=== PATIENT | male | born 1955 | race Caucasian/White ===

== ENCOUNTER → 2019-01-19 | Outpatient (CLI) | payer BC ==
--- NOTE | 2019-01-20 10:39 | US ---
LOWER EXTREMITY VENOUS INSUFFICIENCY CLINICAL HISTORY: E11.621 TYEP 2 DIABETIC MELLITUS W/FOOT ULCER. Nonhealing wound. Diabetic. SIDE PERFORMED: Bilateral 1) Color flow is present and patency is documented in the following vessels. No DVT or SVT is noted . EIV Common Femoral Vein Deep Femoral Vein Femoral Vein Popliteal Vein Proximal Calf Veins Greater Saph Vein Upper Small Saph Vein 2) There is venous reflux noted at the following venous levels: None IMPRESSION: 1. No deep venous thrombosis or venous reflux to the bilateral lower extremity veins.
--- NOTE | 2019-01-26 09:24 | P.ARTDOP ---
Arterial Doppler LOWER EXTREMITY ARTERIAL DOPPLER: DATE OF SERVICE: 01/19/2019 Reason for study: Diabetic ulcer right foot. Doppler waveforms: Multiphasic bilaterally throughout. Pulse volume recording: Normal configurations, right foot not done. Pressure gradients: None. Ankle-brachial indices: Nonoccluded bilaterally. Toe pressures: [] on the right, 131 on the left Impression: Normal study.
== END | disposition home or self-care (01) ==
LOC: RADUSWWP 12:35
PROVIDERS: ATTEND Thoracic Surgery (Cardiothoracic Vascular Surgery)
DX: E11.621 Type 2 diabetes mellitus with foot ulcer (principal)
CPT/HCPCS: 93923; 93970

== ENCOUNTER → 2019-02-01 | Day surgery (SDC) | payer BC ==
[2019-01-27 16:17] VITALS: BMI 22.2
[~2019-02-01] MED LIST: DEXAMETHASONE SOD PHOSPHATE 10 MG/ML 1 ML VIAL IV ONE; GLYCOPYRROLATE 0.2 MG/ML 2 ML VIAL ONE; HYDROcodone/APAP 5-325MG 1 EACH TAB PO ONE; HYDROmorphone 0.5 MG/0.5 ML SYRINGE IVP PRN; INSULIN ASPART (NovoLOG) 100 UNIT/ML VIAL SQ ONE; LACTATED RINGERS 1,000 ML IV SCH; LIDOCAINE 1% 20 ML VIAL (10MG/ML) FOR IV START INTRADERMA PRN; LIDOCAINE 1% INJ 10MG/ML (20 ML MDV) ONE; MIDAZOLAM 2 MG/2 ML VIAL IV PRN; MIDAZOLAM 2 MG/2 ML VIAL ONE; NEOSTIGMINE 1 MG/ML 10 ML VIAL ONE; ONDANSETRON 4 MG/2 ML VIAL IVP ONE; PHENYLEPHRINE-0.9% NACL SYG 1 MG/10 ML SYRINGE ONE; PROPOFOL 10 MG/ML 20 ML VIAL IV ONE; ROCURONIUM BROMIDE 10 MG/ML 10 ML VIAL IV ONE; SCOPOLAMINE 1.5MG/72HR PATCH TRANSDERM ONE; fentaNYL (PF) 50 MCG/ML 2 ML AMP ONE
[2019-02-01 07:26] LABS: Glucose,Whole Blood 273 mg/dL (75-99)
--- NOTE | 2019-02-01 07:34 | P.GSHP ---
History of Present Illness H&P Date: 02/01/19 Chief Complaint: Ulcer right great toe The patient has been treating an ulcer on the medial right great toe. He has developed involvement into the joint space. There is demonstrable osteomyelitis. - Constitutional Constitutional: Denies chills, Denies fever - EENT Eyes: denies blurred vision, denies pain Ears, nose, mouth and throat: Denies headache, Denies sore throat - Cardiovascular Cardiovascular: Denies chest pain, Denies shortness of breath - Respiratory Respiratory: Denies cough, Denies 7 - Gastrointestinal Gastrointestinal: Denies abdominal pain, Denies diarrhea, Denies nausea, Denies vomiting - Genitourinary (Female) Genitourinary: Denies dysuria, Denies hematuria - Genitourinary (Male) Genitourinary: Denies dysuria, Denies hematuria - Musculoskeletal Musculoskeletal: Denies myalgias - Integumentary Integumentary: Denies pruritus, Denies rash - Neurological Neurological: Denies numbness, Denies weakness - Psychiatric Psychiatric: Denies anxiety, Denies depression - Endocrine Endocrine: Denies fatigue, Denies weight change Past Medical History Past Medical History: CVA/TIA, Diabetes Mellitus, GERD/Reflux Additional Past Medical History / Comment(s): fx toe and wound rt foot, 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 has shobha scanner lt arm History of Any Multi-Drug Resistant Organisms: None Reported Past Surgical History: Orthopedic Surgery Additional Past Surgical History / Comment(s): lt knee arthroscopy, shoulder surgeries, boaz cataracts, penile implant Past Psychological History: No Psychological Hx Reported Smoking Status: Never smoker Past Alcohol Use History: Rare Past Drug Use History: None Reported - Past Family History Sister(s) Family Medical History: Pulmonary Embolus Medications and Allergies Home Medications Medication Instructions Recorded Confirmed Type Aspirin [Adult Low Dose Aspirin EC] 81 mg PO DAILY 01/27/19 01/27/19 History Calcium Carbonate/Vitamin D3 1 each PO DAILY 01/27/19 01/27/19 History [Caltrate 600 Plus D3 Tablet] Cetirizine HCl [Zyrtec] 10 mg PO DAILY 01/27/19 01/27/19 History Ciprofloxacin HCl [Cipro] 500 mg PO BID 01/27/19 01/27/19 History Clopidogrel [Plavix] 75 mg PO DAILY 01/27/19 01/27/19 History Esomeprazole Magnesium [NexIUM] 20 mg PO DAILY 01/27/19 01/27/19 History Insulin Aspart [NovoLOG] 0 units SQ ACHS PRN 01/27/19 01/27/19 History Insulin Glargine,Hum.rec.anlog 25 unit SQ AC-[id number] 01/27/19 01/27/19 History [Basaglar Kwikpen U-100] Vitamin B Complex 1 each PO DAILY 01/27/19 01/27/19 History Allergies Allergy/AdvReac Type Severity Reaction Status Date / Time No Known Allergies Allergy Verified 02/01/19 06:55 Surgical - Exam Osteopathic Statement: *. No significant issues noted on an osteopathic structural exam other than those noted in the History and Physical/Consult. Vital Signs Temp Pulse Resp BP Pulse Ox 98.4 F 92 16 140/87 100 02/01/19 07:06 02/01/19 07:06 02/01/19 07:06 02/01/19 07:06 02/01/19 07:06 - General well developed, well nourished, no distress - Eyes normal ocular movement, no icteric - ENT no hearing loss, no congestion - Neck no masses, trachea midline - Respiratory normal respiratory effort, clear to auscultation - Abdomen Abdomen: soft, non tender, no guarding, no rigid, no rebound - Integumentary no rash, no abnormal pigmentation - Neurologic no disoriented, no combative - Musculoskeletal Open ulcer medial right great toe with bone exposed - Psychiatric oriented to time, oriented to person, oriented to place, speech is normal, memory intact Results - Labs Abnormal Lab Results - Last 24 Hours (Table) 02/01/19 Range/Units 07:08 POC Glucose (mg/dL) 273 H (75-99) mg/dL Assessment and Plan (1) Ulcer of right foot with necrosis of bone Current Visit: Yes Status: Acute Code(s): L97.514 - NON-PRS CHRONIC ULCER OTH PRT RIGHT FOOT W NECROSIS OF BONE SNOMED Code(s): 70616134 Plan: The patient is admitted for debridement with possible formal distal amputation of the right great toe. He verbalizes an understanding of the procedure and its risks and in agreement to proceed.
--- NOTE | 2019-02-01 08:10 | P.OP ---
Date of Procedure: 02/01/19 Preoperative Diagnosis: Osteomyelitis right great toe Postoperative Diagnosis: Same Procedure(s) Performed: Debridement of right great toe including bone with primary closure Anesthesia: KALYAN Surgeon: David Lamb Estimated Blood Loss (ml): 30 Pathology: other (Bone for culture) Condition: stable Disposition: PACU Indications for Procedure: The patient had a pressure ulcer on the medial right great toe with internal fractures and osteomyelitis. Operative Findings: On exploration there were multiple fragments of bone with soft bone suspicious for osteomyelitis. The surrounding tissues had good blood supply. Proximal and distal bone looked healthy. Description of Procedure: With the patient spine position, under benefit of general anesthesia, we prepped and draped in standard fashion. We excised the exterior ulcer. We then using sharp dissection and a bone rongeur removed all the nonviable soft tissue. We then removed all the fragments of the bone leaving proximal and distal phalanx and solid and intact. They were left above the soft tissue line. We removed all nonviable soft tissue. Left with clean healthy tissues circumferentially we irrigated with saline. We closed the wound with nylon. Sterile dressings were applied. The patient tolerated the procedure well and was taken recovery area in stable condition.
[2019-02-01 08:19] VITALS: TEMP 97.4
[2019-02-01 08:29] LABS: Glucose,Whole Blood 247 mg/dL (75-99)
[2019-02-01 08:34] VITALS: RESP 16
[2019-02-01 09:32] VITALS: BP 139/86; PULSE 86
--- NOTE | 2019-02-08 03:07 | CDI ---
. Outpatient Documentation Clarification Form Date: 02/08/2019 CDS/Insulation And Flooring Assembler Name: Phone: If you have question, contact Yenifer Martinez Cold Mill Operator at [phone] M-F 8:30 am to 6pm. Patient Name: Onofre Stokes Admit Date: 02/01/2019 Discharge Date: 02/01/2019 ATTENTION: The Clinical Documentation Specialists (CDI) and [facility] Coding Staff appreciate your assistance in clarifying documentation. Please respond to the clarification below the line at the bottom and electronically sign. The CDI & [facility] Coding staff will review the response and follow-up if needed. Please note: Queries are made part of the Legal Health Record. If you have any questions, please contact the author of this message via ITS or call the Cold [employer] Operator. Dear Adonis Lucero, As per your Operative note documentation Debridement of right great toe including bone with primary closure was performed. Please clarify the surface area of the debridement performed to select the appropriate CPT based on the debrided areas square cm. Thank you for your kind consideration The external dimension was 2 x 2 centimeters. The depth was about 1.7 cm. The debridement included a large portions of the proximal first phalanx. MTDD
== END | disposition home or self-care (01) ==
LOC: OR 06:44
PROVIDERS: ATTEND Thoracic Surgery (Cardiothoracic Vascular Surgery)
DX: E10.69 Type 1 diabetes mellitus with other specified complication (principal); M86.9 Osteomyelitis, unspecified; E10.621 Type 1 diabetes mellitus with foot ulcer; L89.893 Pressure ulcer of other site, stage 3; S92.401D Displaced unspecified fracture of right great toe, subsequent encounter for fracture with routine healing; X58.XXXD Exposure to other specified factors, subsequent encounter; K21.9 Gastro-esophageal reflux disease without esophagitis; I69.354 Hemiplegia and hemiparesis following cerebral infarction affecting left non-dominant side; E10.40 Type 1 diabetes mellitus with diabetic neuropathy, unspecified; Z98.41 Cataract extraction status, right eye; Z98.42 Cataract extraction status, left eye; Z79.02 Long term (current) use of antithrombotics/antiplatelets; Z79.4 Long term (current) use of insulin; Z79.82 Long term (current) use of aspirin; Z79.899 Other long term (current) drug therapy; Z98.890 Other specified postprocedural states; Z82.49 Family history of ischemic heart disease and other diseases of the circulatory system; Z80.9 Family history of malignant neoplasm, unspecified
CPT/HCPCS: 87070; 87205; 87075; 87077; 87186; 11044; J2250; J2710; J0690; J2405; J2001; J3010; J2370; J2704

== ENCOUNTER → 2019-02-23 | Outpatient (CLI) | payer BC ==
[2019-02-23 09:07] VITALS: BMI 22.2
== END | disposition home or self-care (01) ==
LOC: DBWHC3 07:43
PROVIDERS: ATTEND Thoracic Surgery (Cardiothoracic Vascular Surgery)
DX: E10.65 Type 1 diabetes mellitus with hyperglycemia (principal)
CPT/HCPCS: 97802

== ENCOUNTER → 2019-04-08 | Outpatient (CLI) | payer MEDICARE, BC ==
--- NOTE | 2019-04-08 10:41 | MR ---
EXAMINATION TYPE: MR foot RT wo/w con DATE OF EXAM: 04/08/2019 COMPARISON: X-ray 01/12/2019 HISTORY: Osteomylitis rt foot CONTRAST: Standard multiplanar, multisequence MRI departmental protocol utilizing 7.5 mL intravenous Gadavist g adolinium contrast. FINDINGS: The Achilles tendon is intact. There is a healing fracture of the proximal phalanx of the first digit with diffuse abnormal signal n oted involving the distal phalanx and proximal phalanx. Adjacent soft tissue edema. Arthropathy of th e MTP. Abnormal signal involving the head of the second metatarsal also suspicious for osteomyelitis. There also appears to be localized bone marrow edema involving the lateral cuneiform bone. Abnormal m arrow edema also seen within the adjacent metatarsal. No definite fracture line. Plantar aponeurosis has a normal appearance. Subtalar joint normal. Visualized tendinous and ligament ous structures appear intact. There is skin thickening overlying the base of the plantar surface adjacent head of the fifth metatar yusuf. Soft tissue edema noted IMPRESSION: 1. Marrow edema involving the distal phalanx and proximal phalanx first digit with findings suggestiv e of a healing fracture. There is enhancement. Superimposed osteomyelitis in the differential diagnos is. 2. There is diffuse marrow edema involving the lateral most cuneiform bone as well as the adjacent ba se of the metatarsal. This could been the basis of bone marrow edema or contusion. No definite fractu re line. There is enhancement. Differential diagnosis includes osteomyelitis as well as stress fractu re. Correlate clinically. 3. There is thickening and increased soft tissue signal adjacent to the fifth metatarsal with abnorma l signal involving the head of the fifth metatarsal suspicious for osteomyelitis.
== END | disposition home or self-care (01) ==
LOC: RADMRIMAIN 08:08
PROVIDERS: ATTEND Internal Medicine Infectious Disease
DX: M79.89 Other specified soft tissue disorders (principal); M86.8X6 Other osteomyelitis, lower leg
CPT/HCPCS: 73720; A9585

== ENCOUNTER → 2020-01-04 | Outpatient (CLI) | payer MEDICARE, BC ==
[~2020-01-04] MED LIST changes: +DENOSUMAB 60 MG/ML 1 ML SYRINGE SQ NR; -DEXAMETHASONE SOD PHOSPHATE 10 MG/ML 1 ML VIAL IV ONE; -GLYCOPYRROLATE 0.2 MG/ML 2 ML VIAL ONE; -HYDROcodone/APAP 5-325MG 1 EACH TAB PO ONE; -HYDROmorphone 0.5 MG/0.5 ML SYRINGE IVP PRN; -INSULIN ASPART (NovoLOG) 100 UNIT/ML VIAL SQ ONE; -LACTATED RINGERS 1,000 ML IV SCH; -LIDOCAINE 1% 20 ML VIAL (10MG/ML) FOR IV START INTRADERMA PRN; -LIDOCAINE 1% INJ 10MG/ML (20 ML MDV) ONE; -MIDAZOLAM 2 MG/2 ML VIAL IV PRN; -MIDAZOLAM 2 MG/2 ML VIAL ONE; -NEOSTIGMINE 1 MG/ML 10 ML VIAL ONE; -ONDANSETRON 4 MG/2 ML VIAL IVP ONE; -PHENYLEPHRINE-0.9% NACL SYG 1 MG/10 ML SYRINGE ONE; -PROPOFOL 10 MG/ML 20 ML VIAL IV ONE; -ROCURONIUM BROMIDE 10 MG/ML 10 ML VIAL IV ONE; -SCOPOLAMINE 1.5MG/72HR PATCH TRANSDERM ONE; -fentaNYL (PF) 50 MCG/ML 2 ML AMP ONE
[2020-01-04 08:27] VITALS: BP 166/89; PULSE 86; RESP 16; TEMP 98
== END | disposition home or self-care (01) ==
LOC: PROCWHC3 07:47
PROVIDERS: ATTEND Family Medicine
DX: M81.0 Age-related osteoporosis without current pathological fracture (principal)
CPT/HCPCS: 96372; J0897

== ENCOUNTER → 2020-03-21 | Outpatient (CLI) | payer MEDICARE, BC ==
--- NOTE | 2020-04-11 11:44 | MR ---
EXAMINATION TYPE: MR brain/cspine wo/w DATE OF EXAM: 03/21/2020 COMPARISON: Outside CT head and CTA head and neck May 09, 2018. Outside MRI head May 10. HISTORY: Stroke and cervical radiculopathy per order. Numbness and Dizziness, rt hand numbness, histo ry of cervical neck fusion with left-sided weakness and numbness per patient, history of stroke 2018 TECHNIQUE: Multiplanar, multisequence images of the brain and brainstem and cervical spine are all performed wit hout and with IV contrast, utilizing 7 mL intravenous Gadavist . FINDINGS: Brain: Diffusion weighted images demonstrate no evidence of a recent infarct or other diffusion abnormality. There is no worrisome new extra-axial fluid collection. Mild to moderate diffuse ventricular and sul flash prominence redemonstrated. Scattered foci of T2 hyperintensity are seen throughout the superficia l deep and periventricular white matter bilaterally. Pontine involvement redemonstrated. The area OF acute lacunar infarct right johnston radiata exterior right frontal region on prior study shows smaller residual old infarct on current study axial image 21. Midline structures demonstrate normal morphology. The craniocervical junction appears within normal limits. Post contrast images demonstrate no abnormal enhancement. The dural venous sinuses appear pa tent. Distortion of level of globes bilaterally are current study. Visualized sinuses grossly clear. IMPRESSION: [id number] diffuse cerebral atrophy and moderate to advanced chronic small vessel i schemic change redemonstrated. No significant change or interval progression from outside MRI. C-SPINE: FINDINGS: Sagittal images of the cervical spine show the craniocervical junction to remain within nor mal limits. The cervical and upper thoracic spinal cord shows mild AP diameter narrowing at C4-C5 le caleb without abnormal signal. Artifact from anterior fusion plate C5-T1 level is present stable alignm ent with slight grade 1 retrolisthesis C5 on C6, C6 on C7, and C7 on T1. The bone marrow signal inte nsity is within normal limits. No suspicious enhancement. Axial images show C2-C3 and C3-C4 levels to remain within normal limits. Axial images at C4-C5 level broad-based central disc protrusion effacing the anterior thecal sac up t o the ventral surface of spinal cord on axial image 31, patent bilateral neural foramina. Disc hernia tion 12 mm transversely by 4 mm AP diameter. Similar disc herniation seen on prior CTA neck axial leona ge 57. Axial images at C5-C6 show artifact from fusion hardware, left paracentral bony projection effaces an terolateral thecal sac, spondylolisthesis. The bilateral neural foramina. Axial images at C6-C7 level show artifact from fusion hardware. There is marginal bony projection cau sing mild to moderate bilateral neural foraminal narrowing on axial image 16. Axial images at C7-T1 levels artifact from surgical hardware, patent bilateral neural foramina. Spina l canal preserved. IMPRESSION: Multilevel degenerative change C5-T1 level redemonstrated. Stable alignment noted. Stable prominent disc herniation C4-C5 level. No suspicious enhancement.
== END | disposition home or self-care (01) ==
LOC: RADMRIMAIN 09:11
PROVIDERS: ATTEND Psychiatry & Neurology Neurology
DX: I67.82 Cerebral ischemia (principal); G31.9 Degenerative disease of nervous system, unspecified; M50.121 Cervical disc disorder at C4-C5 level with radiculopathy; M47.23 Other spondylosis with radiculopathy, cervicothoracic region; G45.2 Multiple and bilateral precerebral artery syndromes
CPT/HCPCS: 70553; 72156; A9585

== ENCOUNTER 2020-04-11 07:46 | Day surgery (SDC) | payer MEDICARE, BC ==
[2020-04-09 13:05] VITALS: BMI 22.9
[~2020-04-11 07:46] MED LIST changes: -DENOSUMAB 60 MG/ML 1 ML SYRINGE SQ NR; +LACTATED RINGERS 1,000 ML IV SCH
[2020-04-11 08:11] VITALS: TEMP 98.3
[2020-04-11] MEDS ORDERED: LIDOCAINE 1% (10MG/ML) FOR IV START INTRADERMA ONE (08:21)
[2020-04-11 08:23] LABS: Glucose,Whole Blood 239 mg/dL (75-99)
[2020-04-11] MEDS ORDERED: PROPOFOL 10 MG/ML 20 ML VIAL IV ONE (08:40)
[2020-04-11] MEDS ORDERED: IV FLUID CONTINUATION 1,000 ML IV ONE (09:06)
--- NOTE | 2020-04-11 09:21 | P.PCN ---
Date of Procedure: 04/11/20 Procedure(s) Performed: BRIEF HISTORY: Patient is a 65-year-old pleasant male scheduled for an elective colonoscopy as a part of evaluation of positive cologuard. No history of colonoscopy PROCEDURE PERFORMED: Colonoscopy snare polypectomy. PREOPERATIVE DIAGNOSIS: Positive cologuard. IV sedation per Anesthesia. PROCEDURE: After informed consent was obtained, the patient, was brought into the endoscopy unit. IV sedation was administered by Anesthesia under continuous monitoring. Digital rectal examination was normal. Initially the Olympus CF-160 flexible video colonoscope was then inserted in the rectum, gradually advanced into the cecum without any difficulty. Careful examination was performed as the scope was gradually being withdrawn. Ileocecal valve and the appendiceal orifice were visualized and appeared normal. Prep was poo 78 of the colon. In the base of the cecum there was large amount of thick stool that could not be irrigated and cleaned despite multiple attempts . Mucosa of the ascending colon, appeared normal. Hematologic transverse colon there was a 5 mm polyp removed by snare polypectomy. In the descending colon were 2 polyps measuring 1 cm and 2 cm broad-based removed by snare polypectomy. There was a 1 cm pedunculated sigmoid: Polyp removed by snare polypectomy. Rest of the transverse colon, descending colon, sigmoid colon, and rectum appeared normal. Retroflexion was performed in the rectum and no lesions were seen. The patient tolerated the procedure well. IMPRESSION: 1 cm and 2 cm descending colon polyp status post polypectomy 5 mm sessile transverse colon polyp status post polypectomy 1 cm; sigmoid polyp status post polypectomy Poor prep throughout the colon RECOMMENDATIONS: Findings of this examination were discussed with the patient as well as his family. He was advised to follow with the biopsy results. He can have a repeat surveillance colonoscopy in 3 years.
[2020-04-11 09:42] VITALS: BP 164/99; PULSE 86; RESP 16
== END 2020-04-11 10:13 | disposition home or self-care (01) ==
LOC: ORWHC2ENDO 07:46
PROVIDERS: ATTEND Internal Medicine Gastroenterology
DX: D12.4 Benign neoplasm of descending colon (principal); D12.3 Benign neoplasm of transverse colon; K63.5 Polyp of colon; E11.9 Type 2 diabetes mellitus without complications; I10 Essential (primary) hypertension; K21.9 Gastro-esophageal reflux disease without esophagitis; Z86.73 Personal history of transient ischemic attack (TIA), and cerebral infarction without residual deficits; Z79.4 Long term (current) use of insulin; Z98.890 Other specified postprocedural states
CPT/HCPCS: 88305; 45385; J2704

== ENCOUNTER → 2020-07-17 | Outpatient (CLI) | payer MEDICARE, BC ==
[~2020-07-17] MED LIST changes: +DENOSUMAB 60 MG/ML 1 ML SYRINGE SQ NR; -LACTATED RINGERS 1,000 ML IV SCH
[2020-07-17 10:10] VITALS: BP 156/81; PULSE 91; RESP 16; TEMP 98.1
== END | disposition home or self-care (01) ==
LOC: PROCWHC3 09:54
PROVIDERS: ATTEND Family Medicine
DX: M81.0 Age-related osteoporosis without current pathological fracture (principal)
CPT/HCPCS: 96372

== ENCOUNTER → 2020-09-19 | Outpatient (CLI) | payer MEDICARE, BC ==
[2020-09-19 10:57] LABS: Appearance,Urine Clear (Clear); Bilirubin,Urine Negative (Negative); Blood,Urine Negative (Negative); Color,Urine Yellow; Glucose,Urine (UA) 4+ (Negative); Ketones,Urine Negative (Negative); Leukocyte Esterase,Urine Negative (Negative); Nitrite,Urine Negative (Negative); Protein,Urine Negative (Negative); Specific Gravity,Urine 1.011 (1.001-1.035); Urobilinogen,Urine <2.0 mg/dL (<2.0)
[2020-09-19 11:01] LABS: Basophils % (A) 0 %; Eosinophils % (A) 0 %; HCT 42.9 % (39.0-53.0); HGB 14.4 gm/dL (13.0-17.5); Lymphocytes # (A) 0.8 k/uL (1.0-4.8); Lymphocytes % (A) 14 %; MCHC 33.6 g/dL (31.0-37.0); MCV 92.3 fL (80.0-100.0); Mean Platelet Volume 7.1; Monocytes # (A) 0.3 k/uL (0-1.0); Monocytes % (A) 5 %; Neutrophils # (A) 4.5 k/uL (1.3-7.7); Neutrophils % (A) 80 %; Platelet Count 253 k/uL (150-450); RBC 4.65 m/uL (4.30-5.90); RDW 12.9 % (11.5-15.5); WBC 5.6 k/uL (3.8-10.6)
[2020-09-19 11:20] LABS: African American GFR (CKD) >90 (>60 ml/min/1.73 sqM); Anion Gap 7 mmol/L; Blood Urea Nitrogen 24 mg/dL (9-20); Calcium 9.2 mg/dL (8.4-10.2); Carbon Dioxide 28 mmol/L (22-30); Chloride 98 mmol/L (98-107); Glucose 334 mg/dL (74-99); Non-African American GFR(CKD) 90 (>60 ml/min/1.73 sqM); Potassium 4.7 mmol/L (3.5-5.1); Sodium 133 mmol/L (137-145)
== END | disposition home or self-care (01) ==
LOC: LABPAT 10:02
PROVIDERS: ATTEND Urology
DX: Z01.812 Encounter for preprocedural laboratory examination (principal); E11.9 Type 2 diabetes mellitus without complications; N39.0 Urinary tract infection, site not specified; T83.410A Breakdown (mechanical) of implanted penile prosthesis, initial encounter; Y82.8 Other medical devices associated with adverse incidents
CPT/HCPCS: 80048; 81003; 85025; 87086

== ENCOUNTER 2020-09-26 06:16 | Day surgery (SDC) | payer MEDICARE, BC ==
[2020-09-24 09:20] VITALS: BMI 22.9
--- NOTE | 2020-09-25 20:03 | P.GSHP ---
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 He has since moved to [facility]. In the last couple of months the implant has malfunctioned. He comes for replacement of the IPP. the riks have been discussed. - Constitutional Constitutional: Denies chills, Denies fever - EENT Eyes: denies blurred vision, denies pain Ears, nose, mouth and throat: Denies headache, Denies sore throat - Cardiovascular Cardiovascular: Denies chest pain, Denies shortness of breath - Respiratory Respiratory: Denies cough, Denies 7 - Gastrointestinal Gastrointestinal: Denies abdominal pain, Denies diarrhea, Denies nausea, Denies vomiting - Genitourinary (Female) Genitourinary: Denies dysuria, Denies hematuria - Genitourinary (Male) Genitourinary: Denies dysuria, Denies hematuria - Musculoskeletal Musculoskeletal: Denies myalgias - Integumentary Integumentary: Denies pruritus, Denies rash - Neurological Neurological: Denies numbness, Denies weakness - Psychiatric Psychiatric: Denies anxiety, Denies depression - Endocrine Endocrine: Denies fatigue, Denies weight change Past Medical History Past Medical History: CVA/TIA, Diabetes Mellitus, GERD/Reflux Additional Past Medical History / Comment(s): Hx CVA & TIA 2019- left arm weakness., Osteoporosis, penile implant. History of Any Multi-Drug Resistant Organisms: None Reported Past Surgical History: Orthopedic Surgery Additional Past Surgical History / Comment(s): Right foot surgery. Cervical fusion with metal plate (2019). Left knee surgery (2019). Penile Implant ([facility]) Past Anesthesia/Blood Transfusion Reactions: No Reported Reaction Past Psychological History: No Psychological Hx Reported Smoking Status: Never smoker Past Alcohol Use History: Rare Past Drug Use History: None Reported - Past Family History Sister(s) Family Medical History: Pulmonary Embolus Father Family Medical History: Deep Vein Thrombosis (DVT) Medications and Allergies Home Medications Medication Instructions Recorded Confirmed Type Cetirizine HCl [Zyrtec] 10 mg PO DAILY 01/27/19 09/24/20 History Esomeprazole Magnesium [NexIUM] 20 mg PO DAILY 01/27/19 09/24/20 History Insulin Aspart [NovoLOG] 0.7 units SQ DIRECTED PRN 01/27/19 09/24/20 History Multivitamins, Thera [Multivitamin 1 tab PO DAILY 04/09/20 09/24/20 History (formulary)] Ascorbic Acid [Vitamin C] 500 mg PO DAILY 09/24/20 09/24/20 History Folic Acid 1 mg PO DAILY 09/24/20 09/24/20 History Allergies Allergy/AdvReac Type Severity Reaction Status Date / Time No Known Allergies Allergy Verified 09/24/20 08:54 Surgical - Exam - General well developed - Eyes PERRL - ENT no hearing loss - Neck no masses, trachea midline - Respiratory normal expansion, normal respiratory effort - Cardiovascular Rhythm: regular - Abdomen Abdomen: soft, non tender - Genitourinary IPP that wont inflate - Integumentary no rash, no growths - Neurologic normal coordination, normal sensation - Musculoskeletal normal gait, normal posture - Psychiatric oriented to time, oriented to person, oriented to place, speech is normal, memory intact Assessment and Plan Assessment: Impression: Malfunction IPP, DM, CVA HTN Plan: Replacement of an IPP
[~2020-09-26 06:16] MED LIST changes: +AMPICILLIN 1,000 MG in SODIUM CHLORIDE 0.9% 50 ML IVPB PRN; -DENOSUMAB 60 MG/ML 1 ML SYRINGE SQ NR; +GENTAMICIN 120 MG in SODIUM CHLORIDE 0.9% 100 ML IVPB PRN; +LIDOCAINE 1% (10MG/ML) FOR IV START INTRADERMA PRN; +MIDAZOLAM 2 MG/2 ML VIAL IV PRN; +ONDANSETRON 4 MG/2 ML VIAL IVP ONE
[2020-09-26] MEDS: LACTATED RINGERS 1,000 ML IV SCH (07:10)
[2020-09-26] MEDS: DEXAMETHASONE SOD PHOSPHATE 4 MG/ML 1 ML VIAL IV ONE ×2 (07:19→16:22)
[2020-09-26] MEDS ORDERED: LIDOCAINE 1% INJ 10MG/ML (20 ML MDV) ONE (07:20)
[2020-09-26] MEDS ORDERED: PROPOFOL 10 MG/ML 20 ML VIAL IV ONE (07:20)
[2020-09-26] MEDS ORDERED: fentaNYL (PF) 50 MCG/ML 2 ML AMP ONE (07:20)
[2020-09-26] MEDS ORDERED: SUCCINYLCHOLINE CHLORIDE 100 MG/5 ML SYR IV ONE (07:20)
[2020-09-26] MEDS ORDERED: MIDAZOLAM 2 MG/2 ML VIAL ONE (07:20)
[2020-09-26] MEDS ORDERED: HYDROmorphone (PF) 1 MG/ML ONE (07:20)
[2020-09-26] MEDS ORDERED: PHENYLEPHRINE-0.9% NACL SYG 1,000 MCG/10 ML SYRINGE ONE (07:20)
[2020-09-26 07:25] LABS: Glucose,Whole Blood 243 mg/dL (75-99)
[2020-09-26] MEDS ORDERED: GENTAMICIN 80 MG in SODIUM CHLORIDE 0.9% 200 ML IRRIGATION ONE (07:47)
[2020-09-26 09:34] LABS: Glucose,Whole Blood 210 mg/dL (75-99)
--- NOTE | 2020-09-26 09:42 | P.OP ---
Date of Procedure: 09/26/20 Preoperative Diagnosis: Malfunctioning penile implant, impotence secondary to diabetes mellitus Postoperative Diagnosis: Same Procedure(s) Performed: Replacement of penile implant, AMS series CX 700, 15 cm cylinder with 3 cm rear- tip quality assurance practice manager, 65 mL reservoir Anesthesia: KALYAN Surgeon: Bandar Fan Estimated Blood Loss (ml): 50 Pathology: none sent Condition: stable Disposition: PACU Indications for Procedure: The patient is 65. He is impotence secondary to diabetes mellitus. He had implant placed in 2008 in [place]. It is now malfunctioning. He apparently also had an implant 1998. According to his that a significant problem with a secondary implant. He comes for replacement. Description of Procedure: The patient is brought to the operating suite. He is given a general anesthesia. He is prepped and draped sterilely. He had a previous Pfannenstiel incision. I a use the same incision and excised the scar. There is a tremendous amount of scar tissue subcutaneously that I free up. I dissect tediously through dense scar tissue to identify the tubing to both the cylinders the reservoir and the pump blood. I slowly dissect the reservoir out of its compartment. The reservoir is deflated. The reservoir cavity scarred. Or the reservoir compartment is large enough to accept a new 65 mL implant. It takes me 3 tries to feel the reservoir and placed in the cavity without causing bulging in the anterior abdominal wall or compression of the reservoir such that the 65 mL is easily placed up. Multiple the reservoir in the compartment I closed the reservoir compartment with 0 PDS I then dissect down on each cylinder to the corpora. Corporotomies were made and the cylinders are removed. I then removed the pump from the scrotum. I then measured the length of the corpora at 6 cm proximal to 11 cm distal. We'll use a 15 C centimeter implant with a 2 cm rear-tip quality assurance practice manager. Once the cylinders are prepared I then used the Cristofer needle and pass it through the corpora distally bilaterally and passed the implant using the Cristofer needle into each corpora. Both proximal and seat nicely in the proximal corpora. I inflate both and they inflate without buckling. I closed the corporotomies with 3-0 PDS. This is very difficult as the tissues very scarred but I'm able to do so bilaterally. Pump into the scrotum. I connected the reservoir to the pump with straight connects. I then pump the implant and the pumps without difficulty. I then closed the rectus fascia with 0 PDS. I then closed the subcutaneous tissue with 3-0 chromic. The skin is then closed and glued. A catheters passed in the bladder to make sure passes easily and that there is no injury. There is none. The patient is awake and returned recovery room good condition. Blood loss is approximately 50 mL. He tolerated procedure well be discharged home upon recovery and found the office in one week.
[2020-09-26] MEDS: HYDROmorphone 0.5 MG/0.5 ML SYRINGE IVP PRN ×2 (09:54→10:05)
[2020-09-26] MEDS: hydrALAZINE HCL 20 MG/ML 1 ML VIAL IV ONE ×2 (10:42→10:52)
[2020-09-26] MEDS ORDERED: HYDROcodone/APAP 5-325MG 1 EACH TAB PO ONE (11:14)
[2020-09-26] MEDS ORDERED: HYDROcodone/APAP 5-325MG 1 EACH TAB ONE (11:14)
[2020-09-26] MEDS ORDERED: ONDANSETRON 4 MG/2 ML VIAL ONE (12:16)
[2020-09-26] MEDS ORDERED: NON FORMULARY DRUG (Insulin Aspart [Novolog] 100 UNIT/ML Cartridge) SQ PRN (14:27)
[2020-09-26] MEDS ORDERED: INSULIN ASPART (NovoLOG) 100 UNIT/ML VIAL SQ PRN (14:28)
[2020-09-26] MEDS ORDERED: INSULIN PUMP BASAL RATES 1 EACH MISC MISCELLANE PRN (14:28)
[2020-09-26] MEDS ORDERED: INSPUCOR MISCELLANE PRN (14:28)
[2020-09-26] MEDS ORDERED: ONDANSETRON 4 MG/2 ML VIAL IVP PRN (14:35)
[2020-09-26 16:19] LABS: Glucose,Whole Blood 257 mg/dL (75-99)
[2020-09-26] MEDS ORDERED: HYDROcodone/APAP 5-325MG 1 EACH TAB PO PRN (16:32)
[2020-09-26] MEDS: SODIUM CHLORIDE 0.9% 1,000 ML IV SCH (17:35)
[2020-09-26 20:45] LABS: Glucose,Whole Blood 231 mg/dL (75-99)
[2020-09-27 02:53] VITALS: BP 127/76; PULSE 102; RESP 18; TEMP 98.9
[2020-09-27 02:57] LABS: Glucose,Whole Blood 157 mg/dL (75-99)
[2020-09-27] MEDS: SODIUM CHLORIDE 0.9% 1,000 ML IV SCH (06:38)
--- NOTE | 2020-09-27 06:49 | P.DS ---
Providers Attending physician: Bandar Driscoll Primary care physician: [facility] Course: The patient underwent replacement of an inflatable penile prosthesis yesterday. Postoperatively he had problems with nausea and voiding. He was kept in the hospital overnight. He is now voiding. His nausea is gone. He'll be discharged home. Regular diet limited activity. His been given a prescription of Harrison yesterday. I'll give him some Zofran for possible nausea. He'll follow-up in the office in one week his condition is good. Patient Condition at Discharge: Good Plan - Discharge Summary Discharge Rx Participant: Yes New Discharge Prescriptions: New HYDROcodone/APAP 5-325MG [Harrison 5-325] 1 tab PO Q4HR PRN 3 Days #14 tab PRN Reason: Pain No Action Insulin Aspart [NovoLOG] 0.7 units SQ DIRECTED PRN PRN Reason: AC MEALS AND SNACKS Cetirizine HCl [Zyrtec] 10 mg PO DAILY Esomeprazole Magnesium [NexIUM] 20 mg PO DAILY Multivitamins, Thera [Multivitamin (formulary)] 1 tab PO DAILY Folic Acid 1 mg PO DAILY Ascorbic Acid [Vitamin C] 500 mg PO DAILY Discharge Medication List Cetirizine HCl [Zyrtec] 10 mg PO DAILY 01/27/19 [History] Esomeprazole Magnesium [NexIUM] 20 mg PO DAILY 01/27/19 [History] Insulin Aspart [NovoLOG] 0.7 units SQ DIRECTED PRN 01/27/19 [History] Multivitamins, Thera [Multivitamin (formulary)] 1 tab PO DAILY 04/09/20 [History] Ascorbic Acid [Vitamin C] 500 mg PO DAILY 09/24/20 [History] Folic Acid 1 mg PO DAILY 09/24/20 [History] HYDROcodone/APAP 5-325MG [Harrison 5-325] 1 tab PO Q4HR PRN 3 Days #14 tab 09/26/20 [Rx] Follow up Appointment(s)/Referral(s): Bandar Driscoll MD [STAFF PHYSICIAN] - 10/05/20 11:00 am Patient Instructions/Handouts: *Surgery [facility] - (Anesthesia) Discharge Instructions Outpatient Surgery, Penile Prosthesis Implantation (DC) Activity/Diet/Wound Care/Special Instructions: OK TO SHOWER IN 48 HOURS. WEAR SCROTAL SUPPORT FOR THE NEXT 48 HOURS. LEAVE SURGICAL GLUE ALONE, WATCH INCISION FOR ANY SIGNS OF REDNESS, DRAINAGE OR SWELLING. CALL DR DRISCOLL WITH ANY QUESTIONS OR CONCERNS. Discharge Disposition: HOME SELF-CARE
[2020-09-27] MEDS: LACTATED RINGERS 1,000 ML IV SCH (06:58)
[2020-09-27 07:05] LABS: Glucose,Whole Blood 181 mg/dL (75-99)
[2020-09-27] MEDS ORDERED: PANTOPRAZOLE 40 MG TABLET PO SCH (07:30)
[2020-09-27] MEDS ORDERED: FOLIC ACID 1 MG TAB PO SCH (09:00)
[2020-09-27] MEDS ORDERED: LORATADINE 10 MG TAB PO SCH (09:00)
[2020-09-27] MEDS ORDERED: MULTIVITAMINS, THERA 1 EACH TAB PO SCH (09:00)
[2020-09-27] MEDS ORDERED: ASCORBIC ACID 500 MG TAB PO SCH (09:00)
== END 2020-09-27 08:12 | disposition home or self-care (01) ==
LOC: OR 06:16 → 4SSUR 09:34 → OR 09-27 08:12
PROVIDERS: ATTEND Urology
DX: T83.490A Other mechanical complication of implanted penile prosthesis, initial encounter (principal); E11.9 Type 2 diabetes mellitus without complications; K21.9 Gastro-esophageal reflux disease without esophagitis; I69.354 Hemiplegia and hemiparesis following cerebral infarction affecting left non-dominant side; M81.0 Age-related osteoporosis without current pathological fracture; Z98.1 Arthrodesis status; Z98.890 Other specified postprocedural states; Z82.49 Family history of ischemic heart disease and other diseases of the circulatory system; Z79.4 Long term (current) use of insulin; Z79.899 Other long term (current) drug therapy
CPT/HCPCS: 87635; 54410; C1813; J2250; J0360; J1580 ×2; J2405; J2001; J3010; J0290; J1170 ×2; J2370; J0330; J2704

== ENCOUNTER → 2020-12-25 | Outpatient (CLI) | payer MEDICARE, BC ==
--- NOTE | 2020-12-25 13:46 | US ---
EXAMINATION TYPE: US venous doppler duplex LE RT DATE OF EXAM: 12/25/2020 12:50 PM COMPARISON: 01/19/2019 CLINICAL HISTORY: 65-year-old male R22.41 Swelling lower right leg. Redness and swelling to right leg SIDE PERFORMED: Right TECHNIQUE: The lower extremity deep venous system is examined utilizing real time linear array sonog cony with graded compression, doppler sonography and color-flow sonography. FINDINGS: VESSELS IMAGED: Common Femoral Vein Deep Femoral Vein Greater Saphenous Vein * Femoral Vein Popliteal Vein Small Saphenous Vein * Proximal Calf Veins (* superficial vessels) Right Leg: Negative for DVT IMPRESSION: No evidence for DVT within the right lower extremity imaged from the groin to the upper calf.
== END | disposition home or self-care (01) ==
LOC: RADUSWWP 12:24
PROVIDERS: ATTEND Family Medicine
DX: R22.41 Localized swelling, mass and lump, right lower limb (principal)

== ENCOUNTER 2020-12-28 16:02 | Inpatient (IN) | payer MEDICARE, BC ==
--- NOTE | 2020-12-28 16:25 | ED ---
General Adult HPI - General Chief complaint: Skin/Abscess/Foreign Body Stated complaint: foot infection Time Seen by Provider: 12/28/20 16:10 Source: patient, RN notes reviewed Mode of arrival: ambulatory Limitations: no limitations - History of Present Illness Initial comments: Patient is a pleasant [age]-year-old male presenting to the emergency depa rtment with concerns for right foot infection. Onset of symptoms was for 5 days ago. Patient has been on antibiotics, clindamycin and Levaquin. Patient has also had 3 and medic injections in the office to primary care physician. Patient does have history of type 1 diabetes. Patient also has history of previous toe infection following injury around 1 or 2 years ago. Patient does have some discomfort of the right foot. Patient did have ultrasound done just a day or 2 ago negative for DVT. - Related Data Home Medications Medication Instructions Recorded Confirmed Cetirizine HCl [Zyrtec] 10 mg PO DAILY 01/27/19 12/28/20 Folic Acid 1 mg PO DAILY 09/24/20 12/28/20 Esomeprazole Magnesium [NexIUM 20 mg PO DAILY 12/28/20 12/28/20 24Hr] Insulin Aspart (For Pump) [NovoLOG 0.01 unit SQ-PUMP CONTINUOUS 12/28/20 12/28/20 (For Pump)] Ketoconazole 2% Cream [Nizoral 2%] 1 applic TOPICAL BID 12/28/20 12/28/20 Latanoprost [Xalatan 0.005%] 1 drop BOTH EYES HS 12/28/20 12/28/20 Levofloxacin [Levaquin] 750 mg PO DAILY 12/28/20 12/28/20 clindamycin HCL [Cleocin] 300 mg PO TID 12/28/20 12/28/20 Allergies Allergy/AdvReac Type Severity Reaction Status Date / Time No Known Allergies Allergy Verified 12/28/20 17:27 Review of Systems ROS Statement: Those systems with pertinent positive or pertinent negative responses have been documented in the HPI. ROS Other: All systems not noted in ROS Statement are negative. Constitutional: Denies: fever Eyes: Denies: eye pain ENT: Denies: ear pain Respiratory: Denies: cough Cardiovascular: Denies: chest pain Endocrine: Denies: fatigue Gastrointestinal: Denies: abdominal pain Genitourinary: Denies: dysuria Musculoskeletal: Denies: back pain Skin: Reports: as per HPI, rash Neurological: Denies: weakness Past Medical History Past Medical History: CVA/TIA, Diabetes Mellitus Additional Past Medical History / Comment(s): Osteoporosis, penile implant, has 14 day luzmaria sensor for monitoring blood sugars History of Any Multi-Drug Resistant Organisms: None Reported Past Surgical History: Orthopedic Surgery Additional Past Surgical History / Comment(s): Right foot surgery. Cervical fusion. Left knee surgery Past Anesthesia/Blood Transfusion Reactions: No Reported Reaction Past Psychological History: No Psychological Hx Reported Smoking Status: Never smoker Past Alcohol Use History: Rare Past Drug Use History: None Reported General Exam Limitations: no limitations General appearance: alert, in no apparent distress Head exam: Present: normocephalic Eye exam: Present: normal appearance Neck exam: Present: normal inspection Respiratory exam: Present: normal lung sounds bilaterally Cardiovascular Exam: Present: regular rate, normal rhythm Expanded Peripheral pulses: 2+: Dorsalis Pedis (R) GI/Abdominal exam: Present: soft. Absent: tenderness Extremities exam: Present: other (Right foot and ankle with mild edema. Erythema from distal dorsal foot through proximal ankle/lower leg. There is some mild tenderness.) Neurological exam: Present: alert Psychiatric exam: Present: normal affect, normal mood Skin exam: Present: erythema Course Vital Signs 12/28/20 16:04 Temperature 98.2 F Pulse Rate 78 Respiratory 18 Rate Blood Pressure 134/71 O2 Sat by Pulse 98 Oximetry Medical Decision Making - Medical Decision Making Patient reevaluated. Patient denies any recent trauma. Patient and family updated on results and plan. Case was discussed with Dr. le, who will admit covering for Dr. Denton. - Lab Data Result diagrams: 12/28/20 16:39 12/28/20 16:39 Lab Results 12/28/20 12/28/20 12/28/20 Range/Units 16:39 16:39 16:39 WBC 4.8 (3.8-10.6) k/uL RBC 3.75 L (4.30-5.90) m/uL Hgb 11.9 L (13.0-17.5) gm/dL Hct 35.0 L (39.0-53.0) % MCV 93.4 (80.0-100.0) fL MCH 31.8 (25.0-35.0) pg MCHC 34.0 (31.0-37.0) g/dL RDW 14.0 (11.5-15.5) % Plt Count 302 (150-450) k/uL MPV 7.4 Neutrophils % 63 % Lymphocytes % 21 % Monocytes % 9 % Eosinophils % 3 % Basophils % 1 % Neutrophils # 3.0 (1.3-7.7) k/uL Lymphocytes # 1.0 (1.0-4.8) k/uL Monocytes # 0.4 (0-1.0) k/uL Eosinophils # 0.2 (0-0.7) k/uL Basophils # 0.1 (0-0.2) k/uL ESR 68 H (0-15) mm/hr PT 10.8 (9.0-12.0) sec INR 1.0 (<1.2) APTT 29.2 (22.0-30.0) sec Sodium 135 L (137-145) mmol/L Potassium 3.7 (3.5-5.1) mmol/L Chloride 101 (98-107) mmol/L Carbon Dioxide 25 (22-30) mmol/L Anion Gap 9 mmol/L BUN 29 H (9-20) mg/dL Creatinine 1.25 (0.66-1.25) mg/dL Est GFR (CKD-EPI)AfAm 69 (>60 ml/min/1.73 sqM) Est GFR (CKD-EPI)NonAf 60 (>60 ml/min/1.73 sqM) Glucose 236 H (74-99) mg/dL Plasma Lactic Acid Yadiel (0.7-2.0) mmol/L Calcium 8.5 (8.4-10.2) mg/dL Total Bilirubin 2.4 H (0.2-1.3) mg/dL AST 49 (17-59) U/L ALT 36 (4-49) U/L Alkaline Phosphatase 378 H (38-126) U/L C-Reactive Protein 19.3 H (<1.0) mg/dL Total Protein 5.7 L (6.3-8.2) g/dL Albumin 2.8 L (3.5-5.0) g/dL 12/28/20 Range/Units 16:39 WBC (3.8-10.6) k/uL RBC (4.30-5.90) m/uL Hgb (13.0-17.5) gm/dL Hct (39.0-53.0) % MCV (80.0-100.0) fL MCH (25.0-35.0) pg MCHC (31.0-37.0) g/dL RDW (11.5-15.5) % Plt Count (150-450) k/uL MPV Neutrophils % % Lymphocytes % % Monocytes % % Eosinophils % % Basophils % % Neutrophils # (1.3-7.7) k/uL Lymphocytes # (1.0-4.8) k/uL Monocytes # (0-1.0) k/uL Eosinophils # (0-0.7) k/uL Basophils # (0-0.2) k/uL ESR (0-15) mm/hr PT (9.0-12.0) sec INR (<1.2) APTT (22.0-30.0) sec Sodium (137-145) mmol/L Potassium (3.5-5.1) mmol/L Chloride (98-107) mmol/L Carbon Dioxide (22-30) mmol/L Anion Gap mmol/L BUN (9-20) mg/dL Creatinine (0.66-1.25) mg/dL Est GFR (CKD-EPI)AfAm (>60 ml/min/1.73 sqM) Est GFR (CKD-EPI)NonAf (>60 ml/min/1.73 sqM) Glucose (74-99) mg/dL Plasma Lactic Acid Yadiel 0.7 (0.7-2.0) mmol/L Calcium (8.4-10.2) mg/dL Total Bilirubin (0.2-1.3) mg/dL AST (17-59) U/L ALT (4-49) U/L Alkaline Phosphatase (38-126) U/L C-Reactive Protein (<1.0) mg/dL Total Protein (6.3-8.2) g/dL Albumin (3.5-5.0) g/dL - Radiology Data Radiology results: image reviewed (X-ray right foot does show questionable subacute fracture fourth proximal metatarsal. Chronic infection and degenerative changes first toe and distal metatarsal.) Disposition Clinical Impression: Cellulitis of right foot Disposition: ADMITTED IP TO THIS [facility] Condition: Serious Is patient prescribed a controlled substance at d/c from ED?: No Referrals: Ludwin Denton MD [Primary Care Provider] - 1-2 days Decision Time: 18:39
[2020-12-28] MEDS: SODIUM CHLORIDE 0.9% 1,000 ML IV SCH (16:50)
[2020-12-28 17:06] LABS: Partial Thromboplastin Time 29.2 sec (22.0-30.0); Prothrombin Time 10.8 sec (9.0-12.0)
[2020-12-28 17:08] LABS: Albumin 2.8 g/dL (3.5-5.0); Calcium 8.5 mg/dL (8.4-10.2); Potassium 3.7 mmol/L (3.5-5.1); Total Bilirubin 2.4 mg/dL (0.2-1.3); Total Protein 5.7 g/dL (6.3-8.2)
[2020-12-28 17:15] LABS: Basophils # (A) 0.1 k/uL (0-0.2); Basophils % (A) 1 %; Eosinophils # (A) 0.2 k/uL (0-0.7); Eosinophils % (A) 3 %; HGB 11.9 gm/dL (13.0-17.5); Lymphocytes % (A) 21 %; MCH 31.8 pg (25.0-35.0); MCV 93.4 fL (80.0-100.0); Mean Platelet Volume 7.4; Monocytes # (A) 0.4 k/uL (0-1.0); Monocytes % (A) 9 %; Neutrophils % (A) 63 %; Platelet Count 302 k/uL (150-450); RBC 3.75 m/uL (4.30-5.90); WBC 4.8 k/uL (3.8-10.6)
--- NOTE | 2020-12-28 17:19 | XR ---
EXAMINATION TYPE: XR foot complete RT DATE OF EXAM: 12/28/2020 COMPARISON: 01/12/2019 HISTORY: Infection TECHNIQUE: 3 views FINDINGS: There are destructive changes on both sides of the first MP joint. There is destructive mary nge also at the IP joint of the big toe. There is some shortening of the big toe. There is small eros ion on the lateral aspect of the third metatarsal head. There is apparent nondisplaced fracture with erosion at the base of the fourth metatarsal. There is some soft tissue swelling of the forefoot. The hindfoot appears intact. There is some vascular calcification. IMPRESSION: Destructive changes at the big toe consistent with chronic osteomyelitis. Subacute fractu re base of the fourth metatarsal. Abnormalities appear new compared to old exam.
[2020-12-28 17:30] LABS: C Reactive Protein 19.3 mg/dL (<1.0)
[2020-12-28 17:59] LABS: Erythrocyte Sedimentation Rate 68 mm/hr (0-15)
[2020-12-28] MEDS ORDERED: IBUPROFEN 800 MG TAB PO STA (18:30)
[2020-12-28] MEDS ORDERED: ACETAMINOPHEN TAB 325 MG TAB PO PRN (18:40)
[2020-12-28] MEDS ORDERED: NALOXONE 0.4 MG/ML 1 ML VIAL IV PRN (18:40)
[2020-12-28] MEDS ORDERED: VANCOMYCIN IV PER PHARMACY 1 EACH MISC MISCELLANE PRN (18:40)
[2020-12-28] MEDS ORDERED: VANCOMYCIN 1,250 MG in SODIUM CHLORIDE 0.9% 250 ML IVPB ONE (19:30)
--- NOTE | 2020-12-28 20:49 | CT ---
EXAMINATION TYPE: CT foot RT wo con DATE OF EXAM: 12/28/2020 COMPARISON: None HISTORY: Right foot swelling, infection. History of diabetes. CT DLP: 223.5 mGycm Automated exposure control for dose reduction was used. Images obtained from the distal tibia to the bottom of the foot without contrast. There is subcutaneous edema around the lower leg and the foot and ankle. There is deformity at the fi rst MP joint with some destructive changes at the first metatarsal head as well as the proximal phala nx of the big toe. There is some shortening of the big toe. There is some sclerosis in the proximal p halanx. There is transverse fracture across the base of the fourth metatarsal. There is degenerative spurring and erosive changes in the second and third and fourth tarsometatarsal joints. The ankle mor tise is anatomic. The hindfoot is intact. Subtalar joint is intact. The ankle mortise is anatomic. An kle joint space is fairly normal. IMPRESSION: Destructive changes at the first MP joint suggestive of chronic osteomyelitis. Ununited fracture of the base of the fourth metatarsal appears chronic. Erosive changes at the tarsometatarsal joints. Subcutaneous edema around the foot and ankle.
--- NOTE | 2020-12-28 23:18 | P.HPIM ---
History of Present Illness H&P Date: 12/28/20 The patient is a 65 yo male with a PMH of type I DM (on Insulin pump) who presented to the emergency room with complaints of right foot pain and swelling. Patient reports that he initially developed his symptoms 2 weeks ago, and was subsequently seen at his PMDs office 4 days ago. He reported that at that time he had severe pain, redness, and swelling of the right foot extending up to the knee. He was prescribed oral clindamycin and Levaquin, with which he has been compliant. He reports that his pain has improved slightly and he continues to have swelling and redness, for which she contacted his PMD who advised him to go to the emergency room. The patient reports a history of right great toe fracture with subsequent osteomyelitis requiring surgery and partial total resection. He reports the pain as a 5 out of 10 of maximal intensity worsened with movement. Also reported subjective fevers which have subsided since he started the oral antibiotics. Denied chest discomfort, shortness of breath, nausea, vomiting, diaphoresis, abdominal pain, diarrhea. In the emergency room a right foot CT revealed obstructive changes of the first metacarpal phalangeal joint showing chronic osteomyelitis with edema at the foot and the ankle along with erosive changes at the tarsal metatarsal joint. The patient was otherwise afebrile. Laboratory evaluation was remarkable for lactic acid of 0.7, CRP 19.3, alk phos 378, and glucose 236. Patient was started on vancomycin and Zosyn IV with blood cultures sent. Review of systems: Pertinent positives and negatives as discussed in HPI, a complete review of systems was performed and all other systems are negative. Physical examination: General: non toxic, no distress, appears at stated age, normal weight Derm: Right foot and ankle swelling, erythema, redness, and tenderness extending up to the adams, no unusual ecchymoses, warm, dry Head: atraumatic, normocephalic, symmetric Eyes: EOMI, no lid lag, anicteric sclera, pupils equal round reactive to light ENT: Nose and ears atraumatic, no thrush, no pharyngeal erythema Neck: No thyromegaly, no cervical lymphadenopathy, trachea midline, supple Mouth: no lip lesion, mucus membranes moist Cardiovascular: S1S2 reg, no murmur, positive posterior tibial pulse bilateral, no edema, capillary refill less than 2 seconds Lungs: CTA bilateral, no rhonchi, no rales , no accessory muscle use Abdominal: soft, nontender to palpation, no guarding, no appreciable organomegaly, normal bowel sounds Ext: no gross muscle atrophy, muscle strength 5 out of 5 in all 4 extremities grossly, no contractures, Neuro: CN II-XI grossly intact, light touch intact all 4 extremities, finger to nose within normal limits, Psych: Alert, oriented, appropriate affect Assessment/plan Right foot cellulitis and possible underlying osteomyelitis -Continue vancomycin and Zosyn -ID consult -Follow up blood cultures Type I DM -The patient prefers to use self-administered insulin via his pump -Continue to monitor blood glucose DVT prophylaxis -Heparin subq The patient is admitted with an anticipated greater than 2 midnight stay for evaluation of R foot cellulitis CODE STATUS: Full Code Discussed with: Patient Anticipated discharge date: 2-[address]: Home Past Medical History Past Medical History: CVA/TIA, Diabetes Mellitus Additional Past Medical History / Comment(s): Osteoporosis, penile implant, has 14 day luzmaria sensor for monitoring blood sugars History of Any Multi-Drug Resistant Organisms: None Reported Past Surgical History: Orthopedic Surgery Additional Past Surgical History / Comment(s): Right foot surgery. Cervical fusion. Left knee surgery Past Anesthesia/Blood Transfusion Reactions: No Reported Reaction Past Psychological History: No Psychological Hx Reported Smoking Status: Never smoker Past Alcohol Use History: Rare Past Drug Use History: None Reported - Past Family History Mother Family Medical History: Hyperlipidemia Medications and Allergies Home Medications Medication Instructions Recorded Confirmed Type Cetirizine HCl [Zyrtec] 10 mg PO DAILY 01/27/19 12/28/20 History Folic Acid 1 mg PO DAILY 09/24/20 12/28/20 History Esomeprazole Magnesium [NexIUM 20 mg PO DAILY 12/28/20 12/28/20 History 24Hr] Insulin Aspart (For Pump) [NovoLOG 0.01 unit SQ-PUMP CONTINUOUS 12/28/20 12/28/20 History (For Pump)] Ketoconazole 2% Cream [Nizoral 2%] 1 applic TOPICAL BID 12/28/20 12/28/20 History Latanoprost [Xalatan 0.005%] 1 drop BOTH EYES HS 12/28/20 12/28/20 History Levofloxacin [Levaquin] 750 mg PO DAILY 12/28/20 12/28/20 History clindamycin HCL [Cleocin] 300 mg PO TID 12/28/20 12/28/20 History Allergies Allergy/AdvReac Type Severity Reaction Status Date / Time No Known Allergies Allergy Verified 12/28/20 17:27 Physical Exam Vitals: Vital Signs Temp Pulse Pulse Resp BP BP Pulse Ox 12/28/20 21:27 99.0 F 77 16 134/78 12/28/20 19:11 98.2 F 79 18 177/79 98 12/28/20 18:35 79 18 177/79 98 12/28/20 16:04 98.2 F 78 18 134/71 98 Intake and Output 12/28/20 12/28/20 12/28/20 06:59 14:59 22:59 Other: Weight 72.575 kg Results CBC & Chem 7: 12/28/20 16:39 12/28/20 16:39 Labs: Abnormal Lab Results - Last 24 Hours (Table) 12/28/20 12/28/20 Range/Units 16:39 16:39 RBC 3.75 L (4.30-5.90) m/uL Hgb 11.9 L (13.0-17.5) gm/dL Hct 35.0 L (39.0-53.0) % ESR 68 H (0-15) mm/hr Sodium 135 L (137-145) mmol/L BUN 29 H (9-20) mg/dL Glucose 236 H (74-99) mg/dL Total Bilirubin 2.4 H (0.2-1.3) mg/dL Alkaline Phosphatase 378 H (38-126) U/L C-Reactive Protein 19.3 H (<1.0) mg/dL Total Protein 5.7 L (6.3-8.2) g/dL Albumin 2.8 L (3.5-5.0) g/dL Thrombosis Risk Factor Assmnt - Choose All That Apply Any of the Below Risk Factors Present?: No Other Risk Factors: No Each Risk Factor Represents 2 Points: Age 61-74 years Other congenital or acquired thrombophilia - If yes, enter type in comment: No Thrombosis Risk Factor Assessment Total Risk Factor Score: 2 Thrombosis Risk Factor Assessment Level: Very Low Risk
[2020-12-28] MEDS: IBUPROFEN 400 MG TAB PO PRN (23:31)
[2020-12-28] MEDS: PIPERACILLIN-TAZOBACTAM 3.375 GM in SODIUM CHLORIDE 0.9% 100 ML IVPB SCH ×2 (23:31→23:35)
[2020-12-29] MEDS: HEPARIN SODIUM,PORCINE/PF 5,000 UNIT/0.5 ML SYRINGE SQ SCH ×3 (01:04→14:50)
[2020-12-29] MEDS: SODIUM CHLORIDE 0.9% 1,000 ML IV SCH ×3 (01:04→20:13)
[2020-12-29] MEDS: VANCOMYCIN 1,250 MG in SODIUM CHLORIDE 0.9% 250 ML IVPB SCH ×2 (05:57→20:04)
[2020-12-29 07:05] LABS: Glucose,Whole Blood 122 mg/dL (75-99)
[2020-12-29 07:56] LABS: ALT 35 U/L (4-49); AST 45 U/L (17-59); African American GFR (CKD) 72 (>60 ml/min/1.73 sqM); Albumin 2.6 g/dL (3.5-5.0); Albumin/Globulin Ratio 0.9; Alkaline Phosphatase 385 U/L (38-126); Anion Gap 8 mmol/L; Blood Urea Nitrogen 26 mg/dL (9-20); Calcium 8.5 mg/dL (8.4-10.2); Carbon Dioxide 24 mmol/L (22-30); Chloride 104 mmol/L (98-107); Globulin 2.8 g/dL; Glucose 142 mg/dL (74-99); Non-African American GFR(CKD) 62 (>60 ml/min/1.73 sqM); Potassium 3.7 mmol/L (3.5-5.1); Sodium 136 mmol/L (137-145); Total Protein 5.4 g/dL (6.3-8.2)
[2020-12-29] MEDS: PIPERACILLIN-TAZOBACTAM 3.375 GM in SODIUM CHLORIDE 0.9% 100 ML IVPB SCH ×2 (08:09→14:50)
[2020-12-29] MEDS: IBUPROFEN 400 MG TAB PO PRN ×2 (08:15→14:43)
[2020-12-29 11:12] LABS: Glucose,Whole Blood 213 mg/dL (75-99)
--- NOTE | 2020-12-29 13:47 | P.PN ---
Subjective Progress Note Date: 12/29/20 Hospital course: Patient is a 65-year-old male with a past medical history of type 1 diabetes mellitus on insulin pump, diabetic neuropathy and recent surgical repair and partial resecition of right great toe secondary to fracture and osteomyelitis. He presented to emergency department with a chief complaint of increased right foot pain, redness and swelling status post failing outpatient treatment with Levaquin and clindamycin. CT right foot completed which revealed obstructive changes of the first metacarpophalangeal joint showing chronic osteomyelitis w ith edema at the foot and ankle along with erosive changes at the tarsal and metatarsal joint. Blood cultures obtained. Patient started on IV antibiotics vancomycin and Zosyn and admitted under our services with consultation to infectious disease. Physical exam: Patient was seen and fully evaluated at the bedside this morning. Right foot and ankle with mild erythema and edema, patient reports improvement since arrival to our facility. He states mild pain continuous worsens with any touch. He has remained afebrile since admission. He denies having any headache, lightheadedness, dizziness, chills, diaphoresis, chest pain, palpitations, shortness of breath, or experiencing any new or worsens numbness/tingling/weakness 70s. Patient seen and fully evaluated at the bedside this morning. Vital signs reviewed and stable. General: Nontoxic, no distress and appears stated age. Derm: Skin warm and dry, normal coloration for ethnicity. Right foot and ankle with mild erythema and edema. Right great toe deformity. Head: Atraumatic, normocephalic and symmetric. Eyes: EOMs intact, no lid lag, and anicteric sclera Mouth: no lip lesions, mucus membranes moist Cardiovascular: regular rate and rhythm with normal S1S2, no murmur, positive po sterior tibial pulses bilaterally, and cap refill < 2 seconds. Lungs: Respirations even, regular, and unlabored on room air. Lungs CTA bilaterally, no rhonchi, no rales, no wheezing, and no accessory muscle usage. Abdominal: soft, nontender to palpation, no guarding, no appreciable organomegaly Ext: ROM intact. No gross muscle atrophy, no edema, no contractures Neuro: Speech clear, face symmetrical and CN II-XII grossly intact with no noted focal neuro deficits Psych: Alert and oriented to person, place, time, and situation. Appropriate and pleasant affect. Assessment and plan of care: Right foot cellulitis with underlying osteomyelitis failing outpatient treatment -Continue IV antibiotics with vancomycin and Zosyn pending culture results and further recommendations by infectious disease. -Consult to infectious disease. -Blood cultures obtained, awaiting results. -Symptomatic care and pain management. Type I Diabetes Mellitus on insulin pump -The patient prefers to use self-administered insulin via his personal pump -Continue to monitor blood glucose levels closely -Heart healthy carb consistent diet. CODE STATUS: Full Code DVT prophylaxis: Heparin Discussed with: Patient Anticipated discharge date: 2-[address]: Home A total of 45 minutes was spent on the care of this complex patient more than 50% of the time was spent in counseling and care coordination. Objective - Vital Signs Vital signs: Vital Signs Temp 98.2 F 12/29/20 08:55 Pulse 75 12/29/20 08:55 Resp 16 12/29/20 08:55 BP 132/72 12/29/20 08:55 Pulse Ox 92 L 12/29/20 08:55 Intake & Output 12/28/20 12/29/20 12/29/20 18:59 06:59 18:59 Weight 72.575 kg 72.575 kg Other: # Voids 2 - Labs CBC & Chem 7: 12/28/20 16:39 12/29/20 06:42 Labs: Abnormal Lab Results - Last 24 Hours (Table) 12/28/20 12/28/20 12/29/20 Range/Units 16:39 16:39 06:42 RBC 3.75 L (4.30-5.90) m/uL Hgb 11.9 L (13.0-17.5) gm/dL Hct 35.0 L (39.0-53.0) % ESR 68 H (0-15) mm/hr Sodium 135 L 136 L (137-145) mmol/L BUN 29 H 26 H (9-20) mg/dL Glucose 236 H 142 H (74-99) mg/dL POC Glucose (mg/dL) (75-99) mg/dL Total Bilirubin 2.4 H 2.0 H (0.2-1.3) mg/dL Alkaline Phosphatase 378 H 385 H (38-126) U/L C-Reactive Protein 19.3 H (<1.0) mg/dL Total Protein 5.7 L 5.4 L (6.3-8.2) g/dL Albumin 2.8 L 2.6 L (3.5-5.0) g/dL 12/29/20 12/29/20 Range/Units 07:02 11:11 RBC (4.30-5.90) m/uL Hgb (13.0-17.5) gm/dL Hct (39.0-53.0) % ESR (0-15) mm/hr Sodium (137-145) mmol/L BUN (9-20) mg/dL Glucose (74-99) mg/dL POC Glucose (mg/dL) 122 H 213 H (75-99) mg/dL Total Bilirubin (0.2-1.3) mg/dL Alkaline Phosphatase (38-126) U/L C-Reactive Protein (<1.0) mg/dL Total Protein (6.3-8.2) g/dL Albumin (3.5-5.0) g/dL
[2020-12-29 16:49] LABS: Glucose,Whole Blood 228 mg/dL (75-99)
[2020-12-29] MEDS: Insulin Aspart (For Pump) 100 UNIT/ML VIAL SQ-PUMP SCH (20:03)
[2020-12-29] MEDS: Acetaminophen-Codeine 300-30mg TAB PO PRN (20:04)
[2020-12-29 20:42] LABS: Glucose,Whole Blood 203 mg/dL (75-99)
[2020-12-30] MEDS: SODIUM CHLORIDE 0.9% 1,000 ML IV SCH ×4 (00:50→23:35)
[2020-12-30] MEDS: PIPERACILLIN-TAZOBACTAM 3.375 GM in SODIUM CHLORIDE 0.9% 100 ML IVPB SCH (00:50)
[2020-12-30] MEDS: HEPARIN SODIUM,PORCINE/PF 5,000 UNIT/0.5 ML SYRINGE SQ SCH ×3 (00:50→16:00)
--- NOTE | 2020-12-30 00:51 | P.CONS ---
History of Present Illness - Reason for Consult Consult date: 12/29/20 right foot osteomyelitis Requesting physician: Mike Colbert - Chief Complaint right foot infection worsening x few days - History of Present Illness History of present illness : Patient is 65-year male with a past medical history significant for partial amputation of the right big toe phalanx for an infected wound and osteomyelitis patient apparently started having a swelling redness of the dorsal aspect of the right foot and there was a small wound between the first and the second toe that has been treated with the intramuscular injection as well as clindamycin and Levaquin apparently the patient did have a some improvement initially however subsequent noticed to have more swelling and redness to the right foot dorsum for the patient was sent to the ER for further evaluation on presentation to the hospital the patient was afebrile patient did have a normal white count sed rate was 68 creatinine was 1.20, PCR was negative blood cultures obtained which are currently pending previous culture from the right pectoral positive for Pseudomonas E. coli and Klebsiella patient did have x-rays of the foot which shows destructive changes at the greater consistent with chronic osteomyelitis subacute fracture base of the fourth metatarsal abnormalities appear new compared to the old exam patient also have a foot CT with a destructive changes of first metatarsal suggestive of chronic osteomyelitis and fracture of the base of the fourth metatarsal appears chronic subcutaneous edema around the foot and the ankle patient was started on vancomycin and Zosyn has been admitted to hospital infectious disease was consulted for further management of antibiotic therapy, patient currently denies having any fever or any chills, patient did have some discomfort to the right foot more of a dull aching especially when he walks on it intensity 3-4 out of 10 no radiation with associated swelling redness currently do not have any open wound or any drainage Review of system: CONSTITUTIONAL: Positive for weakness denies fever. EYES: No complaint. ENT: No complaint. RESPIRATORY: No complaint. CARDIOVASCULAR: No complaint. GENITOURINARY: No complaint. GASTROINTESTINAL: No complaint. MUSCULOSKELETAL: As per history of present illness. INTEGUMENTARY: As per history of present illness. PSYCHOLOGIC: No complaint. ENDOCRINE: No complaint. NEUROLOGIC: No complaint. Past medical history : Reviewed, documented below Past surgical history : Reviewed, documented below Social history: Reviewed, documented below Medications: Reviewed, as documented below EXAMINATION: Vital sigans= Reviewed and documented below GENERAL DESCRIPTION: Elderly male lying in bed, no distress. No tachypnea or accessory muscle of respiration use. HEENT: Shows Pallor , no scleral icterus. Oral mucous membrane is dry. NECK: Trachea central, no thyromegaly. LUNGS: Unlabored breathing. Clear to auscultation anteriorly. No wheeze or crackle. HEART: S1, S2, regular rate and rhythm. ABDOMEN: Soft, no tenderness , guarding or rigidity EXTREMITIES: Deformity of the right big toe from previous surgery he did have mostly diffuse swelling and cellulitis on the dorsum aspect of the right foot currently with no open wound or any drainage SKIN: No rash, no masses palpable. NEUROLOGICAL: The patient is awake, alert, oriented x3, mood and affect normal. LABS AND RADIOLOGY: Reviewed results see below Assessment : Patient presented to hospital with worsening infection of the right foot in this patient who did have a history of right big toe osteomyelitis status post amputation of the phalanx with some chronic deformity and possible cellulitis of the dorsal aspect of the right foot however he did have both abnormal CT as well as the x-ray questionably result of his previous surgery versus actual infection Plan: 1-CT x-ray will be reviewed with radiologist 2-discontinue vancomycin and Zosyn 3-cefepime 2 g every 8 hour to cover for the likely pathogen on based on previous culture We will follow on clinical condition and cultures to further adjust medication if needed Thank you for this consultation we will follow the patient along with you Past Medical History Past Medical History: CVA/TIA, Diabetes Mellitus Additional Past Medical History / Comment(s): Osteoporosis, penile implant, has 14 day luzmaria sensor for monitoring blood sugars History of Any Multi-Drug Resistant Organisms: None Reported Past Surgical History: Orthopedic Surgery Additional Past Surgical History / Comment(s): Right foot surgery. Cervical fusion. Left knee surgery Past Anesthesia/Blood Transfusion Reactions: No Reported Reaction Past Psychological History: No Psychological Hx Reported Smoking Status: Never smoker Past Alcohol Use History: Rare Past Drug Use History: None Reported - Past Family History Mother Family Medical History: Hyperlipidemia Medications and Allergies Home Medications Medication Instructions Recorded Confirmed Type Cetirizine HCl [Zyrtec] 10 mg PO DAILY 01/27/19 12/28/20 History Folic Acid 1 mg PO DAILY 09/24/20 12/28/20 History Esomeprazole Magnesium [NexIUM 20 mg PO DAILY 12/28/20 12/28/20 History 24Hr] Insulin Aspart (For Pump) [NovoLOG 0.01 unit SQ-PUMP CONTINUOUS 12/28/20 12/28/20 History (For Pump)] Ketoconazole 2% Cream [Nizoral 2%] 1 applic TOPICAL BID 12/28/20 12/28/20 History Latanoprost [Xalatan 0.005%] 1 drop BOTH EYES HS 12/28/20 12/28/20 History Levofloxacin [Levaquin] 750 mg PO DAILY 12/28/20 12/28/20 History clindamycin HCL [Cleocin] 300 mg PO TID 12/28/20 12/28/20 History Allergies Allergy/AdvReac Type Severity Reaction Status Date / Time No Known Allergies Allergy Verified 12/28/20 17:27 Physical Exam Vitals: Vital Signs Temp Pulse Pulse Resp BP Pulse Ox 12/29/20 19:01 97.9 F 80 16 124/65 95 12/29/20 14:00 98.7 F 75 16 151/76 93 L 12/29/20 08:55 98.2 F 75 16 132/72 92 L 12/29/20 07:41 84 17 12/29/20 02:00 97.9 F 84 17 158/81 97 Intake and Output 12/29/20 12/29/20 12/30/20 14:59 22:59 06:59 Intake Total 1080 Balance 1080 Intake: Oral 1080 Other: Voiding Method Toilet # Voids 3 Results CBC & Chem 7: 12/28/20 16:39 12/29/20 06:42 Labs: Abnormal Lab Results - Last 24 Hours (Table) 12/29/20 12/29/20 12/29/20 Range/Units 06:42 06:42 07:02 Sodium 136 L (137-145) mmol/L BUN 26 H (9-20) mg/dL Glucose 142 H (74-99) mg/dL POC Glucose (mg/dL) 122 H (75-99) mg/dL Hemoglobin A1c 7.6 H (4.0-6.0) % Total Bilirubin 2.0 H (0.2-1.3) mg/dL Alkaline Phosphatase 385 H (38-126) U/L Total Protein 5.4 L (6.3-8.2) g/dL Albumin 2.6 L (3.5-5.0) g/dL 12/29/20 12/29/20 12/29/20 Range/Units 11:11 16:48 20:41 Sodium (137-145) mmol/L BUN (9-20) mg/dL Glucose (74-99) mg/dL POC Glucose (mg/dL) 213 H 228 H 203 H (75-99) mg/dL Hemoglobin A1c (4.0-6.0) % Total Bilirubin (0.2-1.3) mg/dL Alkaline Phosphatase (38-126) U/L Total Protein (6.3-8.2) g/dL Albumin (3.5-5.0) g/dL Microbiology - Last 24 Hours (Table) 12/28/20 16:39 Blood Culture - Preliminary Blood No Growth after 24 hours 12/28/20 16:39 Blood Culture - Preliminary Blood No Growth after 24 hours
[2020-12-30] MEDS: CEFEPIME 2 GM in SODIUM CHLORIDE 0.9% 100 ML IVPB SCH ×2 (06:52→15:58)
[2020-12-30 07:12] LABS: Glucose,Whole Blood 120 mg/dL (75-99)
[2020-12-30] MEDS: IBUPROFEN 400 MG TAB PO PRN (11:02)
[2020-12-30 11:26] LABS: Glucose,Whole Blood 123 mg/dL (75-99)
[2020-12-30] MEDS: Acetaminophen-Codeine 300-30mg TAB PO PRN ×2 (13:37→21:51)
--- NOTE | 2020-12-30 13:52 | P.PN ---
Subjective Progress Note Date: 12/30/20 Hospital course: Patient is a 65-year-old male with a past medical history of type 1 diabetes mellitus on insulin pump, diabetic neuropathy and recent surgical repair and partial resecition of right great toe secondary to fracture and osteomyelitis. He presented to emergency department with a chief complaint of increased right foot pain, redness and swelling status post failing outpatient treatment with Levaquin and clindamycin. CT right foot completed which revealed obstructive changes of the first metacarpophalangeal joint showing chronic osteomyelitis w ith edema at the foot and ankle along with erosive changes at the tarsal and metatarsal joint. Blood cultures obtained. Patient started on IV antibiotics vancomycin and Zosyn and admitted under our services with consultation to infectious disease. Physical exam: Infectious disease seen and evaluated patient, they're recommending discontinuation of vancomycin and Zosyn and started patient on cefepime 2 g every 8 hours to cover Pseudomonas E. coli and Klebsiella found on previous outpatient cultures while we are awaiting repeat cultures to be completed. Currently blood cultures revealing no growth after 24 hours. Patient remains afebrile since admission. Blood cultures showing no growth after 24 hours. Right foot and ankle erythema significantly improved continues to have mild edema. Patient reports continued discomfort in the right foot, but states it is controlled with pain medication administered. He denies having any headache, lightheadedness, dizziness, chills, diaphoresis, chest pain, palpitations, shortness of breath, or experiencing any new or worsens numbness/tingling/weakness. Patient seen and fully evaluated at the bedside this morning. Vital signs reviewed and stable. General: Nontoxic, no distress and appears stated age. Derm: Skin warm and dry, normal coloration for ethnicity. Right foot and ankle with mild erythema and edema. Right great toe deformity. Head: Atraumatic, normocephalic and symmetric. Eyes: EOMs intact, no lid lag, and anicteric sclera Mouth: no lip lesions, mucus membranes moist Cardiovascular: regular rate and rhythm with normal S1S2, no murmur, positive posterior tibial pulses bilaterally, and cap refill < 2 seconds. Lungs: Respirations even, regular, and unlabored on room air. Lungs CTA bilaterally, no rhonchi, no rales, no wheezing, and no accessory muscle usage. Abdominal: soft, nontender to palpation, no guarding, no appreciable organomegaly Ext: ROM intact. No gross muscle atrophy, no edema, no contractures Neuro: Speech clear, face symmetrical and CN II-XII grossly intact with no noted focal neuro deficits Psych: Alert and oriented to person, place, time, and situation. Appropriate and pleasant affect. Assessment and plan of care: Right foot cellulitis with underlying osteomyelitis failing outpatient treatment -Continue IV antibiotics with cefepime pending culture results and further recommendations by infectious disease. -Infectious disease following -Blood cultures obtained, showing no growth after 24 hours -Symptomatic care and pain management. Type I Diabetes Mellitus on insulin pump -The patient prefers to use self-administered insulin via his personal pump -Continue to monitor blood glucose levels closely -Heart healthy carb consistent diet. CODE STATUS: Full Code DVT prophylaxis: Heparin Discussed with: Patient Anticipated discharge date: 2-[address]: Home A total of 45 minutes was spent on the care of this complex patient more than 50% of the time was spent in counseling and care coordination. Objective - Vital Signs Vital signs: Vital Signs Temp 98.9 F 12/30/20 06:49 Pulse 82 12/30/20 06:49 Resp 16 12/30/20 07:45 BP 175/61 12/30/20 06:49 Pulse Ox 97 12/30/20 06:49 Intake & Output 12/29/20 12/30/20 12/30/20 18:59 06:59 18:59 Intake Total 1080 118 Balance 1080 118 Intake: Oral 1080 118 Other: Voiding Method Toilet Toilet # Voids 3 3 - Labs CBC & Chem 7: 12/28/20 16:39 12/29/20 06:42 Labs: Abnormal Lab Results - Last 24 Hours (Table) 12/29/20 12/29/20 12/29/20 Range/Units 06:42 11:11 16:48 POC Glucose (mg/dL) 213 H 228 H (75-99) mg/dL Hemoglobin A1c 7.6 H (4.0-6.0) % 12/29/20 12/30/20 Range/Units 20:41 07:10 POC Glucose (mg/dL) 203 H 120 H (75-99) mg/dL Hemoglobin A1c (4.0-6.0) % Microbiology - Last 24 Hours (Table) 12/28/20 16:39 Blood Culture - Preliminary Blood No Growth after 24 hours 12/28/20 16:39 Blood Culture - Preliminary Blood No Growth after 24 hours
[2020-12-30] MEDS: Insulin Aspart (For Pump) 100 UNIT/ML VIAL SQ-PUMP SCH (16:00)
[2020-12-30 17:03] LABS: Glucose,Whole Blood 183 mg/dL (75-99)
--- NOTE | 2020-12-30 19:10 | PN ---
PROGRESS NOTE DATE OF SERVICE: 12/30/2020 REASON FOR FOLLOWUP: Right foot cellulitis and concern for possible osteomyelitis. INTERVAL HISTORY: Patient is afebrile. Patient is breathing comfortably. No chest pain, shortness of breath or cough. No abdominal pain. Pain to the right foot is currently controlled. Still have some swelling, minimal redness. No drainage. PHYSICAL EXAMINATION: Blood pressure 151/79, pulse of 83, temperature 98.2. He is 93% on room air. General description is an elderly male lying in bed in no distress. Respiratory system: Unlabored breathing, clear to auscultation anteriorly. Heart S1, S2. Regular rate and rhythm. Abdomen soft, no tenderness. Right foot with minimal swelling and redness. No open wound or any drainage. DIAGNOSTIC IMPRESSION AND PLAN: Patient admitted to the hospital with right foot cellulitis with abnormal CT and x-ray concerning for possible osteo . with the radiologist. Continue with cefepime. Repeat inflammatory markers and monitor clinical course closely. Continue supportive care. MMODL / IJN: [id number] /
[2020-12-30 21:16] LABS: Glucose,Whole Blood 198 mg/dL (75-99)
[2020-12-31] MEDS: CEFEPIME 2 GM in SODIUM CHLORIDE 0.9% 100 ML IVPB SCH ×2 (00:47→09:08)
[2020-12-31] MEDS: HEPARIN SODIUM,PORCINE/PF 5,000 UNIT/0.5 ML SYRINGE SQ SCH ×2 (00:47→09:08)
[2020-12-31 07:02] LABS: Glucose,Whole Blood 107 mg/dL (75-99)
[2020-12-31 07:46] VITALS: BP 152/87; PULSE 74; RESP 18; TEMP 97.3
[2020-12-31] MEDS: SODIUM CHLORIDE 0.9% 1,000 ML IV SCH (09:09)
[2020-12-31] MEDS: IBUPROFEN 400 MG TAB PO PRN (10:36)
[2020-12-31 11:05] LABS: HCT 32.9 % (39.6-50.0); HGB 10.5 g/dL (13.0-17.0); MCHC 31.9 g/dL (32.0-37.0); Mean Platelet Volume 10.1 fL (9.5-12.2); Platelet Count 358 X 10*3/uL (140-440); RDW 14.8 % (11.5-14.5); WBC 4.92 X 10*3/uL (4.50-10.00)
[2020-12-31 11:19] LABS: African American GFR (CKD) 117.1 (60.0-200.0); Anion Gap 9.2 mmol/L (4.00-12.00); BUN/Creat Ratio 23.76 Ratio (12.00-20.00); Blood Urea Nitrogen 15.3 mg/dL (9.0-27.0); Calcium 8.2 mg/dL (8.7-10.3); Carbon Dioxide 24.9 mmol/L (21.6-31.8); Magnesium 1.8 mg/dL (1.5-2.4); Non-African American GFR(CKD) 101.1 (60.0-200.0); Potassium 3.9 mmol/L (3.5-5.5)
[2020-12-31 11:59] LABS: Glucose,Whole Blood 127 mg/dL (75-99)
--- NOTE | 2020-12-31 13:17 | P.DS ---
<Angel Danielson - Last Filed: 12/31/20 13:17> Providers Expected date of discharge: 12/31/20 Hospital Course: Discharge Diagnosis: Right foot cellulitis with underlying osteomyelitis failing outpatient treatment Type I Diabetes Mellitus on insulin pump Hospital Course: Patient is a 65-year-old male with a past medical history of type 1 diabetes mellitus on insulin pump, diabetic neuropathy and recent surgical repair and partial resecition of right great toe secondary to fracture and osteomyelitis. He presented to emergency department with a chief complaint of increased right foot pain, redness and swelling status post failing outpatient treatment with Levaquin and clindamycin. CT right foot completed which revealed obstructive changes of the first metacarpophalangeal joint showing chronic osteomyelitis with edema at the foot and ankle along with erosive changes at the tarsal and metatarsal joint. Blood cultures obtained. Patient started on IV antibiotics vancomycin and Zosyn and admitted under our services with consultation to infectious disease. Infectious disease seen and evaluated patient, they recommended discontinuation of vancomycin and Zosyn and started patient on cefepime 2 g every 8 hours to cover Pseudomonas E. coli and Klebsiella found on previous outpatient cultures while we are awaiting repeat cultures to be completed. Right foot erythema resolved, swelling remains. Blood cultures showing no growth after 48 hours. Patient cleared by infectious disease for discharge home on oral antibiotics. Patient medically stable for discharge at this time. Patient being placed on Keflex 500 mg every 6 hours 10 days. Patient to follow-up with director video tomorrow as scheduled, PCP in 1-2 days, and infectious disease in 1 week. Patient stable for discharge home at this time. Physical exam: Patient seen and fully evaluated at the bedside this morning. Vital signs reviewed and stable. General: Nontoxic, no distress and appears stated age. Derm: Skin warm and dry, normal coloration for ethnicity. Right foot and ankle with mild erythema and edema. Right great toe deformity. Head: Atraumatic, normocephalic and symmetric. Eyes: EOMs intact, no lid lag, and anicteric sclera Mouth: no lip lesions, mucus membranes moist Cardiovascular: regular rate and rhythm with normal S1S2, no murmur, positive posterior tibial pulses bilaterally, and cap refill < 2 seconds. Lungs: Respirations even, regular, and unlabored on room air. Lungs CTA bilaterally, no rhonchi, no rales, no wheezing, and no accessory muscle usage. Abdominal: soft, nontender to palpation, no guarding, no appreciable organomegaly Ext: ROM intact. No gross muscle atrophy, no edema, no contractures Neuro: Speech clear, face symmetrical and CN II-XII grossly intact with no noted focal neuro deficits Psych: Alert and oriented to person, place, time, and situation. Appropriate and pleasant affect. A total of 45 minutes of time were spent preparing this complex discharge summary. Assessment: I reviewed the documentation as provided by the SHERI above, who is the original author of this note. I agree with the documented assessment and plan, with the following changes: None Patient Condition at Discharge: Stable Plan - Discharge Summary Discharge Rx Participant: Yes New Discharge Prescriptions: New Ibuprofen [Motrin] 400 mg PO Q6HR PRN tab PRN Reason: Mild Pain Or Fever > 100.5 Acetaminophen Tab [Tylenol] 650 mg PO Q6HR PRN tab PRN Reason: Mild Pain Or Fever > 100.5 Cephalexin [Keflex] 500 mg PO Q6HR 10 Days #40 cap HYDROcodone/APAP 7.5-325MG [[place] 7.5-325] 1 tab PO Q4H PRN 3 Days #18 tab PRN Reason: Pain Continue Cetirizine HCl [Zyrtec] 10 mg PO DAILY Folic Acid 1 mg PO DAILY Esomeprazole Magnesium [NexIUM 24Hr] 20 mg PO DAILY Latanoprost [Xalatan 0.005%] 1 drop BOTH EYES HS Insulin Aspart (For Pump) [NovoLOG (For Pump)] 0.01 unit SQ-PUMP CONTINUOUS Ketoconazole 2% Cream [Nizoral 2%] 1 applic TOPICAL BID Discontinued clindamycin HCL [Cleocin] 300 mg PO TID Levofloxacin [Levaquin] 750 mg PO DAILY Discharge Medication List Cetirizine HCl [Zyrtec] 10 mg PO DAILY 01/27/19 [History] Folic Acid 1 mg PO DAILY 09/24/20 [History] Esomeprazole Magnesium [NexIUM 24Hr] 20 mg PO DAILY 12/28/20 [History] Insulin Aspart (For Pump) [NovoLOG (For Pump)] 0.01 unit SQ-PUMP CONTINUOUS 12/28/20 [History] Ketoconazole 2% Cream [Nizoral 2%] 1 applic TOPICAL BID 12/28/20 [History] Latanoprost [Xalatan 0.005%] 1 drop BOTH EYES HS 12/28/20 [History] Acetaminophen Tab [Tylenol] 650 mg PO Q6HR PRN tab 12/31/20 [Rx] Cephalexin [Keflex] 500 mg PO Q6HR 10 Days #40 cap 12/31/20 [Rx] HYDROcodone/APAP 7.5-325MG [[place] 7.5-325] 1 tab PO Q4H PRN 3 Days #18 tab 12/31/20 [Rx] Ibuprofen [Motrin] 400 mg PO Q6HR PRN tab 12/31/20 [Rx] Follow up Appointment(s)/Referral(s): Ludwin Denton MD [Primary Care Provider] - 1-2 days (patient to call and make appt after discharge ) Noemi Silva MD [STAFF PHYSICIAN] - 01/07/21 3:30 pm Patient Instructions/Handouts: Cellulitis (DC) Activity/Diet/Wound Care/Special Instructions: Thank you for allowing us to participate in your care, it was truly a pleasure having you for our patient. You're being discharged home on a 10 day course of Keflex. This is an ant ibiotic that he will need to take every 6 hours for the next 10 days. It is very important to take this medication as prescribed without missing any doses. Please be sure to complete entire course of antibiotics as directed to prevent recurrence of infection. Please be sure to keep all follow-up appointments. Discharge Disposition: HOME SELF-CARE <Adilia Puente - Last Filed: 12/31/20 18:31> Providers Date of admission: 12/28/20 18:41 Attending physician: Luis F Coughlin MD Consults: 12/28/20 23:19 Consult Physician Urgent Consulting Provider: Noemi Silva Consult Reason/Comments: R foot cellulitis Do you want consulting provider notified?: Yes Primary care physician: Ludwin Denton
== END 2020-12-31 13:42 | disposition home or self-care (01) | DRG 638 ==
LOC: EC 16:02 → 4SSUR 18:41
PROVIDERS: ADMIT Internal Medicine; ATTEND Internal Medicine
DX: E10.69 Type 1 diabetes mellitus with other specified complication (principal); M86.671 Other chronic osteomyelitis, right ankle and foot; L03.115 Cellulitis of right lower limb; E10.40 Type 1 diabetes mellitus with diabetic neuropathy, unspecified; Z96.41 Presence of insulin pump (external) (internal); Z79.4 Long term (current) use of insulin; Z86.73 Personal history of transient ischemic attack (TIA), and cerebral infarction without residual deficits; Z20.822 Contact with and (suspected) exposure to COVID-19
CPT/HCPCS: 36415; 80048; 80053; 83036; 83605; 83735; 85025; 85027; 85610; 85652; 85730; 86140; 87040; 87635; 99284

== ENCOUNTER 2021-04-06 08:55 | Emergency (ER) | payer MEDICARE, BC ==
[2021-04-06 09:01] VITALS: RESP 18; TEMP 97.7
[2021-04-06] MEDS ORDERED: SODIUM CHLORIDE 0.9% 500 ML 500 ML IV STA (09:07)
--- NOTE | 2021-04-06 09:11 | ED ---
General Adult HPI - General Chief complaint: Fall Stated complaint: syncope Time Seen by Provider: 04/06/21 08:55 Source: patient, EMS, RN notes reviewed, old records reviewed Mode of arrival: ambulatory Limitations: no limitations - History of Present Illness Initial comments: This is a 66-year-old male with a past medical history significant for diabetes and a recent tooth extraction. Patient is on antibiotics for a possible infection at the site of the extraction. Patient states he normally gets up in the mornings a little bit dizzy so he often has to sit back down until he feels better. Patient states this morning he got up a little late and got up a little quicker than normal he became dizzy and the next thing he knew he was on the ground. Patient complains of a little right sided neck pain he doesn't believe he hit his head but he is not sure it was unwitnessed. Patient denies any chest pain difficulty breathing shortness of breath or palpitations at any time. Patient denies feeling syncopal or near syncopal currently. Patient denies any abdominal pain patient's nausea vomiting diarrhea. - Related Data Home Medications Medication Instructions Recorded Confirmed Folic Acid 1 mg PO DAILY 09/24/20 04/06/21 Insulin Aspart (For Pump) [NovoLOG 0.01 unit SQ-PUMP CONTINUOUS 12/28/20 2 (For Pump)] Latanoprost [Xalatan 0.005%] 1 drop BOTH EYES HS 12/28/20 04/06/21 Clindamycin HCl 300 mg PO TID 04/06/21 04/06/21 HYDROcodone/APAP 5-325MG [[place] 1 - 2 tab PO Q6H PRN 04/06/21 04/06/21 5-325] Ibuprofen [Motrin] 800 mg PO Q6H PRN 04/06/21 04/06/21 Allergies Allergy/AdvReac Type Severity Reaction Status Date / Time No Known Allergies Allergy Verified 04/06/21 10:15 Review of Systems ROS Statement: Those systems with pertinent positive or pertinent negative responses have been documented in the HPI. ROS Other: All systems not noted in ROS Statement are negative. Past Medical History Past Medical History: CVA/TIA, Diabetes Mellitus Additional Past Medical History / Comment(s): Osteoporosis, penile implant, has 14 day luzmaria sensor for monitoring blood sugars, dental abcess. History of Any Multi-Drug Resistant Organisms: None Reported Past Surgical History: Orthopedic Surgery Additional Past Surgical History / Comment(s): Right foot surgery. Cervical fusion. Left knee surgery Past Anesthesia/Blood Transfusion Reactions: No Reported Reaction Past Psychological History: No Psychological Hx Reported Smoking Status: Never smoker Past Alcohol Use History: Rare Past Drug Use History: None Reported - Past Family History Mother Family Medical History: Hyperlipidemia General Exam - General Exam Comments Initial Comments: GENERAL: Patient is well-developed and well-nourished. Patient is nontoxic and well- hydrated and is in mild distress. ENT: Neck is soft and supple. No significant lymphadenopathy is noted. Oropharynx is clear. Moist mucous membranes. Neck has full range of motion without eliciting any pain. EYES: The sclera were anicteric and conjunctiva were pink and moist. Extraocular movements were intact and pupils were equal round and reactive to light. Eyelids were unremarkable. PULMONARY: Unlabored respirations. Good breath sounds bilaterally. No audible rales rhonchi or wheezing was noted. CARDIOVASCULAR: There is a regular rate and rhythm without any murmurs gallops or rubs. ABDOMEN: Soft and nontender with normal bowel sounds. SKIN: Skin is clear with no lesions or rashes and otherwise unremarkable. NEUROLOGIC: Patient is alert and oriented x3. Cranial nerves II through XII are grossly intact. Motor and sensory are also intact. Normal speech, volume and content. Symmetrical smile. MUSCULOSKELETAL: Normal extremities with adequate strength and full range of motion. LYMPHATICS: No significant lymphadenopathy is noted PSYCHIATRIC: Normal psychiatric evaluation. Limitations: no limitations Course Vital Signs 04/06/21 04/06/21 08:56 11:04 Temperature 97.7 F Pulse Rate 86 Pulse Rate [ 86 Sitting] Pulse Rate [ 89 Standing] Pulse Rate [ 85 Supine Party Planner] Respiratory 18 Rate Blood Pressure 161/97 Blood Pressure 137/90 [Right Arm Sitting] Blood Pressure 127/63 [Right Arm Standing] Blood Pressure 150/85 [Right Arm Supine] O2 Sat by Pulse 98 Oximetry Medical Decision Making - Medical Decision Making EKG shows sinus rhythm with occasional PAC at a rate of [address] interval is on a 46 QRS is 98 QT interval 382 QTC is 462. Patient's EKG shows no ST segment elevation or depression CT of the brain and C-spine showed no acute abnormality. Chest x-ray showed no acute abnormality. I went back in to the room and reevaluated the patient he stated he had no symptoms and that passing out was unusable being dizzy and feel like he was given a passout is almost a daily occurrence. was in agreement with this. I offered admission to the patient but he refused and stated he would be fine going home and was comfortable taking him. - Lab Data Result diagrams: 04/06/21 09:23 04/06/21 09:23 Lab Results 04/06/21 04/06/21 04/06/21 Range/Units 09:23 09:23 09:23 WBC 5.8 (3.8-10.6) k/uL RBC 4.17 L (4.30-5.90) m/uL Hgb 12.5 L (13.0-17.5) gm/dL Hct 38.0 L (39.0-53.0) % MCV 91.1 (80.0-100.0) fL MCH 29.9 (25.0-35.0) pg MCHC 32.9 (31.0-37.0) g/dL RDW 13.8 (11.5-15.5) % Plt Count 381 (150-450) k/uL MPV 6.9 Neutrophils % 71 % Lymphocytes % 17 % Monocytes % 6 % Eosinophils % 3 % Basophils % 1 % Neutrophils # 4.1 (1.3-7.7) k/uL Lymphocytes # 1.0 (1.0-4.8) k/uL Monocytes # 0.4 (0-1.0) k/uL Eosinophils # 0.2 (0-0.7) k/uL Basophils # 0.1 (0-0.2) k/uL PT 10.5 (9.0-12.0) sec INR 1.0 (<1.2) APTT 26.1 (22.0-30.0) sec Sodium 137 (137-145) mmol/L Potassium 4.2 (3.5-5.1) mmol/L Chloride 103 (98-107) mmol/L Carbon Dioxide 29 (22-30) mmol/L Anion Gap 5 mmol/L BUN 18 (9-20) mg/dL Creatinine 0.78 (0.66-1.25) mg/dL Est GFR (CKD-EPI)AfAm >90 (>60 ml/min/1.73 sqM) Est GFR (CKD-EPI)NonAf >90 (>60 ml/min/1.73 sqM) Glucose 127 H (74-99) mg/dL Calcium 8.9 (8.4-10.2) mg/dL Magnesium 1.9 (1.6-2.3) mg/dL Total Bilirubin 0.7 (0.2-1.3) mg/dL AST 35 (17-59) U/L ALT 27 (4-49) U/L Alkaline Phosphatase 179 H (38-126) U/L Troponin I (0.000-0.034) ng/mL Total Protein 7.2 (6.3-8.2) g/dL Albumin 3.6 (3.5-5.0) g/dL 04/06/21 Range/Units 09:23 WBC (3.8-10.6) k/uL RBC (4.30-5.90) m/uL Hgb (13.0-17.5) gm/dL Hct (39.0-53.0) % MCV (80.0-100.0) fL MCH (25.0-35.0) pg MCHC (31.0-37.0) g/dL RDW (11.5-15.5) % Plt Count (150-450) k/uL MPV Neutrophils % % Lymphocytes % % Monocytes % % Eosinophils % % Basophils % % Neutrophils # (1.3-7.7) k/uL Lymphocytes # (1.0-4.8) k/uL Monocytes # (0-1.0) k/uL Eosinophils # (0-0.7) k/uL Basophils # (0-0.2) k/uL PT (9.0-12.0) sec INR (<1.2) APTT (22.0-30.0) sec Sodium (137-145) mmol/L Potassium (3.5-5.1) mmol/L Chloride (98-107) mmol/L Carbon Dioxide (22-30) mmol/L Anion Gap mmol/L BUN (9-20) mg/dL Creatinine (0.66-1.25) mg/dL Est GFR (CKD-EPI)AfAm (>60 ml/min/1.73 sqM) Est GFR (CKD-EPI)NonAf (>60 ml/min/1.73 sqM) Glucose (74-99) mg/dL Calcium (8.4-10.2) mg/dL Magnesium (1.6-2.3) mg/dL Total Bilirubin (0.2-1.3) mg/dL AST (17-59) U/L ALT (4-49) U/L Alkaline Phosphatase (38-126) U/L Troponin I <0.012 (0.000-0.034) ng/mL Total Protein (6.3-8.2) g/dL Albumin (3.5-5.0) g/dL Disposition Clinical Impression: Syncope Disposition: HOME SELF-CARE Instructions (If sedation given, give patient instructions): Syncope (ED), Hypotension (ED) Is patient prescribed a controlled substance at d/c from ED?: No Referrals: Ludwin Denton MD [Primary Care Provider] - 1-2 days Time of Disposition: 11:26
[2021-04-06 09:33] LABS: Basophils # (A) 0.1 k/uL (0-0.2); Basophils % (A) 1 %; Eosinophils # (A) 0.2 k/uL (0-0.7); Eosinophils % (A) 3 %; HGB 12.5 gm/dL (13.0-17.5); Lymphocytes % (A) 17 %; MCH 29.9 pg (25.0-35.0); MCHC 32.9 g/dL (31.0-37.0); MCV 91.1 fL (80.0-100.0); Mean Platelet Volume 6.9; Monocytes # (A) 0.4 k/uL (0-1.0); Monocytes % (A) 6 %; Neutrophils # (A) 4.1 k/uL (1.3-7.7); Neutrophils % (A) 71 %; Platelet Count 381 k/uL (150-450); RBC 4.17 m/uL (4.30-5.90); RDW 13.8 % (11.5-15.5); WBC 5.8 k/uL (3.8-10.6)
[2021-04-06 09:42] LABS: ALT 27 U/L (4-49); AST 35 U/L (17-59); African American GFR (CKD) >90 (>60 ml/min/1.73 sqM); Albumin 3.6 g/dL (3.5-5.0); Alkaline Phosphatase 179 U/L (38-126); Anion Gap 5 mmol/L; Blood Urea Nitrogen 18 mg/dL (9-20); Calcium 8.9 mg/dL (8.4-10.2); Carbon Dioxide 29 mmol/L (22-30); Chloride 103 mmol/L (98-107); Glucose 127 mg/dL (74-99); Magnesium 1.9 mg/dL (1.6-2.3); Non-African American GFR(CKD) >90 (>60 ml/min/1.73 sqM); Potassium 4.2 mmol/L (3.5-5.1); Sodium 137 mmol/L (137-145); Total Bilirubin 0.7 mg/dL (0.2-1.3); Total Protein 7.2 g/dL (6.3-8.2)
--- NOTE | 2021-04-06 09:46 | CT ---
EXAMINATION TYPE: CT brain cspine wo con DATE OF EXAM: 04/06/2021 COMPARISON: MRI brain and cervical spine March 21, 2020 HISTORY: Syncopal episode. Unsure of head injury. Cervical pain in region of fusion. CT DLP: 1383.1 mGycm. Automated Exposure Control for Dose Reduction was Utilized. TECHNIQUE: CT scan of the head and cervical spine are performed without contrast. FINDINGS: There is no acute intracranial hemorrhage or midline shift identified. Mild to moderate v entricular and sulcal prominence redemonstrated. Fairly moderate low attenuation in the deep and per iventricular white matter again seen. The calvarium is intact The globes are intact bilaterally. No a ir-fluid level in the right maxillary sinus. Cervical spine is visualized in its entirety from C1 through upper thoracic levels and demonstrates s table alignment without evidence of acute fracture or dislocation. Prevertebral soft tissue appears within normal limits. The C1-C2 articulation is within normal limits on the coronal images. Anterio r fusion plate and artificial disc material C5-T1 levels redemonstrated. Posterior disc herniation C4 -C5 level effaces the anterior thecal sac along with posterior ossific projection at inferior C5 leve l. Review of axial images shows moderate right and mild left-sided carotid follow-up calcified plaque . Thyroid gland is within normal limits. Lung apices show no pneumothorax. IMPRESSION: 1. There is no acute fracture or dislocation evident in the cervical spine. 2. No acute intracranial hemorrhage or midline shift is seen. Dhma-uw-qixasbxi diffuse cerebral atrop hy and moderate chronic small vessel ischemic change redemonstrated. New acute right maxillary sinus disease incidentally noted. Correlate clinically.
[2021-04-06 10:00] LABS: Partial Thromboplastin Time 26.1 sec (22.0-30.0); Prothrombin Time 10.5 sec (9.0-12.0)
--- NOTE | 2021-04-06 10:28 | XR ---
EXAMINATION TYPE: XR chest 2V DATE OF EXAM: 04/06/2021 COMPARISON: NONE HISTORY: Chest pain and syncope. TECHNIQUE: Frontal and lateral views of the chest are obtained. FINDINGS: There is no focal air space opacity, pleural effusion, or pneumothorax seen. The cardiac silhouette size is within normal limits. The osseous structures are demineralized. Surgical change cervicothoracic junction is present. Overlying EKG leads noted. IMPRESSION: No acute process.
[2021-04-06 11:05] VITALS: BP 150/85; PULSE 85
== END 2021-04-06 11:49 | disposition home or self-care (01) ==
LOC: EC 08:55
DX: R55 Syncope and collapse (principal); E11.9 Type 2 diabetes mellitus without complications; Z79.4 Long term (current) use of insulin; Z86.73 Personal history of transient ischemic attack (TIA), and cerebral infarction without residual deficits
CPT/HCPCS: 36415; 70450; 71046; 72125; 80053; 83735; 84484; 85025; 85610; 85730; 93005; 99285

== ENCOUNTER → 2021-07-17 | Outpatient (CLI) | payer MEDICARE, BC ==
--- NOTE | 2021-07-17 08:14 | US ---
EXAMINATION TYPE: US abdomen complete DATE OF EXAM: 07/17/2021 COMPARISON: NONE CLINICAL HISTORY: R74.8 ABNORMAL LEVELS OF OTHER SERUM ENZYMES. Alkaline phosphatase raised. EXAM MEASUREMENTS: Liver Length: 12.5 cm Gallbladder Wall: 0.23 cm Spleen: 9.3 cm Right Kidney: 13.2 x 5.6 x 5.0 cm Left Kidney: 9.6 x 5.6 x 5.6 cm Exam is very limited due to large amount of overlying gas. Pancreas: Obscured by gas. Liver: Appears wnl Gallbladder: Multiple hyperechoic areas seen that appear to be attached to the gallbladder wall. Larg est measures: 0.3 x 0.3 x 0.2 cm. Evidence for sonographic Lanza's sign: No CBD: Obscured by gas. Spleen: Appears wnl Right Kidney: Appears enlarged. Anechoic appearance medially, appearance of hydronephrosis. Hyperecho ic focus seen superior pole: 0.4 x 0.7 x 0.4 cm. Left Kidney: Limited No hydronephrosis or masses seen. *Images taken prone. Upper IVC: Appears wnl Abd Aorta: Limited visibility of prox-mid portion. Iliacs are obscured by gas. IMPRESSION: 1. Gallbladder polyps versus adherent gallstones. 2. Right-sided nephrolithiasis.
== END | disposition home or self-care (01) ==
LOC: RADUSWWP 06:59
PROVIDERS: ATTEND Family Medicine
DX: N20.0 Calculus of kidney (principal)
CPT/HCPCS: 76700

== ENCOUNTER → 2021-09-11 | Outpatient (CLI) | payer MEDICARE, BC ==
--- NOTE | 2021-09-11 08:38 | CT ---
EXAMINATION TYPE: CT sinus wo con DATE OF EXAM: 09/11/2021 COMPARISON: CT dated 04/06/2021 HISTORY: Sinusitis post right sided tooth extraction x2 months ago. CT DLP: 674 mGycm. Automated Exposure Control for Dose Reduction was Utilized. TECHNIQUE: CT scan of the sinuses is performed without contrast, axial images are obtained, coronal r eformatted images are also reviewed. FINDINGS: Minimal deviation of the bony nasal septum convex to the right side. Grossly unremarkable middle and inferior turbinates. No significant mucosal thickening of the nasal fossa bilaterally. Patent infundi bulum bilaterally. Clear ostiomeatal complex bilaterally. Mucosal thickening of the alveolar recesses of the maxillary sinuses. Intact bony boundaries of maxil maxine sinuses. Mild mucosal thickening of the right posterior ethmoid air cells. Unremarkable remainde r of the ethmoid air cells, frontal sinus and sphenoid sinus. Patent sphenoethmoidal recesses. Clear mastoid air cells. Symmetrical unremarkable TMJs. Volume loss changes of the visualized portion of the brain. Unremarkable orbits. Arterial atherosclerotic calcifi cations. IMPRESSION: Mucosal thickening of the maxillary sinuses and to a lesser extent the right posterior ethmoid air ce lls as described above. Unremarkable remainder of the paranasal sinuses. Other findings as described above.
== END | disposition home or self-care (01) ==
LOC: RADCTMAIN 07:54
PROVIDERS: ATTEND Otolaryngology
DX: J32.9 Chronic sinusitis, unspecified (principal); J34.89 Other specified disorders of nose and nasal sinuses
CPT/HCPCS: 70486

== ENCOUNTER → 2022-03-25 | Outpatient (CLI) | payer MEDICARE, BC ==
--- NOTE | 2022-03-25 15:21 | CT ---
EXAMINATION TYPE: CT brain wo con CT DLP: 1080.9 mGycm, Automated exposure control for dose reduction was used. DATE OF EXAM: 03/25/2022 3:10 PM COMPARISON: Prior CT Brain from 04/06/2021 . CLINICAL INDICATION:Male, 67 years old with history of R55 syncope, M14.671 CHARCOT'S JOINT, RIGHT AN KLE, Syncope. Dizziness. TECHNIQUE: Brain: Multiple axial CT images of the brain were obtained without IV contrast. Coronal and sagittal reformats reviewed. FINDINGS: Brain: Extra-axial spaces: No abnormal extra-axial fluid collections. Ventricular system: Within normal limits Cerebral parenchyma: Cerebral atrophy. No acute intraparenchymal hemorrhage or mass effect. The day -white junction is well differentiated. Scattered hypoattenuating areas are seen within the white mat ter. Cerebellum: Unremarkable. Mass effect: No evidence of midline shift. Intracranial vasculature: Atherosclerotic calcifications of the intracranial vessels. Soft tissues: Normal. Calvarium/osseous structures: No depressed skull fracture. Paranasal sinuses and mastoid air cells: Mild mucosal thickening of the right sphenoid, maxillary, an d ethmoid sinuses. The mastoid air cells are clear. Visualized orbits: The lenses are surgically removed from the globes. IMPRESSION: 1. No acute intracranial process or significant change from prior. 2. Nonspecific white matter changes, likely secondary to chronic small vessel ischemic disease. 3. Paranasal sinus disease.
--- NOTE | 2022-04-01 10:30 | US ---
EXAMINATION TYPE: US arterial LE multi level DATE OF EXAM: 03/25/2022 2:32 PM CLINICAL HISTORY: M14.671 CHARCOT'S JOINT, RIGHT ANKLE AND FOOT. Swelling to right foot, pt states di abetic neuropathy History of: Smoker: no Hypertension: no Diabetic: yes Hyperlipidemia: no TIA/CVA: yes Previous Vascular Surgery: no [place]: no Vascular Ulcers: no Claudication: no Gangrene: no Doppler Waveforms: Right: Monophasic Left: Biphasic Right Brachial Pressure: 173 Left Brachial Pressure: 167 Ankle-Brachial Indices: Right: 0.92 Left: CNO Toe Brachial Indices: Right: Right great toe shortened, unable to wrap cuff around toe Left: 0.54 IMPRESSION: Normal right-sided TOYA value. Loss of phasicity is nonspecific. Diminished left TBI valu e consistent with at least mild peripheral arterial disease in the left foot.
== END | disposition home or self-care (01) ==
LOC: RADUSWWP 13:52
PROVIDERS: ATTEND Family Medicine
DX: R90.82 White matter disease, unspecified (principal); J32.8 Other chronic sinusitis; R55 Syncope and collapse; E11.40 Type 2 diabetes mellitus with diabetic neuropathy, unspecified; M14.671 Charcot's joint, right ankle and foot; Z86.73 Personal history of transient ischemic attack (TIA), and cerebral infarction without residual deficits
CPT/HCPCS: 70450; 93923

== ENCOUNTER → 2022-04-01 | Outpatient (CLI) | payer MEDICARE, BC ==
--- NOTE | 2022-04-01 19:27 | EEG ---
ELECTROENCEPHALOGRAM REPORT CLINICAL HISTORY: This is a 67-year-old gentleman with reported syncope. The video EEG is obtained to evaluate for seizure epileptiform activity. RELEVANT MEDICATIONS: The patient is not on any antiepileptic drug per medical record. EEG TYPE: A routine 21-channel EEG is performed with video using the 10/20 electrode placement system. DESCRIPTION: Wakefulness is only obtained. During awake state, the posterior-dominant rhythm consists of low voltage of 8.5 to 9.5 hertz activity that is well modulated, well sustained. There is no physiological sleep architecture seen. There is no focal slowing. Interictal and ictal is none. ACTIVATION PROCEDURE: Photic stimulation did not evoke a posterior driving response. There is no abnormality during the photic stimulation. Hyperventilation is not performed. CLINICAL INTERPRETATION: This is a normal routine EEG during awake state. There is no focal slowing, epileptiform discharges, or seizure on the EEG. A normal routine EEG does not rule out underlying epilepsy. Clinical correlation is recommended. JANET / GRETTA: [id number] /
== END ==
LOC: NEUROMAIN 08:05
PROVIDERS: ATTEND Family Medicine
DX: R55 Syncope and collapse (principal)
CPT/HCPCS: 95816

== ENCOUNTER → 2022-04-03 | Outpatient (CLI) | payer MEDICARE, BC ==
--- NOTE | 2022-04-09 11:07 | HM ---
HOLTER MONITOR REPORT 72-hour Holter report. The patient in his diary had only 1 entry that he felt tired and exercised. Predominant rhythm is sinus with a heart rate ranging from 65 to 101 beats per minute with average heart rate of 78 beats per minute. There were rare isolated PACs and PVCs. One run of SVT of about less than 10 beats at 150 beats per minute. No symptoms were reported. There were 2 ventricular couplets. No symptoms. PVCs were less than 1% and PACs were less than 1%. There was no evidence of any bradyarrhythmia. IMPRESSION: 1. Predominant rhythm is sinus with average heart rate of 78 beats per minute. 2. One short run of paroxysmal atrial tachycardia noted. No symptoms. 3. Isolated PACs and PVCs with 1 ventricular couplet. No pauses. MMODL / IJN: [id number] /
== END | disposition home or self-care (01) ==
LOC: RADECHMAIN 11:39
PROVIDERS: ATTEND Family Medicine
DX: I47.1 Supraventricular tachycardia (principal); I49.3 Ventricular premature depolarization; I49.1 Atrial premature depolarization; R55 Syncope and collapse
CPT/HCPCS: 93225; 93226

== ENCOUNTER → 2022-04-18 | Outpatient (CLI) | payer MEDICARE, BC ==
--- NOTE | 2022-04-18 09:46 | US ---
EXAMINATION TYPE: US abdomen limited DATE OF EXAM: 04/18/2022 COMPARISON: Abdominal ultrasound 07/17/2021 CLINICAL HISTORY: R74.8 abn serum enzyme levels. elevated labs, no symptoms, h/o stroke with limited mobility TECHNIQUE: Multiple sonographic images of the right upper quadrant are obtained. FINDINGS: EXAM MEASUREMENTS: Liver Length: 15.8 cm Gallbladder Wall: 0.2 cm CBD: 0.5 cm Right Kidney: 14.2 x 5.3 x 6.2 cm BARGE MASTER NOTES:limited due to bowel gas Pancreas: not seen due to gas Liver: wnl Gallbladder: multiple echogenic foci's with may represent non-shadowing stones versus polyps Evidence for sonographic Lanza's sign: no CBD: wnl Right Kidney: 0.5 x 0.6 x 0.4cm inferior pole stone Pancreas is not seen due to overlying bowel gas. The liver is within normal limits without focal lesi on. Multiple echogenic foci within the gallbladder again demonstrated which may represent adherent ga llstones versus polyps. No pericholecystic fluid or wall thickening. Common bile duct within normal l imits. No hydronephrosis or contour deforming solid mass involving the right kidney. Inferior right r enal pole 0.6 cm shadowing calculus identified. IMPRESSION: 1. No acute process. 2. Redemonstration of small gallbladder polyps versus adherent gallstones. 3. Nonobstructive right renal calculus.
== END | disposition home or self-care (01) ==
LOC: RADUSWWP 06:45
PROVIDERS: ATTEND Family Medicine
DX: N20.0 Calculus of kidney (principal); R74.8 Abnormal levels of other serum enzymes
CPT/HCPCS: 76705

== ENCOUNTER → 2022-04-25 | Outpatient (CLI) | payer MEDICARE, BC ==
--- NOTE | 2022-04-25 11:18 | US ---
EXAMINATION TYPE: US venous doppler duplex LE DATE OF EXAM: 04/25/2022 11:07 AM COMPARISON: Prior bilateral ultrasound 2018 CLINICAL HISTORY: M79.604 PAIN RT LEG, M79.605PAIN LT LEG, R22.43SWE. Swelling bilateral legs SIDE PERFORMED: Bilateral TECHNIQUE: The lower extremity deep venous system is examined utilizing real time linear array sonog cony with graded compression, doppler sonography and color-flow sonography. VESSELS IMAGED: Common Femoral Vein Deep Femoral Vein Greater Saphenous Vein * Femoral Vein Popliteal Vein Small Saphenous Vein * Proximal Calf Veins (* superficial vessels) Right Leg: Negative for DVT, Enlarged lymph nodes right groin and right pop fossa Left Leg: Negative for DVT Results called to Demetria at 's office at time of exam Grayscale, color doppler, spectral doppler imaging performed of the deep veins of the bilateral lower extremities. There is normal flow, compressibility, vascular waveforms. IMPRESSION: No ultrasound evidence for acute DVT in either lower extremity. Enlarged lymph node righ t groin and enlarged mass possible lymph node right popliteal region noted. Follow-up advised.
== END | disposition home or self-care (01) ==
LOC: RADUSWWP 10:34
PROVIDERS: ATTEND Internal Medicine Hematology & Oncology
DX: R59.0 Localized enlarged lymph nodes (principal); M79.604 Pain in right leg; M79.605 Pain in left leg
CPT/HCPCS: 93970

== ENCOUNTER → 2022-07-22 | Outpatient (CLI) | payer MEDICARE, BC | LOC: CPPFTMAIN 09:16 | PROVIDERS: ATTEND Family Medicine | DX: R05.3 Chronic cough (principal) | CPT/HCPCS: 94060; 94726; 94729 ==

== ENCOUNTER 2022-08-20 07:37 | Day surgery (SDC) | payer MEDICARE, BC ==
[~2022-08-20 07:37] MED LIST changes: -AMPICILLIN 1,000 MG in SODIUM CHLORIDE 0.9% 50 ML IVPB PRN; -GENTAMICIN 120 MG in SODIUM CHLORIDE 0.9% 100 ML IVPB PRN; +LACTATED RINGERS 1,000 ML IV SCH; -LIDOCAINE 1% (10MG/ML) FOR IV START INTRADERMA PRN; -MIDAZOLAM 2 MG/2 ML VIAL IV PRN; -ONDANSETRON 4 MG/2 ML VIAL IVP ONE
[2022-08-20 08:16] LABS: Glucose,Whole Blood 192 mg/dL (70-110)
[2022-08-20 08:17] VITALS: TEMP 97.8
[2022-08-20] MEDS ORDERED: PROPOFOL 10 MG/ML 20 ML VIAL IV ONE (08:48)
[2022-08-20] MEDS ORDERED: LIDOCAINE 2% INJ 20 MG/ML (2 ML VIAL) ONE (08:48)
--- NOTE | 2022-08-20 08:54 | P.PCN ---
Date of Procedure: 08/20/22 Procedure(s) Performed: BRIEF HISTORY: Patient is a 67-year-old, pleasant, white male scheduled for an upper endoscopy as a part of evaluation of long-standing history of GERD of several years duration. He takes ayag-[id number] Nexium 20 mg daily with good control of symptoms. Recently had lost 10 pounds and has been having a decrease appetite. CT of abdomen showed fluid-filled esophagus and he is hence scheduled for an upper endoscopy to evaluate further. PROCEDURE PERFORMED: Esophagogastroduodenoscopy with biopsy With biopsy PREOPERATIVE DIAGNOSIS: Long-standing history of GERD and abnormal CAT scan. IV sedation per anesthesia. PROCEDURE: After informed consent was obtained, the patient was brought into the endoscopy unit. IV sedation was administered by Anesthesia under continuous monitoring. Initially the Olympus GIF-140 video endoscope was inserted into the mouth. Esophagus intubated without any difficulty. It was gradually advanced into the stomach and duodenum and carefully examined. The bulb and the second part of the duodenum appeared normal. Biopsies were done from the duodenum to rule out celiac disease. The scope at this time was withdrawn to the stomach, adequately insufflated with air, and upon careful examination, mucosa of the antrum, had mild gastritis and biopsies were done from this area. Mucosa of the body, cardia and the fundus appeared normal. The scope was then withdrawn into the esophagus. The GE junction was located at 39 cm from the incisors. The esophagus appeared normal. There were no erosions or ulcerations seen and the patient tolerated the procedure well. IMPRESSION: 1. Minimal antral gastritis. 2. No evidence of esophagitis or esophageal stricture. RECOMMENDATIONS: The findings of this examination were discussed with the patient as well as his family. He was advised to follow with the biopsy results. She'll continue with Nexium 20 mg daily and follow antireflux measures.
[2022-08-20 09:05] LABS: Glucose,Whole Blood 182 mg/dL (70-110)
[2022-08-20 09:29] VITALS: BP 154/79; PULSE 75; RESP 15
== END 2022-08-20 09:43 | disposition home or self-care (01) ==
LOC: ORWHC2ENDO 07:37
PROVIDERS: ATTEND Internal Medicine Gastroenterology
DX: K29.50 Unspecified chronic gastritis without bleeding (principal); K21.9 Gastro-esophageal reflux disease without esophagitis; E78.5 Hyperlipidemia, unspecified; I48.91 Unspecified atrial fibrillation; M19.90 Unspecified osteoarthritis, unspecified site; Z79.82 Long term (current) use of aspirin; Z79.4 Long term (current) use of insulin; Z86.73 Personal history of transient ischemic attack (TIA), and cerebral infarction without residual deficits; Z79.01 Long term (current) use of anticoagulants
CPT/HCPCS: 88305; 43239; J2704; J2001

== ENCOUNTER 2022-10-17 08:48 | Day surgery (SDC) | payer MEDICARE, BC ==
[2022-10-15 12:24] VITALS: BMI 23.3
[~2022-10-17 08:48] MED LIST changes: +ALPRAZolam 0.25 MG TAB PO PRN; +ALPRAZolam 0.5 MG TAB PO PRN; +ASPIRIN 325 MG TAB PO ONE; +ATORVASTATIN 80 MG TAB PO ONE; +HEPARIN SODIUM,PORCINE 10,000 UNIT in SODIUM CHLORIDE 0.9% 1,000 ML IRRIGATION PRN; +HEPARIN SODIUM,PORCINE 2,500 UNIT in SODIUM CHLORIDE 0.9% 250 ML IRRIGATION PRN; -LACTATED RINGERS 1,000 ML IV SCH; +NITROGLYCERIN SL TABS 0.4 MG TAB SUBLINGUAL PRN; +SODIUM CHLORIDE 0.9% 1,000 ML in EMPTY BAG 1 BAG IV SCH
[2022-10-17] MEDS ORDERED: SODIUM CHLORIDE 0.9% 1,000 ML IV ONE (09:06)
[2022-10-17 09:17] LABS: Glucose,Whole Blood 241 mg/dL (70-110)
[2022-10-17 09:26] VITALS: RESP 16; TEMP 98.3
[2022-10-17] MEDS ORDERED: HEPARIN SODIUM 1,000 UN/ML (10ML VL) ONE (10:22)
[2022-10-17] MEDS ORDERED: VERAPAMIL 2.5 MG/ML 2 ML AMP ONE (10:22)
[2022-10-17] MEDS ORDERED: MIDAZOLAM 2 MG/2 ML VIAL IVP ONE (10:54)
[2022-10-17] MEDS ORDERED: LIDOCAINE 1% INJ 10MG/ML (5 ML VIAL-PF) SQ ONE (10:55)
[2022-10-17] MEDS ORDERED: VERAPAMIL SYRINGE (5 MG/10 ML) INTRAARTER ONE (11:00)
[2022-10-17] MEDS ORDERED: HEPARIN SODIUM 1,000 UN/ML (10ML VL) IVP ONE (11:03)
[2022-10-17] MEDS ORDERED: FUROSEMIDE 10 MG/ML 4 ML VIAL ONE (11:11)
[2022-10-17] MEDS ORDERED: FUROSEMIDE 10 MG/ML 4 ML VIAL IVP ONE (11:13)
[2022-10-17] MEDS ORDERED: IOPAMIDOL-300 100ML BTL INJ ONE (11:13)
[2022-10-17] MEDS ORDERED: RX INFO: IV CONTRAST WAS GIVEN 1 EACH MISC MISCELLANE PRN (11:24)
[2022-10-17] MEDS ORDERED: SODIUM CHLORIDE 0.9% 1,000 ML IV SCH (11:30)
[2022-10-17 11:33] LABS: Glucose,Whole Blood 280 mg/dL (70-110)
--- NOTE | 2022-10-17 11:33 | P.PCN ---
Date of Procedure: 10/17/22 Operative Findings: CARDIAC CATHETERIZATION PERFORMING PHYSICIAN: Young Lazcano MD, RPVI PROCEDURE PERFORMED: 1. Selective right and left coronary angiogram 2. Left heart catheterization Ultrasound-guided access of the right radial artery INDICATION: This is a 67-year-old gentleman with diabetes and hypertension and dyslipidemia history of stroke was seen in the office for further cardiac evaluation. He was experiencing symptoms of shortness of breath with exertion. He underwent myocardial perfusion imaging stress test and that showed fixed defect with no reversibility seen. In the light of that heart catheterization was advised. COMPLICATION: None APPROACH: Right radial artery LEVEL OF SEDATION: Moderate with a sedation length of 15 minutes PROCEDURE DESCRIPTION: After obtaining an informed consent, the patient was brought to cardiac cath lab tech. Local anesthesia was performed using lidocaine subcutaneously. The right radial artery was cannulated using Seldinger technique, the guidewire passed easily, following that we advanced a 5-Cuban sheath dilator assembly, the wire and dilator were removed and sheath was flushed. Following that, 2 mg of verapamil along with 5000 unit heparin were given. Selective right and left coronary angiogram using a 6-Cuban JR4 and JL 3.5 catheters. Following that we did left heart catheterization using 6-Cuban pigtail catheter. The procedure was completed there was no complication. SELECTIVE CORONARY ANGIOGRAM: The right coronary artery: Extremely calcified. It is a large caliber vessel and a dominant vessel. The RCA in the proximal portion has critical lesion appeared to be in the range of 80-90%. The mid RCA has intermediate lesion appeared to be in the range of 50%. The RCA distally has mild disease only and bifurcates into PDA and PLV branches. The PDA branch has mild disease only and the PLV branch appears to have also critical lesion appeared to be in the range of 80-90%. Left main: His calcified with mild to moderate diffuse disease. It bifurcates into an ulcer X and LAD The left circumflex: Large caliber vessel and nondominant vessel. The left circumflex proximally has a critical lesion. After that gives rises into an OM which has also critical lesion appeared to be in the range of 80-90%. The left anterior descending artery: The LAD is diffusely diseased. Proximally has a tubular lesion appears to be in the range of 80-90%. The mid LAD has another lesion appears to be in the range of 90% to 95%. This is by the bifurcation of a medium size diagonal branch. HEMODYNAMICS: The LVEDP was 13 mmHg was no significant gradient across aortic valve. CONCLUSION: 1. Extremely calcified right and left coronary system. 2. Severe triple-vessel coronary artery disease 3. Elevated left-sided filling pressure POSTPROCEDURE MANAGEMENT: Giving the above anatomy I advised the patient to be seen by a cardiothoracic surgeon for the evaluation off CABG.
--- NOTE | 2022-10-17 13:10 | P.GSCN ---
History of Present Illness Consult date: 10/17/22 Reason for Consult: Multivessel coronary artery disease with left main disease Requesting physician: Young Lazcano History of present illness: This is a 67-year-old gentleman who follows on an outpatient basis with Dr Ludwin Denton for his primary care and with Dr. Young Lazcano for his cardiology care. He has a past medical history significant for diabetes mellitus with a Charcot arthropathy, neuropathy, prior ulcers to his right foot, cerebrovascular accident in 2019 with recurrent left-sided hemiplegia on Xarelto as an outpatient, lifetime nonsmoker with COPD, MTHFR deficiency, mild to moderate dilatation of the aortic root measuring 4.2 cm, evidence of previous silent myocardial infarction with coronary calcification on CT scan of the chest, erectile dysfunction status post penile implant, anemia on iron supplement, family history of coronary artery disease with his dad having undergone coronary artery bypass grafting surgery in his mid 60s, and a history of depression. The patient reports last week he developed a virus with symptoms of shortness of breath and a nonproductive cough. He denies any chest pain/pressure, nausea, vomiting, headache, hemoptysis, hematemesis, palpitations, constipation, diar shania, presyncope or syncope. Due to the patient's symptoms he underwent myocardial perfusion imaging stress test which was normal showing only fixed defect with no reversibility. The patient reports he is also been experiencing some lower extremity edema worse on his right leg then left. Subsequently, due to the patient's symptoms he was recommended to undergo a cardiac catheterization which was completed today. The cardiac catheterization demonstrated mild to moderate diffuse disease to his left main coronary artery, the left circumflex proximally showed a critical lesion with an 80-90% stenosis to his obtuse marginal coronary artery, and 80-90% stenosis to his proximal left anterior descending coronary artery, a 90-95% stenosis to his left anterior descending coronary artery, and a 90% stenosis to his right coronary artery. Due to the findings on the cardiac catheterization a consult was placed to Dr. Vania Calvo from cardiothoracic surgery for further evaluation and treatment recommendations including myocardial revascularization surgery. Past Medical History Past Medical History: Atrial Fibrillation, COPD, CVA/TIA, Diabetes Mellitus, Eye Disorder, GERD/Reflux, Hyperlipidemia, Musculoskeletal Disorder, Osteoarthritis (OA) Additional Past Medical History / Comment(s): CVA X2, last in 2019, with left arm weakness. 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 Osteoporosis. History of Any Multi-Drug Resistant Organisms: None Reported Past Surgical History: Orthopedic Surgery Additional Past Surgical History / Comment(s): Right foot surgery, bilateral laser eye surgery for detached retina, bilateral catarcat surgery with lens implants, cervical fusion, left knee surgery, bilateral shoulder surgery, penile implant. Past Anesthesia/Blood Transfusion Reactions: Postoperative Nausea & Vomiting (PONV) Additional Past Anesthesia/Blood Transfusion Reaction / Comm: PONV with one surgery. Past Psychological History: Depression Smoking Status: Never smoker Past Alcohol Use History: Rare Past Drug Use History: None Reported - Past Family History Sister(s) Family Medical History: Pulmonary Embolus Father Family Medical History: Coronary Artery Disease (CAD), Deep Vein Thrombosis (DVT) Mother Family Medical History: Cancer, Hyperlipidemia Brother(s) Family Medical History: Cancer Medications and Allergies Home Medications Medication Instructions Recorded Confirmed Type Insulin Aspart (For Pump) [NovoLOG 0.01 unit SQ-PUMP CONTINUOUS 12/28/20 10/17/22 History (For Pump)] Latanoprost [Xalatan 0.005%] 1 drop BOTH EYES HS 12/28/20 10/15/22 History Aspirin [Adult Low Dose Aspirin EC] 81 mg PO DAILY 08/18/22 10/17/22 History Esomeprazole Magnesium [NexIUM] 20 mg PO QAM 08/18/22 10/15/22 History Ferrous Sulfate [Iron] 325 mg PO TUSA 08/18/22 10/17/22 History Loratadine [Claritin] 10 mg PO DAILY 08/18/22 10/15/22 History Rivaroxaban [Xarelto] 2.5 mg PO DAILY 08/18/22 10/17/22 History Rosuvastatin [Crestor] 10 mg PO QAM 08/18/22 10/15/22 History Escitalopram Oxalate [Lexapro] 10 mg PO DAILY 10/15/22 10/15/22 History Allergies Allergy/AdvReac Type Severity Reaction Status Date / Time No Known Allergies Allergy Verified 10/17/22 09:12 Surgical - Exam Vital Signs Temp Pulse Resp BP Pulse Ox 98.3 F 85 16 125/69 93 L 10/17/22 09:23 10/17/22 09:23 10/17/22 09:23 10/17/22 09:23 10/17/22 09:23 - General well developed, well nourished, no distress, no pain - Eyes PERRL, normal ocular movement, no pale, no icteric - ENT normal pinna, normal nares, normal mucosa, no hearing loss, no congestion, poor jail - Neck Neck is supple, no lymphadenopathy. no masses, no bruits, trachea midline, no venous distension - Respiratory Lung sounds essentially clear throughout. Respirations are symmetrical and nonlabored. - Cardiovascular Regular rhythm and rate. S1 and S2 present, negative for S3, gallop or murmur. +1 edema to his bilateral lower extremities, right greater than left. - Abdomen Abdomen is soft, nontender and nondistended. Active bowel sounds present all 4 abdominal quadrants. No guarding or rigidity. No organomegaly appreciated. - Genitourinary Deferred - Rectum Deferred - Integumentary Skin is warm and dry. No clubbing or cyanosis is present. no rash, no growths, no abnormal pigmentation - Neurologic Left-sided hemiplegia and walks with a cane - Musculoskeletal Left-sided hemiplegia, Charcot's right foot - Psychiatric oriented to time, oriented to person, oriented to place, speech is normal, memory intact Results - Labs Abnormal Lab Results - Last 24 Hours (Table) 10/17/22 10/17/22 Range/Units 09:13 11:31 POC Glucose (mg/dL) 241 H 280 H (70-110) mg/dL - Imaging Additional studies: Cardiac catheterization films reviewed by Dr. Vania Calvo. Assessment and Plan Assessment: Triple-vessel coronary artery disease Dyspnea on exertion, this likely secondary to above History of diabetes mellitus which Charcot arthropathy Hyperlipidemia Cerebrovascular accident in 2019 with recurrent left-sided hemiplegia on Xarelto as an outpatient History COPD, is a lifetime nonsmoker MTHFR deficiency Mild to moderate dilatation of the aortic root measuring 4.2 cm Evidence of previous silent myocardial infarction with coronary calcification on computed tomography scan of the chest Erectile dysfunction, status post penile implant Anemia, on iron supplement as an outpatient Family history of coronary artery disease with his dad having undergone coronary artery bypass grafting surgery in his mid 60s History of depression Plan: The patient was seen and examined at his bedside in the extended stay unit. His chart diagnostics reviewed. His case was discussed in detail with Dr. Vania Calvo from cardiothoracic surgery. Preoperative testing and preoperative teaching has been initiated. Once the patient is able to ambulate we will obtain a 5 m walk test. Once the preoperative testing has been obtained we will calculate an STS risk score which will be discussed with the patient on an outpatient basis. A 2-D transthoracic echocardiogram has been ordered to evaluate his valves and LV function. The patient will be scheduled for a follow-up in the office with Dr. Vania Calvo on an outpatient basis. Continue to maximize medical management. Medical management other comorbidities per primary care and cardiology service. Thank you Dr. Lazcano for this consult and we will look forward to working with you in the care of this patient. I have personally seen and examined the patient, performed the documentation and the assessment and plan as written. 30 minutes spent on the visit . Gabe LUKE
--- NOTE | 2022-10-17 13:21 | XR ---
EXAMINATION TYPE: XR chest 2V DATE OF EXAM: 10/17/2022 COMPARISON: 04/06/2021 HISTORY: Shortness of breath TECHNIQUE: Frontal and lateral views of the chest are obtained. FINDINGS: Scattered senescent parenchymal changes noted. Hyperinflation compatible with COPD. Small bilateral pleural effusions left slightly greater than right. Suspected left basilar atelectasi s. Heart size is stable. Mediastinal structures are stable and grossly unremarkable. No evidence for hilar prominence. Degenerative changes dorsal spine. IMPRESSION: 1. Small bilateral pleural effusions left slightly greater than right. Suspected left basilar atelect asis.
--- NOTE | 2022-10-17 14:39 | US ---
EXAMINATION TYPE: US carotid duplex BILAT DATE OF EXAM: 10/17/2022 COMPARISON: US 2021 CLINICAL INDICATION: Male, 67 years old with history of Pre-Op Cardiac Surgery; Pre op cardiac surger y TECHNIQUE: Carotid duplex ultrasound examination. Indirect Doppler criteria was utilized. FINDINGS: EXAM MEASUREMENTS: RIGHT: Peak Systolic Velocity (PSV) cm/sec ----- Right CCA: 57.4 ----- Right ICA: 87.8 ----- Right ECA: 75.7 ICA/CCA ratio: 1.5 RIGHT: End Diastole cm/sec ----- Right CCA: 7.5 ----- Right ICA: 17.1 ----- Right ECA: 0.0 LEFT: Peak Systolic Velocity (PSV) cm/sec ----- Left CCA: 71.0 ----- Left ICA: 71.0 ----- Left ECA: 61.9 ICA/CCA ratio: 1.0 LEFT: End Diastole cm/sec ----- Left CCA: 8.4 ----- Left ICA: 23.7 ----- Left ECA: 0.0 VERTEBRALS (direction of flow): Right Vertebral: Antegrade Left Vertebral: Antegrade Rhythm: Normal INVESTIGATOR VICE NOTES: Plaque seen within bilateral bulbs. IMPRESSION: No evidence for hemodynamically significant stenosis. Criteria for Assigning % of Stenosis / Diameter reduction (Estimation based on the indirect measurements of the internal carotid artery velocities (ICA PSV). 1. Normal (no stenosis)=ICA PSV < 125 cm/s: ratio < 2.0: ICA EDV<40 cm/s. 2. Less than 50% stenosis=ICA PSV < 125 cm/s: ratio < 2.0: ICA EDV<40 cm/s. 3. 50 to 69% stenosis=ICA PSV of 125 to 230 cm/s: ration 2.0 ? 4.0: ICA EDV 40-100 cm/s. 4. Greater than 70% stenosis to near occlusion= ICA PSV > 230 cm/s: ratio > 4.0: ICA EDV > 100 cm/s. 5. Near occlusion= ICA PSV velocities may be low or undetectable: variable ratio and ICA EDV. 6. Total occlusion=unable to detect flow.
--- NOTE | 2022-10-17 14:43 | US ---
EXAMINATION TYPE: US vein mapping BILAT DATE OF EXAM: 10/17/2022 2:00 PM COMPARISON: NONE CLINICAL INDICATION: Male, 67 years old with history of PreOp Cardiac Surgery; Pre op cardiac surgery . SIDE PERFORMED: Bilateral TECHNIQUE: Lower extremity saphenous vein is examined and measured utilizing real time linear array sonography. Patient History: Smoker: No Heart Disease: No Previous DVT: No Vascular Surgery: No Discoloration: Yes Hypertension: No Diabetes: Yes Paralysis: No Varicosities: No Edema: No DUPLEX FINDINGS: Greater Saphenous: Color flow seen Measurements in mm: Right Greater Saphenous: Groin: 5.1 x 6.5 mm High Thigh: 5.1 x 7.4 mm Mid Thigh: 4.2 x 5.1 mm Above Knee: 3.7 x 6.1 mm Knee: 3.4 x 5.1 mm Below Knee: 3.2 x 4.4 mm Mid Calf: 2.7 x 3.7 mm At Ankle: 2.8 x 2.6 mm Left Greater Saphenous: Groin: 6.7 x 8.5 mm High Thigh: 3.8 x 4.4 mm Mid Thigh: 3.1 x 3.5 mm Above Knee: 2.1 x 4.2 mm Knee: 2.7 x 3.4 mm Below Knee: 2.6 x 2.8 mm Mid Calf: 1.8 x 2.9 mm At Ankle: 2.0 x 2.9 mm Prominent lymph node seen within right groin: 3.8 x 4.5 x 1.3 cm. IMPRESSION: As above
--- NOTE | 2022-10-17 14:53 | US ---
EXAMINATION TYPE: Pre-Operative Non-Invasive Evaluation of the hand for Potential Radial Artery Pau springer, Measurements only DATE OF EXAM: 10/17/2022 2:00 PM CLINICAL INDICATION: Male, 67 years old with history of Pre-Op Cardiac Surgery; Pre op cardiac surger y. SIDE PERFORMED: Left TECHNIQUE: Radial artery is measured utilizing real time linear array sonography. Dominant hand: Right Duplex Findings: Radial Artery: Color flow seen Measurements in mm, transverse view: Left Radial: Proximal: 2.7 x 3.1 mm Mid: 1.9 x 2.2 mm Distal: 1.6 x 2.6 mm IMPRESSION: See measurements above.
--- NOTE | 2022-10-17 16:28 | US ---
EXAMINATION TYPE: US arterial LE single level DATE OF EXAM: 10/17/2022 3:12 PM CLINICAL INDICATION: Male, 67 years old with history of Ankle Brachial Index (TOYA) ; Pre op cardiac s urgery History of: Smoker: no Hypertension: no Diabetic: yes Hyperlipidemia: yes TIA/CVA: yes Previous Vascular Surgery: no FL: yes Vascular Ulcers: no Claudication: no Gangrene: no Doppler Waveforms: Right: Monophasic Left: Biphasic Right Brachial Pressure: deferred due to right radial approach heart cath Left Brachial Pressure: 160 Ankle-Brachial Indices: Right: PT - 0.89, DP - can not occlude Left: PT - 0.41, DP - can not occlude Toe Brachial Indices: Right: cuff would not fit around toe Left: 0.51 IMPRESSION: Mild peripheral arterial disease involving the right lower extremity with mild to modera te peripheral arterial disease involving the left lower extremity.
[2022-10-17 16:57] LABS: Appearance,Urine Clear (Clear); Bilirubin,Urine Negative (Negative); Blood,Urine Small (Negative); Color,Urine Light Yellow; Glucose,Urine (UA) 1+ (Negative); Ketones,Urine Negative (Negative); Leukocyte Esterase,Urine Negative (Negative); Mucus,Urine Rare /hpf; Nitrite,Urine Negative (Negative); Protein,Urine Negative (Negative); RBC,Urine 3 /hpf (0-5); Specific Gravity,Urine 1.011 (1.001-1.035); Urobilinogen,Urine <2.0 mg/dL (<2.0)
[2022-10-17 17:23] VITALS: BP 134/61; PULSE 75
--- NOTE | 2022-10-17 20:00 | CA ---
Transthoracic Echo Report Name: Onofre Stokes Age: 67 Gender: M : 1955 Exam Date: 10/17/2022 15:38 Exam Location: [facility] Ht (in): 70 Wt (lb): 156 Ordering Physician: Jerson Whatley Attending/Referring Phys: Chacorta HERNANDEZ Customer Acquisition Manager Doris Stanton RDCS Procedure CPT: Indications: Evaluate valves and LV function Cardiac Hx: Technical Quality: Good Contrast 1: Total Dose (mL): Contrast 2: Total Dose (mL): MEASUREMENTS (Male / Female) Normal Values 2D ECHO LV Diastolic Diameter PLAX 5.3 cm 4.2 - 5.9 / 3.9 - 5.3 cm LV Systolic Diameter PLAX 3.8 cm IVS Diastolic Thickness 1.0 cm 0.6 - 1.0 / 0.6 - 0.9 cm LVPW Diastolic Thickness 1.0 cm 0.6 - 1.0 / 0.6 - 0.9 cm LV Relative Wall Thickness 0.4 RV Internal Dim ED PLAX 3.4 cm LA Systolic Diameter LX 3.8 cm 3.0 - 4.0 / 2.7 - 3.8 cm LV Diastolic Volume MOD 4C 106.3 cm??? LV Systolic Volume MOD 4C 66.6 cm??? LV Ejection Fraction MOD 4C 37.3 % LV Cardiac Index MOD 4C 1614.0 cm???/min???m??? LV Diastolic Length 4C 8.0 cm LV Systolic Length 4C 7.5 cm LV Diastolic Volume MOD 2C 111.5 cm??? LV Systolic Volume MOD 2C 72.6 cm??? LV Ejection Fraction MOD 2C 34.8 % LV Cardiac Index MOD 2C 1577.8 cm???/min???m??? LV Diastolic Length 2C 9.3 cm LV Systolic Length 2C 8.7 cm LA Volume 72.9 cm??? 18 - 58 / 22 - 52 cm??? M-MODE Aortic Root Diameter MM 4.1 cm MV E Point Septal Separation 1.2 cm AV Cusp Separation MM 2.5 cm DOPPLER AV Peak Velocity 104.8 cm/s AV Peak Gradient 4.4 mmHg AI Peak Velocity 315.3 cm/s AI Peak Gradient 39.8 mmHg AI Pressure Half Time 1004.7 ms LVOT Peak Velocity 67.0 cm/s LVOT Peak Gradient 1.8 mmHg MV Area PHT 5.6 cm??? Mitral E Point Velocity 87.4 cm/s Mitral A Point Velocity 71.3 cm/s Mitral E to A Ratio 1.2 MV Deceleration Time 134.8 ms MV E' Velocity 5.3 cm/s Mitral E to MV E' Ratio 16.6 TR Peak Velocity 311.4 cm/s TR Peak Gradient 38.8 mmHg Right Ventricular Systolic Press 42.6 mmHg FINDINGS Left Ventricle Left ventricular ejection fraction is estimated at 30-35 %. Left ventricular cavity size normal. Left ventricular wall thickness normal. Apical septu,m inferior, anterior and lateral gifford hypokinesis. Moderately reduced global left ventricular systolic function. Right Ventricle Mild right ventricular dilatation. Mild pulmonary hypertension. Right Atrium Normal right atrial size. Left Atrium Mild increased left atrial volume. Mitral Valve Structurally normal mitral valve. Mild mitral regurgitation. Aortic Valve Trileaflet aortic valve. Mild calcific sclerosis of aortic valve. Mild aortic regurgitation. Tricuspid Valve Structurally normal tricuspid valve. Mild tricuspid regurgitation. Pulmonic Valve Structurally normal pulmonic valve. No pulmonic regurgitation. Pericardium Normal pericardium. No pericardial effusion. Aorta Aortic root is at upper limit of normal. 2D measurement 3.5 cm, M mode measurement 4.1 cm. I feel 2 D measurement is more accurate. Indexed Aortic root measurement 1.8 cm/m2 CONCLUSIONS Normal LV cavity size and wall thickness. Severly reduced global LV systolic function, with estimtaed LVEF 30-35% Mid to distal anterolateral wall, mid to distal inferolateral wall, apical and periapical hypokinesis Structurally normal mitral valve with Mild mitral regurgitation. Mild aortic regurgitation Aortic root is at upper limit of normal. No prior echo in [facility] database to compare Previewed by: Dr Reza Zambrano (Electronically Signed) Final Date: 17 October 2022 19:59
== END 2022-10-17 17:11 | disposition home or self-care (01) ==
LOC: CATHCVL 08:48
PROVIDERS: ATTEND Internal Medicine Interventional Cardiology
DX: I25.10 Atherosclerotic heart disease of native coronary artery without angina pectoris (principal); I08.0 Rheumatic disorders of both mitral and aortic valves; I10 Essential (primary) hypertension; E11.9 Type 2 diabetes mellitus without complications; E78.5 Hyperlipidemia, unspecified; Z78.9 Other specified health status; Z86.73 Personal history of transient ischemic attack (TIA), and cerebral infarction without residual deficits; Z95.1 Presence of aortocoronary bypass graft; Z79.899 Other long term (current) drug therapy
CPT/HCPCS: 93453; 94150; 93306; 93005; 93458; 76937; 81001; 87070; 71046; 93931; 93970; 93922; 93880; C1769; C1894; J2250; J1940; J2001; J1644; Q9967

== ENCOUNTER 2022-11-19 07:13 | Day surgery (SDC) | payer MEDICARE, BC ==
[~2022-11-19 07:13] MED LIST changes: -ASPIRIN 325 MG TAB PO ONE; +ASPIRIN 325 MG TAB PO STA; -ATORVASTATIN 80 MG TAB PO ONE; +ATORVASTATIN 80 MG TAB PO STA; +HEPARIN SODIUM,PORCINE (1 ML) 2,500 UNIT in SODIUM CHLORIDE 0.9% 250 ML IRRIGATION PRN; -HEPARIN SODIUM,PORCINE 2,500 UNIT in SODIUM CHLORIDE 0.9% 250 ML IRRIGATION PRN; -SODIUM CHLORIDE 0.9% 1,000 ML in EMPTY BAG 1 BAG IV SCH
[2022-11-19] MEDS ORDERED: SODIUM CHLORIDE 0.9% 1,000 ML IV ONE (07:25)
[2022-11-19 07:51] LABS: Glucose,Whole Blood 370 mg/dL (70-110)
[2022-11-19 08:27] LABS: Basophils % (A) 1 %; Eosinophils # (A) 0.2 k/uL (0-0.7); Eosinophils % (A) 4 %; HCT 37.3 % (39.0-53.0); Lymphocytes % (A) 24 %; MCH 27.5 pg (25.0-35.0); MCHC 32.2 g/dL (31.0-37.0); MCV 85.4 fL (80.0-100.0); Mean Platelet Volume 7.4; Monocytes # (A) 0.2 k/uL (0-1.0); Monocytes % (A) 5 %; Neutrophils # (A) 2.8 k/uL (1.3-7.7); Neutrophils % (A) 64 %; Platelet Count 323 k/uL (150-450); RBC 4.37 m/uL (4.30-5.90); RDW 15.2 % (11.5-15.5); WBC 4.3 k/uL (3.8-10.6)
[2022-11-19 08:42] LABS: African American GFR (CKD) 42 (>60 ml/min/1.73 sqM); Anion Gap 9 mmol/L; Blood Urea Nitrogen 23 mg/dL (9-20); Carbon Dioxide 31 mmol/L (22-30); Chloride 92 mmol/L (98-107); Glucose 372 mg/dL (74-99); Non-African American GFR(CKD) 37 (>60 ml/min/1.73 sqM); Potassium 4.2 mmol/L (3.5-5.1); Sodium 132 mmol/L (137-145)
[2022-11-19] MEDS ORDERED: VERAPAMIL 2.5 MG/ML 2 ML AMP ONE ×2 (08:46→09:21)
[2022-11-19] MEDS ORDERED: LIDOCAINE 1% INJ 10MG/ML (20 ML MDV) ONE (08:46)
[2022-11-19] MEDS ORDERED: HEPARIN SODIUM 1,000 UN/ML (10ML VL) ONE (09:00)
[2022-11-19] MEDS ORDERED: MIDAZOLAM 2 MG/2 ML VIAL IVP ONE (09:13)
[2022-11-19] MEDS ORDERED: LIDOCAINE 1% INJ 10MG/ML (5 ML VIAL-PF) SQ ONE (09:14)
[2022-11-19] MEDS ORDERED: VERAPAMIL SYRINGE (5 MG/10 ML) INTRAARTER ONE (09:16)
[2022-11-19] MEDS: HEPARIN SODIUM 1,000 UN/ML (10ML VL) IV ONE ×2 (09:18→10:05)
[2022-11-19] MEDS ORDERED: CLOPIDOGREL 75 MG TAB ONE (09:42)
[2022-11-19] MEDS ORDERED: CLOPIDOGREL 75 MG TAB PO ONE (09:44)
[2022-11-19] MEDS ORDERED: IOPAMIDOL-370 100ML BTL INJ ONE (10:05)
[2022-11-19] MEDS ORDERED: ZOLPIDEM 5 MG TAB PO PRN (10:13)
[2022-11-19] MEDS ORDERED: NITROGLYCERIN SL TABS 0.4 MG TAB SUBLINGUAL PRN (10:13)
[2022-11-19] MEDS ORDERED: RX INFO: IV CONTRAST WAS GIVEN 1 EACH MISC MISCELLANE PRN (10:13)
[2022-11-19] MEDS ORDERED: ATROPINE SULFATE 0.1 MG/ML 10ML SYRINGE IV PRN (10:13)
[2022-11-19] MEDS ORDERED: MAG HYDROX/AL HYDROX/SIMETH 30 ML CUP PO PRN (10:13)
[2022-11-19] MEDS ORDERED: SODIUM CHLORIDE 0.9% 1,000 ML in EMPTY BAG 1 BAG IV SCH (10:15)
[2022-11-19] MEDS ORDERED: Insulin Aspart (For Pump) 100 UNIT/ML VIAL SQ-PUMP SCH (10:15)
--- NOTE | 2022-11-19 10:20 | P.PCN ---
Date of Procedure: 11/19/22 Operative Findings: PERCUTANEOUS CORONARY INTERVENTION Performing physician Young Lazcano M.D. Procedure Performed: 1. Successful stenting of the proximal and mid right coronary artery using 3.5 x 33 mm Xience drug-eluting stent with an excellent angiographic results. 2. Adjunctive use of intravascular ultrasound and lithotripsy balloon 3. Selective right coronary artery angiogram 4. Ultrasound-guided access of the right radial artery Indication: This is a 67-year-old gentleman who was diagnosed recently with severe triple- vessel coronary artery disease and he was deemed to be at high-risk for coronary artery bypass grafting after he was seen by a cardiothoracic surgeon. He was brought today to undergo a PCI of the right coronary artery. At this point forward consider medical treatment for the LAD and left circumflex giving the nature of the disease which is extremely diffused. Approach: Right radial artery Complications: None Level of Sedation: Moderate with a sedation length of 47 minutes Procedure Discussion: After obtaining an informed consent the patient was brought to the cardiac cathodic protection technician. The right radial artery was cannulated using micropuncture technique under ultrasound guidance the micropuncture wire passed easily then I placed a 6- [place] sheath in the right radial artery and then I gave the patient 2 mg of verapamil intra-arterial and 5000 units of heparin intravenous with continuous ACT monitoring. Using JR4 guiding catheter the right coronary artery was engaged. It was wired using a run-through wire. Because the RCA was extremely calcified and the lesion in the very proximal portion was critical and calcified as well I decided to predilate using 2 mm noncompliant balloon. 2 mm x 15 mm noncompliant balloon was advanced and inflated multiple times in the proximal and mid right coronary artery. Definitely the balloon was not fully opened at the very proximal right coronary artery and for that reason I did intravascular ultrasound and that showed extremely calcified RCA with a diameter at 3.5 mm. Using shockwave balloon at 3.5 x 12 mm I did balloon angioplasty of the proximal and mid right coronary artery. The balloon was not advanced easily and I had to use guide liner. After that I did advanced a 3.5 x 33 mm stent where the stent was positioned under fluoroscopy guidance and deployed under fluoroscopy guidance. Postdilatation of the stent was performed using 3.75 mm balloon. Final angiogram and intravascular ultrasound showed that the stent was well opposed. Before the final balloon using 3.75 mm noncompliant balloon the distal end of the stent was slightly concerned but the angiogram after that showed better results and the procedure was completed was no complication Postprocedure Management: 1. Dual antiplatelet therapy for at least 6 months 2. Aggressive cholesterol control 3. Risk factors modification
[2022-11-19 12:36] LABS: Glucose,Whole Blood 270 mg/dL (70-110)
[2022-11-19 16:26] LABS: Glucose,Whole Blood 200 mg/dL (70-110)
[2022-11-19] MEDS: SODIUM CHLORIDE 0.9% 1,000 ML in EMPTY BAG 1 BAG IV SCH ×2 (18:06→19:45)
[2022-11-19 19:53] LABS: Glucose,Whole Blood 190 mg/dL (70-110)
[2022-11-19] MEDS ORDERED: LATANOPROST 0.005% OPHTH DROPS 2.5 ML BTL BOTH EYES SCH (21:00)
[2022-11-20 05:42] VITALS: RESP 16
[2022-11-20 06:02] LABS: Glucose,Whole Blood 251 mg/dL (70-110)
[2022-11-20] MEDS ORDERED: PANTOPRAZOLE 40 MG TABLET PO SCH (07:30)
[2022-11-20 07:34] LABS: African American GFR (CKD) 61 (>60 ml/min/1.73 sqM); Non-African American GFR(CKD) 52 (>60 ml/min/1.73 sqM)
--- NOTE | 2022-11-20 08:14 | P.DS ---
Providers Attending physician: Young Lazcano Consults: 11/19/22 10:13 Consult Physician Routine Consulting Provider: [facility] Consult Reason/Comments: Post Interventional Patient Do you want consulting provider notified?: Already Contacted Primary care physician: Ludwin Denton [facility] Course: The patient is a 67-year-old gentleman who underwent yesterday successful stenting of the right coronary artery He was seen and evaluated this morning. He is asymptomatic and he with an empty stable. The patient is going to be discharged home on dual antiplatelet therapy and I will follow-up with the patient next week in the office Plan - Discharge Summary Discharge Rx Participant: No New Discharge Prescriptions: New Clopidogrel [Plavix] 75 mg PO DAILY #90 tab Atorvastatin [Lipitor] 80 mg PO QAM #90 tab Continue Rivaroxaban [Xarelto] 2.5 mg PO DAILY Aspirin [Adult Low Dose Aspirin EC] 81 mg PO DAILY Escitalopram Oxalate [Lexapro] 10 mg PO DAILY Furosemide [Lasix] 20 mg PO DAILY Latanoprost [Xalatan 0.005%] 1 drop BOTH EYES HS Insulin Aspart (For Pump) [NovoLOG (For Pump)] 0.01 unit SQ-PUMP CONTINUOUS Esomeprazole Magnesium [NexIUM] 20 mg PO QAM Loratadine [Claritin] 10 mg PO DAILY Ferrous Sulfate [Iron] 325 mg PO TU Unk Vitamin D3 1 tab PO DAILY Discontinued Rosuvastatin [Crestor] 10 mg PO QAM Discharge Medication List Insulin Aspart (For Pump) [NovoLOG (For Pump)] 0.01 unit SQ-PUMP CONTINUOUS 12/28/20 [History] Latanoprost [Xalatan 0.005%] 1 drop BOTH EYES HS 12/28/20 [History] Aspirin [Adult Low Dose Aspirin EC] 81 mg PO DAILY 08/18/22 [History] Esomeprazole Magnesium [NexIUM] 20 mg PO QAM 08/18/22 [History] Ferrous Sulfate [Iron] 325 mg PO TUSA 08/18/22 [History] Loratadine [Claritin] 10 mg PO DAILY 08/18/22 [History] Rivaroxaban [Xarelto] 2.5 mg PO DAILY 08/18/22 [History] Escitalopram Oxalate [Lexapro] 10 mg PO DAILY 10/15/22 [History] Furosemide [Lasix] 20 mg PO DAILY 11/14/22 [History] Unk Vitamin D3 1 tab PO DAILY 11/14/22 [History] Atorvastatin [Lipitor] 80 mg PO QAM #90 tab 11/20/22 [Rx] Clopidogrel [Plavix] 75 mg PO DAILY #90 tab 11/20/22 [Rx] Follow up Appointment(s)/Referral(s): Young Lazcano MD [STAFF PHYSICIAN] - 1 Week (APPOINTMENT MADE ON October @ 4:00PM ) Patient Instructions/Handouts: Moderate Sedation (DC), Cardiac Rehabilitation (ED), Coronary Intravascular Stent Placement (DC), After Radial Heart Catheterization (GEN) Activity/Diet/Wound Care/Special Instructions: *NO LIFTING, PUSHING, OR PULLING ANYTHING OVER 5 POUNDS FOR 5 DAYS *NO DRIVING FOR 3 DAYS *YOU CAN REMOVE YOUR DRESSING TOMORROW BUT DO NOT SUBMERSE YOUR PUNCTURE SITE IN WATER FOR A FEW DAYS TO PREVENT INFECTION - SO NO TUB BATHS, POOL, HOT TUBS, DISHES...ETC *ANY SIGNS OF BLEEDING (HARDNESS, SWELLING, OR EXCESSIVE BRUISING) HOLD DIRECT PRESSURE ON YOUR PUNCTURE SITE AND COME TO THE NEAREST EMERGENCY ROOM TO GET YOUR PUNCTURE SITE LOOKED AT - DO NOT DRIVE YOURSELF! EITHER CALL EMS OR HAVE SOMEONE DRIVE YOU!
[2022-11-20] MEDS ORDERED: CLOPIDOGREL 75 MG TAB PO SCH (09:00)
[2022-11-20] MEDS ORDERED: FUROSEMIDE 20 MG TAB PO SCH (09:00)
[2022-11-20] MEDS ORDERED: ESCITALOPRAM 10 MG TAB PO SCH (09:00)
[2022-11-20] MEDS ORDERED: LORATADINE 10 MG TAB PO SCH (09:00)
[2022-11-20] MEDS ORDERED: ATORVASTATIN 10 MG TAB PO SCH (09:00)
[2022-11-20] MEDS ORDERED: ASPIRIN 81 MG PO SCH (09:00)
[2022-11-20] MEDS ORDERED: CHOLECALCIFEROL 25 MCG (1000 IU) TABLET PO SCH (09:00)
[2022-11-20 09:11] VITALS: BP 147/67; PULSE 76; TEMP 98.4
[2022-11-22] MEDS ORDERED: FERROUS SULFATE 325 MG TAB PO SCH (09:00)
== END 2022-11-20 11:30 | disposition home or self-care (01) ==
LOC: CATHCVL 07:13 → 3SCARD 10:00 → CATHCVL 11-20 11:30
PROVIDERS: ATTEND Internal Medicine Interventional Cardiology
DX: I25.10 Atherosclerotic heart disease of native coronary artery without angina pectoris (principal); Z79.02 Long term (current) use of antithrombotics/antiplatelets; Z79.899 Other long term (current) drug therapy; Z79.82 Long term (current) use of aspirin; Z79.01 Long term (current) use of anticoagulants
CPT/HCPCS: 94760; 92978; 0715T; 80048; 82565; 85025; C9600; C1887 ×2; C1769 ×2; C1894; C1725 ×2; C1753; C1874; C1761; J2250; J2001; J1644; Q9967

== ENCOUNTER 2023-01-01 10:29 | Inpatient (IN) | payer MEDICARE, BC ==
--- NOTE | 2023-01-01 12:06 | ED ---
Dizziness HPI - General Chief Complaint: Syncope Stated Complaint: Syncope Time Seen by Provider: 01/01/23 11:10 Source: patient, EMS Mode of arrival: EMS Limitations: no limitations - History of Present Illness Initial Comments: 67-year-old male with past history of coronary artery disease, A. fib, CVA, orthostatic hypotension presents to the emergency department via EMS. provides history. States that the patient was recently hospitalized. He was diagnosed with orthostatic hypotension and went home on Midrin. He has been taking his medications however is also on lisinopril. gave him the lisinopril 2 nights ago and patient reportedly had low blood pressures all day yesterday. He did have syncope with vomiting yesterday. She held his dose of lisinopril last night. This morning the patient had another episode of syncope while she was attempting to get him on the toilet. He did not sustain any injuries. There was no seizure-like activity. She did give him his Midrin today. States that she feels as if he is on too many medications and was like them reevaluated. Also states that it is extremely hard for her to care for the patient at this time. He has a poor appetite. He has been unable to void. Patient denies any chest pain or shortness of breath. No headaches or visual changes. No other alleviating, precipitating or modifying factors - Related Data Home Medications Medication Instructions Recorded Confirmed Insulin Aspart (For Pump) [NovoLOG 0.01 unit SQ-PUMP CONTINUOUS 12/28/20 01/01/23 (For Pump)] Latanoprost [Xalatan 0.005%] 1 drop BOTH EYES HS 12/28/20 01/01/23 Aspirin [Adult Low Dose Aspirin EC] 81 mg PO DAILY 08/18/22 01/01/23 Rivaroxaban [Xarelto] 2.5 mg PO DAILY 08/18/22 01/01/23 Atorvastatin [Lipitor] 80 mg PO DAILY 12/27/22 01/01/23 Escitalopram [Lexapro] 5 mg PO DAILY 12/27/22 01/01/23 Fluticasone Nasal [place] [Flonase 1 spr EA NOSTRIL DAILY 12/27/22 01/01/23 Nasal [place]] Omeprazole 40 mg PO DAILY 12/27/22 01/01/23 Vitamin D3/Vitamin K2 (Mk4) 1 tab PO DAILY 12/27/22 01/01/23 [Vitamin K2 Plus D3 Tablet] HYDROcodone/APAP 5-325MG [[place] 1 tab PO Q4H PRN 01/01/23 01/01/23 5-325] Previous Rx's Medication Instructions Recorded Clopidogrel [Plavix] 75 mg PO DAILY #90 tab 11/20/22 Midodrine HCl [ProAmatine] 10 mg PO AC-TID #90 tablet 12/28/22 lisinopriL [Zestril] 10 mg PO BID #60 tab 12/30/22 Allergies Allergy/AdvReac Type Severity Reaction Status Date / Time No Known Allergies Allergy Verified 01/01/23 13:27 Review of Systems ROS Statement: Those systems with pertinent positive or pertinent negative responses have been documented in the HPI. ROS Other: All systems not noted in ROS Statement are negative. Past Medical History Past Medical History: Atrial Fibrillation, COPD, CVA/TIA, Diabetes Mellitus, Eye Disorder, GERD/Reflux, Hyperlipidemia, Musculoskeletal Disorder, Osteoarthritis (OA) Additional Past Medical History / Comment(s): CVA X2, last in 2019, with left arm weakness. 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 Osteoporosis. History of Any Multi-Drug Resistant Organisms: None Reported Past Surgical History: Orthopedic Surgery Additional Past Surgical History / Comment(s): Right foot surgery, bilateral laser eye surgery for detached retina, bilateral catarcat surgery with lens implants, cervical fusion, left knee surgery, bilateral shoulder surgery, penile implant. Past Anesthesia/Blood Transfusion Reactions: Postoperative Nausea & Vomiting (PONV) Additional Past Anesthesia/Blood Transfusion Reaction / Comment(s): PONV with one surgery. Past Psychological History: Depression Smoking Status: Never smoker Past Alcohol Use History: Rare Past Drug Use History: None Reported - Past Family History Sister(s) Family Medical History: Pulmonary Embolus Father Family Medical History: Coronary Artery Disease (CAD), Deep Vein Thrombosis (DVT) Mother Family Medical History: Cancer, Hyperlipidemia Brother(s) Family Medical History: Cancer General Exam Limitations: no limitations General appearance: alert Head exam: Present: other (Old, healing bruising to the right face) Eye exam: Present: normal appearance, PERRL, EOMI. Absent: scleral icterus, conjunctival injection, periorbital swelling ENT exam: Present: mucous membranes dry Respiratory exam: Present: normal lung sounds bilaterally. Absent: respiratory distress, wheezes, rales, rhonchi, stridor Cardiovascular Exam: Present: regular rate, normal rhythm, normal heart sounds. Absent: systolic murmur, diastolic murmur, rubs, gallop, clicks GI/Abdominal exam: Present: distended, tenderness (Patient has some tenderness to the suprapubic region) Neurological exam: Present: alert Psychiatric exam: Present: flat affect Course Vital Signs 01/01/23 01/01/23 01/01/23 10:37 14:49 16:30 Temperature 97.8 F Pulse Rate 79 Pulse Rate [ 84 Sitting] Pulse Rate [ 90 Standing] Pulse Rate [ 80 Supine] Respiratory 18 Rate Blood Pressure 151/77 104/52 Blood Pressure 90/60 [Sitting] Blood Pressure 87/57 [Standing] Blood Pressure 138/74 [Supine] O2 Sat by Pulse 99 Oximetry 01/01/23 01/01/23 01/01/23 16:40 16:50 16:55 Temperature 98.4 F Pulse Rate 82 Pulse Rate [ Sitting] Pulse Rate [ Standing] Pulse Rate [ Supine] Respiratory 18 Rate Blood Pressure 90/55 121/62 119/64 Blood Pressure [Sitting] Blood Pressure [Standing] Blood Pressure [Supine] O2 Sat by Pulse 98 Oximetry Medical Decision Making - Medical Decision Making Was pt. sent in by a medical professional or institution (ADELFO Lucero, CLINICAL RESEARCH NURSE COORDINATOR, urgent care, hospital, or longterm...) When possible be specific @ -No Did you speak to anyone other than the patient for history (EMS, parent, family, police, friend...)? What history was obtained from this source @ -I spoke with the and EMS Did you review nursing and triage notes (agree or disagree)? Why? @ -I reviewed and agree with nursing and triage notes Were old charts reviewed (outside hosp., previous admission, EMS record, old EKG, old radiological studies, urgent care reports/EKG's, longterm records)? Report findings @ -I reviewed patient's discharge summary from his fall Differential Diagnosis (chest pain, altered mental status, abdominal pain women, abdominal pain men, vaginal bleeding, weakness, fever, dyspnea, syncope, headache, dizziness, GI bleed, back pain, seizure, CVA, palpatations, mental health, musculoskeletal)? @ -Differential Weakness: Hypoglycemia, shock, sepsis, hyponatremia, anemia, infection, SC, ETOH, adverse medicine reaction, overdose, stroke, this is not meant to be an all-inclusive list. Differential Syncope: Valvular disease, hypertrophic cardiomyopathy, pulmonary embolism, tamponade, tachycardia, bradycardia, SC, hypovolemia, hemorrhage, dissection, anemia, intra cranial hemorrhage, seizure, hypoglycemia, carbon monoxide poisoning, this is not meant to be an all-inclusive list. EKG interpreted by me (3pts min.). @ -Yes and demonstrates sinus rhythm with rate of 80. CT interval 156. QRS 90. QTC of 420. ST depression 2, 3, aVF as well as V3 through V6 X-rays interpreted by me (1pt min.). @ -Yes and demonstrates mild constipation CT interpreted by me (1pt min.). @ -None done U/S interpreted by me (1pt. min.). @ -None done What testing was considered but not performed or refused? (CT, X-rays, U/S, labs)? Why? @ -None What meds were considered but not given or refused? Why? @ -None Did you discuss the management of the patient with other professionals (professionals i.e. , PA, CLINICAL RESEARCH NURSE COORDINATOR, lab, RT, psych nurse, psychiatric social worker, manager supply chain, teacher, chief diversity officer, watch case polisher)? Give summary @ -Spoke with Dr. Puente will admit the patient Was smoking cessation discussed for >3mins.? @ -No Was critical care preformed (if so, how long)? @ -No Were there social determinants of health that impacted care today? How? (Homelessness, low income, unemployed, alcoholism, drug addiction, transportation, low edu. Level, literacy, decrease access to med. care, half-way, rehab)? @ -No Was there de-escalation of care discussed even if they declined (Discuss DNR or withdrawal of care, Hospice)? DNR status @ -No What co-morbidities impacted this encounter? (DM, HTN, Smoking, COPD, CAD, Cancer, CVA, ARF, Chemo, Hep., AIDS, mental health diagnosis, sleep apnea, morbid obesity)? @ -CVA, orthostatic hypotension, A. fib, coronary artery disease Was patient admitted / discharged? Hospital course, mention meds given and route, prescriptions, significant lab abnormalities, going to OR and other pe rtinent info. @ -Upon arrival patient was placed into room 26. Thorough history and physical exam was performed. IV access established laboratory studies are conducted. Patient complains of urinary retention. Angela catheter was placed and does return 1200 mL of urine. Laboratory studies are reviewed. Patient was given his Midrin. He remains profoundly orthostatic and therefore I did recommend admission. Spoke with Dr. Puente who agreed to admit the patient Undiagnosed new problem with uncertain prognosis? @ -No Drug Therapy requiring intensive monitoring for toxicity (Heparin, Nitro, Insulin, Cardizem)? @ -No Were any procedures done? @ -No Diagnosis/symptom? @ -Acute syncope, orthostatic hypotension, acute vomiting, acute urinary retention Acute, or Chronic, or Acute on Chronic? @ -Acute Uncomplicated (without systemic symptoms) or Complicated (systemic symptoms)? @ -Complicated Side effects of treatment? @ -No Exacerbation, Progression, or Severe Exacerbation? @ -No Poses a threat to life or bodily function? How? (Chest pain, USA, SC, pneumonia, PE, COPD, DKA, ARF, appy, cholecystitis, CVA, Diverticulitis, Homicidal, Suicidal, threat to staff... and all critical care pts) @ -No - Lab Data Result diagrams: 01/02/23 06:39 01/02/23 06:39 Lab Results 01/01/23 01/01/23 01/01/23 Range/Units 11:53 11:53 11:53 WBC 4.5 (3.8-10.6) k/uL RBC 3.87 L (4.30-5.90) m/uL Hgb 11.4 L (13.0-17.5) gm/dL Hct 33.3 L (39.0-53.0) % MCV 86.1 (80.0-100.0) fL MCH 29.4 (25.0-35.0) pg MCHC 34.1 (31.0-37.0) g/dL RDW 16.6 H (11.5-15.5) % Plt Count 318 (150-450) k/uL MPV 7.2 Neutrophils % 67 % Lymphocytes % 21 % Monocytes % 6 % Eosinophils % 3 % Basophils % 1 % Neutrophils # 3.0 (1.3-7.7) k/uL Lymphocytes # 0.9 L (1.0-4.8) k/uL Monocytes # 0.3 (0-1.0) k/uL Eosinophils # 0.1 (0-0.7) k/uL Basophils # 0.1 (0-0.2) k/uL Anisocytosis Slight PT 11.1 (9.0-12.0) sec INR 1.1 (<1.2) APTT 27.6 (22.0-30.0) sec Sodium 137 (137-145) mmol/L Potassium 4.5 (3.5-5.1) mmol/L Chloride 100 (98-107) mmol/L Carbon Dioxide 28 (22-30) mmol/L Anion Gap 9 mmol/L BUN 27 H (9-20) mg/dL Creatinine 1.23 (0.66-1.25) mg/dL Est GFR (CKD-EPI)AfAm 69 (>60 ml/min/1.73 sqM) Est GFR (CKD-EPI)NonAf 60 (>60 ml/min/1.73 sqM) Glucose 171 H (74-99) mg/dL Calcium 8.9 (8.4-10.2) mg/dL Total Bilirubin 0.7 (0.2-1.3) mg/dL AST 37 (17-59) U/L ALT 29 (4-49) U/L Alkaline Phosphatase 163 H (38-126) U/L Troponin I (0.000-0.034) ng/mL Total Protein 7.2 (6.3-8.2) g/dL Albumin 3.4 L (3.5-5.0) g/dL 01/01/23 Range/Units 11:53 WBC (3.8-10.6) k/uL RBC (4.30-5.90) m/uL Hgb (13.0-17.5) gm/dL Hct (39.0-53.0) % MCV (80.0-100.0) fL MCH (25.0-35.0) pg MCHC (31.0-37.0) g/dL RDW (11.5-15.5) % Plt Count (150-450) k/uL MPV Neutrophils % % Lymphocytes % % Monocytes % % Eosinophils % % Basophils % % Neutrophils # (1.3-7.7) k/uL Lymphocytes # (1.0-4.8) k/uL Monocytes # (0-1.0) k/uL Eosinophils # (0-0.7) k/uL Basophils # (0-0.2) k/uL Anisocytosis PT (9.0-12.0) sec INR (<1.2) APTT (22.0-30.0) sec Sodium (137-145) mmol/L Potassium (3.5-5.1) mmol/L Chloride (98-107) mmol/L Carbon Dioxide (22-30) mmol/L Anion Gap mmol/L BUN (9-20) mg/dL Creatinine (0.66-1.25) mg/dL Est GFR (CKD-EPI)AfAm (>60 ml/min/1.73 sqM) Est GFR (CKD-EPI)NonAf (>60 ml/min/1.73 sqM) Glucose (74-99) mg/dL Calcium (8.4-10.2) mg/dL Total Bilirubin (0.2-1.3) mg/dL AST (17-59) U/L ALT (4-49) U/L Alkaline Phosphatase (38-126) U/L Troponin I 0.056 H* (0.000-0.034) ng/mL Total Protein (6.3-8.2) g/dL Albumin (3.5-5.0) g/dL Disposition Clinical Impression: Orthostatic hypotension, Syncope, Vomiting, Urinary retention Disposition: ADMITTED IP TO THIS [facility] Condition: Stable Is patient prescribed a controlled substance at d/c from ED?: No Time of Disposition: 13:31 Decision to Admit Reason: Admit from EC Decision Date: 01/01/23 Decision Time: 13:31
[2023-01-01 12:07] LABS: Anisocytosis Slight; Basophils # (A) 0.1 k/uL (0-0.2); Basophils % (A) 1 %; Eosinophils # (A) 0.1 k/uL (0-0.7); Eosinophils % (A) 3 %; HCT 33.3 % (39.0-53.0); HGB 11.4 gm/dL (13.0-17.5); Lymphocytes # (A) 0.9 k/uL (1.0-4.8); Lymphocytes % (A) 21 %; MCH 29.4 pg (25.0-35.0); MCHC 34.1 g/dL (31.0-37.0); MCV 86.1 fL (80.0-100.0); Mean Platelet Volume 7.2; Monocytes # (A) 0.3 k/uL (0-1.0); Monocytes % (A) 6 %; Neutrophils % (A) 67 %; Platelet Count 318 k/uL (150-450); RBC 3.87 m/uL (4.30-5.90); RDW 16.6 % (11.5-15.5); WBC 4.5 k/uL (3.8-10.6)
[2023-01-01 12:17] LABS: ALT 29 U/L (4-49); AST 37 U/L (17-59); African American GFR (CKD) 69 (>60 ml/min/1.73 sqM); Albumin 3.4 g/dL (3.5-5.0); Alkaline Phosphatase 163 U/L (38-126); Anion Gap 9 mmol/L; Blood Urea Nitrogen 27 mg/dL (9-20); Calcium 8.9 mg/dL (8.4-10.2); Carbon Dioxide 28 mmol/L (22-30); Chloride 100 mmol/L (98-107); Glucose 171 mg/dL (74-99); Non-African American GFR(CKD) 60 (>60 ml/min/1.73 sqM); Potassium 4.5 mmol/L (3.5-5.1); Sodium 137 mmol/L (137-145); Total Bilirubin 0.7 mg/dL (0.2-1.3); Total Protein 7.2 g/dL (6.3-8.2)
--- NOTE | 2023-01-01 12:22 | XR ---
EXAMINATION TYPE: XR chest 2V DATE OF EXAM: 01/01/2023 COMPARISON: 12/27/2022 HISTORY: 67-year-old male with syncope TECHNIQUE: AP and lateral views FINDINGS: ACDF hardware. The cardiomediastinal silhouette, aorta, and pulmonary vasculature are within normal l imits. Coronary stent noted. Lungs and pleural spaces are clear. IMPRESSION: No acute cardiopulmonary process.
--- NOTE | 2023-01-01 12:24 | XR ---
EXAMINATION TYPE: XR KUB DATE OF EXAM: 01/01/2023 Comparison: None Clinical History: 67-year-old male constipation Findings: No evidence for free intraperitoneal air. No dilated small bowel or air-fluid levels. Mild to moderate stool burden. Vascular calcifications in the pelvis. Suspect vas deferens calcifications as well. There appears be a penile implant. Mild degenerative change of both hips. Impression: No evidence for free air or bowel obstruction. Mild to moderate stool burden.
[2023-01-01 12:41] LABS: INR 1.1 (<1.2); Partial Thromboplastin Time 27.6 sec (22.0-30.0); Prothrombin Time 11.1 sec (9.0-12.0)
[2023-01-01] MEDS ORDERED: NALOXONE 0.4 MG/ML 1 ML VIAL IV PRN (13:31)
[2023-01-01] MEDS ORDERED: Insulin Aspart (For Pump) 100 UNIT/ML VIAL SQ-PUMP SCH (17:00)
--- NOTE | 2023-01-01 17:15 | P.HPIM ---
History of Present Illness H&P Date: 01/01/23 Patient is a 67-year-old male with history of CAD status post stent 1 month ago, systolic heart failure with EF 35%, type 2 diabetes on insulin pump, atrial fibrillation, dyslipidemia, severe orthostatic hypotension on midodrine, recent multiple falls leading to the zygomatic arch fracture as well as distal sacral fracture presenting with persistent syncopal episodes. He claims that ever since he went home he has been mostly bedbound and using his wheelchair occasionally. Whenever he does set up, he feels extremely lightheaded, and has had 3 episodes of passing out. Denies any episodes of falls. He might have injured himself. Over the last couple of days he has also been noticing reduced urine output, and has been constipated for the last 5 days. He denies any fevers, chills, abdominal pain. He did have some nausea and vomiting with some of the episodes of passing out. His symptoms are exacerbated by taking lisinopril. In the ED, temperature was 97.8, pulse 79, respiratory rate 18, blood pressure 151/77, saturating at 99% on room air. Profoundly orthostatic positive in the ER. Laboratory analysis showed hemoglobin of 11.4, creatinine 1.23, troponin 0.056. Chest x-ray independently interpreted did not show any acute process. EKG independently interpreted, shows nonspecific ST-T wave changes through the lateral and inferior leads. KUB showed mild to moderate stool burden. Patient admitted for persistent orthostatic hypotension. Pertinent positives and negatives as discussed in HPI, a complete review of systems was performed and all other systems are negative. Patient seen and examined at bedside. Vital signs reviewed General: nontoxic, no distress, appears at stated age Derm: warm, dry Head: Right-sided ecchymosis around the lateral consistent with prior injury, no new injury noted. Normocephalic, symmetric Eyes: EOMI, no lid lag, anicteric sclera, pupils equal round reactive to light ENT: Nose and ears atraumatic Neck: No thyromegaly, supple Mouth: no lip lesion, mucus membranes moist Cardiovascular: S1S2 reg, no murmur, no edema Lungs: clear to auscultation bilateral, no rhonchi, no rales, no wheeze, no accessory muscle use Abdominal: soft, nontender to palpation, no guarding, no appreciable organomegaly Ext: no gross muscle atrophy, muscle strength muscle strength 5 out of 5 in all 4 extremities, no contractures Neuro: CN II-XII grossly intact Psych: Alert, oriented, appropriate affect Assessment/Plan: Active: Severe symptomatic orthostatic hypotension Syncope -Orthostatic hypotension possibly in the setting of dysautonomia given long- standing diabetes -Patient does have Charcot arthropathy and peripheral neuropathy -Continue midodrine 10, 3 times a day -Lisinopril 10 twice a day changed to 2.5 daily only -Cardiology has been consulted -Ruled out adrenal insufficiency during last admission Recent fall resulting in mildly displaced distal sacral fracture and facial fracture -Continue pain control with [place] Urinary retention Constipation -Status post Angela catheter placement -Possibly urinary retention in the setting of constipation -Started on senna twice a day, MiraLAX daily Insulin-dependent diabetes, on insulin pump Diabetic peripheral neuropathy Charcot arthropathy Chronic: Paroxysmal atrial fibrillation CAD status post stent 1 month ago Systolic CHF, not in exacerbation Dyslipidemia Depression The patient is admitted with an anticipated greater than 2 midnight stay as inpatient status for evaluation of orthostatic hypotension . Surrogate decision-maker: CODE STATUS: Full code DVT prophylaxis: xarelto Anticipated discharge date: Pending clinical course Anticipated discharge place: Pending clinical course A total of 65 minutes was spent on the care of this complex patient more than 50% of the time was spent in counseling and care coordination. Past Medical History Past Medical History: Atrial Fibrillation, COPD, CVA/TIA, Diabetes Mellitus, Eye Disorder, GERD/Reflux, Hyperlipidemia, Musculoskeletal Disorder, Osteoarthritis (OA) Additional Past Medical History / Comment(s): CVA X2, last in 2019, with left arm weakness. 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 Osteoporosis. History of Any Multi-Drug Resistant Organisms: None Reported Past Surgical History: Orthopedic Surgery Additional Past Surgical History / Comment(s): Right foot surgery, bilateral laser eye surgery for detached retina, bilateral catarcat surgery with lens implants, cervical fusion, left knee surgery, bilateral shoulder surgery, penile implant. Past Anesthesia/Blood Transfusion Reactions: Postoperative Nausea & Vomiting (PONV) Additional Past Anesthesia/Blood Transfusion Reaction / Comment(s): PONV with one surgery. Past Psychological History: Depression Smoking Status: Never smoker Past Alcohol Use History: Rare Past Drug Use History: None Reported - Past Family History Sister(s) Family Medical History: Pulmonary Embolus Father Family Medical History: Coronary Artery Disease (CAD), Deep Vein Thrombosis (DVT) Mother Family Medical History: Cancer, Hyperlipidemia Brother(s) Family Medical History: Cancer Medications and Allergies Home Medications Medication Instructions Recorded Confirmed Type Insulin Aspart (For Pump) [NovoLOG 0.01 unit SQ-PUMP CONTINUOUS 12/28/20 01/01/23 History (For Pump)] Latanoprost [Xalatan 0.005%] 1 drop BOTH EYES HS 12/28/20 01/01/23 History Aspirin [Adult Low Dose Aspirin EC] 81 mg PO DAILY 08/18/22 01/01/23 History Rivaroxaban [Xarelto] 2.5 mg PO DAILY 08/18/22 01/01/23 History Clopidogrel [Plavix] 75 mg PO DAILY #90 tab 11/20/22 01/01/23 Rx Atorvastatin [Lipitor] 80 mg PO DAILY 12/27/22 01/01/23 History Escitalopram [Lexapro] 5 mg PO DAILY 12/27/22 01/01/23 History Fluticasone Nasal [place] [Flonase 1 spr EA NOSTRIL DAILY 12/27/22 01/01/23 History Nasal [place]] Omeprazole 40 mg PO DAILY 12/27/22 01/01/23 History Vitamin D3/Vitamin K2 (Mk4) 1 tab PO DAILY 12/27/22 01/01/23 History [Vitamin K2 Plus D3 Tablet] Midodrine HCl [ProAmatine] 10 mg PO AC-TID #90 tablet 12/28/22 01/01/23 Rx lisinopriL [Zestril] 10 mg PO BID #60 tab 12/30/22 01/01/23 Rx HYDROcodone/APAP 5-325MG [[place] 1 tab PO Q4H PRN 01/01/23 01/01/23 History 5-325] Allergies Allergy/AdvReac Type Severity Reaction Status Date / Time No Known Allergies Allergy Verified 01/01/23 13:27 Physical Exam Vitals: Vital Signs Temp Pulse Pulse Pulse Pulse Resp BP 01/01/23 16:55 98.4 F 82 18 119/64 01/01/23 16:50 121/62 01/01/23 16:40 90/55 01/01/23 16:30 104/52 01/01/23 14:49 84 90 80 01/01/23 10:37 97.8 F 79 18 151/77 BP BP BP Pulse Ox 01/01/23 16:55 98 01/01/23 16:50 01/01/23 16:40 01/01/23 16:30 01/01/23 14:49 90/60 87/57 138/74 01/01/23 10:37 99 Intake and Output 01/01/23 01/01/23 01/01/23 06:59 14:59 22:59 Other: Weight 75.75 kg Results CBC & Chem 7: 01/01/23 11:53 01/01/23 11:53 Labs: Abnormal Lab Results - Last 24 Hours (Table) 01/01/23 01/01/23 01/01/23 Range/Units 11:53 11:53 11:53 RBC 3.87 L (4.30-5.90) m/uL Hgb 11.4 L (13.0-17.5) gm/dL Hct 33.3 L (39.0-53.0) % RDW 16.6 H (11.5-15.5) % Lymphocytes # 0.9 L (1.0-4.8) k/uL BUN 27 H (9-20) mg/dL Glucose 171 H (74-99) mg/dL Alkaline Phosphatase 163 H (38-126) U/L Troponin I 0.056 H* (0.000-0.034) ng/mL Albumin 3.4 L (3.5-5.0) g/dL
[2023-01-01] MEDS: ONDANSETRON 4 MG/2 ML VIAL IVP PRN (17:31)
[2023-01-01] MEDS: MIDODRINE 5 MG TAB PO SCH (17:31)
[2023-01-01] MEDS: HYDROcodone/APAP 5-325MG 1 EACH TAB PO PRN (17:31)
[2023-01-01] MEDS: polyethylene glycoL 3350 17 GM POWD.PACK PO SCH (19:21)
[2023-01-01 19:54] LABS: Glucose,Whole Blood 204 mg/dL (70-110)
[2023-01-01] MEDS: SENNOSIDES 8.6 MG TAB PO SCH (20:05)
[2023-01-01 20:26] LABS: Glucose,Whole Blood 201 mg/dL (70-110)
[2023-01-01] MEDS: LATANOPROST 0.005% OPHTH DROPS 2.5 ML BTL BOTH EYES SCH (20:41)
[2023-01-01] MEDS ORDERED: INSPUCOR MISCELLANE PRN (22:42)
[2023-01-01] MEDS ORDERED: INSULIN ASPART (NovoLOG) 100 UNIT/ML VIAL SQ PRN (22:42)
[2023-01-01] MEDS ORDERED: INSULIN PUMP BASAL RATES 1 EACH MISC MISCELLANE PRN (22:42)
[2023-01-02] MEDS: HYDROcodone/APAP 5-325MG 1 EACH TAB PO PRN ×2 (00:11→11:56)
[2023-01-02 02:11] LABS: Glucose,Whole Blood 109 mg/dL (70-110)
[2023-01-02 06:02] LABS: Glucose,Whole Blood 106 mg/dL (70-110)
[2023-01-02] MEDS: PANTOPRAZOLE 40 MG TABLET PO SCH (06:09)
[2023-01-02] MEDS: INSULIN PUMP MEAL BOLUS 1 UNIT MISC MISCELLANE SCH ×4 (06:15→22:06)
[2023-01-02] MEDS: Insulin Aspart (For Pump) 100 UNIT/ML VIAL SQ-PUMP SCH ×5 (06:15→22:06)
[2023-01-02] MEDS: MIDODRINE 5 MG TAB PO SCH ×3 (06:15→17:15)
[2023-01-02 08:22] LABS: African American GFR (CKD) >90 (>60 ml/min/1.73 sqM); Anion Gap 9 mmol/L; Blood Urea Nitrogen 20 mg/dL (9-20); Calcium 8.9 mg/dL (8.4-10.2); Carbon Dioxide 30 mmol/L (22-30); Chloride 97 mmol/L (98-107); Glucose 130 mg/dL (74-99); Non-African American GFR(CKD) 80 (>60 ml/min/1.73 sqM); Potassium 3.8 mmol/L (3.5-5.1); Sodium 136 mmol/L (137-145)
[2023-01-02 08:31] LABS: Anisocytosis Slight; Basophils % (A) 1 %; Eosinophils # (A) 0.3 k/uL (0-0.7); Eosinophils % (A) 5 %; HCT 33.5 % (39.0-53.0); HGB 10.8 gm/dL (13.0-17.5); Lymphocytes # (A) 1.7 k/uL (1.0-4.8); Lymphocytes % (A) 35 %; MCH 28.4 pg (25.0-35.0); MCHC 32.3 g/dL (31.0-37.0); Monocytes # (A) 0.3 k/uL (0-1.0); Monocytes % (A) 7 %; Neutrophils # (A) 2.5 k/uL (1.3-7.7); Neutrophils % (A) 51 %; Platelet Count 289 k/uL (150-450); RDW 16.7 % (11.5-15.5)
[2023-01-02] MEDS ORDERED: ESCITALOPRAM 5 MG TAB PO SCH (09:00)
[2023-01-02] MEDS ORDERED: MIDODRINE 5 MG TAB PO ONE (09:22)
[2023-01-02] MEDS: RIVAROXABAN 2.5 MG TABLET PO SCH (09:23)
[2023-01-02] MEDS: SENNOSIDES 8.6 MG TAB PO SCH ×2 (09:23→20:57)
[2023-01-02] MEDS: ATORVASTATIN 80 MG TAB PO SCH (09:23)
[2023-01-02] MEDS: ASPIRIN 81 MG PO SCH (09:23)
[2023-01-02] MEDS: FLUTICASONE 50MCG/SPRAY NASAL 16GM EA NOSTRIL SCH ×2 (09:23→09:31)
[2023-01-02] MEDS: CLOPIDOGREL 75 MG TAB PO SCH (09:27)
[2023-01-02] MEDS: polyethylene glycoL 3350 17 GM POWD.PACK PO SCH (09:30)
--- NOTE | 2023-01-02 10:58 | P.CRDCN ---
History of Present Illness History of present illness: HISTORY OF PRESENT ILLNESS: This is a 67-year-old male with a past medical history significant for coronary artery disease with recent PCI of the RCA and diffuse disease of the LAD and circumflex, ischemic myopathy, hypertension, hyperlipidemia, valvular heart disease, and CVA. Patient follows in the office with Dr. Lazcano. We have been asked to see the patient in consultation for orthostatic hypotension. Patient examined at the bedside. Patient states yesterday he was sitting up in his wheelchair when he passed out. He states at that time he was not trying to stand up or change positions. He just reports feeling weak at the time. He does report having 3 or 4 episodes of syncope recently. Patient was found to have significantly positive orthostatic blood pressures upon arrival to the hospital. Patient's lisinopril was decreased from 10 mg twice a day to 2.5 mg daily. Orthostatic blood pressures this morning remain positive. He is currently receiving Midodrine 10mg TID. He currently denies any chest pain or pressure. He denies any shortness of breath. He currently denies dizziness or lightheadedness. * EKG reveals sinus mechanism with T-wave versions laterally and mild ST depression in inferior leads * Chest xray negative for acute process * Laboratory data: W BC 5.0. Hemoglobin 10.8. Platelet count 289. Sodium 136. Potassium 3.8. BUN 20. Creatinine 0.97. Troponin 0.0563 0.051. * Current home cardiac medications include aspirin 81 mg daily, Lipitor 80 mg daily, Plavix 75 mg daily, Xarelto 2.5 mg daily, lisinopril 10 mg twice a day * Most recent echocardiogram obtained in November 2022 revealed ejection fraction 45-50%, hypokinetic lateral and apical lateral wall * Cardiac catheterization history: October 2022 with stenting of the proximal and mid RCA. Patient also noted to have diffuse disease of LAD and circumflex. REVIEW OF SYSTEMS: At the time of my exam: CONSTITUTIONAL: Denies fever or chills. HEENT: Denies blurred vision, vision changes, or eye pain. Denies hemoptysis CARDIOVASCULAR: Denies chest pain. Denies orthopnea. Denies PND. Denies palpitations RESPIRATORY: Denies shortness of breath. GASTROINTESTINAL: Denies abdominal pain. Denies nausea or vomiting. HEMATOLOGIC: Denies bleeding disorders. GENITOURINARY: Denies any blood in urine. SKIN: Denies pruitis. Denies rash. PHYSICAL EXAM: VITAL SIGNS: Reviewed. GENERAL: Well-developed in no acute distress. HEENT: Head is normocephalic. Pupils are equal, round. Sclerae anicteric. Mucous membranes of the mouth are moist. Neck supple. No JVD or thyromegaly LUNGS: Respirations even and unlabored. Lungs essentially clear to auscultation bilaterally. HEART: Regular rate and rhythm. S1 and S2 heard. ABDOMEN: Soft. Nondistended. Nontender. EXTREMITIES: Normal range of motion. No clubbing or cyanosis. Peripheral pulses intact. No lower extremity edema NEUROLOGIC: Awake and alert. Oriented x 3. ASSESSMENT: Recurrent syncope, may be secondary to hypotension, cannot rule out underlying ventricular arrhythmia secondary to history of CAD and cardiomyopathy Orthostatic hypotension Coronary artery disease with recent PCI of the RCA Diffuse disease of the LAD and circumflex History of ischemic cardiomyopathy History of hypertension History of hyperlipidemia Valvular heart disease History of CVA PLAN: No need to repeat echo at this time Continue current cardiac medications Decrease dose of lisinopril Continue Midodrine 10mg TID Continue to monitor orthostatic blood pressures Continue telemetry monitoring Further recommendations pending patient course Nurse practitioner note has been reviewed by physician. Signing provider agrees with the documented findings, assessment, and plan of care. Past Medical History Past Medical History: Atrial Fibrillation, COPD, CVA/TIA, Diabetes Mellitus, Eye Disorder, GERD/Reflux, Hyperlipidemia, Musculoskeletal Disorder, Osteoarthritis (OA) Additional Past Medical History / Comment(s): CVA X2, last in 2019, with left arm weakness. 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 Osteoporosis. History of Any Multi-Drug Resistant Organisms: None Reported Past Surgical History: Orthopedic Surgery Additional Past Surgical History / Comment(s): Right foot surgery, bilateral laser eye surgery for detached retina, bilateral catarcat surgery with lens implants, cervical fusion, left knee surgery, bilateral shoulder surgery, penile implant. Past Anesthesia/Blood Transfusion Reactions: Postoperative Nausea & Vomiting (PONV) Additional Past Anesthesia/Blood Transfusion Reaction / Comment(s): PONV with one surgery. Past Psychological History: Depression Smoking Status: Never smoker Past Alcohol Use History: Rare Past Drug Use History: None Reported - Past Family History Sister(s) Family Medical History: Pulmonary Embolus Father Family Medical History: Coronary Artery Disease (CAD), Deep Vein Thrombosis (DVT) Mother Family Medical History: Cancer, Hyperlipidemia Brother(s) Family Medical History: Cancer Medications and Allergies Home Medications Medication Instructions Recorded Confirmed Type Insulin Aspart (For Pump) [NovoLOG 0.01 unit SQ-PUMP CONTINUOUS 12/28/20 01/01/23 History (For Pump)] Latanoprost [Xalatan 0.005%] 1 drop BOTH EYES HS 12/28/20 01/01/23 History Aspirin [Adult Low Dose Aspirin EC] 81 mg PO DAILY 08/18/22 01/01/23 History Rivaroxaban [Xarelto] 2.5 mg PO DAILY 08/18/22 01/01/23 History Clopidogrel [Plavix] 75 mg PO DAILY #90 tab 11/20/22 01/01/23 Rx Atorvastatin [Lipitor] 80 mg PO DAILY 12/27/22 01/01/23 History Escitalopram [Lexapro] 5 mg PO DAILY 12/27/22 01/01/23 History Fluticasone Nasal [place] [Flonase 1 spr EA NOSTRIL DAILY 12/27/22 01/01/23 History Nasal [place]] Omeprazole 40 mg PO DAILY 12/27/22 01/01/23 History Vitamin D3/Vitamin K2 (Mk4) 1 tab PO DAILY 12/27/22 01/01/23 History [Vitamin K2 Plus D3 Tablet] Midodrine HCl [ProAmatine] 10 mg PO AC-TID #90 tablet 12/28/22 01/01/23 Rx lisinopriL [Zestril] 10 mg PO BID #60 tab 12/30/22 01/01/23 Rx HYDROcodone/APAP 5-325MG [[place] 1 tab PO Q4H PRN 01/01/23 01/01/23 History 5-325] Allergies Allergy/AdvReac Type Severity Reaction Status Date / Time No Known Allergies Allergy Verified 01/01/23 13:27 Physical Exam Vitals: Vital Signs Temp Pulse Pulse Pulse Pulse Resp BP 01/02/23 06:15 01/02/23 03:32 97.4 F L 74 16 01/01/23 23:40 98.0 F 74 16 01/01/23 20:00 98.2 F 80 18 01/01/23 17:19 98.6 F 82 18 01/01/23 16:55 98.4 F 82 18 119/64 01/01/23 16:50 121/62 01/01/23 16:40 90/55 01/01/23 16:30 104/52 01/01/23 14:49 84 90 80 01/01/23 10:37 97.8 F 79 18 151/77 BP BP BP Pulse Ox 01/02/23 06:15 128/74 01/02/23 03:32 127/67 96 01/01/23 23:40 154/70 97 01/01/23 20:00 132/70 98 01/01/23 17:19 139/66 98 01/01/23 16:55 98 01/01/23 16:50 01/01/23 16:40 01/01/23 16:30 01/01/23 14:49 90/60 87/57 138/74 01/01/23 10:37 99 Intake and Output 01/01/23 01/02/23 01/02/23 22:59 06:59 14:59 Intake Total 268 Balance 268 Intake: Oral 268 Other: Voiding Method Indwelling Catheter Indwelling Catheter Results 01/02/23 06:39 01/02/23 06:39 Cardiac Enzymes 01/01/23 01/01/23 01/01/23 Range/Units 11:53 11:53 23:58 AST 37 (17-59) U/L Troponin I 0.056 H* 0.051 H* (0.000-0.034) ng/mL Coagulation 01/01/23 Range/Units 11:53 PT 11.1 (9.0-12.0) sec APTT 27.6 (22.0-30.0) sec CBC 01/01/23 Range/Units 11:53 WBC 4.5 (3.8-10.6) k/uL RBC 3.87 L (4.30-5.90) m/uL Hgb 11.4 L (13.0-17.5) gm/dL Hct 33.3 L (39.0-53.0) % Plt Count 318 (150-450) k/uL Comprehensive Metabolic Panel 01/01/23 Range/Units 11:53 Sodium 137 (137-145) mmol/L Potassium 4.5 (3.5-5.1) mmol/L Chloride 100 (98-107) mmol/L Carbon Dioxide 28 (22-30) mmol/L BUN 27 H (9-20) mg/dL Creatinine 1.23 (0.66-1.25) mg/dL Glucose 171 H (74-99) mg/dL Calcium 8.9 (8.4-10.2) mg/dL AST 37 (17-59) U/L ALT 29 (4-49) U/L Alkaline Phosphatase 163 H (38-126) U/L Total Protein 7.2 (6.3-8.2) g/dL Albumin 3.4 L (3.5-5.0) g/dL Current Medications Generic Name Dose Route Start Last Admin Trade Name Freq PRN Reason Stop Dose Admin Hydrocodone Bitart/Acetaminophen 1 each 01/01/23 17:00 01/02/23 00:11 Hydrocodone/Apap 5-325mg 1 Each Tab PO 1 each Q6HR PRN Administration Pain Aspirin 81 mg 01/02/23 09:00 Aspirin 81 Mg PO DAILY [facility] Atorvastatin Calcium 80 mg 01/02/23 09:00 Atorvastatin 80 Mg Tab PO DAILY [facility] Clopidogrel Bisulfate 75 mg 01/02/23 09:00 Clopidogrel 75 Mg Tab PO DAILY [facility] Escitalopram Oxalate 5 mg 01/02/23 09:00 Escitalopram 5 Mg Tab PO DAILY [facility] Fluticasone Propionate 1 spray 01/02/23 09:00 Fluticasone 50mcg/[place] Nasal 16gm EA NOSTRIL DAILY [facility] Insulin Aspart 0.01 unit 01/02/23 07:30 01/02/23 06:15 Insulin Aspart (For Pump) 100 Unit/Ml Vial SQ-PUMP Not Given ACHS [facility] Insulin Aspart 0 unit 01/01/23 22:42 Insulin Aspart (Novolog) 100 Unit/Ml Vial SQ DAILY PRN Insulin Pump Replacement Latanoprost 1 drops 01/01/23 21:00 01/01/23 20:41 Latanoprost 0.005% Ophth Drops 2.5 Ml Btl BOTH EYES 1 drops HS ARIADNE Administration Lisinopril 2.5 mg 01/02/23 09:00 Lisinopril 2.5 Mg Tab PO DAILY [facility] Midodrine 10 mg 01/01/23 17:30 01/02/23 06:15 Midodrine 5 Mg Tab PO Not Given AC-TID [facility] Miscellaneous Information 1 each 01/01/23 22:42 Insulin Pump Basal Rates 1 Each Misc MISCELLANE Q6HR PRN Blood Sugar - High Protocol Miscellaneous Information 0 unit 01/02/23 07:30 01/02/23 06:15 Insulin Pump Meal Bolus 1 Unit Misc MISCELLANE Not Given ACHS ARIADNE Protocol Miscellaneous Information 0 unit 01/01/23 22:42 Insulin Pump Correction Bolus 1 Unit Misc MISCELLANE ACHS PRN Blood Sugar - High Protocol Naloxone HCl 0.2 mg 01/01/23 13:31 Naloxone 0.4 Mg/Ml 1 Ml Vial IV Q2M PRN Opioid Reversal Ondansetron HCl 4 mg 01/01/23 13:31 01/01/23 17:31 Ondansetron 4 Mg/2 Ml Vial IVP 4 mg Q8HR PRN Administration Nausea And Vomiting Pantoprazole Sodium 40 mg 01/02/23 07:30 01/02/23 06:09 Pantoprazole 40 Mg Tablet PO 40 mg AC-BRKFST ARIADNE Administration Polyethylene Glycol 17 gm 01/01/23 17:15 01/01/23 19:21 Polyethylene Glycol 3350 17 Gm Powd.Pack PO 17 gm DAILY ARIADNE Administration Rivaroxaban 2.5 mg 01/02/23 09:00 Rivaroxaban 2.5 Mg Tablet PO DAILY [facility] Protocol Senna 8.6 mg 01/01/23 21:00 01/01/23 20:05 Sennosides 8.6 Mg Tab PO 8.6 mg BID ARIADNE Administration Intake and Output 01/01/23 01/02/23 01/02/23 22:59 06:59 14:59 Intake Total 268 Balance 268 Intake: Oral 268 Other: Voiding Method Indwelling Catheter Indwelling Catheter 01/01/23 11:53 01/01/23 11:53
[2023-01-02 11:49] VITALS: BMI 23.9
[2023-01-02 11:50] LABS: Glucose,Whole Blood 99 mg/dL (70-110)
[2023-01-02] MEDS: ONDANSETRON 4 MG/2 ML VIAL IVP PRN (11:57)
--- NOTE | 2023-01-02 12:19 | CDI ---
Documentation Clarification Form Date: 01/02/2023 11:54:12 AM From: Sandi Carlton RN CCDS Phone: [phone] Admit Date: 01/01/2023 01:31:00 PM Patient Name: Onofre Stokes Visit Number: [id number] Discharge Date: ATTENTION: The Clinical Documentation Specialists (CDI) and [facility] Coding Staff appreciate your assistance in clarifying documentation. Please respond to the clarification below the line at the bottom and electronically sign. The CDI & [facility] Coding staff will review the response and follow-up if needed. Please note: Queries are made part of the Legal Health Record. If you have any questions, please contact the author of this message via ITS. Dr. Ricky Brunson Orthostatic Hypotension is documented in the01/01, H&P. Additional clarification regarding this diagnosis is requested. History/Risk Factors: 67-year-old male presents to the ED for noticing reduced urine output and constipation the last five days with some nausea, vomiting and episodes of passing out. His symptoms are exacerbated by taking Lisinopril. Patient admitted for persistent orthostatic hypotension. Medical History: Afib; DM and HTN. 01/01, H&P. Clinical Indicators: 01/01, H&P: Severe symptomatic orthostatic hypotension. Syncope. Orthostatic hypotension possibly in the setting of dysautonomia given long-standing diabetes. 01/01: Sitting B/P 90/60 01/01: Standing B/P 87/57 01/01: Supine B/P 138/74 Treatment: 01/01 Midodrine 10mg PO AC TID; 01/02 Florinef 0.1mg PO Daily Can the hypotension be further specified? [ x ] Orthostatic Hypotension related to Diabetic Dysautonomia [ ] Orthostatic Hypotension related to: (please specify) [ ] Other Condition, please specify [ ] Unable to determine (Template Last Revised: May 2020) MTDD
[2023-01-02] MEDS: FLUDROCORTISONE 0.1 MG TAB PO SCH (13:45)
--- NOTE | 2023-01-02 15:33 | P.PN ---
Subjective Progress Note Date: 01/02/23 Patient is a 67-year-old male with history of CAD status post stent 1 month ago, systolic heart failure with EF 35%, type 2 diabetes on insulin pump, atrial fibrillation, dyslipidemia, severe orthostatic hypotension on midodrine, recent multiple falls leading to the zygomatic arch fracture as well as distal sacral fracture presenting with persistent syncopal episodes. In the ED, temperature was 97.8, pulse 79, respiratory rate 18, blood pressure 151/77, saturating at 99% on room air. Profoundly orthostatic positive in the ER. Laboratory analysis showed hemoglobin of 11.4, creatinine 1.23, troponin 0.056. Chest x- ray independently interpreted did not show any acute process. EKG independently interpreted, shows nonspecific ST-T wave changes through the lateral and inferior leads. KUB showed mild to moderate stool burden. Patient admitted for persistent orthostatic hypotension. started on fludrocortisone. Cardiology also consulted. Pertinent positives and negatives as discussed in HPI, a complete review of systems was performed and all other systems are negative. Patient seen and examined at bedside. [] Vital signs reviewed General: nontoxic, no distress, appears at stated age Derm: warm, dry Head: Right-sided ecchymosis around the lateral consistent with prior injury, no new injury noted. Normocephalic, symmetric Eyes: EOMI, no lid lag, anicteric sclera, pupils equal round reactive to light ENT: Nose and ears atraumatic Neck: No thyromegaly, supple Mouth: no lip lesion, mucus membranes moist Cardiovascular: S1S2 reg, no murmur, no edema Lungs: clear to auscultation bilateral, no rhonchi, no rales, no wheeze, no accessory muscle use Abdominal: soft, nontender to palpation, no guarding, no appreciable organomegaly Ext: no gross muscle atrophy, muscle strength muscle strength 5 out of 5 in all 4 extremities, no contractures Neuro: CN II-XII grossly intact Psych: Alert, oriented, appropriate affect Assessment/Plan: Active: Severe symptomatic orthostatic hypotension Syncope Elevated troponin -Orthostatic hypotension possibly in the setting of dysautonomia given long- standing diabetes -Patient does have Charcot arthropathy and peripheral neuropathy -Continue midodrine 10, 3 times a day -Lisinopril 10 twice a day changed to 2.5 daily only -Cardiology note reviewed -Ruled out adrenal insufficiency during last admission -Started on fludrocortisone -on triple therapy at the moment Recent fall resulting in mildly displaced distal sacral fracture and facial fracture -Continue pain control with [place] Urinary retention Constipation -Status post Angela catheter placement -Possibly urinary retention in the setting of constipation -on senna twice a day, MiraLAX daily Insulin-dependent diabetes, on insulin pump Diabetic peripheral neuropathy Charcot arthropathy Chronic: Paroxysmal atrial fibrillation? CAD status post stent 1 month ago Systolic CHF, not in exacerbation Dyslipidemia Depression code status: full code DVT ppx: xarelto Discharge place: home vs [facility] Discharge time: pending clinical course Objective - Vital Signs Vital signs: Vital Signs Temp 98.4 F 01/02/23 12:10 Pulse 80 01/02/23 13:26 Resp 16 01/02/23 13:26 BP 138/66 01/02/23 12:10 Pulse Ox 99 01/02/23 12:10 FiO2 Intake & Output 01/01/23 01/02/23 01/02/23 18:59 06:59 18:59 Intake Total 268 0 Balance 268 0 Weight 75.75 kg 75.75 kg Intake: Oral 268 0 Other: Voiding Method Indwelling Catheter Indwelling Catheter - Labs CBC & Chem 7: 01/02/23 06:39 01/02/23 06:39 Labs: Abnormal Lab Results - Last 24 Hours (Table) 01/01/23 01/01/23 01/01/23 Range/Units 19:53 20:19 23:58 RBC (4.30-5.90) m/uL Hgb (13.0-17.5) gm/dL Hct (39.0-53.0) % RDW (11.5-15.5) % Sodium (137-145) mmol/L Chloride (98-107) mmol/L Glucose (74-99) mg/dL POC Glucose (mg/dL) 204 H 201 H (70-110) mg/dL Troponin I 0.051 H* (0.000-0.034) ng/mL 01/02/23 01/02/23 Range/Units 06:39 06:39 RBC 3.80 L (4.30-5.90) m/uL Hgb 10.8 L (13.0-17.5) gm/dL Hct 33.5 L (39.0-53.0) % RDW 16.7 H (11.5-15.5) % Sodium 136 L (137-145) mmol/L Chloride 97 L (98-107) mmol/L Glucose 130 H (74-99) mg/dL POC Glucose (mg/dL) (70-110) mg/dL Troponin I (0.000-0.034) ng/mL
[2023-01-02 16:56] LABS: Glucose,Whole Blood 170 mg/dL (70-110)
[2023-01-02 20:11] LABS: Glucose,Whole Blood 147 mg/dL (70-110)
[2023-01-02] MEDS: LATANOPROST 0.005% OPHTH DROPS 2.5 ML BTL BOTH EYES SCH (20:57)
[2023-01-03 02:07] LABS: Glucose,Whole Blood 135 mg/dL (70-110)
[2023-01-03 06:09] LABS: Glucose,Whole Blood 126 mg/dL (70-110)
[2023-01-03] MEDS: PANTOPRAZOLE 40 MG TABLET PO SCH (06:20)
[2023-01-03] MEDS: HYDROcodone/APAP 5-325MG 1 EACH TAB PO PRN (06:20)
[2023-01-03] MEDS: MIDODRINE 5 MG TAB PO SCH ×3 (06:28→16:36)
[2023-01-03] MEDS: INSULIN PUMP MEAL BOLUS 1 UNIT MISC MISCELLANE SCH ×4 (06:30→20:04)
[2023-01-03] MEDS: Insulin Aspart (For Pump) 100 UNIT/ML VIAL SQ-PUMP SCH ×4 (06:30→20:04)
[2023-01-03] MEDS: CLOPIDOGREL 75 MG TAB PO SCH (08:12)
[2023-01-03] MEDS: ESCITALOPRAM 5 MG TAB PO SCH (08:12)
[2023-01-03] MEDS: ATORVASTATIN 80 MG TAB PO SCH (08:12)
[2023-01-03] MEDS: FLUDROCORTISONE 0.1 MG TAB PO SCH (08:12)
[2023-01-03] MEDS: ASPIRIN 81 MG PO SCH (08:12)
[2023-01-03] MEDS: SENNOSIDES 8.6 MG TAB PO SCH ×2 (08:12→20:02)
[2023-01-03] MEDS: RIVAROXABAN 2.5 MG TABLET PO SCH ×2 (08:12→20:01)
[2023-01-03] MEDS: polyethylene glycoL 3350 17 GM POWD.PACK PO SCH (08:12)
[2023-01-03] MEDS: FLUTICASONE 50MCG/SPRAY NASAL 16GM EA NOSTRIL SCH (08:12)
--- NOTE | 2023-01-03 10:11 | P.PN ---
Subjective HISTORY OF PRESENT ILLNESS: This is a 67-year-old male with a past medical history significant for coronary artery disease with recent PCI of the RCA and diffuse disease of the LAD and circumflex, ischemic myopathy, hypertension, hyperlipidemia, valvular heart disease, and CVA. Patient follows in the office with Dr. Lazcano. We have been asked to see the patient in consultation for orthostatic hypotension. Patient examined at the bedside. Patient states yesterday he was sitting up in his wheelchair when he passed out. He states at that time he was not trying to stand up or change positions. He just reports feeling weak at the time. He does report having 3 or 4 episodes of syncope recently. Patient was found to velasco ve significantly positive orthostatic blood pressures upon arrival to the hospital. Patient's lisinopril was decreased from 10 mg twice a day to 2.5 mg daily. Orthostatic blood pressures this morning remain positive. He is currently receiving Midodrine 10mg TID. He currently denies any chest pain or pressure. He denies any shortness of breath. He currently denies dizziness or lightheadedness. * EKG reveals sinus mechanism with T-wave versions laterally and mild ST depression in inferior leads * Chest xray negative for acute process * Laboratory data: W BC 5.0. Hemoglobin 10.8. Platelet count 289. Sodium 136. Potassium 3.8. BUN 20. Creatinine 0.97. Troponin 0.0563 0.051. * Current home cardiac medications include aspirin 81 mg daily, Lipitor 80 mg daily, Plavix 75 mg daily, Xarelto 2.5 mg daily, lisinopril 10 mg twice a day * Most recent echocardiogram obtained in November 2022 revealed ejection fraction 45-50%, hypokinetic lateral and apical lateral wall * Cardiac catheterization history: October 2022 with stenting of the proximal and mid RCA. Patient also noted to have diffuse disease of LAD and circumflex. 01/03/2023 Patient examined this morning at the bedside. Patient denies chest pain or pressure. He denies shortness of breath. Telemetry reveals sinus mechanism. Orthostatic blood pressures obtained this morning reveal 184/81 supine. 146/72 sitting. 98/60 standing. Patient denies any chest pain or pressure. PHYSICAL EXAM: VITAL SIGNS: Reviewed. GENERAL: Well-developed in no acute distress. HEENT: Head is normocephalic. Pupils are equal, round. Sclerae anicteric. Mucous membranes of the mouth are moist. Neck supple. No JVD or thyromegaly LUNGS: Respirations even and unlabored. Lungs essentially clear to auscultation bilaterally. HEART: Regular rate and rhythm. S1 and S2 heard. ABDOMEN: Soft. Nondistended. Nontender. EXTREMITIES: Normal range of motion. No clubbing or cyanosis. Peripheral pulses intact. No lower extremity edema NEUROLOGIC: Awake and alert. Oriented x 3. ASSESSMENT: Recurrent syncope, may be secondary to hypotension, cannot rule out underlying ventricular arrhythmia secondary to history of CAD and cardiomyopathy Orthostatic hypotension Coronary artery disease with recent PCI of the RCA Diffuse disease of the LAD and circumflex History of ischemic cardiomyopathy History of hypertension History of hyperlipidemia Valvular heart disease History of CVA PLAN: No need to repeat echo at this time Continue current cardiac medications Continue decreased dose of lisinopril Continue Midodrine 10mg TID Continue to monitor orthostatic blood pressures Continue telemetry monitoring Continue aspirin and Plavix, and low dose Xarelto for CAD. Xarelto dosing changed to 2.5mg BID. Further recommendations pending patient course Nurse practitioner note has been reviewed by physician. Signing provider agrees with the documented findings, assessment, and plan of care. Objective - Vital Signs Vital signs: Vital Signs Temp 97.6 F 01/03/23 08:05 Pulse 80 01/03/23 08:05 Resp 16 01/03/23 08:05 BP 184/81 01/03/23 08:05 Pulse Ox 99 01/03/23 08:05 FiO2 Intake & Output 01/02/23 01/03/23 01/03/23 18:59 06:59 18:59 Intake Total 120 120 Output Total 2400 2150 Balance -2280 -2150 120 Weight 75.75 kg Intake: Oral 120 120 Output: Urine 2400 2150 Other: Voiding Method Indwelling Catheter Indwelling Catheter Indwelling Catheter - Labs CBC & Chem 7: 01/02/23 06:39 01/02/23 06:39 Labs: Abnormal Lab Results - Last 24 Hours (Table) 01/02/23 01/02/23 01/03/23 Range/Units 16:53 20:10 02:05 POC Glucose (mg/dL) 170 H 147 H 135 H (70-110) mg/dL 01/03/23 Range/Units 06:07 POC Glucose (mg/dL) 126 H (70-110) mg/dL
[2023-01-03] MEDS: ROSUVASTATIN 40 MG PO SCH (10:14)
[2023-01-03] MEDS ORDERED: polyethylene glycoL 3350 17 GM POWD.PACK PO STA (11:39)
[2023-01-03 11:44] LABS: Glucose,Whole Blood 164 mg/dL (70-110)
--- NOTE | 2023-01-03 13:54 | P.PN ---
Subjective Progress Note Date: 01/03/23 Patient is a 67-year-old male with history of CAD status post stent 1 month ago, systolic heart failure with EF 35%, type 2 diabetes on insulin pump, atrial fibrillation, dyslipidemia, severe orthostatic hypotension on midodrine, recent multiple falls leading to the zygomatic arch fracture as well as distal sacral fracture presenting with persistent syncopal episodes. In the ED, temperature was 97.8, pulse 79, respiratory rate 18, blood pressure 151/77, saturating at 99% on room air. Profoundly orthostatic positive in the ER. Laboratory analysis showed hemoglobin of 11.4, creatinine 1.23, troponin 0.056. Chest x- ray independently interpreted did not show any acute process. EKG independently interpreted, shows nonspecific ST-T wave changes through the lateral and inferior leads. KUB showed mild to moderate stool burden. Patient admitted for persistent orthostatic hypotension. started on fludrocortisone. Cardiology also consulted. remains orthostatic. Pertinent positives and negatives as discussed in HPI, a complete review of systems was performed and all other systems are negative. Patient seen and examined at bedside. No acute events overnight. Vital signs reviewed General: nontoxic, no distress, appears at stated age Derm: warm, dry Head: Right-sided ecchymosis around the lateral consistent with prior injury, no new injury noted. Normocephalic, symmetric Eyes: EOMI, no lid lag, anicteric sclera, pupils equal round reactive to light ENT: Nose and ears atraumatic Neck: No thyromegaly, supple Mouth: no lip lesion, mucus membranes moist Cardiovascular: S1S2 reg, no murmur, no edema Lungs: clear to auscultation bilateral, no rhonchi, no rales, no wheeze, no accessory muscle use Abdominal: soft, nontender to palpation, no guarding, no appreciable organomegaly Ext: no gross muscle atrophy, muscle strength muscle strength 5 out of 5 in all 4 extremities, no contractures Neuro: CN II-XII grossly intact Psych: Alert, oriented, appropriate affect Assessment/Plan: Active: Severe symptomatic orthostatic hypotension Syncope Elevated troponin -Orthostatic hypotension possibly in the setting of dysautonomia given long- standing diabetes -Patient does have Charcot arthropathy and peripheral neuropathy -Continue midodrine 10, 3 times a day -Lisinopril 10 twice a day changed to 2.5 daily only -Cardiology note reviewed, increased xarelto to 2.5 BID -Ruled out adrenal insufficiency during last admission -Started on fludrocortisone regardless for refractory orthostasis -also compression stockings ordered Recent fall resulting in mildly displaced distal sacral fracture and facial fracture -Continue pain control with [place] Urinary retention Constipation -Status post Angela catheter placement -Possibly urinary retention in the setting of constipation -on senna twice a day, MiraLAX daily Insulin-dependent diabetes, on insulin pump Diabetic peripheral neuropathy Charcot arthropathy Chronic: Paroxysmal atrial fibrillation? CAD status post stent 2 month ago Systolic CHF, not in exacerbation Dyslipidemia Depression code status: full code DVT ppx: xarelto Discharge place: home vs [facility] [place] Discharge time: pending clinical course Objective - Vital Signs Vital signs: Vital Signs Temp 97.6 F 01/03/23 08:05 Pulse 79 01/03/23 11:05 Resp 16 01/03/23 11:05 BP 136/65 01/03/23 12:39 Pulse Ox 98 01/03/23 11:05 FiO2 Intake & Output 01/02/23 01/03/23 01/03/23 18:59 06:59 18:59 Intake Total 120 240 Output Total 2400 2150 200 Balance -2280 -2150 40 Weight 75.75 kg Intake: Oral 120 240 Output: Urine 2400 2150 200 Other: Voiding Method Indwelling Catheter Indwelling Catheter Indwelling Catheter - Labs CBC & Chem 7: 01/02/23 06:39 01/02/23 06:39 Labs: Abnormal Lab Results - Last 24 Hours (Table) 01/02/23 01/02/23 01/03/23 Range/Units 16:53 20:10 02:05 POC Glucose (mg/dL) 170 H 147 H 135 H (70-110) mg/dL 01/03/23 01/03/23 Range/Units 06:07 11:42 POC Glucose (mg/dL) 126 H 164 H (70-110) mg/dL
[2023-01-03 16:43] LABS: Glucose,Whole Blood 176 mg/dL (70-110)
[2023-01-03 20:02] LABS: Glucose,Whole Blood 181 mg/dL (70-110)
[2023-01-03] MEDS: LATANOPROST 0.005% OPHTH DROPS 2.5 ML BTL BOTH EYES SCH (20:02)
[2023-01-04] MEDS: HYDROcodone/APAP 5-325MG 1 EACH TAB PO PRN ×2 (00:17→19:32)
[2023-01-04 02:13] LABS: Glucose,Whole Blood 146 mg/dL (70-110)
[2023-01-04 06:00] LABS: Glucose,Whole Blood 145 mg/dL (70-110)
[2023-01-04] MEDS: Insulin Aspart (For Pump) 100 UNIT/ML VIAL SQ-PUMP SCH ×3 (06:03→20:52)
[2023-01-04] MEDS: INSULIN PUMP MEAL BOLUS 1 UNIT MISC MISCELLANE SCH ×4 (06:03→20:52)
[2023-01-04] MEDS: PANTOPRAZOLE 40 MG TABLET PO SCH (06:22)
[2023-01-04] MEDS: MIDODRINE 5 MG TAB PO SCH ×3 (06:22→16:58)
[2023-01-04] MEDS: polyethylene glycoL 3350 17 GM POWD.PACK PO SCH (08:12)
[2023-01-04] MEDS: FLUDROCORTISONE 0.1 MG TAB PO SCH (08:12)
[2023-01-04] MEDS: RIVAROXABAN 2.5 MG TABLET PO SCH ×2 (08:12→20:11)
[2023-01-04] MEDS: ASPIRIN 81 MG PO SCH (08:12)
[2023-01-04] MEDS: CLOPIDOGREL 75 MG TAB PO SCH (08:12)
[2023-01-04] MEDS: SENNOSIDES 8.6 MG TAB PO SCH ×2 (08:12→20:11)
[2023-01-04] MEDS: ESCITALOPRAM 5 MG TAB PO SCH (08:12)
[2023-01-04] MEDS: ROSUVASTATIN 40 MG PO SCH (08:13)
[2023-01-04] MEDS: FLUTICASONE 50MCG/SPRAY NASAL 16GM EA NOSTRIL SCH (08:13)
[2023-01-04 11:26] LABS: Glucose,Whole Blood 193 mg/dL (70-110)
--- NOTE | 2023-01-04 11:46 | P.PN ---
Subjective HISTORY OF PRESENT ILLNESS: This is a 67-year-old male with a past medical history significant for coronary artery disease with recent PCI of the RCA and diffuse disease of the LAD and circumflex, ischemic myopathy, hypertension, hyperlipidemia, valvular heart disease, and CVA. Patient follows in the office with Dr. Lazcano. We have been asked to see the patient in consultation for orthostatic hypotension. Patient examined at the bedside. Patient states yesterday he was sitting up in his wheelchair when he passed out. He states at that time he was not trying to stand up or change positions. He just reports feeling weak at the time. He does report having 3 or 4 episodes of syncope recently. Patient was found to [place] ve significantly positive orthostatic blood pressures upon arrival to the hospital. Patient's lisinopril was decreased from 10 mg twice a day to 2.5 mg daily. Orthostatic blood pressures this morning remain positive. He is currently receiving Midodrine 10mg TID. He currently denies any chest pain or pressure. He denies any shortness of breath. He currently denies dizziness or lightheadedness. * EKG reveals sinus mechanism with T-wave versions laterally and mild ST depression in inferior leads * Chest xray negative for acute process * Laboratory data: W BC 5.0. Hemoglobin 10.8. Platelet count 289. Sodium 136. Potassium 3.8. BUN 20. Creatinine 0.97. Troponin 0.0563 0.051. * Current home cardiac medications include aspirin 81 mg daily, Lipitor 80 mg daily, Plavix 75 mg daily, Xarelto 2.5 mg daily, lisinopril 10 mg twice a day * Most recent echocardiogram obtained in November 2022 revealed ejection fraction 45-50%, hypokinetic lateral and apical lateral wall * Cardiac catheterization history: October 2022 with stenting of the proximal and mid RCA. Patient also noted to have diffuse disease of LAD and circumflex. 01/03/2023 Patient examined this morning at the bedside. Patient denies chest pain or pressure. He denies shortness of breath. Telemetry reveals sinus mechanism. Orthostatic blood pressures obtained this morning reveal 184/81 supine. 146/72 sitting. 98/60 standing. Patient denies any chest pain or pressure. 01/04/2023 Patient examined this morning at the bedside. Patient denies chest pain or pressure. He denies shortness of breath. Telemetry reveals sinus mechanism. Orthostatic blood pressures obtained this morning reveal blood pressure supine 192/67. Blood pressure sitting 117/63. Blood pressure standing 9458. The patient does report having mild dizziness this morning. However he was up sitting in the chair for long period of time and was feeling fairly well. Yesterday, patient's told Dr. Dinero she thought his symptoms were related to his Plavix and she did not want him to continue taking this. Dr. Dinero dis cussed with the the importance of taking Plavix and she is agreeable. PHYSICAL EXAM: VITAL SIGNS: Reviewed. GENERAL: Well-developed in no acute distress. HEENT: Head is normocephalic. Pupils are equal, round. Sclerae anicteric. Mucous membranes of the mouth are moist. Neck supple. No JVD or thyromegaly LUNGS: Respirations even and unlabored. Lungs essentially clear to auscultation bilaterally. HEART: Regular rate and rhythm. S1 and S2 heard. ABDOMEN: Soft. Nondistended. Nontender. EXTREMITIES: Normal range of motion. No clubbing or cyanosis. Peripheral pulses intact. No lower extremity edema NEUROLOGIC: Awake and alert. Oriented x 3. ASSESSMENT: Recurrent syncope, may be secondary to hypotension, cannot rule out underlying ventricular arrhythmia secondary to history of CAD and cardiomyopathy Orthostatic hypotension Coronary artery disease with recent PCI of the RCA Diffuse disease of the LAD and circumflex History of ischemic cardiomyopathy History of hypertension History of hyperlipidemia Valvular heart disease History of CVA PLAN: No need to repeat echo at this time Continue current cardiac medications Continue decreased dose of lisinopril Continue Midodrine 10mg TID Continue to monitor orthostatic blood pressures Continue telemetry monitoring Continue aspirin and Plavix, and low dose Xarelto for CAD Recommend knee-high MAU hose Patient instructed to change positions slowly Further recommendations pending patient course Nurse practitioner note has been reviewed by physician. Signing provider agrees with the documented findings, assessment, and plan of care. Objective - Vital Signs Vital signs: Vital Signs Temp 98.0 F 01/04/23 07:54 Pulse 73 01/04/23 11:16 Resp 20 01/04/23 11:16 BP 120/69 01/04/23 11:16 Pulse Ox 96 01/04/23 11:16 FiO2 Intake & Output 01/03/23 01/04/23 01/04/23 18:59 06:59 18:59 Intake Total 360 110 Output Total 300 650 325 Balance 60 -650 -215 Intake: Oral 360 110 Output: Urine 300 650 325 Other: Voiding Method Indwelling Catheter Indwelling Catheter Indwelling Catheter - Labs CBC & Chem 7: 01/02/23 06:39 01/02/23 06:39 Labs: Abnormal Lab Results - Last 24 Hours (Table) 01/03/23 01/03/23 01/03/23 Range/Units 11:42 16:41 19:59 POC Glucose (mg/dL) 164 H 176 H 181 H (70-110) mg/dL 01/04/23 01/04/23 01/04/23 Range/Units 02:09 05:58 11:22 POC Glucose (mg/dL) 146 H 145 H 193 H (70-110) mg/dL
--- NOTE | 2023-01-04 12:05 | P.PN ---
Subjective Progress Note Date: 01/04/23 Patient is a 67-year-old male with history of CAD status post stent 1 month ago, systolic heart failure with EF 35%, type 2 diabetes on insulin pump, atrial fibrillation, dyslipidemia, severe orthostatic hypotension on midodrine, recent multiple falls leading to the zygomatic arch fracture as well as distal sacral fracture presenting with persistent syncopal episodes. In the ED, temperature wa s 97.8, pulse 79, respiratory rate 18, blood pressure 151/77, saturating at 99% on room air. Profoundly orthostatic positive in the ER. Laboratory analysis showed hemoglobin of 11.4, creatinine 1.23, troponin 0.056. Chest x-ray independently interpreted did not show any acute process. EKG independently interpreted, shows nonspecific ST-T wave changes through the lateral and inferior leads. KUB showed mild to moderate stool burden. Patient admitted for persistent orthostatic hypotension. started on fludrocortisone. Cardiology also consulted. remains orthostatic. May need subacute rehab versus home care with 24 7 supervision Pertinent positives and negatives as discussed in HPI, a complete review of systems was performed and all other systems are negative. Patient seen and examined at bedside. No acute events overnight. Vital signs reviewed General: nontoxic, no distress, appears at stated age Derm: warm, dry Head: Right-sided ecchymosis around the lateral consistent with prior injury, no new injury noted. Normocephalic, symmetric Eyes: EOMI, no lid lag, anicteric sclera, pupils equal round reactive to light ENT: Nose and ears atraumatic Neck: No thyromegaly, supple Mouth: no lip lesion, mucus membranes moist Cardiovascular: S1S2 reg, no murmur, no edema Lungs: clear to auscultation bilateral, no rhonchi, no rales, no wheeze, no accessory muscle use Abdominal: soft, nontender to palpation, no guarding, no appreciable organomegaly Ext: no gross muscle atrophy, muscle strength muscle strength 5 out of 5 in all 4 extremities, no contractures Neuro: CN II-XII grossly intact Psych: Alert, oriented, appropriate affect Blood sugars range between 145-193 Assessment/Plan: Active: Severe symptomatic orthostatic hypotension Syncope Elevated troponin -Orthostatic hypotension possibly in the setting of dysautonomia given long- standing diabetes -Patient does have Charcot arthropathy and peripheral neuropathy -Continue midodrine 10, 3 times a day -Lisinopril 10 twice a day changed to 2.5 daily only -Cardiology note reviewed, increased xarelto to 2.5 BID -Ruled out adrenal insufficiency during last admission -Started on fludrocortisone regardless for refractory orthostasis -also compression stockings ordered Recent fall resulting in mildly displaced distal sacral fracture and facial fracture -Continue pain control with [place] Urinary retention Constipation -Status post Angela catheter placement -Possibly urinary retention in the setting of constipation -on senna twice a day, MiraLAX daily Insulin-dependent diabetes, on insulin pump Diabetic peripheral neuropathy Charcot arthropathy Chronic: Paroxysmal atrial fibrillation? CAD status post stent 2 month ago Systolic CHF, not in exacerbation Dyslipidemia Depression code status: full code DVT ppx: xarelto Discharge place: home vs [facility] Discharge time: pending clinical course Objective - Vital Signs Vital signs: Vital Signs Temp 98.0 F 01/04/23 07:54 Pulse 73 01/04/23 11:16 Resp 20 01/04/23 11:16 BP 120/69 01/04/23 11:16 Pulse Ox 96 01/04/23 11:16 FiO2 Intake & Output 01/03/23 01/04/23 01/04/23 18:59 06:59 18:59 Intake Total 360 110 Output Total 300 650 325 Balance 60 -650 -215 Intake: Oral 360 110 Output: Urine 300 650 325 Other: Voiding Method Indwelling Catheter Indwelling Catheter Indwelling Catheter - Labs CBC & Chem 7: 01/02/23 06:39 01/02/23 06:39 Labs: Abnormal Lab Results - Last 24 Hours (Table) 01/03/23 01/03/23 01/04/23 Range/Units 16:41 19:59 02:09 POC Glucose (mg/dL) 176 H 181 H 146 H (70-110) mg/dL 01/04/23 01/04/23 Range/Units 05:58 11:22 POC Glucose (mg/dL) 145 H 193 H (70-110) mg/dL
[2023-01-04 16:40] LABS: Glucose,Whole Blood 182 mg/dL (70-110)
[2023-01-04] MEDS ORDERED: bisacodyL 10 MG SUPP RECTAL STA (18:00)
[2023-01-04 20:33] LABS: Glucose,Whole Blood 217 mg/dL (70-110)
[2023-01-04] MEDS: LATANOPROST 0.005% OPHTH DROPS 2.5 ML BTL BOTH EYES SCH (21:28)
[2023-01-04 22:15] LABS: Glucose,Whole Blood 119 mg/dL (70-110)
[2023-01-05 02:20] LABS: Glucose,Whole Blood 126 mg/dL (70-110)
[2023-01-05 03:54] VITALS: RESP 16
[2023-01-05] MEDS ORDERED: MAG HYDROX/AL HYDROX/SIMETH 30 ML CUP PO PRN (03:54)
[2023-01-05] MEDS: INSULIN PUMP MEAL BOLUS 1 UNIT MISC MISCELLANE SCH ×3 (06:26→16:50)
[2023-01-05] MEDS: Insulin Aspart (For Pump) 100 UNIT/ML VIAL SQ-PUMP SCH ×3 (06:26→17:53)
[2023-01-05] MEDS: MIDODRINE 5 MG TAB PO SCH ×3 (06:28→16:56)
[2023-01-05] MEDS: PANTOPRAZOLE 40 MG TABLET PO SCH (06:28)
[2023-01-05 06:36] LABS: Glucose,Whole Blood 194 mg/dL (70-110)
[2023-01-05 08:53] LABS: Anisocytosis Slight; Basophils % (A) 1 %; Eosinophils # (A) 0.2 k/uL (0-0.7); Eosinophils % (A) 4 %; HGB 10.7 gm/dL (13.0-17.5); Lymphocytes # (A) 1.3 k/uL (1.0-4.8); Lymphocytes % (A) 24 %; MCH 28.4 pg (25.0-35.0); MCHC 32.5 g/dL (31.0-37.0); MCV 87.4 fL (80.0-100.0); Mean Platelet Volume 7.3; Monocytes # (A) 0.3 k/uL (0-1.0); Monocytes % (A) 5 %; Neutrophils # (A) 3.5 k/uL (1.3-7.7); Neutrophils % (A) 65 %; Platelet Count 307 k/uL (150-450); RBC 3.77 m/uL (4.30-5.90); RDW 16.6 % (11.5-15.5); WBC 5.4 k/uL (3.8-10.6)
[2023-01-05] MEDS: FLUDROCORTISONE 0.1 MG TAB PO SCH (09:09)
[2023-01-05] MEDS: ESCITALOPRAM 5 MG TAB PO SCH (09:09)
[2023-01-05] MEDS: RIVAROXABAN 2.5 MG TABLET PO SCH (09:09)
[2023-01-05] MEDS: CLOPIDOGREL 75 MG TAB PO SCH (09:10)
[2023-01-05] MEDS: ASPIRIN 81 MG PO SCH (09:10)
[2023-01-05] MEDS: SENNOSIDES 8.6 MG TAB PO SCH (09:11)
[2023-01-05] MEDS: ROSUVASTATIN 40 MG PO SCH (09:11)
[2023-01-05] MEDS: polyethylene glycoL 3350 17 GM POWD.PACK PO SCH (09:11)
[2023-01-05 09:14] LABS: African American GFR (CKD) >90 (>60 ml/min/1.73 sqM); Anion Gap 6 mmol/L; Blood Urea Nitrogen 18 mg/dL (9-20); Calcium 8.9 mg/dL (8.4-10.2); Carbon Dioxide 30 mmol/L (22-30); Chloride 97 mmol/L (98-107); Glucose 224 mg/dL (74-99); Non-African American GFR(CKD) >90 (>60 ml/min/1.73 sqM); Potassium 4.3 mmol/L (3.5-5.1); Sodium 133 mmol/L (137-145)
[2023-01-05] MEDS: FLUTICASONE 50MCG/SPRAY NASAL 16GM EA NOSTRIL SCH (09:15)
[2023-01-05 11:49] LABS: Glucose,Whole Blood 204 mg/dL (70-110)
--- NOTE | 2023-01-05 14:50 | P.PN ---
Subjective Progress Note Date: 01/05/23 HISTORY OF PRESENT ILLNESS: This is a 67-year-old male with a past medical history significant for coronary artery disease with recent PCI of the RCA and diffuse disease of the LAD and circumflex, ischemic myopathy, hypertension, hyperlipidemia, valvular heart disease, and CVA. Patient follows in the office with Dr. Lazcano. We have been asked to see the patient in consultation for orthostatic hypotension. Patient examined at the bedside. Patient states yesterday he was sitting up in his wheelchair when he passed out. He states at that time he was not trying to stand up or change positions. He just reports feeling weak at the time. He does report having 3 or 4 episodes of syncope recently. Patient was found to have significantly positive orthostatic blood pressures upon arrival to the hospital. Patient's lisinopril was decreased from 10 mg twice a day to 2.5 mg daily. Orthostatic blood pressures this morning remain positive. He is currently receiving Midodrine 10mg TID. He currently denies any chest pain or pressure. He denies any shortness of breath. He currently denies dizziness or lightheadedness. * EKG reveals sinus mechanism with T-wave versions laterally and mild ST depr ession in inferior leads * Chest xray negative for acute process * Laboratory data: W BC 5.0. Hemoglobin 10.8. Platelet count 289. Sodium 136. Potassium 3.8. BUN 20. Creatinine 0.97. Troponin 0.0563 0.051. * Current home cardiac medications include aspirin 81 mg daily, Lipitor 80 mg daily, Plavix 75 mg daily, Xarelto 2.5 mg daily, lisinopril 10 mg twice a day * Most recent echocardiogram obtained in November 2022 revealed ejection fraction 45-50%, hypokinetic lateral and apical lateral wall * Cardiac catheterization history: October 2022 with stenting of the proximal and mid RCA. Patient also noted to have diffuse disease of LAD and circumflex. 01/03/2023 Patient examined this morning at the bedside. Patient denies chest pain or pressure. He denies shortness of breath. Telemetry reveals sinus mechanism. Orthostatic blood pressures obtained this morning reveal 184/81 supine. 146/72 sitting. 98/60 standing. Patient denies any chest pain or pressure. 01/04/2023 Patient examined this morning at the bedside. Patient denies chest pain or pressure. He denies shortness of breath. Telemetry reveals sinus mechanism. Orthostatic blood pressures obtained this morning reveal blood pressure supine 192/67. Blood pressure sitting 117/63. Blood pressure standing 9458. The patient does report having mild dizziness this morning. However he was up sitting in the chair for long period of time and was feeling fairly well. Yesterday, patient's told Dr. Dinero she thought his symptoms were related to his Plavix and she did not want him to continue taking this. Dr. Dinero dis cussed with the the importance of taking Plavix and she is agreeable. 01/05 Patient denies having any chest pain no chest pressure. He states he had some heartburn last evening. His Angela catheter was removed this morning he has not voided yet. He states he is drinking and eating okay. He has no weight loss. No dizziness lately. Patient does check his blood pressure at home which he was encouraged to continue. Repeat orthostatics are positive. Hemoglobin 10.7, BUN 18 creatinine 0.79. Potassium 4.3 and sodium 133. PHYSICAL EXAM: VITAL SIGNS: Reviewed. GENERAL: Well-developed in no acute distress. HEENT: Head is normocephalic. Pupils are equal, round. Sclerae anicteric. Mucous membranes of the mouth are moist. Neck supple. No JVD or thyromegaly LUNGS: Respirations even and unlabored. Lungs essentially clear to auscultation bilaterally. HEART: Regular rate and rhythm. S1 and S2 heard. ABDOMEN: Soft. Nondistended. Nontender. EXTREMITIES: Normal range of motion. No clubbing or cyanosis. Peripheral pulses intact. No lower extremity edema NEUROLOGIC: Awake and alert. Oriented x 3. ASSESSMENT: Recurrent syncope, may be secondary to hypotension, cannot rule out underlying ventricular arrhythmia secondary to history of CAD and cardiomyopathy Orthostatic hypotension Coronary artery disease with recent PCI of the RCA Diffuse disease of the LAD and circumflex History of ischemic cardiomyopathy History of hypertension History of hyperlipidemia Valvular heart disease History of CVA PLAN: No need to repeat echo at this time Continue current cardiac medications Continue Midodrine 10mg TID Continue aspirin and Plavix, and low dose Xarelto for CAD Recommend knee-high MAU hose Patient instructed to change positions slowly A [place] is cleared from cardiology for discharge home and to continue on current medications. Patient to monitor blood pressure at home as well. Nurse practitioner note has been reviewed by physician. Signing provider agrees with the documented findings, assessment, and plan of care. Objective - Vital Signs Vital signs: Vital Signs Temp 98.6 F 01/05/23 08:00 Pulse 79 01/05/23 08:00 Resp 16 01/05/23 08:00 BP 192/72 01/05/23 08:00 Pulse Ox 98 01/05/23 08:00 FiO2 Intake & Output 01/04/23 01/05/23 01/05/23 18:59 06:59 18:59 Intake Total 330 240 Output Total 325 1000 Balance 5 -760 Intake: Oral 330 240 Output: Urine 325 1000 Uretheral (Angela) 1000 Other: Voiding Method Indwelling Catheter Indwelling Catheter Indwelling Catheter - Labs CBC & Chem 7: 01/05/23 08:22 01/05/23 08:22 Labs: Abnormal Lab Results - Last 24 Hours (Table) 01/04/23 01/04/23 01/04/23 Range/Units 11:22 16:39 20:31 RBC (4.30-5.90) m/uL Hgb (13.0-17.5) gm/dL Hct (39.0-53.0) % RDW (11.5-15.5) % Sodium (137-145) mmol/L Chloride (98-107) mmol/L Glucose (74-99) mg/dL POC Glucose (mg/dL) 193 H 182 H 217 H (70-110) mg/dL 01/04/23 01/05/23 01/05/23 Range/Units 22:11 02:18 06:26 RBC (4.30-5.90) m/uL Hgb (13.0-17.5) gm/dL Hct (39.0-53.0) % RDW (11.5-15.5) % Sodium (137-145) mmol/L Chloride (98-107) mmol/L Glucose (74-99) mg/dL POC Glucose (mg/dL) 119 H 126 H 194 H (70-110) mg/dL 01/05/23 01/05/23 Range/Units 08:22 08:22 RBC 3.77 L (4.30-5.90) m/uL Hgb 10.7 L (13.0-17.5) gm/dL Hct 33.0 L (39.0-53.0) % RDW 16.6 H (11.5-15.5) % Sodium 133 L (137-145) mmol/L Chloride 97 L (98-107) mmol/L Glucose 224 H (74-99) mg/dL POC Glucose (mg/dL) (70-110) mg/dL
--- NOTE | 2023-01-05 14:50 | P.DS ---
Providers Date of admission: 01/01/23 13:31 Expected date of discharge: 01/05/23 Attending physician: Adilia Puente MD Consults: 01/01/23 13:31 Consult Physician Urgent Consulting Provider: [facility] Consult Reason/Comments: orthostatic hypotension Do you want consulting provider notified?: Yes Primary care physician: Ludwin Denton Hospital Course: Discharge Diagnosis: Severe symptomatic orthostatic hypotension Syncope Type 2 NSTEMI Recent fall resulting in mildly displaced distal sacral fracture and facial fracture Urinary retention Constipation Insulin-dependent diabetes, on insulin pump Diabetic peripheral neuropathy Charcot arthropathy Hospital Course: Patient is a 67-year-old male with history of CAD status post stent 1 month ago, systolic heart failure with EF 35%, type 2 diabetes on insulin pump, atrial fibrillation, dyslipidemia, severe orthostatic hypotension on midodrine, recent multiple falls leading to the zygomatic arch fracture as well as distal sacral fracture presenting with persistent syncopal episodes. In the ED, temperature was 97.8, pulse 79, respiratory rate 18, blood pressure 151/77, saturating at 99% on room air. Profoundly orthostatic positive. Laboratory analysis showed hemoglobin of 11.4, creatinine 1.23, troponin 0.056. Chest x-ray independently interpreted did not show any acute process. EKG independently interpreted, shows nonspecific ST-T wave changes through the lateral and inferior leads. KUB showed mild to moderate stool burden. Patient admitted for persistent orthostatic hypotension. started on fludrocortisone. Cardiology also consulted. remains orthostatic. Likely in the setting of autonomic dysfunction from long- standing type 2 diabetes likely exacerbated by recent deconditioning. Voiding trial was done at the time of discharge, patient doesn't have significant urinary retention. Being discharged without Angela catheter. Patient seen and examined at bedside. Vital signs reviewed and stable. General: nontoxic, no distress, appears at stated age Derm: warm, dry Head: Right-sided ecchymosis around the lateral consistent with prior injury, no new injury noted. Normocephalic, symmetric Eyes: EOMI, no lid lag, anicteric sclera, pupils equal round reactive to light ENT: Nose and ears atraumatic Neck: No thyromegaly, supple Mouth: no lip lesion, mucus membranes moist Cardiovascular: S1S2 reg, no murmur, no edema Lungs: clear to auscultation bilateral, no rhonchi, no rales, no wheeze, no accessory muscle use Abdominal: soft, nontender to palpation, no guarding, no appreciable organomegaly Ext: no gross muscle atrophy, muscle strength muscle strength 5 out of 5 in all 4 extremities, no contractures Neuro: CN II-XII grossly intact Psych: Alert, oriented, appropriate affect A total of 36 minutes of time were spent preparing this complex discharge summary. Patient was discharged on 01/15/23 at 10:30. Patient Condition at Discharge: Stable Plan - Discharge Summary New Discharge Prescriptions: New Fludrocortisone [Florinef] 0.1 mg PO DAILY #30 tab Simvastatin [Zocor] 40 mg PO HS #30 tab polyethylene glycoL 3350 [Miralax] 17 gm PO DAILY #60 packet Sennosides [Senokot] 8.6 mg PO BID #60 tab lisinopriL [Zestril] 2.5 mg PO DAILY #60 tab Rivaroxaban [Xarelto] 2.5 mg PO BID tab Continue Aspirin [Adult Low Dose Aspirin EC] 81 mg PO DAILY Clopidogrel [Plavix] 75 mg PO DAILY #90 tab Fluticasone Nasal [place] [Flonase Nasal [place]] 1 spr EA NOSTRIL DAILY Vitamin D3/Vitamin K2 (Mk4) [Vitamin K2 Plus D3 Tablet] 1 tab PO DAILY Midodrine HCl [ProAmatine] 10 mg PO AC-TID #90 tablet HYDROcodone/APAP 5-325MG [[place] 5-325] 1 tab PO Q4H PRN PRN Reason: Pain Latanoprost [Xalatan 0.005%] 1 drop BOTH EYES HS Insulin Aspart (For Pump) [NovoLOG (For Pump)] 0.01 unit SQ-PUMP CONTINUOUS Escitalopram [Lexapro] 5 mg PO DAILY Omeprazole 40 mg PO DAILY Discontinued Rivaroxaban [Xarelto] 2.5 mg PO DAILY Atorvastatin [Lipitor] 80 mg PO DAILY lisinopriL [Zestril] 10 mg PO BID #60 tab Discharge Medication List Insulin Aspart (For Pump) [NovoLOG (For Pump)] 0.01 unit SQ-PUMP CONTINUOUS 12/28/20 [History] Latanoprost [Xalatan 0.005%] 1 drop BOTH EYES HS 12/28/20 [History] Aspirin [Adult Low Dose Aspirin EC] 81 mg PO DAILY 08/18/22 [History] Clopidogrel [Plavix] 75 mg PO DAILY #90 tab 11/20/22 [Rx] Escitalopram [Lexapro] 5 mg PO DAILY 12/27/22 [History] Fluticasone Nasal [place] [Flonase Nasal [place]] 1 spr EA NOSTRIL DAILY 12/27/22 [History] Omeprazole 40 mg PO DAILY 12/27/22 [History] Vitamin D3/Vitamin K2 (Mk4) [Vitamin K2 Plus D3 Tablet] 1 tab PO DAILY 12/27/22 [History] Midodrine HCl [ProAmatine] 10 mg PO AC-TID #90 tablet 12/28/22 [Rx] HYDROcodone/APAP 5-325MG [[place] 5-325] 1 tab PO Q4H PRN 01/01/23 [History] Fludrocortisone [Florinef] 0.1 mg PO DAILY #30 tab 01/05/23 [Rx] Rivaroxaban [Xarelto] 2.5 mg PO BID tab 01/05/23 [Rx] Sennosides [Senokot] 8.6 mg PO BID #60 tab 01/05/23 [Rx] Simvastatin [Zocor] 40 mg PO HS #30 tab 01/05/23 [Rx] lisinopriL [Zestril] 2.5 mg PO DAILY #60 tab 01/05/23 [Rx] polyethylene glycoL 3350 [Miralax] 17 gm PO DAILY #60 packet 01/05/23 [Rx] Follow up Appointment(s)/Referral(s): Young Lazcano MD [STAFF PHYSICIAN] - 1 Week (January 06 9:30) Ludwin Denton MD [Primary Care Provider] - 1-2 days (January 08 10:30) Patient Instructions/Handouts: Syncope (DC) Activity/Diet/Wound Care/Special Instructions: Please see your PCP and Cardiology. Discharge Disposition: HOME WITH HOME HEALTH SERVICES
[2023-01-05 15:50] VITALS: BP 188/71; PULSE 77; TEMP 98.5
[2023-01-05 16:59] LABS: Glucose,Whole Blood 251 mg/dL (70-110)
== END 2023-01-05 18:02 | disposition home health service (06) | DRG 73 ==
LOC: EC 10:29 → 3SCARD 13:31
PROVIDERS: ADMIT Internal Medicine; ATTEND Internal Medicine
DX: E11.43 Type 2 diabetes mellitus with diabetic autonomic (poly)neuropathy (principal); I21.A1 Myocardial infarction type 2; I50.22 Chronic systolic (congestive) heart failure; I95.1 Orthostatic hypotension; M81.0 Age-related osteoporosis without current pathological fracture; K59.00 Constipation, unspecified; J44.9 Chronic obstructive pulmonary disease, unspecified; I25.10 Atherosclerotic heart disease of native coronary artery without angina pectoris; I48.0 Paroxysmal atrial fibrillation; I25.5 Ischemic cardiomyopathy; I11.0 Hypertensive heart disease with heart failure; F32.A Depression, unspecified; E78.5 Hyperlipidemia, unspecified; E11.610 Type 2 diabetes mellitus with diabetic neuropathic arthropathy; R33.9 Retention of urine, unspecified; K21.9 Gastro-esophageal reflux disease without esophagitis; M19.90 Unspecified osteoarthritis, unspecified site; W19.XXXD Unspecified fall, subsequent encounter; G90.1 Familial dysautonomia [Riley-Day]; Z96.41 Presence of insulin pump (external) (internal); S32.10XD Unspecified fracture of sacrum, subsequent encounter for fracture with routine healing; S02.402D Zygomatic fracture, unspecified side, subsequent encounter for fracture with routine healing; Z95.5 Presence of coronary angioplasty implant and graft; Z86.73 Personal history of transient ischemic attack (TIA), and cerebral infarction without residual deficits; Z79.899 Other long term (current) drug therapy; Z79.82 Long term (current) use of aspirin; Z79.4 Long term (current) use of insulin; Z79.02 Long term (current) use of antithrombotics/antiplatelets; Z79.01 Long term (current) use of anticoagulants; Z74.01 Bed confinement status
CPT/HCPCS: 36415; 51702; 51798; 71046; 74018; 80048; 80053; 84484; 85025; 85610; 85730; 93005; 99285

== ENCOUNTER 2023-01-18 10:46 | Inpatient (IN) | payer MEDICARE, BC ==
[2023-01-18] MEDS ORDERED: SODIUM CHLORIDE 0.9% 1,000 ML IV ONE (11:03)
[2023-01-18] MEDS ORDERED: DILTIAZEM 125 MG in SODIUM CHLORIDE 0.9% 100 ML IV SCH (11:30)
[2023-01-18 11:31] LABS: Anisocytosis Slight; Basophils % (A) 0 %; Eosinophils # (A) 0.2 k/uL (0-0.7); Eosinophils % (A) 2 %; HCT 24.8 % (39.0-53.0); HGB 8.2 gm/dL (13.0-17.5); Lymphocytes # (A) 1.4 k/uL (1.0-4.8); Lymphocytes % (A) 19 %; MCH 28.6 pg (25.0-35.0); MCHC 32.8 g/dL (31.0-37.0); Mean Platelet Volume 7.2; Monocytes # (A) 0.3 k/uL (0-1.0); Monocytes % (A) 5 %; Neutrophils # (A) 5.3 k/uL (1.3-7.7); Neutrophils % (A) 73 %; Platelet Count 305 k/uL (150-450); RBC 2.86 m/uL (4.30-5.90); RDW 17.5 % (11.5-15.5); WBC 7.2 k/uL (3.8-10.6)
[2023-01-18 11:36] LABS: INR 1.2 (<1.2); Partial Thromboplastin Time 26.8 sec (22.0-30.0); Prothrombin Time 13.2 sec (10.0-12.5)
[2023-01-18 11:55] LABS: Glucose,Whole Blood 90 mg/dL (70-110)
[2023-01-18 12:30] LABS: ALT 45 U/L (4-49); AST 87 U/L (17-59); African American GFR (CKD) 86 (>60 ml/min/1.73 sqM); Albumin 3.2 g/dL (3.5-5.0); Alkaline Phosphatase 204 U/L (38-126); Anion Gap 9 mmol/L; Blood Urea Nitrogen 22 mg/dL (9-20); Calcium 8.4 mg/dL (8.4-10.2); Carbon Dioxide 24 mmol/L (22-30); Chloride 105 mmol/L (98-107); Glucose 111 mg/dL (74-99); Non-African American GFR(CKD) 74 (>60 ml/min/1.73 sqM); Potassium 3.5 mmol/L (3.5-5.1); Sodium 138 mmol/L (137-145); Total Bilirubin 0.9 mg/dL (0.2-1.3); Total Protein 6.9 g/dL (6.3-8.2)
[2023-01-18 12:38] LABS: NT-Pro-B-Type Natriuretic Pept 19800 pg/mL
--- NOTE | 2023-01-18 12:43 | XR ---
EXAMINATION TYPE: XR chest 2V DATE OF EXAM: 01/18/2023 12:36 PM CLINICAL INDICATION:Male, 67 years old with history of Chest Pain; COMPARISON: Chest radiographs from 01/01/2023 TECHNIQUE: XR chest 2V Frontal and lateral views of the chest. FINDINGS: Lungs/Pleura: Blunting of the posterior costophrenic angle on the left. There is no evidence of pleur al effusion, focal consolidation, or pneumothorax. Pulmonary vascularity: Unremarkable. Heart/mediastinum: Cardiomediastinal silhouette is unremarkable. Musculoskeletal: No acute osseous pathology. There is fixation hardware in the lower cervical spine. IMPRESSION: Posterior inferior pleural effusion on the left with Subtle scattered opacities which may represent a n atypical pneumonia. Correlate for covid 19.
--- NOTE | 2023-01-18 12:50 | ED ---
General Adult HPI - General Chief complaint: Syncope Stated complaint: A FIB Time Seen by Provider: 01/18/23 10:50 Source: patient, RN notes reviewed, old records reviewed Mode of arrival: ambulatory Limitations: no limitations - History of Present Illness Initial comments: This is a 67-year-old male who presents emergency Department with a near syncopa l so. Patient has a history of atrial fibrillation. Patient states he had a near syncopal episodes morning when he stood up. Patient states currently lying down he feels much better. Patient states he has no chest pain no palpitations . Patient states when he stood up and got lightheaded he was mildly short of breath but lying in bed he has no shortness of breath. Patient denies any recent fever chills or cough. Patient states he's been told in the past she does have A. fib. Patient is on a blood thinner. Patient also has a history of low blood pressure. - Related Data Home Medications Medication Instructions Recorded Confirmed Insulin Aspart (For Pump) [NovoLOG 0.01 unit SQ-PUMP CONTINUOUS 12/28/20 01/01/23 (For Pump)] Latanoprost [Xalatan 0.005%] 1 drop BOTH EYES HS 12/28/20 01/01/23 Aspirin [Adult Low Dose Aspirin EC] 81 mg PO DAILY 08/18/22 01/01/23 Escitalopram [Lexapro] 5 mg PO DAILY 12/27/22 01/01/23 Fluticasone Nasal [place] [Flonase 1 spr EA NOSTRIL DAILY 12/27/22 01/01/23 Nasal [place]] Omeprazole 40 mg PO DAILY 12/27/22 01/01/23 Vitamin D3/Vitamin K2 (Mk4) 1 tab PO DAILY 12/27/22 01/01/23 [Vitamin K2 Plus D3 Tablet] HYDROcodone/APAP 5-325MG [[place] 1 tab PO Q4H PRN 01/01/23 01/01/23 5-325] Previous Rx's Medication Instructions Recorded Clopidogrel [Plavix] 75 mg PO DAILY #90 tab 11/20/22 Midodrine HCl [ProAmatine] 10 mg PO AC-TID #90 tablet 12/28/22 Fludrocortisone [Florinef] 0.1 mg PO DAILY #30 tab 01/05/23 Rivaroxaban [Xarelto] 2.5 mg PO BID tab 01/05/23 Sennosides [Senokot] 8.6 mg PO BID #60 tab 01/05/23 Simvastatin [Zocor] 40 mg PO HS #30 tab 01/05/23 lisinopriL [Zestril] 2.5 mg PO DAILY #60 tab 01/05/23 polyethylene glycoL 3350 [Miralax] 17 gm PO DAILY #60 packet 01/05/23 Allergies Allergy/AdvReac Type Severity Reaction Status Date / Time No Known Allergies Allergy Verified 01/18/23 10:57 Review of Systems ROS Statement: Those systems with pertinent positive or pertinent negative responses have been documented in the HPI. ROS Other: All systems not noted in ROS Statement are negative. Past Medical History Past Medical History: Atrial Fibrillation, COPD, CVA/TIA, Diabetes Mellitus, Eye Disorder, GERD/Reflux, Hyperlipidemia, Musculoskeletal Disorder, Osteoarthritis (OA) Additional Past Medical History / Comment(s): CVA X2, last in 2019, with left arm weakness. 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 Osteoporosis. History of Any Multi-Drug Resistant Organisms: None Reported Past Surgical History: Orthopedic Surgery Additional Past Surgical History / Comment(s): Right foot surgery, bilateral laser eye surgery for detached retina, bilateral catarcat surgery with lens implants, cervical fusion, left knee surgery, bilateral shoulder surgery, penile implant. Past Anesthesia/Blood Transfusion Reactions: Postoperative Nausea & Vomiting (PONV) Additional Past Anesthesia/Blood Transfusion Reaction / Comment(s): PONV with one surgery. Past Psychological History: Depression Smoking Status: Never smoker Past Alcohol Use History: Rare Past Drug Use History: None Reported - Past Family History Sister(s) Family Medical History: Pulmonary Embolus Father Family Medical History: Coronary Artery Disease (CAD), Deep Vein Thrombosis (DVT) Mother Family Medical History: Cancer, Hyperlipidemia Brother(s) Family Medical History: Cancer General Exam - General Exam Comments Initial Comments: GENERAL: Patient is well-developed and well-nourished. Patient is nontoxic and well- hydrated and is in no acute distress. ENT: Neck is soft and supple. No significant lymphadenopathy is noted. Oropharynx is clear. Moist mucous membranes. Neck has full range of motion without eliciting any pain. EYES: The sclera were anicteric and conjunctiva were pink and moist. Extraocular movements were intact and pupils were equal round and reactive to light. Eyelids were unremarkable. PULMONARY: Unlabored respirations. Good breath sounds bilaterally. No audible rales rhonchi or wheezing was noted. CARDIOVASCULAR: Patient is tachycardic with an irregular rate of 150 beats a minute ABDOMEN: Soft and nontender with normal bowel sounds. SKIN: Skin is clear with no lesions or rashes and otherwise unremarkable. NEUROLOGIC: Patient is alert and oriented x3. Cranial nerves II through XII are grossly intact. Motor and sensory are also intact. Normal speech, volume and content. Symmetrical smile. MUSCULOSKELETAL: Normal extremities with adequate strength and full range of motion. No lower extremity swelling or edema. No calf tenderness. LYMPHATICS: No significant lymphadenopathy is noted PSYCHIATRIC: Normal psychiatric evaluation. Limitations: no limitations Course Vital Signs 01/18/23 01/18/23 01/18/23 10:48 11:29 11:42 Temperature 97.8 F Pulse Rate 156 H 141 H 135 H Respiratory 20 18 18 Rate Blood Pressure 98/68 94/77 91/59 O2 Sat by Pulse 99 100 Oximetry 01/18/23 01/18/23 01/18/23 11:59 12:08 12:17 Temperature Pulse Rate 139 H 137 H 126 H Respiratory 18 18 18 Rate Blood Pressure 82/57 73/55 96/77 O2 Sat by Pulse 96 100 Oximetry 01/18/23 01/18/23 01/18/23 12:20 12:38 13:20 Temperature Pulse Rate 133 H 149 H 151 H Respiratory 18 18 18 Rate Blood Pressure 96/64 109/61 104/77 O2 Sat by Pulse 99 94 L Oximetry 01/18/23 01/18/23 01/18/23 13:28 13:48 14:11 Temperature Pulse Rate 105 H 86 Respiratory 14 12 Rate Blood Pressure 62/49 125/89 82/62 O2 Sat by Pulse 100 93 L Oximetry 01/18/23 01/18/23 14:18 14:45 Temperature Pulse Rate 87 95 Respiratory 20 18 Rate Blood Pressure 90/64 104/68 O2 Sat by Pulse 95 95 Oximetry Medical Decision Making - Medical Decision Making EKG is interpreted by myself. EKG shows atrial fibrillation with a rapid ventricular response at 150 bpm QRS is 90 QT interval is 263 QTC is 348. Patient's EKG shows ST segment depression in leads 23 aVF in all precordial leads. This is compared to an old EKG and laboratory some depression old EKGs. Repeat EKG was done and was interpreted by myself. EKG shows atrial for ablation with rapid ventricular response at 147 bpm QRS is 87 QT interval 304 QT interval is 388. Patient's EKG shows ST segment depression in inferior leads as well as V5 and V6. This is much improved compared the old EKG Patient had an episode of nausea and vomiting after that his pressure dropped and became unresponsive patient was moved to the trauma module at which point in time he is given 1 dose of push dose epi his pressure came back his pulses were strong and he woke up shortly thereafter. Patient was put on nonrebreather. EKG was done EKG was interpreted by myself shows sinus tachycardia at 100 bpm OH interval 248 QRSs 86 QT interval 343 QTC is 400. Patient's EKG continues to show slight ST segment depression V4 V5 and Q waves in V1 and V2. I spoke with Dr. Bauer came down to see the patient and wanted Levophed started and he will do an echo at the bedside. Was pt. sent in by a medical professional or institution (, PA, PILOT PLANT SUPERVISOR, urgent care, hospital, or detention...) When possible be specific @ -No Did you speak to anyone other than the patient for history (EMS, parent, family, police, friend...)? What history was obtained from this source @ -I spoke with family for additional history Did you review nursing and triage notes (agree or disagree)? Why? @ -I agree with the nursing in triage notes Were old charts reviewed (outside hosp., previous admission, EMS record, old EKG, old radiological studies, urgent care reports/EKG's, detention records)? Report findings @ -I reviewed prior charts prior laboratory prior radiological studies in this patient Differential Diagnosis (chest pain, altered mental status, abdominal pain women, abdominal pain men, vaginal bleeding, weakness, fever, dyspnea, syncope, headache, dizziness, GI bleed, back pain, seizure, CVA, palpatations, mental health, musculoskeletal)? @ -Differential Palpitations Ventricular arrhythmias, atrial arrhythmias, myocardial infarction, anemia, thyrotoxicosis, electrolyte imbalance, hypokalemia, pulmonary embolism, pulmonary disease, drugs, alcohol, anxiety, stress.... This is not meant to be an all-inclusive list. EKG interpreted by me (3pts min.). @ -As above X-rays interpreted by me (1pt min.). @ -Chest x-ray shows mild pulmonary edema CT interpreted by me (1pt min.). @ -None done U/S interpreted by me (1pt. min.). @ -None done What testing was considered but not performed or refused? (CT, X-rays, U/S, labs)? Why? @ -None What meds were considered but not given or refused? Why? @ -None Did you discuss the management of the patient with other professionals (professionals i.e. DrDaily, PA, PILOT PLANT SUPERVISOR, lab, RT, psych nurse, social worker delinquency prevention, still pump operator, teacher, security police officer, machine adjuster leader case trim)? Give summary @ -Spoke with the property technician Dr. Montgomery in a spoke with Dr. Mclaughlin of the supervisor paper testing and I spoke with some physicians to admit the patient. Was smoking cessation discussed for >3mins.? @ -No Was critical care preformed (if so, how long)? @ -55 minutes Were there social determinants of health that impacted care today? How? (Homelessness, low income, unemployed, alcoholism, drug addiction, luther sportation, low edu. Level, literacy, decrease access to med. care, group home, rehab)? @ -No Was there de-escalation of care discussed even if they declined (Discuss DNR or withdrawal of care, Hospice)? DNR status @ -No What co-morbidities impacted this encounter? (DM, HTN, Smoking, COPD, CAD, Cancer, CVA, ARF, Chemo, Hep., AIDS, mental health diagnosis, sleep apnea, morbid obesity)? @ -None Was patient admitted / discharged? Hospital course, mention meds given and route, prescriptions, significant lab abnormalities, going to OR and other pertinent info. @ -Patient came into the emergency department in atrial fibrillation with rapid ventricular response. Patient started on Cardizem and given a liter of fluid however patient's blood pressure was tentative so Cardizem was stopped and amiodarone was started. Once patient was on amiodarone his blood pressure dr opped further he got nauseous vomited and vasovagal and he remained unresponsive for approximately 2 minutes his pulse was very thready we did give him 1 dose of push dose epi and bagged him through he woke up pressure started to come back and I spoke with Dr. Montgomery he came down and saw the patient wanted the patient started on amiodarone left and patient was started on those. Patient's blood pressure had a maps of a twin 70 and 80 and heart rate was consistently under 90 and patient was oxygenating 94% on 3 L and feeling considerably better. Because the patient did vomit and was somewhat unresponsive episode for likely gave him antibiotics for possible aspiration pneumonia. Patient will be admitted to the ICU Undiagnosed new problem with uncertain prognosis? @ -No Drug Therapy requiring intensive monitoring for toxicity (Heparin, Nitro, Insulin, Cardizem)? @ -No Were any procedures done? @ -No Diagnosis/symptom? @ -Atrial fibrillation with rapid ventricular response Acute, or Chronic, or Acute on Chronic? @ -Acute Uncomplicated (without systemic symptoms) or Complicated (systemic symptoms)? @ -Complicated Side effects of treatment? @ -No Exacerbation, Progression, or Severe Exacerbation? @ -No Poses a threat to life or bodily function? How? (Chest pain, [place], SC, pneumonia, PE, COPD, DKA, ARF, appy, cholecystitis, CVA, Diverticulitis, Homicidal, Suicidal, threat to staff... and all critical care pts) @ -Yes this could lead to poor cardiac output pulmonary edema and eventually end organ dysfunction Diagnosis/symptom? @ -Non-STEMI Acute, or Chronic, or Acute on Chronic? @ -Acute Uncomplicated (without systemic symptoms) or Complicated (systemic symptoms)? @ -Complicated Side effects of treatment? @ -none Exacerbation, Progression, or Severe Exacerbation] @ -no Poses a threat to life or bodily function? @ -Yes could lead to poor cardiac output and end organ dysfunction Diagnosis/symptom? @ -Anemia Acute, or Chronic, or Acute on Chronic? @ -Acute Uncomplicated (without systemic symptoms) or Complicated (systemic symptoms)? @ -Complicated Side effects of treatment? @ -none Exacerbation, Progression, or Severe Exacerbation] @ -no Poses a threat to life or bodily function? @ -no - Lab Data Result diagrams: 01/18/23 14:00 01/18/23 14:00 Lab Results 01/18/23 01/18/23 01/18/23 Range/Units 11:13 11:13 11:13 WBC 7.2 (3.8-10.6) k/uL RBC 2.86 L (4.30-5.90) m/uL Hgb 8.2 L D (13.0-17.5) gm/dL Hct 24.8 L (39.0-53.0) % MCV 87.0 (80.0-100.0) fL MCH 28.6 (25.0-35.0) pg MCHC 32.8 (31.0-37.0) g/dL RDW 17.5 H (11.5-15.5) % Plt Count 305 (150-450) k/uL MPV 7.2 Neutrophils % 73 % Lymphocytes % 19 % Monocytes % 5 % Eosinophils % 2 % Basophils % 0 % Neutrophils # 5.3 (1.3-7.7) k/uL Lymphocytes # 1.4 (1.0-4.8) k/uL Monocytes # 0.3 (0-1.0) k/uL Eosinophils # 0.2 (0-0.7) k/uL Basophils # 0.0 (0-0.2) k/uL Anisocytosis Slight PT 13.2 H (10.0-12.5) sec INR 1.2 H (<1.2) APTT 26.8 (22.0-30.0) sec Sodium 138 (137-145) mmol/L Potassium 3.5 (3.5-5.1) mmol/L Chloride 105 (98-107) mmol/L Carbon Dioxide 24 (22-30) mmol/L Anion Gap 9 mmol/L BUN 22 H (9-20) mg/dL Creatinine 1.03 (0.66-1.25) mg/dL Est GFR (CKD-EPI)AfAm 86 (>60 ml/min/1.73 sqM) Est GFR (CKD-EPI)NonAf 74 (>60 ml/min/1.73 sqM) Glucose 111 H (74-99) mg/dL POC Glucose (mg/dL) (70-110) mg/dL POC Glu Ebd Special Education Teacher ID Calcium 8.4 (8.4-10.2) mg/dL Magnesium 2.0 (1.6-2.3) mg/dL Total Bilirubin 0.9 (0.2-1.3) mg/dL AST 87 H (17-59) U/L ALT 45 (4-49) U/L Alkaline Phosphatase 204 H (38-126) U/L Troponin I (0.000-0.034) ng/mL NT-Pro-B Natriuret Pep 77387 pg/mL Total Protein 6.9 (6.3-8.2) g/dL Albumin 3.2 L (3.5-5.0) g/dL Blood Type Recheck Bld Type Recheck Status 01/18/23 01/18/23 01/18/23 Range/Units 11:13 11:53 13:11 WBC (3.8-10.6) k/uL RBC (4.30-5.90) m/uL Hgb (13.0-17.5) gm/dL Hct (39.0-53.0) % MCV (80.0-100.0) fL MCH (25.0-35.0) pg MCHC (31.0-37.0) g/dL RDW (11.5-15.5) % Plt Count (150-450) k/uL MPV Neutrophils % % Lymphocytes % % Monocytes % % Eosinophils % % Basophils % % Neutrophils # (1.3-7.7) k/uL Lymphocytes # (1.0-4.8) k/uL Monocytes # (0-1.0) k/uL Eosinophils # (0-0.7) k/uL Basophils # (0-0.2) k/uL Anisocytosis PT (10.0-12.5) sec INR (<1.2) APTT (22.0-30.0) sec Sodium (137-145) mmol/L Potassium (3.5-5.1) mmol/L Chloride (98-107) mmol/L Carbon Dioxide (22-30) mmol/L Anion Gap mmol/L BUN (9-20) mg/dL Creatinine (0.66-1.25) mg/dL Est GFR (CKD-EPI)AfAm (>60 ml/min/1.73 sqM) Est GFR (CKD-EPI)NonAf (>60 ml/min/1.73 sqM) Glucose (74-99) mg/dL POC Glucose (mg/dL) 90 66 L (70-110) mg/dL POC Glu Ebd Special Education Teacher ID Will, Blanca Will, Blanca Calcium (8.4-10.2) mg/dL Magnesium (1.6-2.3) mg/dL Total Bilirubin (0.2-1.3) mg/dL AST (17-59) U/L ALT (4-49) U/L Alkaline Phosphatase (38-126) U/L Troponin I 3.280 H* (0.000-0.034) ng/mL NT-Pro-B Natriuret Pep pg/mL Total Protein (6.3-8.2) g/dL Albumin (3.5-5.0) g/dL Blood Type Recheck Bld Type Recheck Status 01/18/23 01/18/23 01/18/23 Range/Units 13:46 14:00 14:00 WBC 6.5 (3.8-10.6) k/uL RBC 3.50 L (4.30-5.90) m/uL Hgb 9.9 L D (13.0-17.5) gm/dL Hct 31.2 L (39.0-53.0) % MCV 89.1 (80.0-100.0) fL MCH 28.3 (25.0-35.0) pg MCHC 31.8 (31.0-37.0) g/dL RDW 17.5 H (11.5-15.5) % Plt Count 276 (150-450) k/uL MPV 7.6 Neutrophils % 65 % Lymphocytes % 28 % Monocytes % 4 % Eosinophils % 2 % Basophils % 1 % Neutrophils # 4.3 (1.3-7.7) k/uL Lymphocytes # 1.8 (1.0-4.8) k/uL Monocytes # 0.2 (0-1.0) k/uL Eosinophils # 0.1 (0-0.7) k/uL Basophils # 0.0 (0-0.2) k/uL Anisocytosis Slight PT (10.0-12.5) sec INR (<1.2) APTT (22.0-30.0) sec Sodium (137-145) mmol/L Potassium (3.5-5.1) mmol/L Chloride (98-107) mmol/L Carbon Dioxide (22-30) mmol/L Anion Gap mmol/L BUN (9-20) mg/dL Creatinine (0.66-1.25) mg/dL Est GFR (CKD-EPI)AfAm (>60 ml/min/1.73 sqM) Est GFR (CKD-EPI)NonAf (>60 ml/min/1.73 sqM) Glucose (74-99) mg/dL POC Glucose (mg/dL) 183 H (70-110) mg/dL POC Glu Ebd Special Education Teacher ID Blanca Solis Calcium (8.4-10.2) mg/dL Magnesium (1.6-2.3) mg/dL Total Bilirubin (0.2-1.3) mg/dL AST (17-59) U/L ALT (4-49) U/L Alkaline Phosphatase (38-126) U/L Troponin I (0.000-0.034) ng/mL NT-Pro-B Natriuret Pep pg/mL Total Protein (6.3-8.2) g/dL Albumin (3.5-5.0) g/dL Blood Type Recheck No Previous Record Bld Type Recheck Status CABO Indicated 01/18/23 Range/Units 14:00 WBC (3.8-10.6) k/uL RBC (4.30-5.90) m/uL Hgb (13.0-17.5) gm/dL Hct (39.0-53.0) % MCV (80.0-100.0) fL MCH (25.0-35.0) pg MCHC (31.0-37.0) g/dL RDW (11.5-15.5) % Plt Count (150-450) k/uL MPV Neutrophils % % Lymphocytes % % Monocytes % % Eosinophils % % Basophils % % Neutrophils # (1.3-7.7) k/uL Lymphocytes # (1.0-4.8) k/uL Monocytes # (0-1.0) k/uL Eosinophils # (0-0.7) k/uL Basophils # (0-0.2) k/uL Anisocytosis PT (10.0-12.5) sec INR (<1.2) APTT (22.0-30.0) sec Sodium 138 (137-145) mmol/L Potassium 3.1 L (3.5-5.1) mmol/L Chloride 105 (98-107) mmol/L Carbon Dioxide 23 (22-30) mmol/L Anion Gap 10 mmol/L BUN 22 H (9-20) mg/dL Creatinine 1.16 (0.66-1.25) mg/dL Est GFR (CKD-EPI)AfAm 74 (>60 ml/min/1.73 sqM) Est GFR (CKD-EPI)NonAf 64 (>60 ml/min/1.73 sqM) Glucose 205 H (74-99) mg/dL POC Glucose (mg/dL) (70-110) mg/dL POC Glu Ebd Special Education Teacher ID Calcium 8.0 L (8.4-10.2) mg/dL Magnesium (1.6-2.3) mg/dL Total Bilirubin 1.1 (0.2-1.3) mg/dL AST 114 H (17-59) U/L ALT 57 H (4-49) U/L Alkaline Phosphatase 233 H (38-126) U/L Troponin I (0.000-0.034) ng/mL NT-Pro-B Natriuret Pep pg/mL Total Protein 6.7 (6.3-8.2) g/dL Albumin 3.1 L (3.5-5.0) g/dL Blood Type Recheck Bld Type Recheck Status Critical Care Time Critical Care Time: Yes Total Critical Care Time: 55 Disposition Clinical Impression: Atrial fibrillation with rapid ventricular response, Hypotension, Aspiration pneumonia, Anemia, Non-STEMI (non-ST elevated myocardial infarction) Disposition: ADMITTED IP TO THIS HOSP Referrals: Ludwin Denton MD [Primary Care Provider] - 1-2 days Time of Disposition: 15:03
[2023-01-18] MEDS ORDERED: DEXTROSE 5% IN WATER 100 ML with AMIODARONE 150 MG IV ONE (13:00)
[2023-01-18 13:13] LABS: Glucose,Whole Blood 66 mg/dL (70-110)
[2023-01-18] MEDS ORDERED: DEXTROSE 50% SYRINGE 50 ML IVP STA (13:26)
[2023-01-18] MEDS ORDERED: ONDANSETRON 4 MG/2 ML VIAL IVP STA ×2 (13:27→15:53)
[2023-01-18] MEDS: AMIODARONE 360 MG in DEXTROSE 5% IN WATER 200 ML IV ONE ×4 (13:53→14:45)
[2023-01-18] MEDS ORDERED: METOCLOPRAMIDE 5 MG/ML 2 ML VIAL IVP STA (13:54)
[2023-01-18 13:58] LABS: Glucose,Whole Blood 183 mg/dL (70-110)
--- NOTE | 2023-01-18 14:08 | XR ---
EXAMINATION TYPE: XR chest 1V DATE OF EXAM: 01/18/2023 COMPARISON: 12/27/2022 HISTORY: Chest pain shortness of breath TECHNIQUE: Single frontal view of the chest is obtained. FINDINGS: There is been interval development of pulmonary vascular congestion and interstitial edema. Heart siz e is mildly prominent. There is no pneumothorax. The osseous structures are intact. IMPRESSION: Findings consistent with moderate to marked CHF.
[2023-01-18] MEDS: NOREPINEPHRINE 4 MG in SODIUM CHLORIDE 0.9% 250 ML IV SCH (14:15)
[2023-01-18 14:26] LABS: Anisocytosis Slight; Basophils % (A) 1 %; Eosinophils # (A) 0.1 k/uL (0-0.7); Eosinophils % (A) 2 %; HCT 31.2 % (39.0-53.0); Lymphocytes # (A) 1.8 k/uL (1.0-4.8); Lymphocytes % (A) 28 %; MCH 28.3 pg (25.0-35.0); MCHC 31.8 g/dL (31.0-37.0); MCV 89.1 fL (80.0-100.0); Mean Platelet Volume 7.6; Monocytes # (A) 0.2 k/uL (0-1.0); Monocytes % (A) 4 %; Neutrophils # (A) 4.3 k/uL (1.3-7.7); Neutrophils % (A) 65 %; Platelet Count 276 k/uL (150-450); RDW 17.5 % (11.5-15.5); WBC 6.5 k/uL (3.8-10.6)
[2023-01-18 14:35] LABS: ALT 57 U/L (4-49); AST 114 U/L (17-59); African American GFR (CKD) 74 (>60 ml/min/1.73 sqM); Albumin 3.1 g/dL (3.5-5.0); Alkaline Phosphatase 233 U/L (38-126); Anion Gap 10 mmol/L; Blood Urea Nitrogen 22 mg/dL (9-20); Carbon Dioxide 23 mmol/L (22-30); Chloride 105 mmol/L (98-107); Glucose 205 mg/dL (74-99); Non-African American GFR(CKD) 64 (>60 ml/min/1.73 sqM); Potassium 3.1 mmol/L (3.5-5.1); Sodium 138 mmol/L (137-145); Total Bilirubin 1.1 mg/dL (0.2-1.3); Total Protein 6.7 g/dL (6.3-8.2)
[2023-01-18 14:44] LABS: HGB 9.9 gm/dL (13.0-17.5)
[2023-01-18] MEDS ORDERED: PIPERACILLIN-TAZOBACTAM 3.375 GM in SODIUM CHLORIDE 0.9% 100 ML IVPB STA (14:50)
[2023-01-18] MEDS ORDERED: AZITHROMYCIN 500 MG in SODIUM CHLORIDE 0.9% 250 ML IVPB STA (14:51)
[2023-01-18] MEDS ORDERED: NALOXONE 0.4 MG/ML 1 ML VIAL IV PRN (15:05)
[2023-01-18] MEDS ORDERED: POTASSIUM CHLORIDE 20 MEQ in WATER FOR INJECTION 1 100ML.BAG IVPB STA (15:08)
[2023-01-18] MEDS ORDERED: HEPARIN SODIUM 1,000 UN/ML (10ML VL) IV ONE (15:11)
[2023-01-18] MEDS ORDERED: HEPARIN SODIUM 1,000 UN/ML (10ML VL) IV PRN (15:11)
--- NOTE | 2023-01-18 15:11 | P.CRDCN ---
History of Present Illness Consult date: 01/18/23 History of present illness: HISTORY OF PRESENTING ILLNESS 67-year-old male who is known to Dr. Lazcano. Patient had a recent PCI to RCA October 2022 with diffuse disease to LAD and LCx with ischemic cardiomyopathy. His EF was around 40-45% with lateral wall hypokinesia. He also has history of hypertension, dyslipidemia, mitral regurgitation and prior CVA. Patient has been dealing with orthostatic hypotension lately and was in the hospital last time because of this. On last admission his beta willa and lisinopril was reduced and he was started on midodrine 10 mg 3 times a day This time patient doesn't the hospital because of concerns of low blood pressure, palpitations, feeling weak at home. Patient's reported that he's been coughing more than usual for last 2 days. She checked his blood pressure and requiring low and his heart rate was very high. There is no prior documentation if patient has atrial fibrillation. Patient has been on Xarelto for prior history of CVA. This time on admission to the ER he was noticed to be in atrial fibrillation with rapid ventricular response. There was also diffuse ST depressions. Lab shows hemoglobin 8.2 today. Last hemoglobin was 10. Creatinine 1.0 to admission, sodium 138, potassium 3.5, initial troponin was 3.2, BNP 02198 Bedside echocardiogram performed showed EF in range of 25-30%. Anterolateral hypokinesia, moderate MR, mild AI. No concerns of pericardial effusion or LVOT obstruction. When compared to prior echo from November his EF appeared to be have dropped. In ER because of low blood pressure and high heart rate he got amiodarone bolus 150mg. during that IV bolus patient became hypotensive and vomited and transiently lost his pulse. He gave him 1 dose of epi 0.1 mg, and he had a return of spontaneous circulation with a downtime of less than 2 seconds. He was in sinus rhythm thereafter REVIEW OF SYSTEMS 14 point review of system is negative except what is mentioned above in HPI. PHYSICAL EXAMINATION Vital signs reviewed. Head: Normocephalic. Eyes: Sclerae nonicteric. Neck: Brisk carotid upstroke, no jugular venous distention. Lungs: Clear to auscultation. Heart: Regular rate and rhythm, S1-S2, no S3, no murmur or rub. Abdomen: Soft nontender, positive bowel sounds no organomegaly. Extremities: No edema, intact distal pulses. Neuro: Alert, oritented, no focal deficits ASSESSMENT Shock, multifactorial cardiaogenic, likely from atrial fibrillation RVR in sett ing of cardiomyopathy with reduced ejection fraction A. fib RVR, currently is NSR NSTEMI type II, demand supply mismatch from A. fib RVR and hypotension Acute systolic congestive heart failure Ischemic cardiac myopathy with EF 25-30% CAD status post recent PCI to RCA 11/19 Residual diffuse disease in LAD and LCx Recently dealing with not tolerating cardiac medications CVA, no prior documented A. fib, on Xarelto Bedside echo showed an EF of 25-30% anterolateral hypokinesia, moderate MR. Last echo from November 2022 showed EF 40% PLAN Acute worsening in EF and elevation of troponin most likely due to A. fib RVR. Tachycardia-induced cardiomyopathy on previously existing ischemic cardiac myopathy. Transfer patient to ICU Continue IV norepinephrine Continue IV amiodarone drip 1mg/hr for 6 hr then 0.5mg. continue amiodarone to maintain patient in sinus rhythm as patient did not tolerate A. fib RVR very well and became hypotensive Patient will 2 L fluid. IVC is dilated, chest x-ray showed pulmonary condition. Given dose of IV Bumex 1mg once now after BP becomes stable Continue Plavix. Monitor hemoglobin levels, repeat hemoglobin 9.9. Start IV heparin drip Obtain echo Case discussed with ER doctor Dr Lim Past Medical History Past Medical History: Atrial Fibrillation, COPD, CVA/TIA, Diabetes Mellitus, Eye Disorder, GERD/Reflux, Hyperlipidemia, Musculoskeletal Disorder, Osteoarthritis (OA) Additional Past Medical History / Comment(s): CVA X2, last in 2018, with left arm weakness. 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 Osteoporosis. History of Any Multi-Drug Resistant Organisms: None Reported Past Surgical History: Orthopedic Surgery Additional Past Surgical History / Comment(s): Right foot surgery, bilateral laser eye surgery for detached retina, bilateral catarcat surgery with lens implants, cervical fusion, left knee surgery, bilateral shoulder surgery, penile implant. Past Anesthesia/Blood Transfusion Reactions: Postoperative Nausea & Vomiting (PONV) Additional Past Anesthesia/Blood Transfusion Reaction / Comment(s): PONV with one surgery. Past Psychological History: Depression Smoking Status: Never smoker Past Alcohol Use History: Rare Past Drug Use History: None Reported - Past Family History Sister(s) Family Medical History: Pulmonary Embolus Father Family Medical History: Coronary Artery Disease (CAD), Deep Vein Thrombosis (DVT) Mother Family Medical History: Cancer, Hyperlipidemia Brother(s) Family Medical History: Cancer Medications and Allergies Home Medications Medication Instructions Recorded Confirmed Type Insulin Aspart (For Pump) [NovoLOG 0.01 unit SQ-PUMP CONTINUOUS 12/28/20 01/01/23 History (For Pump)] Latanoprost [Xalatan 0.005%] 1 drop BOTH EYES HS 12/28/20 01/01/23 History Aspirin [Adult Low Dose Aspirin EC] 81 mg PO DAILY 08/18/22 01/01/23 History Clopidogrel [Plavix] 75 mg PO DAILY #90 tab 11/20/22 01/01/23 Rx Escitalopram [Lexapro] 5 mg PO DAILY 12/27/22 01/01/23 History Fluticasone Nasal [place] [Flonase 1 spr EA NOSTRIL DAILY 12/27/22 01/01/23 History Nasal [place]] Omeprazole 40 mg PO DAILY 12/27/22 01/01/23 History Vitamin D3/Vitamin K2 (Mk4) 1 tab PO DAILY 12/27/22 01/01/23 History [Vitamin K2 Plus D3 Tablet] Midodrine HCl [ProAmatine] 10 mg PO AC-TID #90 tablet 12/28/22 01/01/23 Rx HYDROcodone/APAP 5-325MG [[place] 1 tab PO Q4H PRN 01/01/23 01/01/23 History 5-325] Fludrocortisone [Florinef] 0.1 mg PO DAILY #30 tab 01/05/23 Rx Rivaroxaban [Xarelto] 2.5 mg PO BID tab 01/05/23 Rx Sennosides [Senokot] 8.6 mg PO BID #60 tab 01/05/23 Rx Simvastatin [Zocor] 40 mg PO HS #30 tab 01/05/23 Rx lisinopriL [Zestril] 2.5 mg PO DAILY #60 tab 01/05/23 Rx polyethylene glycoL 3350 [Miralax] 17 gm PO DAILY #60 packet 01/05/23 Rx Allergies Allergy/AdvReac Type Severity Reaction Status Date / Time No Known Allergies Allergy Verified 01/18/23 10:57 Physical Exam Vitals: Vital Signs Temp Pulse Resp BP Pulse Ox 01/18/23 14:45 95 18 104/68 95 01/18/23 14:18 87 20 90/64 95 01/18/23 14:11 86 12 82/62 93 L 01/18/23 13:48 105 H 14 125/89 100 01/18/23 13:28 62/49 01/18/23 13:20 151 H 18 104/77 94 L 01/18/23 12:38 149 H 18 109/61 99 01/18/23 12:20 133 H 18 96/64 01/18/23 12:17 126 H 18 96/77 100 01/18/23 12:08 137 H 18 73/55 01/18/23 11:59 139 H 18 82/57 96 01/18/23 11:42 135 H 18 91/59 01/18/23 11:29 141 H 18 94/77 100 01/18/23 10:48 97.8 F 156 H 20 98/68 99 Intake and Output 01/18/23 01/18/23 01/18/23 06:59 14:59 22:59 Other: Weight 70.76 kg Results 01/18/23 14:00 01/18/23 14:00 Cardiac Enzymes 01/18/23 01/18/23 01/18/23 Range/Units 11:13 11:13 14:00 AST 87 H 114 H (17-59) U/L Troponin I 3.280 H* (0.000-0.034) ng/mL Coagulation 01/18/23 Range/Units 11:13 PT 13.2 H (10.0-12.5) sec APTT 26.8 (22.0-30.0) sec CBC 01/18/23 01/18/23 Range/Units 11:13 14:00 WBC 7.2 6.5 (3.8-10.6) k/uL RBC 2.86 L 3.50 L (4.30-5.90) m/uL Hgb 8.2 L D 9.9 L D (13.0-17.5) gm/dL Hct 24.8 L 31.2 L (39.0-53.0) % Plt Count 305 276 (150-450) k/uL Comprehensive Metabolic Panel 10/22/23 10/22/23 Range/Units 11:13 14:00 Sodium 138 138 (137-145) mmol/L Potassium 3.5 3.1 L (3.5-5.1) mmol/L Chloride 105 105 (98-107) mmol/L Carbon Dioxide 24 23 (22-30) mmol/L BUN 22 H 22 H (9-20) mg/dL Creatinine 1.03 1.16 (0.66-1.25) mg/dL Glucose 111 H 205 H (74-99) mg/dL Calcium 8.4 8.0 L (8.4-10.2) mg/dL AST 87 H 114 H (17-59) U/L ALT 45 57 H (4-49) U/L Alkaline Phosphatase 204 H 233 H (38-126) U/L Total Protein 6.9 6.7 (6.3-8.2) g/dL Albumin 3.2 L 3.1 L (3.5-5.0) g/dL Current Medications Generic Name Dose Route Start Last Admin Trade Name Freq PRN Reason Stop Dose Admin Diltiazem HCl 125 mg/ Sodium 125 mls @ 5 mls/hr 01/18/23 11:30 01/18/23 11:48 Chloride IV 5 mg/hr .Q24H ARIADNE 5 mls/hr Administration 5 MG/HR Amiodarone HCl 360 mg/ 200 mls @ 33.333 mls/hr 01/18/23 13:15 01/18/23 14:45 Dextrose/Water IV 01/18/23 19:14 1 mg/min .Q6H ONE 33.333 mls/hr Administration Protocol 1 MG/MIN Amiodarone HCl 450 mg/ 250 mls @ 16.667 mls/hr 01/18/23 19:30 Dextrose/Water IV 01/19/23 13:29 .Q15H ARIADNE Protocol 0.5 MG/MIN Norepinephrine Bitartrate 4 mg 254 mls @ 8.088 mls/hr 01/18/23 14:15 01/18/23 14:15 / Sodium Chloride IV 0.03 mcg/kg/min .Q24H ARIADNE 8.088 mls/hr Administration Protocol 0.03 MCG/KG/MIN Piperacillin Sod/Tazobactam 100 mls @ 200 mls/hr 01/18/23 14:50 Sod 3.375 gm/ Sodium Chloride IVPB 10/22/23 15:19 ONCE STA Protocol Piperacillin Sod/Tazobactam 100 mls @ 25 mls/hr 01/18/23 22:00 Sod 3.375 gm/ Sodium Chloride IVPB Q8H ARIADNE Protocol Azithromycin 500 mg/ Sodium 250 mls @ 250 mls/hr 01/18/23 14:51 Chloride IVPB 01/18/23 15:50 ONCE STA Protocol Azithromycin 500 mg/ Sodium 250 mls @ 250 mls/hr 01/19/23 09:00 Chloride IVPB 01/21/23 09:59 DAILY ARIADNE Protocol Potassium Chloride 20 meq/ IV 100 mls @ 50 mls/hr 01/18/23 15:08 Solution IVPB 01/18/23 17:07 ONCE STA Naloxone HCl 0.2 mg 01/18/23 15:05 Naloxone 0.4 Mg/Ml 1 Ml Vial IV Q2M PRN Opioid Reversal Intake and Output 01/18/23 01/18/23 01/18/23 06:59 14:59 22:59 Other: Weight 70.76 kg Patient Weight 01/19/23 06:59 Weight 70.76 kg 01/18/23 14:00 01/18/23 14:00
[2023-01-18] MEDS ORDERED: CLOPIDOGREL 75 MG TAB PO STA (15:12)
[2023-01-18] MEDS ORDERED: BUMETANIDE 0.25 MG/ML 4 ML VIAL IVP STA (15:12)
[2023-01-18] MEDS ORDERED: DEXTROSE 50% SYRINGE 50 ML IVP PRN ×3 (15:22→16:35)
--- NOTE | 2023-01-18 15:26 | P.HPIM ---
History of Present Illness H&P Date: 01/18/23 Patient is a 67-year-old male with a history of CAD status post recent RCA stent, diffuse LAD and circumflex disease, systolic heart failure with EF 35%, type 2 diabetes on insulin pump, atrial fibrillation, dyslipidemia, severe orthostatic hypotension, recent multiple falls presenting with another syncopal episode. Per , patient gained 3 lbs over the last day or so. Blood pressure had been okay. Patient was also beginning to get more tachycardic. This morning, he had a syncopal episode while lying in bed. He was briefly unresponsive, tachycardic to 150s. EMS was called. There has been multiple medication changes recently mostly his lisinopril was taken off. He is not currently on any diuretics. In the ED, initial temperature was 97.8, pulse 156, respiratory rate 20, blood pressure 98/68, saturating at 99% on room air. Hemoglobin at 8.2, was previously at 10.7, INR 1.2, creatinine 1.03, glucose 111, troponin 3.28, proBNP 19,000. Initial EKG independently interpreted shows atrial fibrillation with RVR and diffuse ST depressions. Chest x-ray independently interpreted shows interstitial opacities. Patient was started on Cardizem, which dropped his blood pressure. He was then started on amiodarone which further dropped his pressures, he received 1 dose of epinephrine, did have an episode of emesis, and is now on amiodarone drip as well as levofloxacin.. Cardiology was at bedside. Bedside echo did show reduced EF. Pending transfer to medical ICU. He also had urinary retention, Miller catheter placed. Pertinent positives and negatives as discussed in HPI, a complete review of systems was performed and all other systems are negative. Patient seen and examined at bedside. Vital signs reviewed General: nontoxic, no distress, appears at stated age Derm: warm, dry Head: atraumatic, normocephalic, symmetric Eyes: EOMI, no lid lag, anicteric sclera, pupils equal round reactive to light ENT: Nose and ears atraumatic Neck: No thyromegaly, supple Mouth: no lip lesion, mucus membranes moist Cardiovascular: S1S2 reg, tachycardic, no murmur, no edema Lungs: Bilateral rales, no wheeze, no accessory muscle use, supplemental oxygen Abdominal: soft, nontender to palpation, no guarding, no appreciable organomegaly Ext: no gross muscle atrophy, muscle strength muscle strength 5 out of 5 in all 4 extremities, no contractures Neuro: CN II-XII grossly intact Psych: Alert, oriented, appropriate affect Assessment/Plan: Active: Paroxysmal Atrial fibrillation with RVR Cardiogenic shock NSTEMI CAD status post recent stent, with residual left coronary disease Acute on chronic normocytic anemia Acute pulmonary edema Acute hypoxic respiratory failure Acute on chronic systolic CHF exacerbation Suspected aspiration pneumonitis History of severe orthostatic hypotension Recurrent Syncope Acute urinary retention -Patient being admitted to medical ICU -ICU consulted -Cardiology following -Repeat troponin -Continue amiodarone IV, and norepinephrine, wean pressors -Started on heparin drip -Monitor CBCs, no active bleeding -Patient was given 1 mg of IV Bumex -Also started on IV Zosyn and azithromycin, consider de-escalating to ceftriaxone and azithromycin -Continue Plavix and statin -Echocardiogram pending -has a mliler in place Type 2 diabetes on insulin pump -hold insulin pump for now -started on insulin gtt for better titration -once stable, can then restart insulin pump Dyslipidemia -continue statin reconcile home medications The patient is admitted with an anticipated greater than 2 midnight stay as inpatient status for evaluation of atrial fibrillation with RVR. Surrogate decision-maker: CODE STATUS:Full code DVT prophylaxis: heparin gtt Anticipated discharge date: Pending clinical course Anticipated discharge place: Pending clinical course A total of 65 minutes was spent on the care of this complex patient more than 50% of the time was spent in counseling and care coordination. Past Medical History Past Medical History: Atrial Fibrillation, COPD, CVA/TIA, Diabetes Mellitus, Eye Disorder, GERD/Reflux, Hyperlipidemia, Musculoskeletal Disorder, Osteoarthritis (OA) Additional Past Medical History / Comment(s): CVA X2, last in 2019, with left arm weakness. 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 Osteoporosis. History of Any Multi-Drug Resistant Organisms: None Reported Past Surgical History: Orthopedic Surgery Additional Past Surgical History / Comment(s): Right foot surgery, bilateral laser eye surgery for detached retina, bilateral catarcat surgery with lens implants, cervical fusion, left knee surgery, bilateral shoulder surgery, penile implant. Past Anesthesia/Blood Transfusion Reactions: Postoperative Nausea & Vomiting (PONV) Additional Past Anesthesia/Blood Transfusion Reaction / Comment(s): PONV with one surgery. Past Psychological History: Depression Smoking Status: Never smoker Past Alcohol Use History: Rare Past Drug Use History: None Reported - Past Family History Sister(s) Family Medical History: Pulmonary Embolus Father Family Medical History: Coronary Artery Disease (CAD), Deep Vein Thrombosis (DVT) Mother Family Medical History: Cancer, Hyperlipidemia Brother(s) Family Medical History: Cancer Medications and Allergies Home Medications Medication Instructions Recorded Confirmed Type Insulin Aspart (For Pump) [NovoLOG 0.01 unit SQ-PUMP CONTINUOUS 12/28/20 01/01/23 History (For Pump)] Latanoprost [Xalatan 0.005%] 1 drop BOTH EYES HS 12/28/20 01/01/23 History Aspirin [Adult Low Dose Aspirin EC] 81 mg PO DAILY 08/18/22 01/01/23 History Clopidogrel [Plavix] 75 mg PO DAILY #90 tab 11/20/22 01/01/23 Rx Escitalopram [Lexapro] 5 mg PO DAILY 12/27/22 01/01/23 History Fluticasone Nasal [place] [Flonase 1 spr EA NOSTRIL DAILY 12/27/22 01/01/23 History Nasal [place]] Omeprazole 40 mg PO DAILY 12/27/22 01/01/23 History Vitamin D3/Vitamin K2 (Mk4) 1 tab PO DAILY 12/27/22 01/01/23 History [Vitamin K2 Plus D3 Tablet] Midodrine HCl [ProAmatine] 10 mg PO AC-TID #90 tablet 12/28/22 01/01/23 Rx HYDROcodone/APAP 5-325MG [[place] 1 tab PO Q4H PRN 01/01/23 01/01/23 History 5-325] Fludrocortisone [Florinef] 0.1 mg PO DAILY #30 tab 01/05/23 Rx Rivaroxaban [Xarelto] 2.5 mg PO BID tab 01/05/23 Rx Sennosides [Senokot] 8.6 mg PO BID #60 tab 01/05/23 Rx Simvastatin [Zocor] 40 mg PO HS #30 tab 01/05/23 Rx lisinopriL [Zestril] 2.5 mg PO DAILY #60 tab 01/05/23 Rx polyethylene glycoL 3350 [Miralax] 17 gm PO DAILY #60 packet 01/05/23 Rx Allergies Allergy/AdvReac Type Severity Reaction Status Date / Time No Known Allergies Allergy Verified 01/18/23 10:57 Physical Exam Vitals: Vital Signs Temp Pulse Resp BP Pulse Ox 01/18/23 15:00 92 20 93/62 96 01/18/23 14:45 95 18 104/68 95 01/18/23 14:18 87 20 90/64 95 01/18/23 14:11 86 12 82/62 93 L 01/18/23 13:48 105 H 14 125/89 100 01/18/23 13:28 62/49 01/18/23 13:20 151 H 18 104/77 94 L 01/18/23 12:38 149 H 18 109/61 99 01/18/23 12:20 133 H 18 96/64 01/18/23 12:17 126 H 18 96/77 100 01/18/23 12:08 137 H 18 73/55 01/18/23 11:59 139 H 18 82/57 96 01/18/23 11:42 135 H 18 91/59 01/18/23 11:29 141 H 18 94/77 100 01/18/23 10:48 97.8 F 156 H 20 98/68 99 Intake and Output 01/18/23 01/18/23 01/18/23 06:59 14:59 22:59 Other: Weight 70.76 kg Results CBC & Chem 7: 01/18/23 14:00 01/18/23 14:00 Labs: Abnormal Lab Results - Last 24 Hours (Table) 01/18/23 01/18/23 01/18/23 Range/Units 11:13 11:13 11:13 RBC 2.86 L (4.30-5.90) m/uL Hgb 8.2 L D (13.0-17.5) gm/dL Hct 24.8 L (39.0-53.0) % RDW 17.5 H (11.5-15.5) % PT 13.2 H (10.0-12.5) sec INR 1.2 H (<1.2) Potassium (3.5-5.1) mmol/L BUN 22 H (9-20) mg/dL Glucose 111 H (74-99) mg/dL POC Glucose (mg/dL) (70-110) mg/dL Calcium (8.4-10.2) mg/dL AST 87 H (17-59) U/L ALT (4-49) U/L Alkaline Phosphatase 204 H (38-126) U/L Troponin I (0.000-0.034) ng/mL Albumin 3.2 L (3.5-5.0) g/dL 01/18/23 01/18/23 01/18/23 Range/Units 11:13 13:11 13:46 RBC (4.30-5.90) m/uL Hgb (13.0-17.5) gm/dL Hct (39.0-53.0) % RDW (11.5-15.5) % PT (10.0-12.5) sec INR (<1.2) Potassium (3.5-5.1) mmol/L BUN (9-20) mg/dL Glucose (74-99) mg/dL POC Glucose (mg/dL) 66 L 183 H (70-110) mg/dL Calcium (8.4-10.2) mg/dL AST (17-59) U/L ALT (4-49) U/L Alkaline Phosphatase (38-126) U/L Troponin I 3.280 H* (0.000-0.034) ng/mL Albumin (3.5-5.0) g/dL 01/18/23 01/18/23 Range/Units 14:00 14:00 RBC 3.50 L (4.30-5.90) m/uL Hgb 9.9 L D (13.0-17.5) gm/dL Hct 31.2 L (39.0-53.0) % RDW 17.5 H (11.5-15.5) % PT (10.0-12.5) sec INR (<1.2) Potassium 3.1 L (3.5-5.1) mmol/L BUN 22 H (9-20) mg/dL Glucose 205 H (74-99) mg/dL POC Glucose (mg/dL) (70-110) mg/dL Calcium 8.0 L (8.4-10.2) mg/dL AST 114 H (17-59) U/L ALT 57 H (4-49) U/L Alkaline Phosphatase 233 H (38-126) U/L Troponin I (0.000-0.034) ng/mL Albumin 3.1 L (3.5-5.0) g/dL
[2023-01-18] MEDS: HEPARIN SOD,PORK IN 0.45% NACL 25,000 UNIT in 0.45% NACL 1 250ML.BAG IV SCH (15:29)
[2023-01-18] MEDS ORDERED: INSULIN REGULAR 100 UNIT in SODIUM CHLORIDE 0.9% 100 ML IV SCH (15:30)
[2023-01-18] MEDS ORDERED: Potassium Replacement Protocol 1 EACH MISC MISCELLANE PRN (16:11)
[2023-01-18] MEDS ORDERED: Magnesium Replacement Protocol 1 EACH MISC MISCELLANE PRN (16:11)
[2023-01-18 16:23] LABS: Glucose,Whole Blood 156 mg/dL (70-110)
[2023-01-18] MEDS ORDERED: POTASSIUM CHLORIDE ER 20 MEQ TAB.ER PO SCH (17:00)
[2023-01-18] MEDS: POTASSIUM CHLORIDE 10 MEQ in WATER FOR INJECTION 1 100ML.BAG IVPB SCH ×4 (18:02→21:31)
[2023-01-18] MEDS: INSULIN ASPART (NovoLOG) 100 UNIT/ML VIAL SQ SCH ×2 (18:08→22:13)
[2023-01-18] MEDS ORDERED: ONDANSETRON 4 MG/2 ML VIAL IVP PRN (18:33)
[2023-01-18] MEDS ORDERED: SODIUM BICARB 8.4% 50 ML SYR (1 MEQ/ML) ONE (18:39)
[2023-01-18] MEDS ORDERED: CALCIUM CHLORIDE 100 MG/ML 10 ML SYRINGE ONE (18:39)
[2023-01-18] MEDS ORDERED: EPINEPHrine 10 ML SYRINGE (0.1 MG/ML) ONE (18:39)
[2023-01-18] MEDS ORDERED: propofoL 100 ML IV ONE (18:42)
[2023-01-18 18:43] LABS: Glucose,Whole Blood 151 mg/dL (70-110)
[2023-01-18] MEDS ORDERED: SUCCINYLCHOLINE CHLORIDE 200 MG/10 ML VIAL IV ONE (18:47)
--- NOTE | 2023-01-18 19:25 | P.EN ---
Code called overhead at 1839. Initial rhythm was PEA. 1 round of compressions and 1x epi. Had ROSC at 1841. Was intubated for hypoxic respiratory failure and unable to protect airways at 185. PEA again at 185, 1x epi. 1x bicarb, 1gm Ca. ROSC at 185. Family updated. Both Roads Superintendent and Cardiolgy aware. Patient had PEA after bout of emesis. Likely from increased vagal tone. Pending CT abd pel. Currently on levo, prop, and amio.
--- NOTE | 2023-01-18 19:46 | XR ---
EXAMINATION TYPE: XR chest 1V portable DATE OF EXAM: 01/18/2023 7:24 PM CLINICAL INDICATION:Male, 67 years old with history of Tube placement; COMPARISON: Same day TECHNIQUE: XR chest 1V portable Frontal view of the chest. FINDINGS: Lungs/Pleura: Perihilar airspace opacities are again seen bilaterally. There is no evidence of pleura l effusion, focal consolidation, or pneumothorax. Pulmonary vascularity: Unremarkable. Heart/mediastinum: Cardiomediastinal silhouette is enlarged and stable. Musculoskeletal: No acute osseous pathology. Other findings: None Lines/Tubes: Endotracheal tube with distal tip 6.0 cm above the sasha. Nasogastric tube with its distal tip and side-port projecting under the diaphragm. IMPRESSION: 1. Endotracheal tube 6.0 cm above the sasha consider advancement of 3 cm for optimal placement. 2. Bilateral perihilar airspace opacities correlate for pulmonary vascular congestion versus airspac e disease. Findings new from 01/01/2023. Significantly changed from immediate prior given phase of ins piration.
[2023-01-18] MEDS: fentaNYL (PF). 1,000 MCG in SODIUM CHLORIDE 0.9% 80 ML IV SCH (19:54)
[2023-01-18] MEDS ORDERED: CISATRACURIUM 2 MG/ML 5 ML VIAL IV ONE (19:56)
--- NOTE | 2023-01-18 20:37 | XR ---
EXAMINATION TYPE: XR chest 1V portable DATE OF EXAM: 01/18/2023 8:28 PM CLINICAL INDICATION:Male, 67 years old with history of Central line placement; [facility] COMPARISON: Same day TECHNIQUE: XR chest 1V portable Frontal view of the chest. FINDINGS: Lungs/Pleura: Similar perihilar airspace opacities. There is no evidence of pleural effusion, focal c onsolidation, or pneumothorax. Pulmonary vascularity: Unremarkable. Heart/mediastinum: Cardiomediastinal silhouette is prominent in size. Musculoskeletal: No acute osseous pathology. Other findings: None Lines/Tubes: Endotracheal tube with distal tip 5.6 cm above the sasha. Nasogastric tube with its distal tip and side-port projecting under the diaphragm. Left internal jugular central venous catheter with distal tip extending out of the [id number] towa rds the head. IMPRESSION: 1. Left central venous catheter with tip extending towards the head. Removal and reinsertion recomme nded. 2. Endotracheal tube 5.6 cm above the sasha consider advancement of 2 submitted triple placement.
[2023-01-18] MEDS: AMIODARONE 450 MG in DEXTROSE 5% IN WATER 250 ML IV SCH ×2 (20:48)
[2023-01-18 20:52] LABS: ABG Base Excess -7.9 mmol/L; ABG HCO3 20 mmol/L (21-25); ABG Oxygen Saturation 98.5 % (94-97); ABG PCO2 49 mmHg (35-45); ABG PH 7.22 (7.35-7.45); ABG PO2 176 mmHg (83-108); ABG TCO2 21 mmol/L (19-24)
[2023-01-18 22:10] LABS: Glucose,Whole Blood 138 mg/dL (70-110)
[2023-01-18] MEDS: PIPERACILLIN-TAZOBACTAM 3.375 GM in SODIUM CHLORIDE 0.9% 100 ML IVPB SCH (22:36)
[2023-01-18] MEDS: CHLORHEXIDINE GLUCONATE 15 ML CUP MUCOUS MEM SCH (23:12)
[2023-01-18] MEDS ORDERED: FUROSEMIDE 10 MG/ML 4 ML VIAL IV SCH (23:45)
[2023-01-19] MEDS: VASOPRESSIN 60 UNIT in SODIUM CHLORIDE 0.9% 150 ML IV SCH ×2 (00:59→19:43)
--- NOTE | 2023-01-19 01:05 | PCN ---
PROCEDURE NOTE PROCEDURE: Left subclavian triple-lumen catheter. PREOPERATIVE DIAGNOSES: 1. Administration of fluids and pressors. 2. Hypotension. POSTOPERATIVE DIAGNOSES: 1. Administration of fluids and pressors. 2. Hypotension. There were informed consent and universal timeout. SWATCH CHECKER: Dr. Parag Vargas. The patient's procedure took place in room 261. TRIPLE LUMEN CATHETER PLACEMENT: Indication: Hemodynamic monitoring/Intravenous access. A time-out was completed verifying correct patient, procedure, site, positioning, and implant(s) or special equipment if applicable. The patient was placed in a dependent position appropriate for triple lumen catheter placement based on the vein to be cannulated. The patient's left shoulder or left neck left groin was prepped and draped in sterile fashion. 1% Lidocaine was used to anesthetize the surrounding skin area. A triple lumen 9F [place] catheter was introduced into the left subclavian or internal jugular or common femoral vein using Seldinger technique. The catheter was threaded smoothly over the guide wire and appropriate blood return was obtained. Each lumen of the catheter was evacuated of air and flushed with sterile saline. The catheter was then sutured in place to the skin and a sterile dressing applied. Perfusion to the extremity distal to the point of catheter insertion was checked and found to be adequate. There was no immediate complication. There was good blood return from all 3 ports. The catheter was sutured in place. A sterile dressing was applied by the nurse. There was no immediate complication. The tip of the catheter was seen at the junction of the right atrium and superior vena cava. MMODL / IJN: [id number] /
[2023-01-19] MEDS: NOREPINEPHRINE 4 MG in SODIUM CHLORIDE 0.9% 250 ML IV SCH (01:15)
--- NOTE | 2023-01-19 01:28 | OP ---
OPERATIVE REPORT DATE OF SERVICE : PROCEDURE: Right femoral vein triple-lumen catheter. PREOPERATIVE DIAGNOSIS: Administration of fluids, pressors, hypotension, sepsis. POSTOPERATIVE DIAGNOSIS: Administration of fluids, pressors, hypotension, sepsis. TRIPLE LUMEN CATHETER PLACEMENT: Indication: Hemodynamic monitoring/Intravenous access. A time-out was completed verifying correct patient, procedure, site, positioning, and implant(s) or special equipment if applicable. The patient was placed in a dependent position appropriate for triple lumen catheter placement based on the vein to be cannulated. The patient's right shoulder or right neck or right groin was prepped and draped in sterile fashion. 1% Lidocaine was used to anesthetize the surrounding skin area. A triple lumen 9F Cordis catheter was introduced into the right subclavian or internal jugular or common femoral vein using Seldinger technique. The catheter was threaded smoothly over the guide wire and appropriate blood return was obtained. Each lumen of the catheter was evacuated of air and flushed with sterile saline. The catheter was then sutured in place to the skin and a sterile dressing applied. Perfusion to the extremity distal to the point of catheter insertion was checked and found to be adequate. We used right femoral vein. There was good blood return from all 3 ports. The patient tolerated the procedure well. The catheter was sutured in place. Sterile dressing was applied by the nurse. No x-ray was necessary. The previous subclavian triple-lumen catheter was then malpositioned and it was removed. A dressing was applied. There was no immediate complication. MMODL / IJN: [id number] /
[2023-01-19 02:40] LABS: ABG Base Excess -8.3 mmol/L; ABG HCO3 18 mmol/L (21-25); ABG Oxygen Saturation 99.1 % (94-97); ABG PCO2 39 mmHg (35-45); ABG PH 7.29 (7.35-7.45); ABG PO2 166 mmHg (83-108); ABG TCO2 20 mmol/L (19-24)
--- NOTE | 2023-01-19 03:01 | P.CNPUL ---
History of Present Illness Consult date: 01/19/23 Requesting physician: Faraz Lim Reason for consult: other (ICU management) Chief complaint: Cardiac arrest History of present illness: I am seeing this patient in consultation today 01/19/2023 in the intensive care unit after he had a cardiac arrest in the emergency room. Patient is a 67 -year-old white male with past medical history significant for coronary artery disease, ischemic cardiomyopathy, atrial fibrillation, CVA/TIA, hyperlipidemia, diabetes mellitus, COPD. Patient is currently intubated on the mechanical ventilator, and unable to provide information for HPI. Most of this information is taken from chart review. Patient presented to the emergency room yesterday morning after having a near syncopal event. While in the emergency room, the patient was found to be in atrial fibrillation with rapid ventricular rate. Patient was trialed on a Cardizem infusion, but became hypotensive. Amiodarone infusion was started instead. Apparently, the patient had an episode of nausea and vomiting and became unresponsive while in the emergency room. One round of CPR was performed, and the patient received 1 amp of epinephrine. The patient was admitted to the intensive care unit. While in the intensive care unit, the patient had a subsequent PEA cardiac arrest with a limited downtime approximately 2 minutes. The patient was then intubated for airway protection. Currently, the patient is intubated on mechanical ventilator with settings of assist control, respiratory rate 20, tidal volume 400, FiO2 70%, PEEP of 8. ABGs done on these settings with an FiO2 of 100% show a pO2 of 176, pCO2 49, pH of 7.22. He is sedated on propofol which is currently infusing at 40 mcg/kg/m and fentanyl which is infusing at 1 mcg/kg per hour. He is synchronous with mechanical ventilator. Peak pressures are 20. Postintubation chest x-ray shows endotracheal tube approximately 5 cm from the sasha. This could be advanced 1- 2 cm. There is central venous congestion and evidence of heart failure. There was a left subclavian catheter traversing superiorly, this has since been r emoved. The patient has a right femoral triple-lumen central line catheter. Patient also has a right wrist radial arterial line. Blood pressure is profoundly hypotensive. Currently requiring vasopressors in the form of norepinephrine at 0.4 mcg/kg/m, vasopressin at 0.03 units per minutes. Also, on amiodarone infusion currently at 0.5 mg/m and IV heparin per protocol. Current rhythm is normal sinus around 84 bpm. CBC from yesterday afternoon shows a WBC count of 6.5, hemoglobin 9.9, hematocrit 31.2, platelets 276. Most recent APTT is supratherapeutic at 70. BMP from yesterday afternoon shows a sodium 138, potassium 5, chloride 105, serum bicarb 23, BUN 22, creatinine 1.16, glucose 2 05. Lactic acid level was 2.5. Magnesium 2. LFTs are mildly elevated. Most recent EKG shows normal sinus rhythm with ST abnormalities/depressions in leads 1, aVL, V5, and V6. Troponins are trending up and currently at 13.4. NT proBNP elevated at 19,800. Patient was empirically placed on Zosyn for suspicion of aspiration. Currently afebrile. Patient's condition is critical, prognosis guarded. He is being monitored in the intensive care unit. Review of Systems ROS unobtainable: due to endotracheal tube Past Medical History Past Medical History: Atrial Fibrillation, COPD, CVA/TIA, Diabetes Mellitus, Eye Disorder, GERD/Reflux, Hyperlipidemia, Musculoskeletal Disorder, Osteoarthritis (OA) Additional Past Medical History / Comment(s): CVA X2, last in 2019, with left arm weakness. 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 Osteoporosis. History of Any Multi-Drug Resistant Organisms: None Reported Past Surgical History: Orthopedic Surgery Additional Past Surgical History / Comment(s): Right foot surgery, bilateral laser eye surgery for detached retina, bilateral catarcat surgery with lens implants, cervical fusion, left knee surgery, bilateral shoulder surgery, penile implant. Past Anesthesia/Blood Transfusion Reactions: Postoperative Nausea & Vomiting (PONV) Additional Past Anesthesia/Blood Transfusion Reaction / Comment(s): PONV with one surgery. Past Psychological History: Depression Smoking Status: Never smoker Past Alcohol Use History: Rare Past Drug Use History: None Reported - Past Family History Sister(s) Family Medical History: Pulmonary Embolus Father Family Medical History: Coronary Artery Disease (CAD), Deep Vein Thrombosis (DVT) Mother Family Medical History: Cancer, Hyperlipidemia Brother(s) Family Medical History: Cancer Medications and Allergies Home Medications Medication Instructions Recorded Confirmed Type Insulin Aspart (For Pump) [NovoLOG 0.01 unit SQ-PUMP CONTINUOUS 12/28/20 01/18/23 History (For Pump)] Latanoprost [Xalatan 0.005%] 1 drop BOTH EYES HS 12/28/20 01/18/23 History Aspirin [Adult Low Dose Aspirin EC] 81 mg PO DAILY 08/18/22 01/18/23 History Clopidogrel [Plavix] 75 mg PO DAILY #90 tab 11/20/22 01/18/23 Rx Omeprazole 40 mg PO DAILY 12/27/22 01/18/23 History Vitamin D3/Vitamin K2 (Mk4) 1 tab PO DAILY 12/27/22 01/18/23 History [Vitamin K2 Plus D3 Tablet] Fludrocortisone [Florinef] 0.1 mg PO DAILY #30 tab 01/05/23 01/18/23 Rx Rivaroxaban [Xarelto] 2.5 mg PO BID tab 01/05/23 01/18/23 Rx Cephalexin [Keflex] 500 mg PO Q12H 01/18/23 01/18/23 History Midodrine HCl [ProAmatine] 10 mg PO AC-TID PRN 01/18/23 01/18/23 History Rosuvastatin [Crestor] 20 mg PO HS 01/18/23 01/18/23 History Allergies Allergy/AdvReac Type Severity Reaction Status Date / Time No Known Allergies Allergy Verified 01/18/23 15:39 Physical Exam Vitals: Vital Signs Temp Pulse Resp BP Pulse Ox FiO2 01/19/23 01:00 85 20 134/43 100 01/19/23 00:11 70 01/19/23 00:00 98.8 F 85 11 L 138/42 100 60 01/18/23 23:07 84 0 L 128/46 100 01/18/23 23:00 83 0 L 129/44 100 01/18/23 22:00 89 0 L 136/47 99 01/18/23 21:45 70 01/18/23 21:00 98 17 142/59 100 01/18/23 20:00 98.5 F 104 H 18 122/61 97 100 01/18/23 19:01 100 01/18/23 19:00 131 H 12 150/73 77 L 01/18/23 18:54 100 01/18/23 18:00 93 9 L 90/45 88 L 01/18/23 17:00 97.8 F 93 12 88/54 92 L 01/18/23 16:00 16 01/18/23 15:41 96 16 90/60 96 01/18/23 15:33 96 20 109/61 96 01/18/23 15:00 92 20 93/62 96 01/18/23 14:45 95 18 104/68 95 01/18/23 14:18 87 20 90/64 95 01/18/23 14:11 86 12 82/62 93 L 01/18/23 13:48 105 H 14 125/89 100 01/18/23 13:28 62/49 01/18/23 13:20 151 H 18 104/77 94 L 01/18/23 12:38 149 H 18 109/61 99 01/18/23 12:20 133 H 18 96/64 01/18/23 12:17 126 H 18 96/77 100 01/18/23 12:08 137 H 18 73/55 01/18/23 11:59 139 H 18 82/57 96 01/18/23 11:42 135 H 18 91/59 01/18/23 11:29 141 H 18 94/77 100 01/18/23 10:48 97.8 F 156 H 20 98/68 99 Intake and Output 01/18/23 01/18/23 01/19/23 14:59 22:59 06:59 Intake Total 1409.678 102.328 Output Total 30 15 Balance 1379.678 87.328 Intake: IV 523 69 .9 KVO 20 60 Piperacillin-Tazobactam 3 100 .375 gm In Sodium Chloride 0.9% 100 ml @ 25 mls/hr IVPB Q8H [facility] Rx#: [id number] Potassium Chloride 10 meq 400 In Water For Injection 1 100ml.bag @ 100 mls/hr IVPB Q1H [facility] Rx#: [id number] a line 3 9 Intake, IV Titration 886.678 33.328 Amount Azithromycin 500 mg In 250 Sodium Chloride 0.9% 250 ml @ 250 mls/hr IVPB ONCE [facility] Rx#:[id number] Diltiazem 125 mg In 31.083 Sodium Chloride 0.9% 100 ml @ 5 MG/HR 5 mls/hr IV .Q24H [facility] Rx#:[id number] Norepinephrine 4 mg In 254.000 Sodium Chloride 0.9% 250 ml @ 0.03 MCG/KG/MIN 8. 088 mls/hr IV .Q24H [facility] Rx#:[id number] Piperacillin-Tazobactam 3 100 .375 gm In Sodium Chloride 0.9% 100 ml @ 200 mls/hr IVPB ONCE STA Rx#:[id number] Potassium Chloride 10 meq 200 In Water For Injection 1 100ml.bag @ 100 mls/hr IVPB Q1H [facility] Rx#: [id number] fentaNYL (PF). 1,000 mcg 6.486 In Sodium Chloride 0.9% 80 ml @ 0.5 MCG/KG/HR 3. 538 mls/hr IV .Q24H [facility] Rx#:[id number] propofoL 1,000 mg In 45.109 33.328 Empty Bag 1 bag @ 15 MCG/ KG/MIN 6.368 mls/hr IV . [id number] [facility] Rx#:[id number] Output: Urine 30 15 Other: Voiding Method Indwelling Catheter Weight 70.76 kg 70.76 kg ABP, PAP, CO, CI - Last 8 Hours Arterial Blood Pressure 129/48 Arterial Blood Pressure 127/53 Arterial Blood Pressure 115/51 Arterial Blood Pressure 116/51 Arterial Blood Pressure 135/53 Arterial Blood Pressure 145/54 Arterial Blood Pressure 127/46 GENERAL EXAM: Sedated and synchronous with the mechanical ventilator, in no apparent distress. HEAD: Normocephalic and atraumatic EYES: Normal reaction of pupils, equal size. NOSE: Clear with pink turbinates. THROAT: No erythema or exudates. NECK: No masses, no JVD. CHEST: No chest wall deformity. LUNGS: Equal air entry with no crackles, wheeze, rhonchi or dullness. Intubated to the mechanical ventilator. CVS: S1 and S2 normal with no audible murmur, regular rhythm. No extra heart sounds ABDOMEN: No hepatosplenomegaly, active bowel sounds, no guarding or rigidity. SPINE: No scoliosis or deformity SKIN: No rashes CENTRAL NERVOUS SYSTEM: No focal deficits, tone is normal in all 4 extremities. EXTREMITIES: There is no peripheral edema, clubbing, or cyanosis. Peripheral pulses are intact. There is a right femoral triple-lumen central line and right wrist radial arterial line Results - Laboratory Findings CBC and BMP: 01/19/23 04:55 01/19/23 04:55 ABG ABG pH 7.22 (7.35-7.45) L 01/18/23 20:45 ABG pCO2 49 mmHg (35-45) H 01/18/23 20:45 ABG pO2 176 mmHg (83-108) H 01/18/23 20:45 ABG O2 Saturation 98.5 % (94-97) H 01/18/23 20:45 PT/INR, D-dimer PT 13.2 sec (10.0-12.5) H 01/18/23 11:13 INR 1.2 (<1.2) H 01/18/23 11:13 Abnormal lab findings: Abnormal Labs 01/18/23 01/18/23 01/18/23 11:13 11:13 11:13 RBC 2.86 L Hgb 8.2 L D Hct 24.8 L RDW 17.5 H PT 13.2 H INR 1.2 H APTT ABG pH ABG pCO2 ABG pO2 ABG HCO3 ABG O2 Saturation Potassium BUN 22 H Glucose 111 H POC Glucose (mg/dL) Plasma Lactic Acid Yadiel Calcium AST 87 H ALT Alkaline Phosphatase 204 H Troponin I Albumin 3.2 L 01/18/23 01/18/23 01/18/23 11:13 13:11 13:46 RBC Hgb Hct RDW PT INR APTT ABG pH ABG pCO2 ABG pO2 ABG HCO3 ABG O2 Saturation Potassium BUN Glucose POC Glucose (mg/dL) 66 L 183 H Plasma Lactic Acid Yadiel Calcium AST ALT Alkaline Phosphatase Troponin I 3.280 H* Albumin 01/18/23 01/18/23 01/18/23 14:00 14:00 14:00 RBC 3.50 L Hgb 9.9 L D Hct 31.2 L RDW 17.5 H PT INR APTT ABG pH ABG pCO2 ABG pO2 ABG HCO3 ABG O2 Saturation Potassium 3.1 L BUN 22 H Glucose 205 H POC Glucose (mg/dL) Plasma Lactic Acid Yadiel Calcium 8.0 L AST 114 H ALT 57 H Alkaline Phosphatase 233 H Troponin I 4.120 H* Albumin 3.1 L 01/18/23 01/18/23 01/18/23 15:00 16:20 18:41 RBC Hgb Hct RDW PT INR APTT ABG pH ABG pCO2 ABG pO2 ABG HCO3 ABG O2 Saturation Potassium BUN Glucose POC Glucose (mg/dL) 156 H 151 H Plasma Lactic Acid Yadiel 2.5 H* Calcium AST ALT Alkaline Phosphatase Troponin I Albumin 01/18/23 01/18/23 01/18/23 20:45 22:07 22:10 RBC Hgb Hct RDW PT INR APTT ABG pH 7.22 L ABG pCO2 49 H ABG pO2 176 H ABG HCO3 20 L ABG O2 Saturation 98.5 H Potassium BUN Glucose POC Glucose (mg/dL) 138 H Plasma Lactic Acid Yadiel Calcium AST ALT Alkaline Phosphatase Troponin I 13.400 H* Albumin 01/18/23 22:30 RBC Hgb Hct RDW PT INR APTT 70.0 H ABG pH ABG pCO2 ABG pO2 ABG HCO3 ABG O2 Saturation Potassium BUN Glucose POC Glucose (mg/dL) Plasma Lactic Acid Yadiel Calcium AST ALT Alkaline Phosphatase Troponin I Albumin - Diagnostic Findings Chest x-ray: image reviewed Assessment and Plan Assessment: PEA cardiac arrest 2, estimated combined total downtime less than 5 minutes. Patient received one round of CPR and 1 amp of epinephrine each time, ROSC was achieved. Currently, in the intensive care unit in critical condition, intubated on the mechanical ventilator. Non-ST elevation myocardial infarction, currently on heparin infusion per protocol, troponins peaked at 13.4 and the patient currently is on IV heparin. Cardiogenic shock, currently requiring high-dose vasopressors in the form of norepinephrine and vasopressin, repeat echocardiogram that was at the bedside showed an ejection fraction of 20-25% Acute hypoxemic and hypercapnic respiratory failure, secondary to above, intubated on mechanical ventilator. Recent chest x-ray shows pulmonary vascular congestion versus airspace disease History of ischemic cardiomyopathy, most recent echocardiogram from November 2022 shows a mildly reduced LV function with an estimated ejection fraction of 45-50% with mild hypokinesis of the lateral wall. Coronary artery disease, patient had recent PCI/stent to the RCA back in October,. Patient has known severe disease of the LAD and LCx. Atrial fibrillation with rapid ventricular rate, currently in normal sinus rhythm, anticoagulated on IV heparin per protocol and receiving IV amiodarone Chronic anemia, normocytic normochromic Acute kidney injury, cardiorenal, creatinine is up to 1.8 and the patient is currently oliguric Mild transaminitis, secondary to shock History CVA/TIA Hyperlipidemia Diabetes mellitus type 2 Chronic obstructive pulmonary disease, stable Plan: Patient's medications, labs, chest x-ray reviewed Continue on the mechanical ventilator Endotracheal tube to be advanced 1-2 cm Patient is currently requiring high-dose vasopressors in the form of norepinephrine and vasopressin infusing through a right femoral central line triple lumen catheter. Patient also had a right wrist radial arterial line placed Patient is currently anuric, he was given one milligram of Bumex per cardiology. No improvement in urine output. Blood pressure is profoundly hypotensive. Also receiving IV amiodarone per protocol. Currently in normal sinus rhythm. The patient was evaluated for an non-ST elevation [place] by Cardiology, currently heparin is infusing per protocol. Troponins are trending up, currently as high as 13.4. Repeat echocardiogram was taken, awaiting report Patient was started empirically on Zosyn for possible aspiration during his resuscitation attempt in the emergency room. Patient was having nausea and vomiting. A CT of the abdomen and pelvis without contrast was ordered, however, the patient is too unstable to be transferred to CAT scan. Patient's condition is currently critical, and his prognosis is severely guarded. Patient is being monitored in the intensive care unit. We will continue to follow, and further recommendations are forthcoming I have personally seen and examined the patient, performed the documentation and the assessment and plan as written. Number of minutes spent on the visit:20 This is a joint evaluation that was done along with the nurse practitioner. His evaluation was done in more than 30 minutes. The patient is known to have multivessel coronary artery disease, ischemic cardiomyopathy, chronic atrial fibrillation and the patient sustained a brief cardiac arrest. The patient is currently in cardiogenic shock on high-dose pressors and norepinephrine is running at 0.5 mcg/kg/m. The patient is also vasopressin. The patient is on amiodarone at 0.5 mg/m. Current cardiac rhythm is sinus. The patient is oliguric. Chest x-ray showing pulmonary edema with diffuse bilateral pulmonary infiltrates. Remains on a mechanical ventilator. Remains in a bicarb infusion. Awaiting further recommendations from cardiology. Prognosis is extremely poor. We'll continue our supportive care. Medication was reviewed. The echocardiogram repeated and the patient has further impaired LV function with an EF of around 25-30%.. This morning and the results are still pending. Case was discussed with the family. Time with Patient: Greater than 30
[2023-01-19] MEDS: IPRATROPIUM-ALBUTEROL 3 ML NEB INHALATION SCH ×5 (04:36→20:15)
[2023-01-19 05:50] LABS: Anisocytosis Slight; Basophils % (A) 0 %; Eosinophils % (A) 0 %; HCT 31.7 % (39.0-53.0); HGB 9.9 gm/dL (13.0-17.5); Hypochromasia Slight; Lymphocytes # (A) 0.9 k/uL (1.0-4.8); Lymphocytes % (A) 8 %; MCH 28.4 pg (25.0-35.0); MCHC 31.3 g/dL (31.0-37.0); MCV 90.9 fL (80.0-100.0); Mean Platelet Volume 8.5; Monocytes # (A) 0.8 k/uL (0-1.0); Monocytes % (A) 7 %; Neutrophils # (A) 9.4 k/uL (1.3-7.7); Neutrophils % (A) 84 %; Platelet Count 310 k/uL (150-450); RBC 3.48 m/uL (4.30-5.90); RDW 17.7 % (11.5-15.5); WBC 11.3 k/uL (3.8-10.6)
[2023-01-19 05:52] LABS: ABG Base Excess -11.6 mmol/L; ABG HCO3 16 mmol/L (21-25); ABG Oxygen Saturation 97.6 % (94-97); ABG PCO2 40 mmHg (35-45); ABG PH 7.22 (7.35-7.45); ABG PO2 120 mmHg (83-108); ABG TCO2 18 mmol/L (19-24)
[2023-01-19 05:54] LABS: INR 1.8 (<1.2); Prothrombin Time 18.3 sec (10.0-12.5)
[2023-01-19] MEDS: NOREPINEPHRINE 8 MG in SODIUM CHLORIDE 0.9% 250 ML IV SCH ×6 (05:59→23:41)
[2023-01-19] MEDS: fentaNYL (PF). 1,000 MCG in SODIUM CHLORIDE 0.9% 80 ML IV SCH ×3 (06:01→23:40)
[2023-01-19 06:07] LABS: African American GFR (CKD) 41 (>60 ml/min/1.73 sqM); Anion Gap 16 mmol/L; Blood Urea Nitrogen 30 mg/dL (9-20); Calcium 8.3 mg/dL (8.4-10.2); Carbon Dioxide 15 mmol/L (22-30); Chloride 106 mmol/L (98-107); Glucose 165 mg/dL (74-99); Magnesium 1.8 mg/dL (1.6-2.3); Non-African American GFR(CKD) 36 (>60 ml/min/1.73 sqM); Potassium 5.8 mmol/L (3.5-5.1); Sodium 137 mmol/L (137-145)
[2023-01-19] MEDS: PIPERACILLIN-TAZOBACTAM 3.375 GM in SODIUM CHLORIDE 0.9% 100 ML IVPB SCH ×3 (06:22→14:59)
[2023-01-19] MEDS ORDERED: MAGNESIUM SULFATE-D5W PMX 1 GM in DEXTROSE/WATER 1 100ML.BAG IVPB ONE (06:41)
[2023-01-19] MEDS ORDERED: SODIUM BICARB 8.4% 50 ML SYR (1 MEQ/ML) IV STA (06:51)
[2023-01-19 07:11] LABS: Glucose,Whole Blood 181 mg/dL (70-110)
[2023-01-19] MEDS ORDERED: SODIUM BICARB 8.4% 50 ML SYR (1 MEQ/ML) ONE (07:27)
[2023-01-19] MEDS ORDERED: INSULIN ASPART (NovoLOG) 100 UNIT/ML VIAL SQ SCH (07:30)
[2023-01-19] MEDS: methylPREDNISolone SOD SUCCI 125 MG/2 ML VIAL IV SCH ×3 (07:42→18:49)
--- NOTE | 2023-01-19 07:42 | XR ---
EXAMINATION TYPE: XR chest 1V portable DATE OF EXAM: 01/19/2023 5:28 AM CLINICAL INDICATION:Male, 68 years old with history of Tube placement; [facility] COMPARISON: Chest radiograph from one day prior. TECHNIQUE: XR chest 1V portable Frontal view of the chest. FINDINGS: Lungs/Pleura: There is no evidence of pleural effusion, focal consolidation, or pneumothorax. Pulmonary vascularity: Unremarkable. Heart/mediastinum: Cardiomediastinal silhouette is unremarkable. Musculoskeletal: No acute osseous pathology. There is fixation hardware in the lower cervical spine. Other findings: None Lines/Tubes: Endotracheal tube with distal tip 1.6 cm above the sasha. Nasogastric tube with its distal tip and side-port projecting under the diaphragm. Removal of left central venous catheter. IMPRESSION: No acute cardiopulmonary disease/process. Stable support tubes.
[2023-01-19] MEDS: DEXTROSE 5% IN WATER 1,000 ML with SODIUM BICARB (1 MEQ/ML) 150 ML IV SCH ×2 (07:59→22:02)
[2023-01-19] MEDS: PANTOPRAZOLE 40 MG/10 ML VIAL IVP SCH (09:00)
[2023-01-19] MEDS: CHLORHEXIDINE GLUCONATE 15 ML CUP MUCOUS MEM SCH ×2 (09:00→21:41)
--- NOTE | 2023-01-19 09:10 | US ---
EXAMINATION TYPE: US renals and bladder DATE OF EXAM: 01/19/2023 COMPARISON: None CLINICAL INDICATION: Male, 68 years old with history of sanna; ICU patient. Per patients EMR, penile i mplant and no trauma. Hx recent CPR. Portable ICU patient EXAM MEASUREMENTS: Right Kidney: 12.4 x 6.2 x 5.9 cm Left Kidney: 10.7 x 5.4 x 5.6 cm Limited due to unable to move patient Right Kidney: Mild/Moderate hydronephrosis. Free fluid seen adjacent to anterior kidney. Left Kidney: No hydronephrosis or masses seen Bladder: Miller seen Bilateral Jets not seen due to miller Incidental findin: Gallbladder wall thickening with free fluid seen adjacent to GB, wall measuring up to 17 mm with a djacent free fluid. 2: Left pleural effusion IMPRESSION: 1. Mild to moderate right hydronephrosis. 2. Gallbladder wall thickening, there is adjacent pericholecystic free fluid concerning for acute ch olecystitis 3. Miller catheter in appropriate position. 4. Small left pleural effusion.
--- NOTE | 2023-01-19 09:55 | P.PN ---
Subjective 67-year-old male who is known to Dr. Lazcano. Patient had a recent PCI to RCA October 2022 with diffuse disease to LAD and LCx with ischemic cardiomyopathy. His EF was around 40-45% with lateral wall hypokinesia. He also has history of hypertension, dyslipidemia, mitral regurgitation and prior CVA. Patient has been dealing with orthostatic hypotension lately and was in the hospital last time because of this. On last admission his beta willa and lisinopril was reduced and he was started on midodrine 10 mg 3 times a day This time patient doesn't the hospital because of concerns of low blood pressure, palpitations, feeling weak at home. Patient's reported that he's been coughing more than usual for last 2 days. She checked his blood pressure and requiring low and his heart rate was very high. There is no prior documentation if patient has atrial fibrillation. Patient has been on Xarelto for prior history of CVA. This time on admission to the ER he was noticed to be in atrial fibrillation with rapid ventricular response. There was also diffuse ST depressions. Lab shows hemoglobin 8.2 today. Last hemoglobin was 10. Creatinine 1.0 to admission, sodium 138, potassium 3.5, initial troponin was 3.2, BNP [id number] Bedside echocardiogram performed showed EF in range of 25-30%. Anterolateral hypokinesia, moderate MR, mild AI. No concerns of pericardial effusion or LVOT obstruction. When compared to prior echo from November his EF appeared to be have dropped. In ER because of low blood pressure and high heart rate he got amiodarone bolus 150mg. during that IV bolus patient became hypotensive and vomited and trans iently lost his pulse. He gave him 1 dose of epi 0.1 mg, and he had a return of spontaneous circulation with a downtime of less than 2 seconds. He was in sinus rhythm thereafter 01/19 Patient with recent admission and had Angela catheter discontinued one week ago. Apparently per he had significant urinary retention on presentation. Additionally he had been complaining of right-sided flank pain as well as nausea and vomiting. Renal ultrasound showing right hydronephrosis and possible cholecystitis. Patient with cardiac arrest mainly appears exacerbated by hyp otension. Remains on vasopressors on norepinephrine as well as vasopressin. 50% FiO2 with a PEEP of 8. REVIEW OF SYSTEMS 14 point review of system is negative except what is mentioned above in HPI. PHYSICAL EXAMINATION Vital signs reviewed. Head: Normocephalic. Eyes: Sclerae nonicteric. Neck: Brisk carotid upstroke, +jugular venous distention. Lungs: Clear to auscultation. Heart: Regular rate and rhythm, S1-S2, no S3, no murmur or rub. Abdomen: Soft nontender, positive bowel sounds no organomegaly. Extremities: No edema, intact distal pulses. Neuro: Intuabted and sedated ASSESSMENT Shock, possible cardiogenic however also may be septic A. fib RVR, currently is NSR NSTEMI possible type 1 vs type 2 Acute systolic congestive heart failure Ischemic cardiomyopathy with EF 25-30% CAD status post recent PCI to RCA 11/19 Residual diffuse disease in LAD and LCx Recently dealing with not tolerating cardiac medications Previous CVA on Xarelto Bedside echo showed an EF of 25-30% anterolateral hypokinesia, moderate MR. Last echo from November 2022 showed EF 40% Right sided flank pain, nausea, rule out sepsis Possible choleycystitis on ultrasound Right hydronephrosis GIL PLAN Patient with shock requiring vasopressors of unclear etiology. May be ischemic with significant elevated troponin and decrease in ejection fraction. Renal ultrasound however showing concern of cholecystitis and patient had been complaining of right-sided flank pain with a recent Angela in place and may be some component of sepsis. Ideally monitor for improvement in kidney function before proceeding with heart catheterization. Acute kidney injury likely related to ATN from hypotension Await blood cultures, evaluate urinalysis. Trend lactic acids. Check pro- calcitonin. Await formal echo results Continue IV heparin Continue with amiodarone drip for now Long discussion with family. Prognosis guarded. Objective - Vital Signs Vital signs: Vital Signs Temp 99.1 F 01/19/23 04:00 Pulse 89 01/19/23 09:37 Resp 20 01/19/23 09:37 BP 137/40 01/19/23 07:00 Pulse Ox 97 01/19/23 07:00 FiO2 50 01/19/23 09:16 Intake & Output 01/18/23 01/19/23 01/19/23 18:59 06:59 18:59 Intake Total 471.556 0479.801 147.921 Output Total 15 55 10 Balance 909.287 9062.801 137.921 Weight 70.76 kg 79.6 kg Intake: IV 717 113 .9 KVO 90 10 Magnesium Sulfate-D5w Pmx 100 1 gm In Dextrose/Water 1 100ml.bag @ 100 mls/hr IVPB ONCE ONE Rx#: [id number] Piperacillin-Tazobactam 3 200 .375 gm In Sodium Chloride 0.9% 100 ml @ 25 mls/hr IVPB Q8H [facility] Rx#: [id number] Potassium Chloride 10 meq 400 In Water For Injection 1 100ml.bag @ 100 mls/hr IVPB Q1H [facility] Rx#: [id number] a line 27 3 Intake, IV Titration 597.753 717.801 34.921 Amount Azithromycin 500 mg In 250 Sodium Chloride 0.9% 250 ml @ 250 mls/hr IVPB ONCE STA Rx#:[id number] Diltiazem 125 mg In 31.083 Sodium Chloride 0.9% 100 ml @ 5 MG/HR 5 mls/hr IV .Q24H [facility] Rx#:[id number] Norepinephrine 4 mg In 16.670 491.330 Sodium Chloride 0.9% 250 ml @ 0.03 MCG/KG/MIN 8. 088 mls/hr IV .Q24H [facility] Rx#:[id number] Piperacillin-Tazobactam 3 100 .375 gm In Sodium Chloride 0.9% 100 ml @ 200 mls/hr IVPB ONCE STA Rx#:[id number] Potassium Chloride 10 meq 200 In Water For Injection 1 100ml.bag @ 100 mls/hr IVPB Q1H [facility] Rx#: [id number] Vasopressin 60 unit In 14 Sodium Chloride 0.9% 150 ml @ 0.03 UNITS/MIN 4.59 mls/hr IV .Q24H [facility] Rx#: [id number] fentaNYL (PF). 1,000 mcg 76.243 In Sodium Chloride 0.9% 80 ml @ 0.5 MCG/KG/HR 3. 538 mls/hr IV .Q24H [facility] Rx#:[id number] propofoL 1,000 mg In 136.228 34.921 Empty Bag 1 bag @ 15 MCG/ KG/MIN 6.368 mls/hr IV . [id number] [facility] Rx#:[id number] Output: Urine 15 55 10 Other: Voiding Method Indwelling Catheter Indwelling Catheter ABP, PAP, CO, CI - Last Documented Arterial Blood Pressure 126/47 - Labs CBC & Chem 7: 01/19/23 04:55 01/19/23 04:55 Labs: Abnormal Lab Results - Last 24 Hours (Table) 01/18/23 01/18/23 01/18/23 Range/Units 11:13 11:13 11:13 WBC (3.8-10.6) k/uL RBC 2.86 L (4.30-5.90) m/uL Hgb 8.2 L D (13.0-17.5) gm/dL Hct 24.8 L (39.0-53.0) % RDW 17.5 H (11.5-15.5) % Neutrophils # (1.3-7.7) k/uL Lymphocytes # (1.0-4.8) k/uL PT 13.2 H (10.0-12.5) sec INR 1.2 H (<1.2) APTT (22.0-30.0) sec ABG pH (7.35-7.45) ABG pCO2 (35-45) mmHg ABG pO2 (83-108) mmHg ABG HCO3 (21-25) mmol/L ABG Total CO2 (19-24) mmol/L ABG O2 Saturation (94-97) % Potassium (3.5-5.1) mmol/L Carbon Dioxide (22-30) mmol/L BUN 22 H (9-20) mg/dL Creatinine (0.66-1.25) mg/dL Glucose 111 H (74-99) mg/dL POC Glucose (mg/dL) (70-110) mg/dL Plasma Lactic Acid Yadiel (0.7-2.0) mmol/L Calcium (8.4-10.2) mg/dL AST 87 H (17-59) U/L ALT (4-49) U/L Alkaline Phosphatase 204 H (38-126) U/L Troponin I (0.000-0.034) ng/mL Albumin 3.2 L (3.5-5.0) g/dL 01/18/23 01/18/23 01/18/23 Range/Units 11:13 13:11 13:46 WBC (3.8-10.6) k/uL RBC (4.30-5.90) m/uL Hgb (13.0-17.5) gm/dL Hct (39.0-53.0) % RDW (11.5-15.5) % Neutrophils # (1.3-7.7) k/uL Lymphocytes # (1.0-4.8) k/uL PT (10.0-12.5) sec INR (<1.2) APTT (22.0-30.0) sec ABG pH (7.35-7.45) ABG pCO2 (35-45) mmHg ABG pO2 (83-108) mmHg ABG HCO3 (21-25) mmol/L ABG Total CO2 (19-24) mmol/L ABG O2 Saturation (94-97) % Potassium (3.5-5.1) mmol/L Carbon Dioxide (22-30) mmol/L BUN (9-20) mg/dL Creatinine (0.66-1.25) mg/dL Glucose (74-99) mg/dL POC Glucose (mg/dL) 66 L 183 H (70-110) mg/dL Plasma Lactic Acid Yadiel (0.7-2.0) mmol/L Calcium (8.4-10.2) mg/dL AST (17-59) U/L ALT (4-49) U/L Alkaline Phosphatase (38-126) U/L Troponin I 3.280 H* (0.000-0.034) ng/mL Albumin (3.5-5.0) g/dL 01/18/23 01/18/23 01/18/23 Range/Units 14:00 14:00 14:00 WBC (3.8-10.6) k/uL RBC 3.50 L (4.30-5.90) m/uL Hgb 9.9 L D (13.0-17.5) gm/dL Hct 31.2 L (39.0-53.0) % RDW 17.5 H (11.5-15.5) % Neutrophils # (1.3-7.7) k/uL Lymphocytes # (1.0-4.8) k/uL PT (10.0-12.5) sec INR (<1.2) APTT (22.0-30.0) sec ABG pH (7.35-7.45) ABG pCO2 (35-45) mmHg ABG pO2 (83-108) mmHg ABG HCO3 (21-25) mmol/L ABG Total CO2 (19-24) mmol/L ABG O2 Saturation (94-97) % Potassium 3.1 L (3.5-5.1) mmol/L Carbon Dioxide (22-30) mmol/L BUN 22 H (9-20) mg/dL Creatinine (0.66-1.25) mg/dL Glucose 205 H (74-99) mg/dL POC Glucose (mg/dL) (70-110) mg/dL Plasma Lactic Acid Yadiel (0.7-2.0) mmol/L Calcium 8.0 L (8.4-10.2) mg/dL AST 114 H (17-59) U/L ALT 57 H (4-49) U/L Alkaline Phosphatase 233 H (38-126) U/L Troponin I 4.120 H* (0.000-0.034) ng/mL Albumin 3.1 L (3.5-5.0) g/dL 01/18/23 01/18/23 01/18/23 Range/Units 15:00 16:20 18:41 WBC (3.8-10.6) k/uL RBC (4.30-5.90) m/uL Hgb (13.0-17.5) gm/dL Hct (39.0-53.0) % RDW (11.5-15.5) % Neutrophils # (1.3-7.7) k/uL Lymphocytes # (1.0-4.8) k/uL PT (10.0-12.5) sec INR (<1.2) APTT (22.0-30.0) sec ABG pH (7.35-7.45) ABG pCO2 (35-45) mmHg ABG pO2 (83-108) mmHg ABG HCO3 (21-25) mmol/L ABG Total CO2 (19-24) mmol/L ABG O2 Saturation (94-97) % Potassium (3.5-5.1) mmol/L Carbon Dioxide (22-30) mmol/L BUN (9-20) mg/dL Creatinine (0.66-1.25) mg/dL Glucose (74-99) mg/dL POC Glucose (mg/dL) 156 H 151 H (70-110) mg/dL Plasma Lactic Acid Yadiel 2.5 H* (0.7-2.0) mmol/L Calcium (8.4-10.2) mg/dL AST (17-59) U/L ALT (4-49) U/L Alkaline Phosphatase (38-126) U/L Troponin I (0.000-0.034) ng/mL Albumin (3.5-5.0) g/dL 01/18/23 01/18/23 01/18/23 Range/Units 20:45 22:07 22:10 WBC (3.8-10.6) k/uL RBC (4.30-5.90) m/uL Hgb (13.0-17.5) gm/dL Hct (39.0-53.0) % RDW (11.5-15.5) % Neutrophils # (1.3-7.7) k/uL Lymphocytes # (1.0-4.8) k/uL PT (10.0-12.5) sec INR (<1.2) APTT (22.0-30.0) sec ABG pH 7.22 L (7.35-7.45) ABG pCO2 49 H (35-45) mmHg ABG pO2 176 H (83-108) mmHg ABG HCO3 20 L (21-25) mmol/L ABG Total CO2 (19-24) mmol/L ABG O2 Saturation 98.5 H (94-97) % Potassium (3.5-5.1) mmol/L Carbon Dioxide (22-30) mmol/L BUN (9-20) mg/dL Creatinine (0.66-1.25) mg/dL Glucose (74-99) mg/dL POC Glucose (mg/dL) 138 H (70-110) mg/dL Plasma Lactic Acid Yadiel (0.7-2.0) mmol/L Calcium (8.4-10.2) mg/dL AST (17-59) U/L ALT (4-49) U/L Alkaline Phosphatase (38-126) U/L Troponin I 13.400 H* (0.000-0.034) ng/mL Albumin (3.5-5.0) g/dL 01/18/23 01/19/23 01/19/23 Range/Units 22:30 02:34 04:25 WBC (3.8-10.6) k/uL RBC (4.30-5.90) m/uL Hgb (13.0-17.5) gm/dL Hct (39.0-53.0) % RDW (11.5-15.5) % Neutrophils # (1.3-7.7) k/uL Lymphocytes # (1.0-4.8) k/uL PT (10.0-12.5) sec INR (<1.2) APTT 70.0 H (22.0-30.0) sec ABG pH 7.29 L (7.35-7.45) ABG pCO2 (35-45) mmHg ABG pO2 166 H (83-108) mmHg ABG HCO3 18 L (21-25) mmol/L ABG Total CO2 (19-24) mmol/L ABG O2 Saturation 99.1 H (94-97) % Potassium (3.5-5.1) mmol/L Carbon Dioxide (22-30) mmol/L BUN (9-20) mg/dL Creatinine (0.66-1.25) mg/dL Glucose (74-99) mg/dL POC Glucose (mg/dL) (70-110) mg/dL Plasma Lactic Acid Yadiel 6.7 H* (0.7-2.0) mmol/L Calcium (8.4-10.2) mg/dL AST (17-59) U/L ALT (4-49) U/L Alkaline Phosphatase (38-126) U/L Troponin I (0.000-0.034) ng/mL Albumin (3.5-5.0) g/dL 01/19/23 01/19/23 01/19/23 Range/Units 04:51 04:55 04:55 WBC 11.3 H (3.8-10.6) k/uL RBC 3.48 L (4.30-5.90) m/uL Hgb 9.9 L (13.0-17.5) gm/dL Hct 31.7 L (39.0-53.0) % RDW 17.7 H (11.5-15.5) % Neutrophils # 9.4 H (1.3-7.7) k/uL Lymphocytes # 0.9 L (1.0-4.8) k/uL PT 18.3 H (10.0-12.5) sec INR 1.8 H (<1.2) APTT (22.0-30.0) sec ABG pH 7.22 L (7.35-7.45) ABG pCO2 (35-45) mmHg ABG pO2 120 H (83-108) mmHg ABG HCO3 16 L (21-25) mmol/L ABG Total CO2 18 L (19-24) mmol/L ABG O2 Saturation 97.6 H (94-97) % Potassium (3.5-5.1) mmol/L Carbon Dioxide (22-30) mmol/L BUN (9-20) mg/dL Creatinine (0.66-1.25) mg/dL Glucose (74-99) mg/dL POC Glucose (mg/dL) (70-110) mg/dL Plasma Lactic Acid Yadiel (0.7-2.0) mmol/L Calcium (8.4-10.2) mg/dL AST (17-59) U/L ALT (4-49) U/L Alkaline Phosphatase (38-126) U/L Troponin I (0.000-0.034) ng/mL Albumin (3.5-5.0) g/dL 01/19/23 01/19/23 01/19/23 Range/Units 04:55 06:20 07:10 WBC (3.8-10.6) k/uL RBC (4.30-5.90) m/uL Hgb (13.0-17.5) gm/dL Hct (39.0-53.0) % RDW (11.5-15.5) % Neutrophils # (1.3-7.7) k/uL Lymphocytes # (1.0-4.8) k/uL PT (10.0-12.5) sec INR (<1.2) APTT 69.5 H (22.0-30.0) sec ABG pH (7.35-7.45) ABG pCO2 (35-45) mmHg ABG pO2 (83-108) mmHg ABG HCO3 (21-25) mmol/L ABG Total CO2 (19-24) mmol/L ABG O2 Saturation (94-97) % Potassium 5.8 H (3.5-5.1) mmol/L Carbon Dioxide 15 L (22-30) mmol/L BUN 30 H (9-20) mg/dL Creatinine 1.88 H (0.66-1.25) mg/dL Glucose 165 H (74-99) mg/dL POC Glucose (mg/dL) 181 H (70-110) mg/dL Plasma Lactic Acid Yadiel (0.7-2.0) mmol/L Calcium 8.3 L (8.4-10.2) mg/dL AST (17-59) U/L ALT (4-49) U/L Alkaline Phosphatase (38-126) U/L Troponin I (0.000-0.034) ng/mL Albumin (3.5-5.0) g/dL
[2023-01-19] MEDS ORDERED: AMIODARONE 450 MG in DEXTROSE 5% IN WATER 250 ML IV SCH ×2 (10:30)
[2023-01-19] MEDS: AZITHROMYCIN 500 MG in SODIUM CHLORIDE 0.9% 250 ML IVPB SCH (11:14)
--- NOTE | 2023-01-19 11:14 | P.PN ---
Subjective Progress Note Date: 01/19/23 Hospital Course: 67-year-old male with a history of CAD status post recent RCA stent, diffuse LAD and circumflex disease, systolic heart failure with EF 35%, type 2 diabetes on insulin pump, atrial fibrillation, dyslipidemia, severe orthostatic hypotension, recent multiple falls presenting with another syncopal episode. In the ED, initial temperature was 97.8, pulse 156, respiratory rate 20, blood pressure 98/68, saturating at 99% on room air. Hemoglobin at 8.2, was previously at 1 0.7, INR 1.2, creatinine 1.03, glucose 111, troponin 3.28, proBNP 19,000. Initial EKG independently interpreted shows atrial fibrillation with RVR and diffuse ST depressions. Chest x-ray independently interpreted shows interstitial opacities. Patient was started on Cardizem, which dropped his blo od pressure. He was then started on amiodarone which further dropped his pressures, he received 1 dose of epinephrine, did have an episode of emesis, and is now on amiodarone drip as well as levofloxacin.. Cardiology was at bedside. Bedside echo did show reduced EF. He also had urinary retention, Angela catheter placed. Upon arrival to medical ICU, patient had another few bouts of emesis and subsequently PA arrest. He required CPR and epinephrine. Was also intubated. Currently he has circulatory shock, on vasopressors, remains intubated. Prognosis is poor. Subjective: Patient seen and examined at bedside. No acute events overnight. Continues to remain critically ill, on 2 vasopressors, bicarbonate drip, minimal urine output, intubated and sedated. Pertinent positives and negatives as discussed above, a complete review of systems was performed and all other systems are negative. Vitals Signs Reviewed. General: Intubated and sedated Derm: warm, dry, right groin access oozing Head: atraumatic, normocephalic, symmetric Eyes: Pupils equal and minimally reactive Mouth: no lip lesion, mucus membranes moist Cardiovascular: S1S2 reg, tachycardic, no murmur Lungs: Bilateral rhonchi, mechanically ventilated Abdominal: soft, nondistended, NG tube in place Ext: no gross muscle atrophy, no edema, no contractures Neuro: Sedated Psych: Unable to assess Data Reviewed Today: Pertinent Labs: WBC 11.3, hemoglobin 9.9, APTT 69.5, pH 7.22, pO2 120, pCO2 40, bicarb 16, lactate 6.7, potassium 5.8, creatinine 1.88, magnesium 1.8 Imaging: Renal ultrasound report reviewed, shows [id number] right hydronephrosis, also shows findings concerning for acute cholecystitis Chest x-ray independently interpreted shows persistent bilateral interstitial opacities Assessment and Plan: Patient is critically ill, and medical ICU, prognosis guarded. Shock, septic versus cardiogenic Status post cardiac arrest Paroxysmal Atrial fibrillation with RVR NSTEMI CAD status post recent stent, with residual diffuse left coronary disease not amenable to intervention Suspected acute cholecystitis Mild to moderate right hydronephrosis Acute urinary retention Acute kidney injury, likely ATN in the setting of shock Acute on chronic normocytic anemia Acute hypoxic respiratory failure, requiring intubation and mechanical ventilation Acute on chronic systolic CHF exacerbation Suspected aspiration pneumonitis History of severe orthostatic hypotension Recurrent Syncope -Cardiology note reviewed, continue IV amiodarone, heparin drip -Had a discussion with strip deburrer, continue supportive care for now -Wean pressors if possible -Patient started on IV steroids -Renal ultrasound shows concerning findings for acute cholecystitis, neurosurgery consulted -Patient is currently on IV Zosyn as well as IV azithromycin -Monitor CBCs, no active bleeding -Continue statin, was given Plavix yesterday per cardiology Type 2 diabetes on insulin pump -hold insulin pump for now -Sliding scale insulin every 6 hours Dyslipidemia -continue statin DVT ppx: Heparin drip Code status: Full code Anticipated discharge place: Pending clinical course Anticipated discharge time: Pending clinical course Objective - Vital Signs Vital signs: Vital Signs Temp 99 F 01/19/23 08:00 Pulse 93 01/19/23 11:00 Resp 20 01/19/23 11:00 BP 137/37 01/19/23 11:00 Pulse Ox 95 01/19/23 11:00 FiO2 50 01/19/23 09:16 Intake & Output 01/18/23 01/19/23 01/19/23 18:59 06:59 18:59 Intake Total 852.418 7902.801 418.921 Output Total 15 55 25 Balance 491.123 8175.801 393.921 Weight 70.76 kg 79.6 kg Intake: IV 717 126 .9 KVO 90 20 Magnesium Sulfate-D5w Pmx 100 1 gm In Dextrose/Water 1 100ml.bag @ 100 mls/hr IVPB ONCE ONE Rx#: [id number] Piperacillin-Tazobactam 3 200 .375 gm In Sodium Chloride 0.9% 100 ml @ 25 mls/hr IVPB Q8H [facility] Rx#: [id number] Potassium Chloride 10 meq 400 In Water For Injection 1 100ml.bag @ 100 mls/hr IVPB Q1H [facility] Rx#: [id number] a line 27 6 Intake, IV Titration 597.753 717.801 292.921 Amount Azithromycin 500 mg In 250 Sodium Chloride 0.9% 250 ml @ 250 mls/hr IVPB ONCE STA Rx#:[id number] Diltiazem 125 mg In 31.083 Sodium Chloride 0.9% 100 ml @ 5 MG/HR 5 mls/hr IV .Q24H [facility] Rx#:[id number] Norepinephrine 4 mg In 16.670 491.330 Sodium Chloride 0.9% 250 ml @ 0.03 MCG/KG/MIN 8. 088 mls/hr IV .Q24H [facility] Rx#:[id number] Norepinephrine 8 mg In 258 Sodium Chloride 0.9% 250 ml @ 0.03 MCG/KG/MIN 4. 108 mls/hr IV .Q24H [facility] Rx#:[id number] Piperacillin-Tazobactam 3 100 .375 gm In Sodium Chloride 0.9% 100 ml @ 200 mls/hr IVPB ONCE STA Rx#:[id number] Potassium Chloride 10 meq 200 In Water For Injection 1 100ml.bag @ 100 mls/hr IVPB Q1H [facility] Rx#: [id number] Vasopressin 60 unit In 14 Sodium Chloride 0.9% 150 ml @ 0.03 UNITS/MIN 4.59 mls/hr IV .Q24H [facility] Rx#: [id number] fentaNYL (PF). 1,000 mcg 76.243 In Sodium Chloride 0.9% 80 ml @ 0.5 MCG/KG/HR 3. 538 mls/hr IV .Q24H [facility] Rx#:[id number] propofoL 1,000 mg In 136.228 34.921 Empty Bag 1 bag @ 15 MCG/ KG/MIN 6.368 mls/hr IV . [id number] [facility] Rx#:[id number] Output: Urine 15 55 25 Other: Voiding Method Indwelling Catheter Indwelling Catheter ABP, PAP, CO, CI - Last Documented Arterial Blood Pressure 119/46 - Labs CBC & Chem 7: 01/19/23 04:55 01/19/23 04:55 Labs: Abnormal Lab Results - Last 24 Hours (Table) 01/18/23 01/18/23 01/18/23 Range/Units 11:13 11:13 11:13 WBC (3.8-10.6) k/uL RBC 2.86 L (4.30-5.90) m/uL Hgb 8.2 L D (13.0-17.5) gm/dL Hct 24.8 L (39.0-53.0) % RDW 17.5 H (11.5-15.5) % Neutrophils # (1.3-7.7) k/uL Lymphocytes # (1.0-4.8) k/uL PT 13.2 H (10.0-12.5) sec INR 1.2 H (<1.2) APTT (22.0-30.0) sec ABG pH (7.35-7.45) ABG pCO2 (35-45) mmHg ABG pO2 (83-108) mmHg ABG HCO3 (21-25) mmol/L ABG Total CO2 (19-24) mmol/L ABG O2 Saturation (94-97) % Potassium (3.5-5.1) mmol/L Carbon Dioxide (22-30) mmol/L BUN 22 H (9-20) mg/dL Creatinine (0.66-1.25) mg/dL Glucose 111 H (74-99) mg/dL POC Glucose (mg/dL) (70-110) mg/dL Plasma Lactic Acid Yadiel (0.7-2.0) mmol/L Calcium (8.4-10.2) mg/dL AST 87 H (17-59) U/L ALT (4-49) U/L Alkaline Phosphatase 204 H (38-126) U/L Troponin I (0.000-0.034) ng/mL Albumin 3.2 L (3.5-5.0) g/dL 01/18/23 01/18/23 01/18/23 Range/Units 11:13 13:11 13:46 WBC (3.8-10.6) k/uL RBC (4.30-5.90) m/uL Hgb (13.0-17.5) gm/dL Hct (39.0-53.0) % RDW (11.5-15.5) % Neutrophils # (1.3-7.7) k/uL Lymphocytes # (1.0-4.8) k/uL PT (10.0-12.5) sec INR (<1.2) APTT (22.0-30.0) sec ABG pH (7.35-7.45) ABG pCO2 (35-45) mmHg ABG pO2 (83-108) mmHg ABG HCO3 (21-25) mmol/L ABG Total CO2 (19-24) mmol/L ABG O2 Saturation (94-97) % Potassium (3.5-5.1) mmol/L Carbon Dioxide (22-30) mmol/L BUN (9-20) mg/dL Creatinine (0.66-1.25) mg/dL Glucose (74-99) mg/dL POC Glucose (mg/dL) 66 L 183 H (70-110) mg/dL Plasma Lactic Acid Yadiel (0.7-2.0) mmol/L Calcium (8.4-10.2) mg/dL AST (17-59) U/L ALT (4-49) U/L Alkaline Phosphatase (38-126) U/L Troponin I 3.280 H* (0.000-0.034) ng/mL Albumin (3.5-5.0) g/dL 01/18/23 01/18/23 01/18/23 Range/Units 14:00 14:00 14:00 WBC (3.8-10.6) k/uL RBC 3.50 L (4.30-5.90) m/uL Hgb 9.9 L D (13.0-17.5) gm/dL Hct 31.2 L (39.0-53.0) % RDW 17.5 H (11.5-15.5) % Neutrophils # (1.3-7.7) k/uL Lymphocytes # (1.0-4.8) k/uL PT (10.0-12.5) sec INR (<1.2) APTT (22.0-30.0) sec ABG pH (7.35-7.45) ABG pCO2 (35-45) mmHg ABG pO2 (83-108) mmHg ABG HCO3 (21-25) mmol/L ABG Total CO2 (19-24) mmol/L ABG O2 Saturation (94-97) % Potassium 3.1 L (3.5-5.1) mmol/L Carbon Dioxide (22-30) mmol/L BUN 22 H (9-20) mg/dL Creatinine (0.66-1.25) mg/dL Glucose 205 H (74-99) mg/dL POC Glucose (mg/dL) (70-110) mg/dL Plasma Lactic Acid Yadiel (0.7-2.0) mmol/L Calcium 8.0 L (8.4-10.2) mg/dL AST 114 H (17-59) U/L ALT 57 H (4-49) U/L Alkaline Phosphatase 233 H (38-126) U/L Troponin I 4.120 H* (0.000-0.034) ng/mL Albumin 3.1 L (3.5-5.0) g/dL 01/18/23 01/18/23 01/18/23 Range/Units 15:00 16:20 18:41 WBC (3.8-10.6) k/uL RBC (4.30-5.90) m/uL Hgb (13.0-17.5) gm/dL Hct (39.0-53.0) % RDW (11.5-15.5) % Neutrophils # (1.3-7.7) k/uL Lymphocytes # (1.0-4.8) k/uL PT (10.0-12.5) sec INR (<1.2) APTT (22.0-30.0) sec ABG pH (7.35-7.45) ABG pCO2 (35-45) mmHg ABG pO2 (83-108) mmHg ABG HCO3 (21-25) mmol/L ABG Total CO2 (19-24) mmol/L ABG O2 Saturation (94-97) % Potassium (3.5-5.1) mmol/L Carbon Dioxide (22-30) mmol/L BUN (9-20) mg/dL Creatinine (0.66-1.25) mg/dL Glucose (74-99) mg/dL POC Glucose (mg/dL) 156 H 151 H (70-110) mg/dL Plasma Lactic Acid Yadiel 2.5 H* (0.7-2.0) mmol/L Calcium (8.4-10.2) mg/dL AST (17-59) U/L ALT (4-49) U/L Alkaline Phosphatase (38-126) U/L Troponin I (0.000-0.034) ng/mL Albumin (3.5-5.0) g/dL 01/18/23 01/18/23 01/18/23 Range/Units 20:45 22:07 22:10 WBC (3.8-10.6) k/uL RBC (4.30-5.90) m/uL Hgb (13.0-17.5) gm/dL Hct (39.0-53.0) % RDW (11.5-15.5) % Neutrophils # (1.3-7.7) k/uL Lymphocytes # (1.0-4.8) k/uL PT (10.0-12.5) sec INR (<1.2) APTT (22.0-30.0) sec ABG pH 7.22 L (7.35-7.45) ABG pCO2 49 H (35-45) mmHg ABG pO2 176 H (83-108) mmHg ABG HCO3 20 L (21-25) mmol/L ABG Total CO2 (19-24) mmol/L ABG O2 Saturation 98.5 H (94-97) % Potassium (3.5-5.1) mmol/L Carbon Dioxide (22-30) mmol/L BUN (9-20) mg/dL Creatinine (0.66-1.25) mg/dL Glucose (74-99) mg/dL POC Glucose (mg/dL) 138 H (70-110) mg/dL Plasma Lactic Acid Yadiel (0.7-2.0) mmol/L Calcium (8.4-10.2) mg/dL AST (17-59) U/L ALT (4-49) U/L Alkaline Phosphatase (38-126) U/L Troponin I 13.400 H* (0.000-0.034) ng/mL Albumin (3.5-5.0) g/dL 01/18/23 01/19/23 01/19/23 Range/Units 22:30 02:34 04:25 WBC (3.8-10.6) k/uL RBC (4.30-5.90) m/uL Hgb (13.0-17.5) gm/dL Hct (39.0-53.0) % RDW (11.5-15.5) % Neutrophils # (1.3-7.7) k/uL Lymphocytes # (1.0-4.8) k/uL PT (10.0-12.5) sec INR (<1.2) APTT 70.0 H (22.0-30.0) sec ABG pH 7.29 L (7.35-7.45) ABG pCO2 (35-45) mmHg ABG pO2 166 H (83-108) mmHg ABG HCO3 18 L (21-25) mmol/L ABG Total CO2 (19-24) mmol/L ABG O2 Saturation 99.1 H (94-97) % Potassium (3.5-5.1) mmol/L Carbon Dioxide (22-30) mmol/L BUN (9-20) mg/dL Creatinine (0.66-1.25) mg/dL Glucose (74-99) mg/dL POC Glucose (mg/dL) (70-110) mg/dL Plasma Lactic Acid Yadiel 6.7 H* (0.7-2.0) mmol/L Calcium (8.4-10.2) mg/dL AST (17-59) U/L ALT (4-49) U/L Alkaline Phosphatase (38-126) U/L Troponin I (0.000-0.034) ng/mL Albumin (3.5-5.0) g/dL 01/19/23 01/19/23 01/19/23 Range/Units 04:51 04:55 04:55 WBC 11.3 H (3.8-10.6) k/uL RBC 3.48 L (4.30-5.90) m/uL Hgb 9.9 L (13.0-17.5) gm/dL Hct 31.7 L (39.0-53.0) % RDW 17.7 H (11.5-15.5) % Neutrophils # 9.4 H (1.3-7.7) k/uL Lymphocytes # 0.9 L (1.0-4.8) k/uL PT 18.3 H (10.0-12.5) sec INR 1.8 H (<1.2) APTT (22.0-30.0) sec ABG pH 7.22 L (7.35-7.45) ABG pCO2 (35-45) mmHg ABG pO2 120 H (83-108) mmHg ABG HCO3 16 L (21-25) mmol/L ABG Total CO2 18 L (19-24) mmol/L ABG O2 Saturation 97.6 H (94-97) % Potassium (3.5-5.1) mmol/L Carbon Dioxide (22-30) mmol/L BUN (9-20) mg/dL Creatinine (0.66-1.25) mg/dL Glucose (74-99) mg/dL POC Glucose (mg/dL) (70-110) mg/dL Plasma Lactic Acid Yadiel (0.7-2.0) mmol/L Calcium (8.4-10.2) mg/dL AST (17-59) U/L ALT (4-49) U/L Alkaline Phosphatase (38-126) U/L Troponin I (0.000-0.034) ng/mL Albumin (3.5-5.0) g/dL 01/19/23 01/19/23 01/19/23 Range/Units 04:55 06:20 07:10 WBC (3.8-10.6) k/uL RBC (4.30-5.90) m/uL Hgb (13.0-17.5) gm/dL Hct (39.0-53.0) % RDW (11.5-15.5) % Neutrophils # (1.3-7.7) k/uL Lymphocytes # (1.0-4.8) k/uL PT (10.0-12.5) sec INR (<1.2) APTT 69.5 H (22.0-30.0) sec ABG pH (7.35-7.45) ABG pCO2 (35-45) mmHg ABG pO2 (83-108) mmHg ABG HCO3 (21-25) mmol/L ABG Total CO2 (19-24) mmol/L ABG O2 Saturation (94-97) % Potassium 5.8 H (3.5-5.1) mmol/L Carbon Dioxide 15 L (22-30) mmol/L BUN 30 H (9-20) mg/dL Creatinine 1.88 H (0.66-1.25) mg/dL Glucose 165 H (74-99) mg/dL POC Glucose (mg/dL) 181 H (70-110) mg/dL Plasma Lactic Acid Yadiel (0.7-2.0) mmol/L Calcium 8.3 L (8.4-10.2) mg/dL AST (17-59) U/L ALT (4-49) U/L Alkaline Phosphatase (38-126) U/L Troponin I (0.000-0.034) ng/mL Albumin (3.5-5.0) g/dL
[2023-01-19 11:26] LABS: Glucose,Whole Blood 254 mg/dL (70-110)
[2023-01-19] MEDS: INSULIN ASPART (NovoLOG) 100 UNIT/ML VIAL SQ SCH ×2 (12:04→17:20)
[2023-01-19 12:29] LABS: Total Bilirubin 2.3 mg/dL (0.2-1.3)
--- NOTE | 2023-01-19 12:43 | CA ---
Transthoracic Echo Report Name: Onofre Stokes Age: 68 Gender: M : 1955 Exam Date: 01/19/2023 07:33 Exam Location: [facility] Ht (in): 70 Wt (lb): 156 Ordering Physician: Reza Zambrano MD ([id number]) Attending/Referring Phys: Section Repairer Doris Stanton RDCS Procedure CPT: Indications: chf Cardiac Hx: Technical Quality: Fair Contrast 1: Total Dose (mL): Contrast 2: Total Dose (mL): MEASUREMENTS (Male / Female) Normal Values 2D ECHO LV Diastolic Diameter PLAX 5.3 cm 4.2 - 5.9 / 3.9 - 5.3 cm LV Systolic Diameter PLAX 4.5 cm IVS Diastolic Thickness 0.9 cm 0.6 - 1.0 / 0.6 - 0.9 cm LVPW Diastolic Thickness 1.1 cm 0.6 - 1.0 / 0.6 - 0.9 cm LV Relative Wall Thickness 0.4 RV Internal Dim ED PLAX 2.3 cm LA Systolic Diameter LX 3.6 cm 3.0 - 4.0 / 2.7 - 3.8 cm LV Diastolic Volume MOD BP 134.2 cm??? 67 - 155 / 56 - 104 cm??? LV Systolic Volume MOD BP 85.6 cm??? 22 - 58 / 19 - 49 cm??? LV Ejection Fraction MOD BP 36.2 % >= 55 % LV Cardiac Index MOD BP 2419.9 cm???/min???m??? LV Diastolic Volume MOD 4C 122.2 cm??? LV Systolic Volume MOD 4C 65.4 cm??? LV Ejection Fraction MOD 4C 46.4 % LV Cardiac Index MOD 4C 2822.3 cm???/min???m??? LV Diastolic Length 4C 7.3 cm LV Systolic Length 4C 6.5 cm LV Diastolic Volume MOD 2C 134.4 cm??? LV Systolic Volume MOD 2C 100.7 cm??? LV Ejection Fraction MOD 2C 25.1 % LV Cardiac Index MOD 2C 1679.4 cm???/min???m??? LV Diastolic Length 2C 8.5 cm LV Systolic Length 2C 7.7 cm LA Volume 28.7 cm??? 18 - 58 / 22 - 52 cm??? LA Volume Index 15.4 cm???/m??? 16 - 28 cm???/m??? M-MODE Aortic Root Diameter MM 3.9 cm MV E Point Septal Separation 2.2 cm AV Cusp Separation MM 2.5 cm DOPPLER AV Peak Velocity 88.4 cm/s AV Peak Gradient 3.1 mmHg MV Area PHT 4.6 cm??? Mitral E Point Velocity 100.4 cm/s Mitral A Point Velocity 45.4 cm/s Mitral E to A Ratio 2.2 MV Deceleration Time 166.3 ms TR Peak Velocity 328.7 cm/s TR Peak Gradient 43.2 mmHg Right Ventricular Systolic Press 46.6 mmHg FINDINGS Left Ventricle Left ventricular ejection fraction is estimated at 20-25 %. Left ventricular cavity size normal. Severely increased left ventricular systolic volume. Moderately decreased left ventricular ejection fraction. Grade 3 diastolic dysfunction Right Ventricle Normal right ventricular size. Moderate pulmonary hypertension. Right ventricular systolic pressure estimated at 60 mm hg. Right Atrium Right atrium not well visualized. Elevated RA pressures Left Atrium Normal left atrial size. Elevated left atrial pressures Mitral Valve Mitral valve thickened. Mild mitral regurgitation. Aortic Valve Aortic valve sclerosis. No aortic valve stenosis or regurgitation. Tricuspid Valve Structurally normal tricuspid valve. Mild tricuspid regurgitation. Pulmonic Valve Pulmonic valve not well visualized. Mild pulmonic regurgitation. Pericardium No pericardial effusion. Aorta Mild aortic dilatation at the level of the sinuses of valsalva 39 mm CONCLUSIONS Dilated LV cavity. Severely reduced global LV systolic function LVEF estimated at 20-25% Grade III diastolic dysfunction Elevated RA and LA pressures. Dilated IVC did not collapsible, suggestive of severe volume overload Mild MR Mildly dilated aortic root Previewed by: Dr Reza Zambrano (Electronically Signed) Final Date: 19 January 2023 12:42
--- NOTE | 2023-01-19 13:17 | P.GSCN ---
History of Present Illness Consult date: 01/19/23 History of present illness: CHIEF COMPLAINT: Syncope Reason for consult possible acute cholecystitis HISTORY OF PRESENT ILLNESS: This is a 68-year-old male who presented to the hospital with a near syncopal episode. Patient was admitted to the ICU after he had cardiac arrest in the emergency. Patient is currently intubated and on mechanical ventilation. He's maxed out on vasopressin. He is on 40 mics of Levophed. Also requiring propofol and fentanyl. He is on IV heparin and amiodarone. Patient admitted with possible cardiogenic shock. He had evidence of a non-ST elevated PR, A. fib with RVR and acute CHF exacerbation. He has history of cardiomyopathy and EF of 25-30% he had recent cardiac stents in October 2022. Patient has had low urine output and worsening renal function. Renal ultrasound was ordered showed evidence of gallbladder wall thickening and adjacent pericholecystic free fluid concerning for acute cholecystitis. Therefore surgical service was consulted in regards to possible acute cholecystitis. On patient's is at bedside reports that her had complained of right flank abdominal pain. He had a poor oral intake at home. I had just recently been released from the hospital earlier this month for orthostatic hypotension and syncope. PAST MEDICAL HISTORY: See list. PAST SURGICAL HISTORY: See list. MEDICATIONS: See list. ALLERGIES: See list. SOCIAL HISTORY: No illicit drug use. REVIEW OF SYSTEMS: Unable to obtain. Patient intubated and sedated. PHYSICAL EXAM: VITAL SIGNS: Reviewed GENERAL: Well-developed in no acute distress. HEENT: No sclera icterus. Extraocular movements grossly intact. Moist buccal mucosa. Head is atraumatic, normocephalic. Hears conversational speech. No nasal drainag e. NECK: Supple without lymphadenopathy. CHEST: Non-labored respirations and equal bilateral excursions. CARDIOVASCULAR: Palpable 2+ radial pulses. ABDOMEN: Soft. Nondistended. Nontender MUSCULOSKELETAL: No clubbing or cyanosis. Bilateral lower extremity edema NEUROLOGIC: Intubated and sedated SKIN: Well perfused. Good skin turgor. LABORATORY DATA: WBC 6.5-11.3 Hgb 9.9 and platelets 310 INR 1.8 Sodium 137 potassium 5.8 creatinine 1.88 Lactic acid 2.5 up to 11.0 Troponin elevated at 13.4 BNP elevated at 19,800 Total bilirubin 1.1 AST 114 ALT 57 alk phos 233 LFTs for today pending IMAGING: Renal ultrasound mild to moderate right hydronephrosis. Gallbladder wall thickening, there is adjacent pericholecystic free fluid concerning for acute cholecystitis. Small left pleural effusion. Chest x-ray no acute cardiopulmonary disease process Echo reports severely reduced global LV systolic function EF of 20-25%, mild mitral regurgitation, mildly dilated aortic root ASSESSMENT: 1. Possible acute cholecystitis. Renal ultrasound and noted gallbladder wall thickening and adjacent pericholecystic free fluid 2. Cardiogenic shock 3. Non-ST elevated PR 4. Cardiac arrest 5. Ischemic cardiomyopathy 6. History of coronary artery disease with recent cardiac stents in October 2022 7. Atrial fibrillation with rapid ventricular response 8. Acute kidney injury 9. Mildly elevated LFTs 10. Acute CHF exacerbation 11. Diabetes mellitus PLAN: -Patient is a poor surgical candidate. Continue IV antibiotics. Recommend HIDA scan when medically stable. Recommend possible cholecystostomy tube when medically stable -Continue ICU management -Continue supportive care Physician Paper [employer] note has been reviewed by physician. Signing provider agrees with the documented findings, assessment, and plan of care. Past Medical History Past Medical History: Atrial Fibrillation, COPD, CVA/TIA, Diabetes Mellitus, Eye Disorder, GERD/Reflux, Hyperlipidemia, Musculoskeletal Disorder, Osteoarthritis (OA) Additional Past Medical History / Comment(s): CVA X2, last in 2019, with left arm weakness. 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 Osteoporosis. History of Any Multi-Drug Resistant Organisms: None Reported Past Surgical History: Orthopedic Surgery Additional Past Surgical History / Comment(s): Right foot surgery, bilateral laser eye surgery for detached retina, bilateral catarcat surgery with lens implants, cervical fusion, left knee surgery, bilateral shoulder surgery, penile implant. Past Anesthesia/Blood Transfusion Reactions: Postoperative Nausea & Vomiting (PONV) Additional Past Anesthesia/Blood Transfusion Reaction / Comm: PONV with one surgery. Past Psychological History: Depression Smoking Status: Never smoker Past Alcohol Use History: Rare Past Drug Use History: None Reported - Past Family History Sister(s) Family Medical History: Pulmonary Embolus Father Family Medical History: Coronary Artery Disease (CAD), Deep Vein Thrombosis (DVT) Mother Family Medical History: Cancer, Hyperlipidemia Brother(s) Family Medical History: Cancer Medications and Allergies Home Medications Medication Instructions Recorded Confirmed Type Insulin Aspart (For Pump) [NovoLOG 0.01 unit SQ-PUMP CONTINUOUS 10/01/21 10/22/23 History (For Pump)] Latanoprost [Xalatan 0.005%] 1 drop BOTH EYES HS 12/28/20 01/18/23 History Aspirin [Adult Low Dose Aspirin EC] 81 mg PO DAILY 08/18/22 01/18/23 History Clopidogrel [Plavix] 75 mg PO DAILY #90 tab 11/20/22 01/18/23 Rx Omeprazole 40 mg PO DAILY 12/27/22 01/18/23 History Vitamin D3/Vitamin K2 (Mk4) 1 tab PO DAILY 12/27/22 01/18/23 History [Vitamin K2 Plus D3 Tablet] Fludrocortisone [Florinef] 0.1 mg PO DAILY #30 tab 01/05/23 01/18/23 Rx Rivaroxaban [Xarelto] 2.5 mg PO BID tab 01/05/23 01/18/23 Rx Cephalexin [Keflex] 500 mg PO Q12H 01/18/23 01/18/23 History Midodrine HCl [ProAmatine] 10 mg PO AC-TID PRN 01/18/23 01/18/23 History Rosuvastatin [Crestor] 20 mg PO HS 01/18/23 01/18/23 History Allergies Allergy/AdvReac Type Severity Reaction Status Date / Time No Known Allergies Allergy Verified 01/18/23 15:39 Surgical - Exam Vital Signs Temp Pulse Resp BP Pulse Ox 97.8 F 156 H 20 98/68 99 01/18/23 10:48 01/18/23 10:48 01/18/23 10:48 01/18/23 10:48 01/18/23 10:48 Results - Labs 01/19/23 04:55 01/19/23 04:55 Abnormal Lab Results - Last 24 Hours (Table) 01/18/23 01/18/23 01/18/23 Range/Units 11:13 11:13 13:11 WBC (3.8-10.6) k/uL RBC (4.30-5.90) m/uL Hgb (13.0-17.5) gm/dL Hct (39.0-53.0) % RDW (11.5-15.5) % Neutrophils # (1.3-7.7) k/uL Lymphocytes # (1.0-4.8) k/uL PT (10.0-12.5) sec INR (<1.2) APTT (22.0-30.0) sec ABG pH (7.35-7.45) ABG pCO2 (35-45) mmHg ABG pO2 (83-108) mmHg ABG HCO3 (21-25) mmol/L ABG Total CO2 (19-24) mmol/L ABG O2 Saturation (94-97) % Potassium (3.5-5.1) mmol/L Carbon Dioxide (22-30) mmol/L BUN 22 H (9-20) mg/dL Creatinine (0.66-1.25) mg/dL Glucose 111 H (74-99) mg/dL POC Glucose (mg/dL) 66 L (70-110) mg/dL Plasma Lactic Acid Yadiel (0.7-2.0) mmol/L Calcium (8.4-10.2) mg/dL AST 87 H (17-59) U/L ALT (4-49) U/L Alkaline Phosphatase 204 H (38-126) U/L Troponin I 3.280 H* (0.000-0.034) ng/mL Albumin 3.2 L (3.5-5.0) g/dL 01/18/23 01/18/23 01/18/23 Range/Units 13:46 14:00 14:00 WBC (3.8-10.6) k/uL RBC 3.50 L (4.30-5.90) m/uL Hgb 9.9 L D (13.0-17.5) gm/dL Hct 31.2 L (39.0-53.0) % RDW 17.5 H (11.5-15.5) % Neutrophils # (1.3-7.7) k/uL Lymphocytes # (1.0-4.8) k/uL PT (10.0-12.5) sec INR (<1.2) APTT (22.0-30.0) sec ABG pH (7.35-7.45) ABG pCO2 (35-45) mmHg ABG pO2 (83-108) mmHg ABG HCO3 (21-25) mmol/L ABG Total CO2 (19-24) mmol/L ABG O2 Saturation (94-97) % Potassium 3.1 L (3.5-5.1) mmol/L Carbon Dioxide (22-30) mmol/L BUN 22 H (9-20) mg/dL Creatinine (0.66-1.25) mg/dL Glucose 205 H (74-99) mg/dL POC Glucose (mg/dL) 183 H (70-110) mg/dL Plasma Lactic Acid Yadiel (0.7-2.0) mmol/L Calcium 8.0 L (8.4-10.2) mg/dL AST 114 H (17-59) U/L ALT 57 H (4-49) U/L Alkaline Phosphatase 233 H (38-126) U/L Troponin I (0.000-0.034) ng/mL Albumin 3.1 L (3.5-5.0) g/dL 01/18/23 01/18/23 01/18/23 Range/Units 14:00 15:00 16:20 WBC (3.8-10.6) k/uL RBC (4.30-5.90) m/uL Hgb (13.0-17.5) gm/dL Hct (39.0-53.0) % RDW (11.5-15.5) % Neutrophils # (1.3-7.7) k/uL Lymphocytes # (1.0-4.8) k/uL PT (10.0-12.5) sec INR (<1.2) APTT (22.0-30.0) sec ABG pH (7.35-7.45) ABG pCO2 (35-45) mmHg ABG pO2 (83-108) mmHg ABG HCO3 (21-25) mmol/L ABG Total CO2 (19-24) mmol/L ABG O2 Saturation (94-97) % Potassium (3.5-5.1) mmol/L Carbon Dioxide (22-30) mmol/L BUN (9-20) mg/dL Creatinine (0.66-1.25) mg/dL Glucose (74-99) mg/dL POC Glucose (mg/dL) 156 H (70-110) mg/dL Plasma Lactic Acid Yadiel 2.5 H* (0.7-2.0) mmol/L Calcium (8.4-10.2) mg/dL AST (17-59) U/L ALT (4-49) U/L Alkaline Phosphatase (38-126) U/L Troponin I 4.120 H* (0.000-0.034) ng/mL Albumin (3.5-5.0) g/dL 01/18/23 01/18/23 01/18/23 Range/Units 18:41 20:45 22:07 WBC (3.8-10.6) k/uL RBC (4.30-5.90) m/uL Hgb (13.0-17.5) gm/dL Hct (39.0-53.0) % RDW (11.5-15.5) % Neutrophils # (1.3-7.7) k/uL Lymphocytes # (1.0-4.8) k/uL PT (10.0-12.5) sec INR (<1.2) APTT (22.0-30.0) sec ABG pH 7.22 L (7.35-7.45) ABG pCO2 49 H (35-45) mmHg ABG pO2 176 H (83-108) mmHg ABG HCO3 20 L (21-25) mmol/L ABG Total CO2 (19-24) mmol/L ABG O2 Saturation 98.5 H (94-97) % Potassium (3.5-5.1) mmol/L Carbon Dioxide (22-30) mmol/L BUN (9-20) mg/dL Creatinine (0.66-1.25) mg/dL Glucose (74-99) mg/dL POC Glucose (mg/dL) 151 H 138 H (70-110) mg/dL Plasma Lactic Acid Yadeil (0.7-2.0) mmol/L Calcium (8.4-10.2) mg/dL AST (17-59) U/L ALT (4-49) U/L Alkaline Phosphatase (38-126) U/L Troponin I (0.000-0.034) ng/mL Albumin (3.5-5.0) g/dL 01/18/23 01/18/23 01/19/23 Range/Units 22:10 22:30 02:34 WBC (3.8-10.6) k/uL RBC (4.30-5.90) m/uL Hgb (13.0-17.5) gm/dL Hct (39.0-53.0) % RDW (11.5-15.5) % Neutrophils # (1.3-7.7) k/uL Lymphocytes # (1.0-4.8) k/uL PT (10.0-12.5) sec INR (<1.2) APTT 70.0 H (22.0-30.0) sec ABG pH 7.29 L (7.35-7.45) ABG pCO2 (35-45) mmHg ABG pO2 166 H (83-108) mmHg ABG HCO3 18 L (21-25) mmol/L ABG Total CO2 (19-24) mmol/L ABG O2 Saturation 99.1 H (94-97) % Potassium (3.5-5.1) mmol/L Carbon Dioxide (22-30) mmol/L BUN (9-20) mg/dL Creatinine (0.66-1.25) mg/dL Glucose (74-99) mg/dL POC Glucose (mg/dL) (70-110) mg/dL Plasma Lactic Acid Yadiel (0.7-2.0) mmol/L Calcium (8.4-10.2) mg/dL AST (17-59) U/L ALT (4-49) U/L Alkaline Phosphatase (38-126) U/L Troponin I 13.400 H* (0.000-0.034) ng/mL Albumin (3.5-5.0) g/dL 01/19/23 01/19/23 01/19/23 Range/Units 04:25 04:51 04:55 WBC 11.3 H (3.8-10.6) k/uL RBC 3.48 L (4.30-5.90) m/uL Hgb 9.9 L (13.0-17.5) gm/dL Hct 31.7 L (39.0-53.0) % RDW 17.7 H (11.5-15.5) % Neutrophils # 9.4 H (1.3-7.7) k/uL Lymphocytes # 0.9 L (1.0-4.8) k/uL PT (10.0-12.5) sec INR (<1.2) APTT (22.0-30.0) sec ABG pH 7.22 L (7.35-7.45) ABG pCO2 (35-45) mmHg ABG pO2 120 H (83-108) mmHg ABG HCO3 16 L (21-25) mmol/L ABG Total CO2 18 L (19-24) mmol/L ABG O2 Saturation 97.6 H (94-97) % Potassium (3.5-5.1) mmol/L Carbon Dioxide (22-30) mmol/L BUN (9-20) mg/dL Creatinine (0.66-1.25) mg/dL Glucose (74-99) mg/dL POC Glucose (mg/dL) (70-110) mg/dL Plasma Lactic Acid Yadiel 6.7 H* (0.7-2.0) mmol/L Calcium (8.4-10.2) mg/dL AST (17-59) U/L ALT (4-49) U/L Alkaline Phosphatase (38-126) U/L Troponin I (0.000-0.034) ng/mL Albumin (3.5-5.0) g/dL 01/19/23 01/19/23 01/19/23 Range/Units 04:55 04:55 06:20 WBC (3.8-10.6) k/uL RBC (4.30-5.90) m/uL Hgb (13.0-17.5) gm/dL Hct (39.0-53.0) % RDW (11.5-15.5) % Neutrophils # (1.3-7.7) k/uL Lymphocytes # (1.0-4.8) k/uL PT 18.3 H (10.0-12.5) sec INR 1.8 H (<1.2) APTT 69.5 H (22.0-30.0) sec ABG pH (7.35-7.45) ABG pCO2 (35-45) mmHg ABG pO2 (83-108) mmHg ABG HCO3 (21-25) mmol/L ABG Total CO2 (19-24) mmol/L ABG O2 Saturation (94-97) % Potassium 5.8 H (3.5-5.1) mmol/L Carbon Dioxide 15 L (22-30) mmol/L BUN 30 H (9-20) mg/dL Creatinine 1.88 H (0.66-1.25) mg/dL Glucose 165 H (74-99) mg/dL POC Glucose (mg/dL) (70-110) mg/dL Plasma Lactic Acid Yadiel (0.7-2.0) mmol/L Calcium 8.3 L (8.4-10.2) mg/dL AST (17-59) U/L ALT (4-49) U/L Alkaline Phosphatase (38-126) U/L Troponin I (0.000-0.034) ng/mL Albumin (3.5-5.0) g/dL 01/19/23 01/19/23 01/19/23 Range/Units 07:10 10:55 11:25 WBC (3.8-10.6) k/uL RBC (4.30-5.90) m/uL Hgb (13.0-17.5) gm/dL Hct (39.0-53.0) % RDW (11.5-15.5) % Neutrophils # (1.3-7.7) k/uL Lymphocytes # (1.0-4.8) k/uL PT (10.0-12.5) sec INR (<1.2) APTT (22.0-30.0) sec ABG pH (7.35-7.45) ABG pCO2 (35-45) mmHg ABG pO2 (83-108) mmHg ABG HCO3 (21-25) mmol/L ABG Total CO2 (19-24) mmol/L ABG O2 Saturation (94-97) % Potassium (3.5-5.1) mmol/L Carbon Dioxide (22-30) mmol/L BUN (9-20) mg/dL Creatinine (0.66-1.25) mg/dL Glucose (74-99) mg/dL POC Glucose (mg/dL) 181 H 254 H (70-110) mg/dL Plasma Lactic Acid Yadiel 11.0 H* (0.7-2.0) mmol/L Calcium (8.4-10.2) mg/dL AST (17-59) U/L ALT (4-49) U/L Alkaline Phosphatase (38-126) U/L Troponin I (0.000-0.034) ng/mL Albumin (3.5-5.0) g/dL Diabetes panel 01/18/23 01/18/23 01/18/23 Range/Units 11:13 14:00 22:30 Sodium 138 138 (137-145) mmol/L Potassium 3.5 3.1 L 5.0 (3.5-5.1) mmol/L Chloride 105 105 (98-107) mmol/L Carbon Dioxide 24 23 (22-30) mmol/L BUN 22 H 22 H (9-20) mg/dL Creatinine 1.03 1.16 (0.66-1.25) mg/dL Glucose 111 H 205 H (74-99) mg/dL Calcium 8.4 8.0 L (8.4-10.2) mg/dL AST 87 H 114 H (17-59) U/L ALT 45 57 H (4-49) U/L Alkaline Phosphatase 204 H 233 H (38-126) U/L Total Protein 6.9 6.7 (6.3-8.2) g/dL Albumin 3.2 L 3.1 L (3.5-5.0) g/dL 01/19/23 Range/Units 04:55 Sodium 137 (137-145) mmol/L Potassium 5.8 H (3.5-5.1) mmol/L Chloride 106 (98-107) mmol/L Carbon Dioxide 15 L (22-30) mmol/L BUN 30 H (9-20) mg/dL Creatinine 1.88 H (0.66-1.25) mg/dL Glucose 165 H (74-99) mg/dL Calcium 8.3 L (8.4-10.2) mg/dL AST (17-59) U/L ALT (4-49) U/L Alkaline Phosphatase (38-126) U/L Total Protein (6.3-8.2) g/dL Albumin (3.5-5.0) g/dL Calcium panel 01/18/23 01/18/23 01/19/23 Range/Units 11:13 14:00 04:55 Calcium 8.4 8.0 L 8.3 L (8.4-10.2) mg/dL Albumin 3.2 L 3.1 L (3.5-5.0) g/dL Pituitary panel 01/18/23 01/18/23 01/18/23 Range/Units 11:13 14:00 22:30 Sodium 138 138 (137-145) mmol/L Potassium 3.5 3.1 L 5.0 (3.5-5.1) mmol/L Chloride 105 105 (98-107) mmol/L Carbon Dioxide 24 23 (22-30) mmol/L BUN 22 H 22 H (9-20) mg/dL Creatinine 1.03 1.16 (0.66-1.25) mg/dL Glucose 111 H 205 H (74-99) mg/dL Calcium 8.4 8.0 L (8.4-10.2) mg/dL 01/19/23 Range/Units 04:55 Sodium 137 (137-145) mmol/L Potassium 5.8 H (3.5-5.1) mmol/L Chloride 106 (98-107) mmol/L Carbon Dioxide 15 L (22-30) mmol/L BUN 30 H (9-20) mg/dL Creatinine 1.88 H (0.66-1.25) mg/dL Glucose 165 H (74-99) mg/dL Calcium 8.3 L (8.4-10.2) mg/dL Adrenal panel 01/18/23 01/18/23 01/18/23 Range/Units 11:13 14:00 22:30 Sodium 138 138 (137-145) mmol/L Potassium 3.5 3.1 L 5.0 (3.5-5.1) mmol/L Chloride 105 105 (98-107) mmol/L Carbon Dioxide 24 23 (22-30) mmol/L BUN 22 H 22 H (9-20) mg/dL Creatinine 1.03 1.16 (0.66-1.25) mg/dL Glucose 111 H 205 H (74-99) mg/dL Calcium 8.4 8.0 L (8.4-10.2) mg/dL Total Bilirubin 0.9 1.1 (0.2-1.3) mg/dL AST 87 H 114 H (17-59) U/L ALT 45 57 H (4-49) U/L Alkaline Phosphatase 204 H 233 H (38-126) U/L Total Protein 6.9 6.7 (6.3-8.2) g/dL Albumin 3.2 L 3.1 L (3.5-5.0) g/dL 10/23/23 Range/Units 04:55 Sodium 137 (137-145) mmol/L Potassium 5.8 H (3.5-5.1) mmol/L Chloride 106 (98-107) mmol/L Carbon Dioxide 15 L (22-30) mmol/L BUN 30 H (9-20) mg/dL Creatinine 1.88 H (0.66-1.25) mg/dL Glucose 165 H (74-99) mg/dL Calcium 8.3 L (8.4-10.2) mg/dL Total Bilirubin (0.2-1.3) mg/dL AST (17-59) U/L ALT (4-49) U/L Alkaline Phosphatase (38-126) U/L Total Protein (6.3-8.2) g/dL Albumin (3.5-5.0) g/dL
[2023-01-19] MEDS: AMIODARONE 450 MG in DEXTROSE 5% IN WATER 250 ML IV SCH ×2 (13:29)
[2023-01-19 13:38] LABS: Amorphous Sediment,Urine Moderate /hpf; Bacteria,Urine Rare /hpf; RBC,Urine 22 /hpf (0-5); Squamous Epithelial Cell,Urine 1 /hpf (0-4); WBC,Urine 19 /hpf (0-5)
[2023-01-19 13:45] LABS: Appearance,Urine Cloudy (Clear); Color,Urine Yellow
[2023-01-19 13:46] LABS: Bilirubin,Urine Negative (Negative); Blood,Urine Moderate (Negative); Glucose,Urine (UA) Trace (Negative); Ketones,Urine Trace (Negative); Nitrite,Urine Negative (Negative); Protein,Urine 1+ (Negative); Specific Gravity,Urine >1.030 (1.001-1.035); Urobilinogen,Urine <2.0 mg/dL (<2.0)
[2023-01-19 13:47] LABS: Leukocyte Esterase,Urine Negative (Negative)
[2023-01-19 16:02] VITALS: BMI 25.2
[2023-01-19 17:17] LABS: Glucose,Whole Blood 329 mg/dL (70-110)
[2023-01-19] MEDS: HEPARIN SOD,PORK IN 0.45% NACL 25,000 UNIT in 0.45% NACL 1 250ML.BAG IV SCH (18:51)
[2023-01-19] MEDS ORDERED: ATORVASTATIN 40 MG TAB PO SCH (21:00)
[2023-01-20] MEDS: IPRATROPIUM-ALBUTEROL 3 ML NEB INHALATION SCH ×7 (00:18→23:35)
[2023-01-20 00:27] LABS: Hepatitis C IgG Antibody Nonreactive
[2023-01-20 01:15] LABS: Glucose,Whole Blood 437 mg/dL (70-110)
[2023-01-20] MEDS: methylPREDNISolone SOD SUCCI 125 MG/2 ML VIAL IV SCH ×4 (01:24→17:54)
[2023-01-20] MEDS: INSULIN ASPART (NovoLOG) 100 UNIT/ML VIAL SQ SCH ×3 (01:24→11:08)
[2023-01-20] MEDS: AMIODARONE 450 MG in DEXTROSE 5% IN WATER 250 ML IV SCH ×4 (01:25→16:33)
[2023-01-20] MEDS ORDERED: INSULIN ASPART (NovoLOG) 100 UNIT/ML VIAL SQ ONE ×2 (02:00→06:05)
[2023-01-20 04:25] LABS: Hepatitis B Surface Antigen Nonreactive
[2023-01-20 05:17] LABS: Anisocytosis Slight; Basophils % (A) 0 %; Eosinophils % (A) 0 %; HCT 29.9 % (39.0-53.0); HGB 9.2 gm/dL (13.0-17.5); Hypochromasia Marked; Lymphocytes # (A) 0.8 k/uL (1.0-4.8); Lymphocytes % (A) 10 %; MCH 29.1 pg (25.0-35.0); MCHC 30.9 g/dL (31.0-37.0); MCV 94.1 fL (80.0-100.0); Monocytes # (A) 0.4 k/uL (0-1.0); Monocytes % (A) 5 %; Neutrophils # (A) 6.6 k/uL (1.3-7.7); Neutrophils % (A) 84 %; Platelet Count 236 k/uL (150-450); RBC 3.18 m/uL (4.30-5.90); RDW 17.9 % (11.5-15.5); WBC 7.8 k/uL (3.8-10.6)
[2023-01-20 05:20] LABS: African American GFR (CKD) 22 (>60 ml/min/1.73 sqM); Albumin 2.5 g/dL (3.5-5.0); Carbon Dioxide 13 mmol/L (22-30); Non-African American GFR(CKD) 19 (>60 ml/min/1.73 sqM)
[2023-01-20 05:27] LABS: ABG Base Excess -12.9 mmol/L; ABG HCO3 15 mmol/L (21-25); ABG Oxygen Saturation 97.5 % (94-97); ABG PCO2 40 mmHg (35-45); ABG PO2 114 mmHg (83-108); ABG TCO2 17 mmol/L (19-24); Allen Test Performed? Yes
[2023-01-20 05:29] LABS: ABG PH 7.19 (7.35-7.45)
[2023-01-20 05:31] LABS: Alkaline Phosphatase 155 U/L (38-126); Blood Urea Nitrogen 46 mg/dL (9-20); Calcium 7.1 mg/dL (8.4-10.2); Glucose 496 mg/dL (74-99); Potassium 5.4 mmol/L (3.5-5.1); Sodium 133 mmol/L (137-145); Total Protein 5.3 g/dL (6.3-8.2)
[2023-01-20] MEDS ORDERED: SODIUM BICARB 8.4% 50 ML SYR (1 MEQ/ML) IV STA (05:31)
[2023-01-20 05:33] LABS: Anion Gap 20 mmol/L; Chloride 100 mmol/L (98-107)
[2023-01-20 05:48] LABS: Glucose,Whole Blood 542 mg/dL (70-110)
[2023-01-20] MEDS ORDERED: SODIUM BICARB 8.4% 50 ML SYR (1 MEQ/ML) ONE (05:51)
[2023-01-20 05:57] LABS: Glucose,Whole Blood 516 mg/dL (70-110)
[2023-01-20 06:04] LABS: ALT 4845 U/L (4-49); AST 8935 U/L (17-59)
[2023-01-20] MEDS: PIPERACILLIN-TAZOBACTAM 3.375 GM in SODIUM CHLORIDE 0.9% 100 ML IVPB SCH ×3 (06:22→21:46)
[2023-01-20] MEDS: NOREPINEPHRINE 8 MG in SODIUM CHLORIDE 0.9% 250 ML IV SCH (08:00)
[2023-01-20] MEDS: fentaNYL (PF). 1,000 MCG in SODIUM CHLORIDE 0.9% 80 ML IV SCH ×2 (08:13→17:21)
[2023-01-20] MEDS: CHLORHEXIDINE GLUCONATE 15 ML CUP MUCOUS MEM SCH ×2 (08:52→21:46)
[2023-01-20] MEDS: AZITHROMYCIN 500 MG in SODIUM CHLORIDE 0.9% 250 ML IVPB SCH (08:52)
[2023-01-20] MEDS: PANTOPRAZOLE 40 MG/10 ML VIAL IVP SCH (08:52)
[2023-01-20 09:04] LABS: Glucose,Whole Blood 596 mg/dL (70-110)
--- NOTE | 2023-01-20 09:25 | XR ---
EXAMINATION TYPE: XR chest 1V portable DATE OF EXAM: 01/20/2023 COMPARISON: 01/19/2023 HISTORY: SOB, Follow Up FINDINGS: Indwelling tubes and catheters are unchanged. Persistent pulmonary venous congestion with scattered infiltrates. Stable appearance of the cardio-mediastinal structures at this time. Increasing basilar effusions. IMPRESSION: 1. Increasing basilar effusions.Clinical correlation and follow up until resolution is recommended.
--- NOTE | 2023-01-20 09:25 | P.PN ---
Subjective Progress Note Date: 01/20/23 I am seeing this patient in consultation today 01/19/2023 in the intensive care unit after he had a cardiac arrest in the emergency room. Patient is a 67-year-old white male with past medical history significant for coronary artery disease, ischemic cardiomyopathy, atrial fibrillation, CVA/TIA, hyperlipidemia, diabetes mellitus, COPD. Patient is currently intubated on the mechanical ventilator, and unable to provide information for HPI. Most of this information is taken from chart review. Patient presented to the emergency room yesterday morning after having a near syncopal event. While in the emergency room, the patient was found to be in atrial fibrillation with rapid ventricular rate. Patient was trialed on a Cardizem infusion, but became hypotensive. Amiodarone infusion was started instead. Apparently, the patient had an episode of nausea and vomiting and became unresponsive while in the emergency room. One round of CPR was performed, and the patient received 1 amp of epinephrine. The patient was admitted to the intensive care unit. While in the intensive care unit, the patient had a subsequent PEA cardiac arrest with a limited downtime approximately 2 minutes. The patient was then intubated for airway protection. Currently, the patient is intubated on mechanical ventilator with settings of assist control, respiratory rate 20, tidal volume 400, FiO2 70%, PEEP of 8. AB Gs done on these settings with an FiO2 of 100% show a pO2 of 176, pCO2 49, pH of 7.22. He is sedated on propofol which is currently infusing at 40 mcg/kg/m and fentanyl which is infusing at 1 mcg/kg per hour. He is synchronous with mechanical ventilator. Peak pressures are 20. Postintubation chest x-ray shows endotracheal tube approximately 5 cm from the sasha. This could be advanced 1- 2 cm. There is central venous congestion and evidence of heart failure. There was a left subclavian catheter traversing superiorly, this has since been removed. The patient has a right femoral triple-lumen central line catheter. Patient also has a right wrist radial arterial line. Blood pressure is p rofoundly hypotensive. Currently requiring vasopressors in the form of norepinephrine at 0.4 mcg/kg/m, vasopressin at 0.03 units per minutes. Also, on amiodarone infusion currently at 0.5 mg/m and IV heparin per protocol. Current rhythm is normal sinus around 84 bpm. CBC from yesterday afternoon shows a WBC count of 6.5, hemoglobin 9.9, hematocrit 31.2, platelets 276. Most recent APTT is supratherapeutic at 70. BMP from yesterday afternoon shows a sodium 138, potassium 5, chloride 105, serum bicarb 23, BUN 22, creatinine 1.16, glucose 205. Lactic acid level was 2.5. Magnesium 2. LFTs are mildly elevated. Most recent EKG shows normal sinus rhythm with ST abnormalities/depressions in leads 1, aVL, V5, and V6. Troponins are trending up and currently at 13.4. NT proBNP elevated at 19,800. Patient was empirically placed on Zosyn for suspicion of aspiration. Currently afebrile. Patient's condition is critical, prognosis guarded. He is being monitored in the intensive care unit. Today's evaluation of 01/20/2023, the patient is being seen for a follow-up. The patient remains sedated on propofol at 35 microvascular kilogram per minute. The patient remains in cardiogenic shock. The patient continues to require pressors. The pressor requirements have improved since yesterday. The norepinephrine is running at 0.14 mcg/kg/m and the vasopressin is running at 0.04 units per minutes. Nevertheless, the patient remains acidotic and unstable hemodynamically. Lactic acid level is up to 11. The patient remains intubated on a mechanical ventilator. This morning, he is still sedated on propofol at 35 microvascular kilogram per minute. Is on a mechanical ventilator assist control mode at the rate of 20, tidal volume of 400 and FiO2 of 50% with a PEEP of 8. Blood gas shows a pH of 7.19 with a pCO2 of 40 and pO2 114. The patient has developed a shock liver and acute kidney injury. The patient had a chest x-ray this morning that showed pulmonary edema with development of bilateral pleural effusions. LFTs are abnormal with an AST of 8935, ALT of 4845, alkaline phosphatase 155. This is consistent with shock liver. Ultrasound the gallbladder was done and found some pericholecystic fluid. Acute cholecystitis was suspected. Surgical consultation was obtained. Obviously, the patient will be covered with antibiotics and there is no role for surgical intervention at this point especially with his underlying hemodynamic instability and shock state. The current cardiac rhythm is sinus. Pulse ox 97% on room air. Kidney failure is noted and the patient suffered an acute kidney injury with a BUN of 46 and a creatinine of 3.1. Potassium levels at 5.4. Blood sugars at 596 and the patient is going to be started on a insulin drip. He is also running e nteral feeding with vital high-protein. Objective - Vital Signs Vital signs: Vital Signs Temp 96.8 F L 01/20/23 04:00 Pulse 72 01/20/23 07:47 Resp 23 01/20/23 07:47 BP 104/61 01/20/23 07:00 Pulse Ox 97 01/20/23 07:00 FiO2 50 01/20/23 07:45 Intake & Output 01/19/23 01/20/23 01/20/23 18:59 06:59 18:59 Intake Total 2991.359 3084.459 278.396 Output Total 140 85 Balance 2851.359 2999.459 278.396 Weight 79.6 kg Intake: IV 1169 1194 .9 KVO 130 130 Dextrose 5% in Water 1, 900 1025 000 ml @ 75 mls/hr IV . [id number] [facility] with Sodium Bicarb (1 Meq/ml) 150 ml Rx#:[id number] Magnesium Sulfate-D5w Pmx 100 1 gm In Dextrose/Water 1 100ml.bag @ 100 mls/hr IVPB ONCE ONE Rx#: [id number] a line 39 39 Intake, IV Titration 6734.221 7398.459 278.396 Amount Amiodarone 450 mg In 250 198.893 Dextrose 5% in Water 250 ml @ 0.5 MG/MIN 16.667 mls/hr IV .Q15H [facility] Rx#: [id number] Heparin Sod,Pork in 0.45% 232.37 103.166 NaCl 25,000 unit In 0.45 % NaCl 1 250ml.bag @ 12 UNITS/KG/HR 8.491 mls/hr IV .Q24H [facility] Rx#: [id number] Norepinephrine 8 mg In 681.311 682.004 33.956 Sodium Chloride 0.9% 250 ml @ 0.03 MCG/KG/MIN 4. 108 mls/hr IV .Q24H [facility] Rx#:[id number] Potassium Chloride 20 meq 250 In Water For Injection 1 100ml.bag @ 50 mls/hr IVPB ONCE STA Rx#: [id number] Vasopressin 60 unit In 95.982 Sodium Chloride 0.9% 150 ml @ 0.03 UNITS/MIN 4.59 mls/hr IV .Q24H [facility] Rx#: [id number] fentaNYL (PF). 1,000 mcg 93.757 93.58 90.75 In Sodium Chloride 0.9% 80 ml @ 0.5 MCG/KG/HR 3. 538 mls/hr IV .Q24H [facility] Rx#:[id number] propofoL 1,000 mg In 134.921 200 50.524 Empty Bag 1 bag @ 15 MCG/ KG/MIN 6.368 mls/hr IV . [id number] [facility] Rx#:[id number] Tube Feeding 150 560 Other 30 60 Output: Urine 140 85 Other: Voiding Method Indwelling Catheter Indwelling Catheter ABP, PAP, CO, CI - Last Documented Arterial Blood Pressure 120/51 - Exam GENERAL EXAM: Sedated and synchronous with the mechanical ventilator, in no apparent distress. HEAD: Normocephalic and atraumatic EYES: Normal reaction of pupils, equal size. NOSE: Clear with pink turbinates. THROAT: No erythema or exudates. NECK: No masses, no JVD. CHEST: No chest wall deformity. LUNGS: Equal air entry with no crackles, wheeze, rhonchi or dullness. Intubated to the mechanical ventilator. CVS: S1 and S2 normal with no audible murmur, regular rhythm. No extra heart sounds ABDOMEN: No hepatosplenomegaly, active bowel sounds, no guarding or rigidity. SPINE: No scoliosis or deformity SKIN: No rashes CENTRAL NERVOUS SYSTEM: No focal deficits, tone is normal in all 4 extremities. EXTREMITIES: There is no peripheral edema, clubbing, or cyanosis. Peripheral pulses are intact. There is a right femoral triple-lumen central line and right wrist radial arterial line, Markedly diminished pulses in lower extremities bilaterally and they're obtainable by Doppler of the feet. Extremities are warm. - Labs CBC & Chem 7: 01/20/23 04:42 01/20/23 04:42 Labs: Abnormal Lab Results - Last 24 Hours (Table) 01/19/23 01/19/23 01/19/23 Range/Units 10:55 10:55 10:55 RBC (4.30-5.90) m/uL Hgb (13.0-17.5) gm/dL Hct (39.0-53.0) % MCHC (31.0-37.0) g/dL RDW (11.5-15.5) % Lymphocytes # (1.0-4.8) k/uL APTT (22.0-30.0) sec ABG pH (7.35-7.45) ABG pO2 (83-108) mmHg ABG HCO3 (21-25) mmol/L ABG Total CO2 (19-24) mmol/L ABG O2 Saturation (94-97) % ABG Lactic Acid (0.5-1.6) mmol/L Sodium (137-145) mmol/L Potassium (3.5-5.1) mmol/L Carbon Dioxide (22-30) mmol/L BUN (9-20) mg/dL Creatinine (0.66-1.25) mg/dL Glucose (74-99) mg/dL POC Glucose (mg/dL) (70-110) mg/dL Plasma Lactic Acid Yadiel 11.0 H* (0.7-2.0) mmol/L Calcium (8.4-10.2) mg/dL Total Bilirubin 2.3 H (0.2-1.3) mg/dL GGT 136 H (15-73) U/L AST (17-59) U/L ALT (4-49) U/L Alkaline Phosphatase 221 H (38-126) U/L Total Protein (6.3-8.2) g/dL Albumin (3.5-5.0) g/dL Procalcitonin 4.42 H (0.02-0.09) ng/mL Urine RBC (0-5) /hpf Urine WBC (0-5) /hpf Urine WBC Clumps (None) /hpf Amorphous Sediment (None) /hpf Urine Bacteria (None) /hpf 01/19/23 01/19/23 01/19/23 Range/Units 11:25 12:00 17:16 RBC (4.30-5.90) m/uL Hgb (13.0-17.5) gm/dL Hct (39.0-53.0) % MCHC (31.0-37.0) g/dL RDW (11.5-15.5) % Lymphocytes # (1.0-4.8) k/uL APTT (22.0-30.0) sec ABG pH (7.35-7.45) ABG pO2 (83-108) mmHg ABG HCO3 (21-25) mmol/L ABG Total CO2 (19-24) mmol/L ABG O2 Saturation (94-97) % ABG Lactic Acid (0.5-1.6) mmol/L Sodium (137-145) mmol/L Potassium (3.5-5.1) mmol/L Carbon Dioxide (22-30) mmol/L BUN (9-20) mg/dL Creatinine (0.66-1.25) mg/dL Glucose (74-99) mg/dL POC Glucose (mg/dL) 254 H 329 H (70-110) mg/dL Plasma Lactic Acid Yadiel (0.7-2.0) mmol/L Calcium (8.4-10.2) mg/dL Total Bilirubin (0.2-1.3) mg/dL GGT (15-73) U/L AST (17-59) U/L ALT (4-49) U/L Alkaline Phosphatase (38-126) U/L Total Protein (6.3-8.2) g/dL Albumin (3.5-5.0) g/dL Procalcitonin (0.02-0.09) ng/mL Urine RBC 22 H (0-5) /hpf Urine WBC 19 H (0-5) /hpf Urine WBC Clumps Few H (None) /hpf Amorphous Sediment Moderate H (None) /hpf Urine Bacteria Rare H (None) /hpf 01/20/23 01/20/23 01/20/23 Range/Units 01:13 04:42 04:42 RBC 3.18 L (4.30-5.90) m/uL Hgb 9.2 L (13.0-17.5) gm/dL Hct 29.9 L (39.0-53.0) % MCHC 30.9 L (31.0-37.0) g/dL RDW 17.9 H (11.5-15.5) % Lymphocytes # 0.8 L (1.0-4.8) k/uL APTT (22.0-30.0) sec ABG pH (7.35-7.45) ABG pO2 (83-108) mmHg ABG HCO3 (21-25) mmol/L ABG Total CO2 (19-24) mmol/L ABG O2 Saturation (94-97) % ABG Lactic Acid (0.5-1.6) mmol/L Sodium 133 L (137-145) mmol/L Potassium 5.4 H (3.5-5.1) mmol/L Carbon Dioxide 13 L (22-30) mmol/L BUN 46 H (9-20) mg/dL Creatinine 3.15 H (0.66-1.25) mg/dL Glucose 496 H (74-99) mg/dL POC Glucose (mg/dL) 437 H (70-110) mg/dL Plasma Lactic Acid Yadiel (0.7-2.0) mmol/L Calcium 7.1 L (8.4-10.2) mg/dL Total Bilirubin 2.0 H (0.2-1.3) mg/dL GGT (15-73) U/L AST 8935 H (17-59) U/L ALT 4845 H (4-49) U/L Alkaline Phosphatase 155 H (38-126) U/L Total Protein 5.3 L (6.3-8.2) g/dL Albumin 2.5 L (3.5-5.0) g/dL Procalcitonin (0.02-0.09) ng/mL Urine RBC (0-5) /hpf Urine WBC (0-5) /hpf Urine WBC Clumps (None) /hpf Amorphous Sediment (None) /hpf Urine Bacteria (None) /hpf 01/20/23 01/20/23 01/20/23 Range/Units 04:42 04:42 05:22 RBC (4.30-5.90) m/uL Hgb (13.0-17.5) gm/dL Hct (39.0-53.0) % MCHC (31.0-37.0) g/dL RDW (11.5-15.5) % Lymphocytes # (1.0-4.8) k/uL APTT 36.5 H (22.0-30.0) sec ABG pH 7.19 L* (7.35-7.45) ABG pO2 114 H (83-108) mmHg ABG HCO3 15 L (21-25) mmol/L ABG Total CO2 17 L (19-24) mmol/L ABG O2 Saturation 97.5 H (94-97) % ABG Lactic Acid 10.2 H* (0.5-1.6) mmol/L Sodium (137-145) mmol/L Potassium (3.5-5.1) mmol/L Carbon Dioxide (22-30) mmol/L BUN (9-20) mg/dL Creatinine (0.66-1.25) mg/dL Glucose (74-99) mg/dL POC Glucose (mg/dL) (70-110) mg/dL Plasma Lactic Acid Yadiel (0.7-2.0) mmol/L Calcium (8.4-10.2) mg/dL Total Bilirubin (0.2-1.3) mg/dL GGT (15-73) U/L AST (17-59) U/L ALT (4-49) U/L Alkaline Phosphatase (38-126) U/L Total Protein (6.3-8.2) g/dL Albumin (3.5-5.0) g/dL Procalcitonin (0.02-0.09) ng/mL Urine RBC (0-5) /hpf Urine WBC (0-5) /hpf Urine WBC Clumps (None) /hpf Amorphous Sediment (None) /hpf Urine Bacteria (None) /hpf 01/20/23 01/20/23 01/20/23 Range/Units 05:45 05:56 09:02 RBC (4.30-5.90) m/uL Hgb (13.0-17.5) gm/dL Hct (39.0-53.0) % MCHC (31.0-37.0) g/dL RDW (11.5-15.5) % Lymphocytes # (1.0-4.8) k/uL APTT (22.0-30.0) sec ABG pH (7.35-7.45) ABG pO2 (83-108) mmHg ABG HCO3 (21-25) mmol/L ABG Total CO2 (19-24) mmol/L ABG O2 Saturation (94-97) % ABG Lactic Acid (0.5-1.6) mmol/L Sodium (137-145) mmol/L Potassium (3.5-5.1) mmol/L Carbon Dioxide (22-30) mmol/L BUN (9-20) mg/dL Creatinine (0.66-1.25) mg/dL Glucose (74-99) mg/dL POC Glucose (mg/dL) 542 H 516 H 596 H (70-110) mg/dL Plasma Lactic Acid Yadiel (0.7-2.0) mmol/L Calcium (8.4-10.2) mg/dL Total Bilirubin (0.2-1.3) mg/dL GGT (15-73) U/L AST (17-59) U/L ALT (4-49) U/L Alkaline Phosphatase (38-126) U/L Total Protein (6.3-8.2) g/dL Albumin (3.5-5.0) g/dL Procalcitonin (0.02-0.09) ng/mL Urine RBC (0-5) /hpf Urine WBC (0-5) /hpf Urine WBC Clumps (None) /hpf Amorphous Sediment (None) /hpf Urine Bacteria (None) /hpf Microbiology - Last 24 Hours (Table) 01/19/23 12:14 Gram Stain - Preliminary Sputum 01/18/23 15:00 Blood Culture - Preliminary Blood Assessment and Plan Assessment: PEA cardiac arrest 2, estimated combined total downtime less than 5 minutes. Patient received one round of CPR and 1 amp of epinephrine each time, ROSC was achieved. Currently, in the intensive care unit in critical condition, intubated on the mechanical ventilator. Non-ST elevation myocardial infarction, currently on heparin infusion per protocol, troponins peaked at 13.4 and the patient currently is on IV heparin. Cardiogenic shock, currently requiring high-dose vasopressors in the form of norepinephrine and vasopressin, repeat echocardiogram that was at the bedside showed an ejection fraction of 20-25% Acute kidney injury Acute shock liver with elevated LFTs Acute hypoxemic and hypercapnic respiratory failure, secondary to above, i ntubated on mechanical ventilator. Recent chest x-ray shows pulmonary vascular congestion versus airspace disease/pulmonary edema History of ischemic cardiomyopathy, most recent echocardiogram from November 2022 shows a mildly reduced LV function with an estimated ejection fraction of 45-50% with mild hypokinesis of the lateral wall. Coronary artery disease, patient had recent PCI/stent to the RCA back in October,. Patient has known severe disease of the LAD and LCx. Atrial fibrillation with rapid ventricular rate, currently in normal sinus rhythm, anticoagulated on IV heparin per protocol and receiving IV amiodarone Chronic anemia, normocytic normochromic Acute kidney injury, cardiorenal, creatinine is up to 3.15, not producing urine output of this point in time. Acute hyperkalemia, potassium level is up to 5.4 Acute lactic acidosis, lactic acid level is elevated at 10 History CVA/TIA Hyperlipidemia Diabetes mellitus type 2 Chronic obstructive pulmonary disease, stable Questionable cholecystitis, currently on IV Zosyn. No role for surgical intervention at this point in time. Plan: Keep the patient sedated on propofol Condition remains critical Increase the respiratory rate up to 28 Give the patient to intensive sodium bicarb and monitor lactic acid level Continue bicarb infusion at the rate of 100 mL an hour Continue IV heparin Continue amiodarone drip Hold enteral feeding for nutritional support at this point in time Monitor potassium level Patient is oliguric/anuric at this point Had a discussion with cardiology. With was reasonable to do a right and the Limited left cardiac cath and assess for any potential for intervention. He may need mechanical support. General surgery consultation was appreciated Monitor LFTs monitor renal function The echocardiogram repeated and the patient has further impaired LV function with an EF of around 25-30%. Prognosis is extremely poor based above-mentioned comorbidities. We'll continue to follow. His evaluation was on a more than 30 minutes. Time with Patient: Greater than 30
--- NOTE | 2023-01-20 09:31 | P.PN ---
Subjective 67-year-old male who is known to Dr. Lazcano. Patient had a recent PCI to RCA October 2022 with diffuse disease to LAD and LCx with ischemic cardiomyopathy. His EF was around 40-45% with lateral wall hypokinesia. He also has history of hypertension, dyslipidemia, mitral regurgitation and prior CVA. Patient has been dealing with orthostatic hypotension lately and was in the hospital last time because of this. On last admission his beta willa and lisinopril was reduced and he was started on midodrine 10 mg 3 times a day This time patient doesn't the hospital because of concerns of low blood pressure, palpitations, feeling weak at home. Patient's reported that he's been coughing more than usual for last 2 days. She checked his blood pressure and requiring low and his heart rate was very high. There is no prior documentation if patient has atrial fibrillation. Patient has been on Xarelto for prior history of CVA. This time on admission to the ER he was noticed to be in atrial fibrillation with rapid ventricular response. There was also diffuse ST depressions. Lab shows hemoglobin 8.2 today. Last hemoglobin was 10. Creatinine 1.0 to admission, sodium 138, potassium 3.5, initial troponin was 3.2, BNP [id number] Bedside echocardiogram performed showed EF in range of 25-30%. Anterolateral hypokinesia, moderate MR, mild AI. No concerns of pericardial effusion or LVOT obstruction. When compared to prior echo from November his EF appeared to be have dropped. In ER because of low blood pressure and high heart rate he got amiodarone bolus 150mg. during that IV bolus patient became hypotensive and vomited and trans iently lost his pulse. He gave him 1 dose of epi 0.1 mg, and he had a return of spontaneous circulation with a downtime of less than 2 seconds. He was in sinus rhythm thereafter 01/19 Patient with recent admission and had Angela catheter discontinued one week ago. Apparently per he had significant urinary retention on presentation. Additionally he had been complaining of right-sided flank pain as well as nausea and vomiting. Renal ultrasound showing right hydronephrosis and possible cholecystitis. Patient with cardiac arrest mainly appears exacerbated by hyp otension. Remains on vasopressors on norepinephrine as well as vasopressin. 50% FiO2 with a PEEP of 8. 01/20 Patient seen and examined. Patient has had worsened lactic acidosis, shock liver. Surgery evaluated patient with recommendations for medical therapy for possible cholecystitis. He remains on vasopressin at 0.04 and norepinephrine at 0.14. Amiodarone drip at 0.5. Currently on a bicarb drip. Not making any urine. Creatinine up to 3.4. Echocardiogram shows EF 25% with elevated RVSP 60s and grade 3 diastolic dysfunction. REVIEW OF SYSTEMS 14 point review of system is negative except what is mentioned above in HPI. PHYSICAL EXAMINATION Vital signs reviewed. Head: Normocephalic. Eyes: Sclerae nonicteric. Neck: Brisk carotid upstroke, +jugular venous distention. Lungs: Clear to auscultation. Heart: Regular rate and rhythm, S1-S2, no S3, no murmur or rub. Abdomen: Soft nontender, positive bowel sounds no organomegaly. Extremities: No edema, intact distal pulses. Neuro: Intuabted and sedated ASSESSMENT Shock, possible cardiogenic however also may be septic A. fib RVR, currently is NSR NSTEMI possible type 1 vs type 2 Acute systolic congestive heart failure Ischemic cardiomyopathy with EF 25-30% CAD status post recent PCI to RCA 11/19 Residual diffuse disease in LAD and LCx Recently dealing with not tolerating cardiac medications Previous CVA on Xarelto Bedside echo showed an EF of 25-30% anterolateral hypokinesia, moderate MR. Last echo from November 2022 showed EF 40% Right sided flank pain, nausea, rule out sepsis Possible choleycystitis on ultrasound Right hydronephrosis GIL Shock liver PLAN Patient with worsening kidney function as well as liver function, shock liver, and not make any urine. White blood cell count relatively normal and not any overwhelming sepsis. Given worsened ejection fraction, non-STEMI we will evalu ate with a right heart catheterization to evaluate cardiac output and if needed possibly place left ventricular assist device. Continue with heparin drip. Stop amiodarone given currently sinus rhythm and increased liver enzymes. Discussed with family. Prognosis guarded. Objective - Vital Signs Vital signs: Vital Signs Temp 96.8 F L 01/20/23 04:00 Pulse 72 01/20/23 07:47 Resp 23 01/20/23 07:47 BP 104/61 01/20/23 07:00 Pulse Ox 97 01/20/23 07:00 FiO2 50 01/20/23 07:45 Intake & Output 01/19/23 01/20/23 01/20/23 18:59 06:59 18:59 Intake Total 2991.359 3084.459 278.396 Output Total 140 85 Balance 2851.359 2999.459 278.396 Weight 79.6 kg Intake: IV 1169 1194 .9 KVO 130 130 Dextrose 5% in Water 1, 900 1025 000 ml @ 75 mls/hr IV . [id number] ARIADNE with Sodium Bicarb (1 Meq/ml) 150 ml Rx#:[id number] Magnesium Sulfate-D5w Pmx 100 1 gm In Dextrose/Water 1 100ml.bag @ 100 mls/hr IVPB ONCE ONE Rx#: [id number] a line 39 39 Intake, IV Titration 4720.094 2041.459 278.396 Amount Amiodarone 450 mg In 250 198.893 Dextrose 5% in Water 250 ml @ 0.5 MG/MIN 16.667 mls/hr IV .Q15H [facility] Rx#: [id number] Heparin Sod,Pork in 0.45% 232.37 103.166 NaCl 25,000 unit In 0.45 % NaCl 1 250ml.bag @ 12 UNITS/KG/HR 8.491 mls/hr IV .Q24H [facility] Rx#: [id number] Norepinephrine 8 mg In 681.311 682.004 33.956 Sodium Chloride 0.9% 250 ml @ 0.03 MCG/KG/MIN 4. 108 mls/hr IV .Q24H [facility] Rx#:[id number] Potassium Chloride 20 meq 250 In Water For Injection 1 100ml.bag @ 50 mls/hr IVPB ONCE STA Rx#: [id number] Vasopressin 60 unit In 95.982 Sodium Chloride 0.9% 150 ml @ 0.03 UNITS/MIN 4.59 mls/hr IV .Q24H [facility] Rx#: [id number] fentaNYL (PF). 1,000 mcg 93.757 93.58 90.75 In Sodium Chloride 0.9% 80 ml @ 0.5 MCG/KG/HR 3. 538 mls/hr IV .Q24H [facility] Rx#:[id number] propofoL 1,000 mg In 134.921 200 50.524 Empty Bag 1 bag @ 15 MCG/ KG/MIN 6.368 mls/hr IV . [id number] ARIADNE Rx#:[id number] Tube Feeding 150 560 Other 30 60 Output: Urine 140 85 Other: Voiding Method Indwelling Catheter Indwelling Catheter ABP, PAP, CO, CI - Last Documented Arterial Blood Pressure 120/51 - Labs CBC & Chem 7: 01/20/23 04:42 01/20/23 04:42 Labs: Abnormal Lab Results - Last 24 Hours (Table) 01/19/23 01/19/23 01/19/23 Range/Units 10:55 10:55 10:55 RBC (4.30-5.90) m/uL Hgb (13.0-17.5) gm/dL Hct (39.0-53.0) % MCHC (31.0-37.0) g/dL RDW (11.5-15.5) % Lymphocytes # (1.0-4.8) k/uL APTT (22.0-30.0) sec ABG pH (7.35-7.45) ABG pO2 (83-108) mmHg ABG HCO3 (21-25) mmol/L ABG Total CO2 (19-24) mmol/L ABG O2 Saturation (94-97) % ABG Lactic Acid (0.5-1.6) mmol/L Sodium (137-145) mmol/L Potassium (3.5-5.1) mmol/L Carbon Dioxide (22-30) mmol/L BUN (9-20) mg/dL Creatinine (0.66-1.25) mg/dL Glucose (74-99) mg/dL POC Glucose (mg/dL) (70-110) mg/dL Plasma Lactic Acid Yadiel 11.0 H* (0.7-2.0) mmol/L Calcium (8.4-10.2) mg/dL Total Bilirubin 2.3 H (0.2-1.3) mg/dL GGT 136 H (15-73) U/L AST (17-59) U/L ALT (4-49) U/L Alkaline Phosphatase 221 H (38-126) U/L Total Protein (6.3-8.2) g/dL Albumin (3.5-5.0) g/dL Procalcitonin 4.42 H (0.02-0.09) ng/mL Urine RBC (0-5) /hpf Urine WBC (0-5) /hpf Urine WBC Clumps (None) /hpf Amorphous Sediment (None) /hpf Urine Bacteria (None) /hpf 01/19/23 01/19/23 01/19/23 Range/Units 11:25 12:00 17:16 RBC (4.30-5.90) m/uL Hgb (13.0-17.5) gm/dL Hct (39.0-53.0) % MCHC (31.0-37.0) g/dL RDW (11.5-15.5) % Lymphocytes # (1.0-4.8) k/uL APTT (22.0-30.0) sec ABG pH (7.35-7.45) ABG pO2 (83-108) mmHg ABG HCO3 (21-25) mmol/L ABG Total CO2 (19-24) mmol/L ABG O2 Saturation (94-97) % ABG Lactic Acid (0.5-1.6) mmol/L Sodium (137-145) mmol/L Potassium (3.5-5.1) mmol/L Carbon Dioxide (22-30) mmol/L BUN (9-20) mg/dL Creatinine (0.66-1.25) mg/dL Glucose (74-99) mg/dL POC Glucose (mg/dL) 254 H 329 H (70-110) mg/dL Plasma Lactic Acid Yadiel (0.7-2.0) mmol/L Calcium (8.4-10.2) mg/dL Total Bilirubin (0.2-1.3) mg/dL GGT (15-73) U/L AST (17-59) U/L ALT (4-49) U/L Alkaline Phosphatase (38-126) U/L Total Protein (6.3-8.2) g/dL Albumin (3.5-5.0) g/dL Procalcitonin (0.02-0.09) ng/mL Urine RBC 22 H (0-5) /hpf Urine WBC 19 H (0-5) /hpf Urine WBC Clumps Few H (None) /hpf Amorphous Sediment Moderate H (None) /hpf Urine Bacteria Rare H (None) /hpf 01/20/23 01/20/23 01/20/23 Range/Units 01:13 04:42 04:42 RBC 3.18 L (4.30-5.90) m/uL Hgb 9.2 L (13.0-17.5) gm/dL Hct 29.9 L (39.0-53.0) % MCHC 30.9 L (31.0-37.0) g/dL RDW 17.9 H (11.5-15.5) % Lymphocytes # 0.8 L (1.0-4.8) k/uL APTT (22.0-30.0) sec ABG pH (7.35-7.45) ABG pO2 (83-108) mmHg ABG HCO3 (21-25) mmol/L ABG Total CO2 (19-24) mmol/L ABG O2 Saturation (94-97) % ABG Lactic Acid (0.5-1.6) mmol/L Sodium 133 L (137-145) mmol/L Potassium 5.4 H (3.5-5.1) mmol/L Carbon Dioxide 13 L (22-30) mmol/L BUN 46 H (9-20) mg/dL Creatinine 3.15 H (0.66-1.25) mg/dL Glucose 496 H (74-99) mg/dL POC Glucose (mg/dL) 437 H (70-110) mg/dL Plasma Lactic Acid Yadiel (0.7-2.0) mmol/L Calcium 7.1 L (8.4-10.2) mg/dL Total Bilirubin 2.0 H (0.2-1.3) mg/dL GGT (15-73) U/L AST 8935 H (17-59) U/L ALT 4845 H (4-49) U/L Alkaline Phosphatase 155 H (38-126) U/L Total Protein 5.3 L (6.3-8.2) g/dL Albumin 2.5 L (3.5-5.0) g/dL Procalcitonin (0.02-0.09) ng/mL Urine RBC (0-5) /hpf Urine WBC (0-5) /hpf Urine WBC Clumps (None) /hpf Amorphous Sediment (None) /hpf Urine Bacteria (None) /hpf 01/20/23 01/20/23 01/20/23 Range/Units 04:42 04:42 05:22 RBC (4.30-5.90) m/uL Hgb (13.0-17.5) gm/dL Hct (39.0-53.0) % MCHC (31.0-37.0) g/dL RDW (11.5-15.5) % Lymphocytes # (1.0-4.8) k/uL APTT 36.5 H (22.0-30.0) sec ABG pH 7.19 L* (7.35-7.45) ABG pO2 114 H (83-108) mmHg ABG HCO3 15 L (21-25) mmol/L ABG Total CO2 17 L (19-24) mmol/L ABG O2 Saturation 97.5 H (94-97) % ABG Lactic Acid 10.2 H* (0.5-1.6) mmol/L Sodium (137-145) mmol/L Potassium (3.5-5.1) mmol/L Carbon Dioxide (22-30) mmol/L BUN (9-20) mg/dL Creatinine (0.66-1.25) mg/dL Glucose (74-99) mg/dL POC Glucose (mg/dL) (70-110) mg/dL Plasma Lactic Acid Yadiel (0.7-2.0) mmol/L Calcium (8.4-10.2) mg/dL Total Bilirubin (0.2-1.3) mg/dL GGT (15-73) U/L AST (17-59) U/L ALT (4-49) U/L Alkaline Phosphatase (38-126) U/L Total Protein (6.3-8.2) g/dL Albumin (3.5-5.0) g/dL Procalcitonin (0.02-0.09) ng/mL Urine RBC (0-5) /hpf Urine WBC (0-5) /hpf Urine WBC Clumps (None) /hpf Amorphous Sediment (None) /hpf Urine Bacteria (None) /hpf 01/20/23 01/20/23 01/20/23 Range/Units 05:45 05:56 09:02 RBC (4.30-5.90) m/uL Hgb (13.0-17.5) gm/dL Hct (39.0-53.0) % MCHC (31.0-37.0) g/dL RDW (11.5-15.5) % Lymphocytes # (1.0-4.8) k/uL APTT (22.0-30.0) sec ABG pH (7.35-7.45) ABG pO2 (83-108) mmHg ABG HCO3 (21-25) mmol/L ABG Total CO2 (19-24) mmol/L ABG O2 Saturation (94-97) % ABG Lactic Acid (0.5-1.6) mmol/L Sodium (137-145) mmol/L Potassium (3.5-5.1) mmol/L Carbon Dioxide (22-30) mmol/L BUN (9-20) mg/dL Creatinine (0.66-1.25) mg/dL Glucose (74-99) mg/dL POC Glucose (mg/dL) 542 H 516 H 596 H (70-110) mg/dL Plasma Lactic Acid Yadiel (0.7-2.0) mmol/L Calcium (8.4-10.2) mg/dL Total Bilirubin (0.2-1.3) mg/dL GGT (15-73) U/L AST (17-59) U/L ALT (4-49) U/L Alkaline Phosphatase (38-126) U/L Total Protein (6.3-8.2) g/dL Albumin (3.5-5.0) g/dL Procalcitonin (0.02-0.09) ng/mL Urine RBC (0-5) /hpf Urine WBC (0-5) /hpf Urine WBC Clumps (None) /hpf Amorphous Sediment (None) /hpf Urine Bacteria (None) /hpf Microbiology - Last 24 Hours (Table) 01/19/23 12:14 Gram Stain - Preliminary Sputum 01/18/23 15:00 Blood Culture - Preliminary Blood
[2023-01-20] MEDS ORDERED: NITROGLYCERIN SL TABS 0.4 MG TAB SUBLINGUAL PRN (09:33)
[2023-01-20] MEDS ORDERED: ALPRAZolam 0.25 MG TAB PO PRN (09:33)
[2023-01-20] MEDS ORDERED: ALPRAZolam 0.5 MG TAB PO PRN (09:33)
[2023-01-20] MEDS: SODIUM CHLORIDE 0.9% 1,000 ML in EMPTY BAG 1 BAG IV SCH ×2 (09:47→21:18)
[2023-01-20] MEDS: ATORVASTATIN 80 MG TAB PO STA ×2 (09:49→10:46)
[2023-01-20] MEDS: ASPIRIN 325 MG TAB PO STA ×2 (09:49→10:46)
[2023-01-20] MEDS: INSULIN REGULAR 100 UNIT in SODIUM CHLORIDE 0.9% 100 ML IV SCH ×5 (09:58→23:14)
[2023-01-20 10:22] LABS: Glucose,Whole Blood >600 mg/dL (70-110)
--- NOTE | 2023-01-20 10:53 | P.PN ---
Subjective Progress Note Date: 01/20/23 Hospital Course: 67-year-old male with a history of CAD status post recent RCA stent, diffuse LAD and circumflex disease, systolic heart failure with EF 35%, type 2 diabetes on insulin pump, atrial fibrillation, dyslipidemia, severe orthostatic hypotension, recent multiple falls presenting with another syncopal episode. In the ED, initial temperature was 97.8, pulse 156, respiratory rate 20, blood pressure 98/68, saturating at 99% on room air. Hemoglobin at 8.2, was previously at 10.7, INR 1.2, creatinine 1.03, glucose 111, troponin 3.28, proBNP 19,000. Initial EKG independently interpreted shows atrial fibrillation with RVR and diffuse ST depressions. Chest x-ray independently interpreted shows interstitial opacities. Patient was started on Cardizem, which dropped his blood pressure. He was then started on amiodarone which further dropped his pressures, he received 1 dose of epinephrine, did have an episode of emesis, and is now on amiodarone drip as well as levofloxacin.. Cardiology was at bedside. Bedside echo did show reduced EF. He also had urinary retention, Angela catheter placed. Upon arrival to medical ICU, patient had another few bouts of emesis and subsequently PA arrest. He required CPR and epinephrine. Was also intubated. Currently he has circulatory shock, on vasopressors, remains intubated. Prognosis is poor. Ultrasound did show findings concerning for acute cholecystitis. Shock either secondary to sepsis versus cardiogenic. Right heart cath pending today Subjective: Patient seen and examined at bedside. No acute events overnight. Continues to remain critically ill, on 2 vasopressors, bicarbonate drip, no urine output, intubated and sedated. Per nurse, were able to decrease norepinephrine. Pertinent positives and negatives as discussed above, a complete review of systems was performed and all other systems are negative. Vitals Signs Reviewed. General: Intubated and sedated Derm: warm, dry Head: atraumatic, normocephalic, symmetric Eyes: Pupils equal and minimally reactive Mouth: no lip lesion, mucus membranes moist Cardiovascular: S1S2 reg, tachycardic, no murmur Lungs: Bilateral rhonchi, mechanically ventilated Abdominal: soft, nondistended, NG tube in place Ext: no gross muscle atrophy, no edema, no contractures Neuro: Sedated Psych: Unable to assess Data Reviewed Today: Pertinent Labs: WBC 7.8, hemoglobin 9.2, pH 7.19, pCO2 40, pO2 114, bicarb 15, lactate 10.2, potassium 5.4, creatinine 2.15, blood sugars in the 400s, total bilirubin 2, AST 19,000, ALT 5000, ALP 155 Imaging: Chest x-ray independently interpreted, shows interstitial opacities Assessment and Plan: Patient is critically ill, and medical ICU, prognosis guarded. Shock, septic versus cardiogenic Status post cardiac arrest Paroxysmal Atrial fibrillation with RVR NSTEMI CAD status post recent stent, with residual diffuse left coronary disease not amenable to intervention Suspected acute cholecystitis Mild to moderate right hydronephrosis Acute urinary retention status post Angela Anuric Acute kidney injury, likely ATN in the setting of shock Acute on chronic normocytic anemia Acute hypoxic respiratory failure, requiring intubation and mechanical ventilation Acute on chronic systolic CHF exacerbation Suspected aspiration pneumonitis History of severe orthostatic hypotension Recurrent Syncope Acute hepatitis, likely ischemic versus hepatic congestion secondary to cardiogenic -Discussed management with cardiology, pending right heart cath to determine if cardiogenic shock -Patient remains on IV amiodarone -Had a discussion with shore man, continue supportive care for now -Wean pressors if possible -Patient on IV Solu-Medrol 60 mg every 6 hours -Surgery was consulted yesterday, not a good candidate for surgery -Patient may need dialysis, nephrology consulted, remains on sodium bicarbonate -Patient is currently on IV Zosyn 3.375 g every 8 hours IV as well as IV azithromycin -Monitor CBCs, no active bleeding Type 2 diabetes on insulin pump -Switched over to insulin drip per better glucose control, monitor for hypog lycemia Dyslipidemia -I did discontinue her statin earlier due to acute hepatitis DVT ppx: Heparin drip Code status: Full code Anticipated discharge place: Pending clinical course Anticipated discharge time: Pending clinical course Objective - Vital Signs Vital signs: Vital Signs Temp 98.4 F 01/20/23 08:00 Pulse 75 01/20/23 10:15 Resp 28 H 01/20/23 10:15 BP 96/66 01/20/23 10:15 Pulse Ox 95 01/20/23 10:15 FiO2 50 01/20/23 08:00 Intake & Output 01/19/23 01/20/23 01/20/23 18:59 06:59 18:59 Intake Total 2991.359 3084.459 1086.567 Output Total 140 85 0 Balance 2851.359 2999.459 1086.567 Weight 79.6 kg Intake: IV 1169 1194 619 .9 KVO 130 130 60 Azithromycin 500 mg In 250 Sodium Chloride 0.9% 250 ml @ 250 mls/hr IVPB DAILY [facility] Rx#:[id number] Dextrose 5% in Water 1, 900 1025 300 000 ml @ 75 mls/hr IV . [id number] ARIADNE with Sodium Bicarb (1 Meq/ml) 150 ml Rx#:[id number] Magnesium Sulfate-D5w Pmx 100 1 gm In Dextrose/Water 1 100ml.bag @ 100 mls/hr IVPB ONCE ONE Rx#: [id number] a line 39 39 9 Intake, IV Titration 3625.253 2092.459 467.567 Amount Amiodarone 450 mg In 250 198.893 152.225 Dextrose 5% in Water 250 ml @ 0.5 MG/MIN 16.667 mls/hr IV .Q15H [facility] Rx#: [id number] Heparin Sod,Pork in 0.45% 232.37 103.166 NaCl 25,000 unit In 0.45 % NaCl 1 250ml.bag @ 12 UNITS/KG/HR 8.491 mls/hr IV .Q24H [facility] Rx#: [id number] Insulin Regular 100 unit 3.4 In Sodium Chloride 0.9% 100 ml @ Titrate IV .Q0M [facility] Rx#:[id number] Norepinephrine 8 mg In 681.311 682.004 67.502 Sodium Chloride 0.9% 250 ml @ 0.03 MCG/KG/MIN 4. 108 mls/hr IV .Q24H [facility] Rx#:[id number] Potassium Chloride 20 meq 250 In Water For Injection 1 100ml.bag @ 50 mls/hr IVPB ONCE STA Rx#: [id number] Vasopressin 60 unit In 95.982 Sodium Chloride 0.9% 150 ml @ 0.03 UNITS/MIN 4.59 mls/hr IV .Q24H [facility] Rx#: [id number] fentaNYL (PF). 1,000 mcg 93.757 93.58 90.75 In Sodium Chloride 0.9% 80 ml @ 0.5 MCG/KG/HR 3. 538 mls/hr IV .Q24H [facility] Rx#:[id number] propofoL 1,000 mg In 134.921 200 50.524 Empty Bag 1 bag @ 15 MCG/ KG/MIN 6.368 mls/hr IV . [id number] [facility]ADNE Rx#:[id number] Tube Feeding 150 560 Other 30 60 Output: Urine 140 85 0 Other: Voiding Method Indwelling Catheter Indwelling Catheter ABP, PAP, CO, CI - Last Documented Arterial Blood Pressure 105/51 - Labs CBC & Chem 7: 01/20/23 04:42 01/20/23 04:42 Labs: Abnormal Lab Results - Last 24 Hours (Table) 01/19/23 01/19/23 01/19/23 Range/Units 10:55 10:55 10:55 RBC (4.30-5.90) m/uL Hgb (13.0-17.5) gm/dL Hct (39.0-53.0) % MCHC (31.0-37.0) g/dL RDW (11.5-15.5) % Lymphocytes # (1.0-4.8) k/uL APTT (22.0-30.0) sec ABG pH (7.35-7.45) ABG pO2 (83-108) mmHg ABG HCO3 (21-25) mmol/L ABG Total CO2 (19-24) mmol/L ABG O2 Saturation (94-97) % ABG Lactic Acid (0.5-1.6) mmol/L Sodium (137-145) mmol/L Potassium (3.5-5.1) mmol/L Carbon Dioxide (22-30) mmol/L BUN (9-20) mg/dL Creatinine (0.66-1.25) mg/dL Glucose (74-99) mg/dL POC Glucose (mg/dL) (70-110) mg/dL Plasma Lactic Acid Yadiel 11.0 H* (0.7-2.0) mmol/L Calcium (8.4-10.2) mg/dL Total Bilirubin 2.3 H (0.2-1.3) mg/dL GGT 136 H (15-73) U/L AST (17-59) U/L ALT (4-49) U/L Alkaline Phosphatase 221 H (38-126) U/L Total Protein (6.3-8.2) g/dL Albumin (3.5-5.0) g/dL Procalcitonin 4.42 H (0.02-0.09) ng/mL Urine RBC (0-5) /hpf Urine WBC (0-5) /hpf Urine WBC Clumps (None) /hpf Amorphous Sediment (None) /hpf Urine Bacteria (None) /hpf 01/19/23 01/19/23 01/19/23 Range/Units 11:25 12:00 17:16 RBC (4.30-5.90) m/uL Hgb (13.0-17.5) gm/dL Hct (39.0-53.0) % MCHC (31.0-37.0) g/dL RDW (11.5-15.5) % Lymphocytes # (1.0-4.8) k/uL APTT (22.0-30.0) sec ABG pH (7.35-7.45) ABG pO2 (83-108) mmHg ABG HCO3 (21-25) mmol/L ABG Total CO2 (19-24) mmol/L ABG O2 Saturation (94-97) % ABG Lactic Acid (0.5-1.6) mmol/L Sodium (137-145) mmol/L Potassium (3.5-5.1) mmol/L Carbon Dioxide (22-30) mmol/L BUN (9-20) mg/dL Creatinine (0.66-1.25) mg/dL Glucose (74-99) mg/dL POC Glucose (mg/dL) 254 H 329 H (70-110) mg/dL Plasma Lactic Acid Yadiel (0.7-2.0) mmol/L Calcium (8.4-10.2) mg/dL Total Bilirubin (0.2-1.3) mg/dL GGT (15-73) U/L AST (17-59) U/L ALT (4-49) U/L Alkaline Phosphatase (38-126) U/L Total Protein (6.3-8.2) g/dL Albumin (3.5-5.0) g/dL Procalcitonin (0.02-0.09) ng/mL Urine RBC 22 H (0-5) /hpf Urine WBC 19 H (0-5) /hpf Urine WBC Clumps Few H (None) /hpf Amorphous Sediment Moderate H (None) /hpf Urine Bacteria Rare H (None) /hpf 01/20/23 01/20/23 01/20/23 Range/Units 01:13 04:42 04:42 RBC 3.18 L (4.30-5.90) m/uL Hgb 9.2 L (13.0-17.5) gm/dL Hct 29.9 L (39.0-53.0) % MCHC 30.9 L (31.0-37.0) g/dL RDW 17.9 H (11.5-15.5) % Lymphocytes # 0.8 L (1.0-4.8) k/uL APTT (22.0-30.0) sec ABG pH (7.35-7.45) ABG pO2 (83-108) mmHg ABG HCO3 (21-25) mmol/L ABG Total CO2 (19-24) mmol/L ABG O2 Saturation (94-97) % ABG Lactic Acid (0.5-1.6) mmol/L Sodium 133 L (137-145) mmol/L Potassium 5.4 H (3.5-5.1) mmol/L Carbon Dioxide 13 L (22-30) mmol/L BUN 46 H (9-20) mg/dL Creatinine 3.15 H (0.66-1.25) mg/dL Glucose 496 H (74-99) mg/dL POC Glucose (mg/dL) 437 H (70-110) mg/dL Plasma Lactic Acid Yadiel (0.7-2.0) mmol/L Calcium 7.1 L (8.4-10.2) mg/dL Total Bilirubin 2.0 H (0.2-1.3) mg/dL GGT (15-73) U/L AST 8935 H (17-59) U/L ALT 4845 H (4-49) U/L Alkaline Phosphatase 155 H (38-126) U/L Total Protein 5.3 L (6.3-8.2) g/dL Albumin 2.5 L (3.5-5.0) g/dL Procalcitonin (0.02-0.09) ng/mL Urine RBC (0-5) /hpf Urine WBC (0-5) /hpf Urine WBC Clumps (None) /hpf Amorphous Sediment (None) /hpf Urine Bacteria (None) /hpf 01/20/23 01/20/23 01/20/23 Range/Units 04:42 04:42 05:22 RBC (4.30-5.90) m/uL Hgb (13.0-17.5) gm/dL Hct (39.0-53.0) % MCHC (31.0-37.0) g/dL RDW (11.5-15.5) % Lymphocytes # (1.0-4.8) k/uL APTT 36.5 H (22.0-30.0) sec ABG pH 7.19 L* (7.35-7.45) ABG pO2 114 H (83-108) mmHg ABG HCO3 15 L (21-25) mmol/L ABG Total CO2 17 L (19-24) mmol/L ABG O2 Saturation 97.5 H (94-97) % ABG Lactic Acid 10.2 H* (0.5-1.6) mmol/L Sodium (137-145) mmol/L Potassium (3.5-5.1) mmol/L Carbon Dioxide (22-30) mmol/L BUN (9-20) mg/dL Creatinine (0.66-1.25) mg/dL Glucose (74-99) mg/dL POC Glucose (mg/dL) (70-110) mg/dL Plasma Lactic Acid Yadiel (0.7-2.0) mmol/L Calcium (8.4-10.2) mg/dL Total Bilirubin (0.2-1.3) mg/dL GGT (15-73) U/L AST (17-59) U/L ALT (4-49) U/L Alkaline Phosphatase (38-126) U/L Total Protein (6.3-8.2) g/dL Albumin (3.5-5.0) g/dL Procalcitonin (0.02-0.09) ng/mL Urine RBC (0-5) /hpf Urine WBC (0-5) /hpf Urine WBC Clumps (None) /hpf Amorphous Sediment (None) /hpf Urine Bacteria (None) /hpf 01/20/23 01/20/23 01/20/23 Range/Units 05:45 05:56 09:02 RBC (4.30-5.90) m/uL Hgb (13.0-17.5) gm/dL Hct (39.0-53.0) % MCHC (31.0-37.0) g/dL RDW (11.5-15.5) % Lymphocytes # (1.0-4.8) k/uL APTT (22.0-30.0) sec ABG pH (7.35-7.45) ABG pO2 (83-108) mmHg ABG HCO3 (21-25) mmol/L ABG Total CO2 (19-24) mmol/L ABG O2 Saturation (94-97) % ABG Lactic Acid (0.5-1.6) mmol/L Sodium (137-145) mmol/L Potassium (3.5-5.1) mmol/L Carbon Dioxide (22-30) mmol/L BUN (9-20) mg/dL Creatinine (0.66-1.25) mg/dL Glucose (74-99) mg/dL POC Glucose (mg/dL) 542 H 516 H 596 H (70-110) mg/dL Plasma Lactic Acid Yadiel (0.7-2.0) mmol/L Calcium (8.4-10.2) mg/dL Total Bilirubin (0.2-1.3) mg/dL GGT (15-73) U/L AST (17-59) U/L ALT (4-49) U/L Alkaline Phosphatase (38-126) U/L Total Protein (6.3-8.2) g/dL Albumin (3.5-5.0) g/dL Procalcitonin (0.02-0.09) ng/mL Urine RBC (0-5) /hpf Urine WBC (0-5) /hpf Urine WBC Clumps (None) /hpf Amorphous Sediment (None) /hpf Urine Bacteria (None) /hpf 01/20/23 Range/Units 10:21 RBC (4.30-5.90) m/uL Hgb (13.0-17.5) gm/dL Hct (39.0-53.0) % MCHC (31.0-37.0) g/dL RDW (11.5-15.5) % Lymphocytes # (1.0-4.8) k/uL APTT (22.0-30.0) sec ABG pH (7.35-7.45) ABG pO2 (83-108) mmHg ABG HCO3 (21-25) mmol/L ABG Total CO2 (19-24) mmol/L ABG O2 Saturation (94-97) % ABG Lactic Acid (0.5-1.6) mmol/L Sodium (137-145) mmol/L Potassium (3.5-5.1) mmol/L Carbon Dioxide (22-30) mmol/L BUN (9-20) mg/dL Creatinine (0.66-1.25) mg/dL Glucose (74-99) mg/dL POC Glucose (mg/dL) >600 H (70-110) mg/dL Plasma Lactic Acid Yadiel (0.7-2.0) mmol/L Calcium (8.4-10.2) mg/dL Total Bilirubin (0.2-1.3) mg/dL GGT (15-73) U/L AST (17-59) U/L ALT (4-49) U/L Alkaline Phosphatase (38-126) U/L Total Protein (6.3-8.2) g/dL Albumin (3.5-5.0) g/dL Procalcitonin (0.02-0.09) ng/mL Urine RBC (0-5) /hpf Urine WBC (0-5) /hpf Urine WBC Clumps (None) /hpf Amorphous Sediment (None) /hpf Urine Bacteria (None) /hpf Microbiology - Last 24 Hours (Table) 01/19/23 12:14 Gram Stain - Preliminary Sputum 01/18/23 15:00 Blood Culture - Preliminary Blood
[2023-01-20 10:58] LABS: Glucose,Whole Blood >600 mg/dL (70-110)
[2023-01-20] MEDS: DEXTROSE 5% IN WATER 1,000 ML with SODIUM BICARB (1 MEQ/ML) 150 ML IV SCH ×2 (11:09→11:30)
[2023-01-20 11:58] LABS: Glucose,Whole Blood >600 mg/dL (70-110)
[2023-01-20] MEDS ORDERED: VERAPAMIL 2.5 MG/ML 2 ML AMP ONE (12:08)
[2023-01-20] MEDS ORDERED: LIDOCAINE 1% INJ 10MG/ML (20 ML MDV) ONE (12:08)
[2023-01-20] MEDS ORDERED: SODIUM CHLORIDE 0.9% 1,000 ML IV ONE (12:43)
[2023-01-20] MEDS ORDERED: LIDOCAINE 1% INJ 10MG/ML (20 ML MDV) SQ ONE (12:45)
[2023-01-20] MEDS ORDERED: RX INFO: IV CONTRAST WAS GIVEN 1 EACH MISC MISCELLANE PRN (13:34)
[2023-01-20] MEDS ORDERED: IOPAMIDOL-370 100ML BTL INJ ONE (13:36)
--- NOTE | 2023-01-20 13:44 | P.PCN ---
Date of Procedure: 01/20/23 Operative Findings: CARDIAC CATHETERIZATION PERFORMING PHYSICIAN: Young Lazcano MD, RPVI PROCEDURE PERFORMED: 1. Selective right and left coronary angiogram 2. Left heart catheterization 3. Right heart catheterization 4. Successful placement of Impella in the LV 5. Selective left common femoral artery angiogram 6. Ultrasound-guided access of the left common femoral vein and left common femoral artery INDICATION: This 65-year-old gentleman with severe triple-vessel coronary artery disease as well as ischemic cardiomyopathy as well as valvular heart disease. He was deemed to be high risk for coronary artery was grafting and the only artery was amenable for percutaneous revascularization the RCA. The patient underwent PCI of the RCA few months ago. This time he was admitted to the hospital with change in mental status and he was diagnosed was cardiogenic shock. His kidney function where getting worse as well as his liver function tests. He is requiring vasopressors. In the light of that a heart catheterization, right and left along with possible placement of Impella was advised COMPLICATION: None APPROACH: Right common femoral artery LEVEL OF SEDATION: Moderate with sedation in length of 47 minutes PROCEDURE DESCRIPTION: After obtaining an informed consent, the patient was brought to cardiac laboratory mechanic helper. The left common femoral vein was cannulated using micropuncture technique under ultrasound guidance a micropuncture wire passed easily then placed an 8- English sheath at the left common femoral vein. Subsequently the left common femoral artery was cannulated using puncture technique under ultrasound guidance as well and I placed a 6-English sheath at the left common femoral artery. After that I did right heart catheterization. Then I did left heart catheterization using 6-English pigtail catheter before I did selective left and right coronary angiogram using JR4 and JL 4 catheters. After that I did place an Impella in the left ventricle. Then I did selective right common femoral artery angiogram at the end. The procedure was completed was no complication. We decided to pursue with placing an Impella in the left ventricle. I did upgrade the left common femoral artery 6-English sheath into a 14-English sheath after I predilated using 12-English dilator. Subsequently the sheath was advanced over a 35 stiff wire under fluoroscopy guidance. The sheath was 11 cm. Subsequently I did flush the sheath. Then I did across the aortic valve using 035 regular wire and I advanced an 035 pigtail catheter. Subsequently I placed the 018 wire inside the pigtail catheter then the pigtail catheter was pulled out. Subsequently I advanced the Impella over the 018 wire to the LV. Subsequently it was turned on. SELECTIVE CORONARY ANGIOGRAM: The right coronary artery: Large-caliber vessel and a dominant vessel. The RCA in the midportion is a stented and the stent is patent. The mid to distal RCA has intermediate disease only. The RCA is extremely calcified Left main: Calcified was mild disease only The left circumflex: Large caliber vessel and nondominant vessel. The LCx is extremely calcified was diffuse disease The left anterior descending artery: LAD proximally has a focal lesion appears to be in the range of 70-80% of the LAD distal to that lesion is also diffusely disease as well. HEMODYNAMICS: The pulmonary capillary wedge pressure was 27 mmHg with a V-wave up to about 40 mmHg The PA pressures were as follow systolic 50 and diastolic of 23 and mean of 34 mmHg The RV pressures were as follow systolic of 50 and end-diastolic of 12 mmHg The RA pressure was 12 mmHg The cardiac output was 4.37 L/m with a cardiac index of 2.2 to liter per minute per meter square CONCLUSION: 1. Elevated biventricular filling pressures 2. Patent stent in the right coronary artery. Diffuse severe disease involving the LCx and LAD. The disease is unamendable for percutaneous revascularization. 3. Successful placement of Impella CP in the left ventricle
[2023-01-20] MEDS ORDERED: SODIUM CHLORIDE 0.9% 1,000 ML IV SCH (13:45)
[2023-01-20 14:20] LABS: Glucose,Whole Blood 593 mg/dL (70-110)
[2023-01-20] MEDS ORDERED: SODIUM BICARB (1 MEQ/ML) 12.5 ML in DEXTROSE 5% IN WATER 500 ML IV SCH ×2 (15:00)
[2023-01-20 15:07] LABS: Glucose,Whole Blood 581 mg/dL (70-110)
[2023-01-20 15:24] LABS: Anisocytosis Slight; Basophils % (A) 0 %; Eosinophils % (A) 0 %; HCT 25.6 % (39.0-53.0); HGB 8.3 gm/dL (13.0-17.5); Hypochromasia Slight; Lymphocytes # (A) 0.3 k/uL (1.0-4.8); Lymphocytes % (A) 6 %; MCH 29.3 pg (25.0-35.0); MCHC 32.6 g/dL (31.0-37.0); MCV 89.8 fL (80.0-100.0); Mean Platelet Volume 9.2; Monocytes # (A) 0.3 k/uL (0-1.0); Monocytes % (A) 4 %; Neutrophils # (A) 5.1 k/uL (1.3-7.7); Neutrophils % (A) 90 %; Platelet Count 181 k/uL (150-450); RBC 2.85 m/uL (4.30-5.90); RDW 18.1 % (11.5-15.5); WBC 5.6 k/uL (3.8-10.6)
--- NOTE | 2023-01-20 15:28 | XR ---
EXAMINATION TYPE: XR chest 1V portable DATE OF EXAM: 01/20/2023 HISTORY: Impella device COMPARISON: 01/20/2023 TECHNIQUE: Single view of the chest is submitted. FINDINGS: Demonstrated are scattered senescent parenchymal change. There is no evidence for focal infiltrate. The heart is stable. Impella device noted with its distal tip within the left ventricle. Basilar pleu ral effusions persist as well as pulmonary venous congestion slightly improved from prior study. Basi lar atelectasis and/or infiltrates. Hilar and mediastinal structures are within normal limits. Degenerative changes are seen of the dorsal spine. IMPRESSION: 1. Impella device noted with its distal tip within the left ventricle. Basilar pleural effusions per sist as well as pulmonary venous congestion slightly improved from prior study. Basilar atelectasis a nd/or infiltrates.
[2023-01-20 15:34] LABS: INR 2.6 (<1.2); Partial Thromboplastin Time 50.6 sec (22.0-30.0); Prothrombin Time 25.8 sec (10.0-12.5)
--- NOTE | 2023-01-20 15:37 | P.PN ---
Subjective Progress Note Date: 01/20/23 CHIEF COMPLAINT: Syncope HISTORY OF PRESENT ILLNESS: Patient admitted to the hospital with a near syncopa l episode and cardiac arrest in the ER. He is currently in the ICU on mechanical patient. He heart catheterization today and had successful placement of Impella. Patient has had worsening kidney function. Still requiring vasopressin and Levophed. Afebrile. WBC 5.6 hgb 8.3 Cr up 3.15 with low urine output. worsening LFTs. Echo with EF 25-30% with impaired LV function. PHYSICAL EXAM: VITAL SIGNS: Reviewed GENERAL: Intubated and sedated HEENT: No sclera icterus. Extraocular movements grossly intact. Moist buccal mucosa. Head is atraumatic, normocephalic. Hears conversational speech. No nasal drainage. NECK: Supple without lymphadenopathy. CHEST: Non-labored respirations and equal bilateral excursions. CARDIOVASCULAR: Palpable 2+ radial pulses. ABDOMEN: Soft. Nondistended. MUSCULOSKELETAL: No clubbing or cyanosis. SKIN: Well perfused. Good skin turgor. ASSESSMENT: 1. Possible acute cholecystitis. Renal ultrasound and noted gallbladder wall thickening and adjacent pericholecystic free fluid 2. Cardiogenic shock 3. Non-ST elevated [place] 4. Cardiac arrest 5. Ischemic cardiomyopathy 6. History of coronary artery disease with recent cardiac stents in October 2022 7. Atrial fibrillation with rapid ventricular response 8. Acute kidney injury 9. Mildly elevated LFTs 10. Acute CHF exacerbation 11. Diabetes mellitus PLAN: -Patient is a poor surgical candidate. Continue IV antibiotics. Recommend HIDA scan when medically stable. Recommend possible cholecystostomy tube when medically stable -Continue ICU management -Continue supportive care Physician Weeder note has been reviewed by physician. Signing provider agrees with the documented findings, assessment, and plan of care. Objective - Vital Signs Vital signs: Vital Signs Temp 97.5 F L 01/20/23 12:00 Pulse 73 01/20/23 12:00 Resp 28 H 01/20/23 12:00 BP 116/74 01/20/23 12:00 Pulse Ox 99 01/20/23 12:00 FiO2 50 01/20/23 12:00 Intake & Output 01/19/23 01/20/23 01/20/23 18:59 06:59 18:59 Intake Total 2991.359 3084.459 1435.523 Output Total 140 85 0 Balance 2851.359 2999.459 1435.523 Weight 79.6 kg Intake: IV 1169 1194 865 .9 KVO 130 130 100 Azithromycin 500 mg In 250 Sodium Chloride 0.9% 250 ml @ 250 mls/hr IVPB DAILY [facility] Rx#:[id number] Dextrose 5% in Water 1, 900 1025 500 000 ml @ 100 mls/hr IV . [id number] [facility] with Sodium Bicarb (1 Meq/ml) 150 ml Rx#:[id number] Magnesium Sulfate-D5w Pmx 100 1 gm In Dextrose/Water 1 100ml.bag @ 100 mls/hr IVPB ONCE ONE Rx#: [id number] a line 39 39 15 Intake, IV Titration 9337.549 4594.459 570.523 Amount Amiodarone 450 mg In 250 198.893 152.225 Dextrose 5% in Water 250 ml @ 0.5 MG/MIN 16.667 mls/hr IV .Q15H [facility] Rx#: [id number] Heparin Sod,Pork in 0.45% 232.37 103.166 NaCl 25,000 unit In 0.45 % NaCl 1 250ml.bag @ 12 UNITS/KG/HR 8.491 mls/hr IV .Q24H [facility] Rx#: [id number] Insulin Regular 100 unit 22.700 In Sodium Chloride 0.9% 100 ml @ Titrate IV .Q0M [facility] Rx#:[id number] Norepinephrine 8 mg In 681.311 682.004 151.158 Sodium Chloride 0.9% 250 ml @ 0.03 MCG/KG/MIN 4. 108 mls/hr IV .Q24H [facility] Rx#:[id number] Potassium Chloride 20 meq 250 In Water For Injection 1 100ml.bag @ 50 mls/hr IVPB ONCE [facility] Rx#: [id number] Vasopressin 60 unit In 95.982 Sodium Chloride 0.9% 150 ml @ 0.03 UNITS/MIN 4.59 mls/hr IV .Q24H [facility] Rx#: [id number] fentaNYL (PF). 1,000 mcg 93.757 93.58 90.75 In Sodium Chloride 0.9% 80 ml @ 0.5 MCG/KG/HR 3. 538 mls/hr IV .Q24H [facility] Rx#:[id number] propofoL 1,000 mg In 134.921 200 50.524 Empty Bag 1 bag @ 15 MCG/ KG/MIN 6.368 mls/hr IV . [id number] [facility] Rx#:[id number] Tube Feeding 150 560 Other 30 60 Output: Urine 140 85 0 Other: Voiding Method Indwelling Catheter Indwelling Catheter Indwelling Catheter ABP, PAP, CO, CI - Last Documented Arterial Blood Pressure 33/25 - Labs CBC & Chem 7: 01/20/23 15:05 01/20/23 11:50 Labs: Abnormal Lab Results - Last 24 Hours (Table) 01/19/23 01/19/23 01/20/23 Range/Units 10:55 17:16 01:13 RBC (4.30-5.90) m/uL Hgb (13.0-17.5) gm/dL Hct (39.0-53.0) % MCHC (31.0-37.0) g/dL RDW (11.5-15.5) % Lymphocytes # (1.0-4.8) k/uL APTT (22.0-30.0) sec ABG pH (7.35-7.45) ABG pO2 (83-108) mmHg ABG HCO3 (21-25) mmol/L ABG Total CO2 (19-24) mmol/L ABG O2 Saturation (94-97) % ABG Lactic Acid (0.5-1.6) mmol/L Sodium (137-145) mmol/L Potassium (3.5-5.1) mmol/L Carbon Dioxide (22-30) mmol/L BUN (9-20) mg/dL Creatinine (0.66-1.25) mg/dL Glucose (74-99) mg/dL POC Glucose (mg/dL) 329 H 437 H (70-110) mg/dL Plasma Lactic Acid Yadiel (0.7-2.0) mmol/L Calcium (8.4-10.2) mg/dL Total Bilirubin (0.2-1.3) mg/dL AST (17-59) U/L ALT (4-49) U/L Alkaline Phosphatase (38-126) U/L Total Protein (6.3-8.2) g/dL Albumin (3.5-5.0) g/dL Procalcitonin 4.42 H (0.02-0.09) ng/mL 01/20/23 01/20/23 01/20/23 Range/Units 04:42 04:42 04:42 RBC 3.18 L (4.30-5.90) m/uL Hgb 9.2 L (13.0-17.5) gm/dL Hct 29.9 L (39.0-53.0) % MCHC 30.9 L (31.0-37.0) g/dL RDW 17.9 H (11.5-15.5) % Lymphocytes # 0.8 L (1.0-4.8) k/uL APTT 36.5 H (22.0-30.0) sec ABG pH (7.35-7.45) ABG pO2 (83-108) mmHg ABG HCO3 (21-25) mmol/L ABG Total CO2 (19-24) mmol/L ABG O2 Saturation (94-97) % ABG Lactic Acid (0.5-1.6) mmol/L Sodium 133 L (137-145) mmol/L Potassium 5.4 H (3.5-5.1) mmol/L Carbon Dioxide 13 L (22-30) mmol/L BUN 46 H (9-20) mg/dL Creatinine 3.15 H (0.66-1.25) mg/dL Glucose 496 H (74-99) mg/dL POC Glucose (mg/dL) (70-110) mg/dL Plasma Lactic Acid Yadiel (0.7-2.0) mmol/L Calcium 7.1 L (8.4-10.2) mg/dL Total Bilirubin 2.0 H (0.2-1.3) mg/dL AST 8935 H (17-59) U/L ALT 4845 H (4-49) U/L Alkaline Phosphatase 155 H (38-126) U/L Total Protein 5.3 L (6.3-8.2) g/dL Albumin 2.5 L (3.5-5.0) g/dL Procalcitonin (0.02-0.09) ng/mL 01/20/23 01/20/23 01/20/23 Range/Units 04:42 05:22 05:45 RBC (4.30-5.90) m/uL Hgb (13.0-17.5) gm/dL Hct (39.0-53.0) % MCHC (31.0-37.0) g/dL RDW (11.5-15.5) % Lymphocytes # (1.0-4.8) k/uL APTT (22.0-30.0) sec ABG pH 7.19 L* (7.35-7.45) ABG pO2 114 H (83-108) mmHg ABG HCO3 15 L (21-25) mmol/L ABG Total CO2 17 L (19-24) mmol/L ABG O2 Saturation 97.5 H (94-97) % ABG Lactic Acid 10.2 H* (0.5-1.6) mmol/L Sodium (137-145) mmol/L Potassium (3.5-5.1) mmol/L Carbon Dioxide (22-30) mmol/L BUN (9-20) mg/dL Creatinine (0.66-1.25) mg/dL Glucose (74-99) mg/dL POC Glucose (mg/dL) 542 H (70-110) mg/dL Plasma Lactic Acid Yadiel (0.7-2.0) mmol/L Calcium (8.4-10.2) mg/dL Total Bilirubin (0.2-1.3) mg/dL AST (17-59) U/L ALT (4-49) U/L Alkaline Phosphatase (38-126) U/L Total Protein (6.3-8.2) g/dL Albumin (3.5-5.0) g/dL Procalcitonin (0.02-0.09) ng/mL 01/20/23 01/20/23 01/20/23 Range/Units 05:56 09:02 10:21 RBC (4.30-5.90) m/uL Hgb (13.0-17.5) gm/dL Hct (39.0-53.0) % MCHC (31.0-37.0) g/dL RDW (11.5-15.5) % Lymphocytes # (1.0-4.8) k/uL APTT (22.0-30.0) sec ABG pH (7.35-7.45) ABG pO2 (83-108) mmHg ABG HCO3 (21-25) mmol/L ABG Total CO2 (19-24) mmol/L ABG O2 Saturation (94-97) % ABG Lactic Acid (0.5-1.6) mmol/L Sodium (137-145) mmol/L Potassium (3.5-5.1) mmol/L Carbon Dioxide (22-30) mmol/L BUN (9-20) mg/dL Creatinine (0.66-1.25) mg/dL Glucose (74-99) mg/dL POC Glucose (mg/dL) 516 H 596 H >600 H (70-110) mg/dL Plasma Lactic Acid Yadiel (0.7-2.0) mmol/L Calcium (8.4-10.2) mg/dL Total Bilirubin (0.2-1.3) mg/dL AST (17-59) U/L ALT (4-49) U/L Alkaline Phosphatase (38-126) U/L Total Protein (6.3-8.2) g/dL Albumin (3.5-5.0) g/dL Procalcitonin (0.02-0.09) ng/mL 01/20/23 01/20/23 01/20/23 Range/Units 10:56 10:59 11:05 RBC (4.30-5.90) m/uL Hgb (13.0-17.5) gm/dL Hct (39.0-53.0) % MCHC (31.0-37.0) g/dL RDW (11.5-15.5) % Lymphocytes # (1.0-4.8) k/uL APTT 43.6 H (22.0-30.0) sec ABG pH (7.35-7.45) ABG pO2 (83-108) mmHg ABG HCO3 (21-25) mmol/L ABG Total CO2 (19-24) mmol/L ABG O2 Saturation (94-97) % ABG Lactic Acid (0.5-1.6) mmol/L Sodium (137-145) mmol/L Potassium (3.5-5.1) mmol/L Carbon Dioxide (22-30) mmol/L BUN (9-20) mg/dL Creatinine (0.66-1.25) mg/dL Glucose (74-99) mg/dL POC Glucose (mg/dL) >600 H (70-110) mg/dL Plasma Lactic Acid Yadiel 8.9 H* (0.7-2.0) mmol/L Calcium (8.4-10.2) mg/dL Total Bilirubin (0.2-1.3) mg/dL AST (17-59) U/L ALT (4-49) U/L Alkaline Phosphatase (38-126) U/L Total Protein (6.3-8.2) g/dL Albumin (3.5-5.0) g/dL Procalcitonin (0.02-0.09) ng/mL 01/20/23 01/20/23 01/20/23 Range/Units 11:30 11:50 11:57 RBC (4.30-5.90) m/uL Hgb (13.0-17.5) gm/dL Hct (39.0-53.0) % MCHC (31.0-37.0) g/dL RDW (11.5-15.5) % Lymphocytes # (1.0-4.8) k/uL APTT (22.0-30.0) sec ABG pH (7.35-7.45) ABG pO2 (83-108) mmHg ABG HCO3 (21-25) mmol/L ABG Total CO2 (19-24) mmol/L ABG O2 Saturation (94-97) % ABG Lactic Acid (0.5-1.6) mmol/L Sodium (137-145) mmol/L Potassium (3.5-5.1) mmol/L Carbon Dioxide (22-30) mmol/L BUN (9-20) mg/dL Creatinine (0.66-1.25) mg/dL Glucose 656 H* 621 H* (74-99) mg/dL POC Glucose (mg/dL) >600 H (70-110) mg/dL Plasma Lactic Acid Yadiel (0.7-2.0) mmol/L Calcium (8.4-10.2) mg/dL Total Bilirubin (0.2-1.3) mg/dL AST (17-59) U/L ALT (4-49) U/L Alkaline Phosphatase (38-126) U/L Total Protein (6.3-8.2) g/dL Albumin (3.5-5.0) g/dL Procalcitonin (0.02-0.09) ng/mL Microbiology - Last 24 Hours (Table) 01/19/23 12:14 Gram Stain - Preliminary Sputum 01/18/23 15:00 Blood Culture - Preliminary Blood
[2023-01-20 15:58] LABS: African American GFR (CKD) 21 (>60 ml/min/1.73 sqM); Anion Gap 17 mmol/L; Blood Urea Nitrogen 56 mg/dL (9-20); Calcium 6.6 mg/dL (8.4-10.2); Carbon Dioxide 19 mmol/L (22-30); Chloride 97 mmol/L (98-107); Magnesium 2.1 mg/dL (1.6-2.3); Non-African American GFR(CKD) 18 (>60 ml/min/1.73 sqM); Potassium 3.5 mmol/L (3.5-5.1); Sodium 133 mmol/L (137-145)
[2023-01-20 16:01] LABS: Glucose 545 mg/dL (74-99)
[2023-01-20 16:17] LABS: Glucose,Whole Blood 555 mg/dL (70-110)
[2023-01-20] MEDS: HEPARIN SOD,PORK IN 0.45% NACL 25,000 UNIT in 0.45% NACL 1 250ML.BAG IV SCH (16:29)
[2023-01-20 16:56] LABS: Glucose,Whole Blood 531 mg/dL (70-110)
[2023-01-20] MEDS: VASOPRESSIN 60 UNIT in SODIUM CHLORIDE 0.9% 150 ML IV SCH (17:22)
[2023-01-20 18:02] LABS: Glucose,Whole Blood 483 mg/dL (70-110)
[2023-01-20 18:55] LABS: Glucose,Whole Blood 466 mg/dL (70-110)
[2023-01-20] MEDS: POTASSIUM BICARBONATE/CIT AC 20 MEQ TABLET.EFF NG-TUBE SCH ×2 (19:02→19:51)
[2023-01-20 19:14] LABS: Partial Thromboplastin Time 47.9 sec (22.0-30.0)
[2023-01-20 19:40] LABS: ABG Base Excess 0.3 mmol/L; ABG HCO3 24 mmol/L (21-25); ABG Oxygen Saturation 98.9 % (94-97); ABG PCO2 34 mmHg (35-45); ABG PH 7.46 (7.35-7.45); ABG PO2 129 mmHg (83-108); ABG TCO2 25 mmol/L (19-24); Allen Test Performed? Yes
[2023-01-20 20:15] LABS: Glucose,Whole Blood 420 mg/dL (70-110)
--- NOTE | 2023-01-20 20:55 | CA ---
Transthoracic Echo Report Name: Onofre Stokes Age: 68 Gender: M : 1955 Exam Date: 01/20/2023 15:08 Exam Location: [place] [facility] Ht (in): 70 Wt (lb): 175 Ordering Physician: Young Lazcano MD ([id number]) Attending/Referring Phys: Slate Cutter TM Procedure CPT: Indications: Placement of Left Ventricular Assist Device Cardiac Hx: Technical Quality: Fair Contrast 1: Total Dose (mL): Contrast 2: Total Dose (mL): MEASUREMENTS (Male / Female) Normal Values FINDINGS Left Ventricle Right Ventricle Right Atrium Left Atrium Mitral Valve Aortic Valve Tricuspid Valve Pulmonic Valve Pericardium Aorta CONCLUSIONS Limited Echo Impella device in LV cavity Aortic valve to impella tip = 3.6cm Previewed by: Dr Reza Zambrano (Electronically Signed) Final Date: 20 January 2023 20:54
[2023-01-20 21:09] LABS: Glucose,Whole Blood 360 mg/dL (70-110)
[2023-01-20 21:26] LABS: Anisocytosis Slight; Basophils % (A) 0 %; Eosinophils % (A) 0 %; HCT 23.6 % (39.0-53.0); HGB 7.9 gm/dL (13.0-17.5); Lymphocytes # (A) 0.3 k/uL (1.0-4.8); Lymphocytes % (A) 3 %; MCH 29.2 pg (25.0-35.0); MCHC 33.4 g/dL (31.0-37.0); MCV 87.4 fL (80.0-100.0); Mean Platelet Volume 8.8; Monocytes # (A) 0.3 k/uL (0-1.0); Monocytes % (A) 4 %; Neutrophils # (A) 6.7 k/uL (1.3-7.7); Neutrophils % (A) 92 %; Platelet Count 165 k/uL (150-450); RDW 18.1 % (11.5-15.5); WBC 7.3 k/uL (3.8-10.6)
[2023-01-20 21:54] LABS: African American GFR (CKD) 19 (>60 ml/min/1.73 sqM); Anion Gap 13 mmol/L; Blood Urea Nitrogen 63 mg/dL (9-20); Carbon Dioxide 22 mmol/L (22-30); Chloride 99 mmol/L (98-107); Glucose 315 mg/dL (74-99); Non-African American GFR(CKD) 17 (>60 ml/min/1.73 sqM); Potassium 3.5 mmol/L (3.5-5.1); Sodium 134 mmol/L (137-145)
[2023-01-20 21:59] LABS: Calcium 6.3 mg/dL (8.4-10.2)
[2023-01-20 22:27] LABS: Glucose,Whole Blood 300 mg/dL (70-110)
[2023-01-20 22:27] LABS: LDH >10000 U/L (120-246)
[2023-01-20 23:14] LABS: Glucose,Whole Blood 245 mg/dL (70-110)
[2023-01-21 00:14] LABS: Glucose,Whole Blood 177 mg/dL (70-110)
[2023-01-21 01:08] LABS: Glucose,Whole Blood 137 mg/dL (70-110)
[2023-01-21 01:55] LABS: Partial Thromboplastin Time 51.2 sec (22.0-30.0)
[2023-01-21] MEDS: fentaNYL (PF). 1,000 MCG in SODIUM CHLORIDE 0.9% 80 ML IV SCH ×2 (02:22→12:19)
[2023-01-21 02:23] LABS: Glucose,Whole Blood 87 mg/dL (70-110)
[2023-01-21] MEDS ORDERED: SODIUM BICARB (1 MEQ/ML) 12.5 ML in DEXTROSE 5% IN WATER 500 ML IV SCH ×2 (02:30)
[2023-01-21 02:47] LABS: Glucose,Whole Blood 75 mg/dL (70-110)
[2023-01-21 03:06] LABS: Glucose,Whole Blood 107 mg/dL (70-110)
[2023-01-21 03:36] LABS: Glucose,Whole Blood 80 mg/dL (70-110)
[2023-01-21] MEDS: IPRATROPIUM-ALBUTEROL 3 ML NEB INHALATION SCH ×5 (03:38→20:49)
[2023-01-21] MEDS: DEXTROSE 5% IN WATER 1,000 ML with SODIUM BICARB (1 MEQ/ML) 150 ML IV SCH (03:43)
[2023-01-21 04:16] LABS: Glucose,Whole Blood 65 mg/dL (70-110)
[2023-01-21] MEDS: DEXTROSE 50% SYRINGE 50 ML IVP PRN ×2 (04:18→07:00)
[2023-01-21 04:47] LABS: Glucose,Whole Blood 120 mg/dL (70-110)
[2023-01-21 05:10] LABS: Anisocytosis Slight; Basophils % (A) 0 %; Eosinophils % (A) 0 %; HCT 23.4 % (39.0-53.0); HGB 7.9 gm/dL (13.0-17.5); Lymphocytes # (A) 0.4 k/uL (1.0-4.8); Lymphocytes % (A) 3 %; MCH 29.3 pg (25.0-35.0); MCHC 33.9 g/dL (31.0-37.0); MCV 86.2 fL (80.0-100.0); Monocytes # (A) 0.4 k/uL (0-1.0); Monocytes % (A) 4 %; Neutrophils # (A) 9.7 k/uL (1.3-7.7); Neutrophils % (A) 93 %; Platelet Count 165 k/uL (150-450); RBC 2.71 m/uL (4.30-5.90); WBC 10.5 k/uL (3.8-10.6)
[2023-01-21] MEDS: methylPREDNISolone SOD SUCCI 125 MG/2 ML VIAL IV SCH ×4 (05:18→17:56)
[2023-01-21] MEDS: PIPERACILLIN-TAZOBACTAM 3.375 GM in SODIUM CHLORIDE 0.9% 100 ML IVPB SCH (05:19)
[2023-01-21 05:30] LABS: LDH >10000 U/L (120-246)
[2023-01-21 05:30] LABS: Glucose,Whole Blood 90 mg/dL (70-110)
[2023-01-21 05:42] LABS: Prothrombin Time 20.3 sec (10.0-12.5)
[2023-01-21 05:54] LABS: ABG Base Excess 2.1 mmol/L; ABG HCO3 26 mmol/L (21-25); ABG Oxygen Saturation 98.7 % (94-97); ABG PCO2 37 mmHg (35-45); ABG PH 7.45 (7.35-7.45); ABG PO2 127 mmHg (83-108); ABG TCO2 27 mmol/L (19-24); Allen Test Performed? Yes
[2023-01-21] MEDS ORDERED: CALCIUM GLUCONATE IN NACL 2 GM in SALINE 1 100ML.BAG IVPB ONE ×2 (06:00)
[2023-01-21 06:10] LABS: Glucose,Whole Blood 82 mg/dL (70-110)
[2023-01-21 06:11] LABS: African American GFR (CKD) 17 (>60 ml/min/1.73 sqM); Anion Gap 12 mmol/L; Blood Urea Nitrogen 70 mg/dL (9-20); Calcium 6.6 mg/dL (8.4-10.2); Carbon Dioxide 22 mmol/L (22-30); Chloride 100 mmol/L (98-107); Glucose 102 mg/dL (74-99); Non-African American GFR(CKD) 15 (>60 ml/min/1.73 sqM); Sodium 134 mmol/L (137-145)
[2023-01-21 06:20] LABS: Potassium 3.8 mmol/L (3.5-5.1)
[2023-01-21 07:00] LABS: Glucose,Whole Blood 76 mg/dL (70-110)
[2023-01-21] MEDS ORDERED: HEPARIN SODIUM,PORCINE (1 ML) 2,500 UNIT in SODIUM CHLORIDE 0.9% 250 ML IRRIGATION PRN (07:00)
[2023-01-21] MEDS ORDERED: HEPARIN SODIUM,PORCINE 10,000 UNIT in SODIUM CHLORIDE 0.9% 1,000 ML IRRIGATION PRN (07:00)
--- NOTE | 2023-01-21 07:50 | XR ---
EXAMINATION TYPE: XR chest 1V portable DATE OF EXAM: 01/21/2023 COMPARISON: 01/20/2023 INDICATION: Tube placement TECHNIQUE: Single frontal view of the chest is obtained. FINDINGS: The heart size is normal. The pulmonary vasculature is normal. Mild bibasilar infiltrates and/or effusions are present. A device is present in stable position within the aorta and ventricle. Endotracheal tube tip is above the sasha. Nasogastric tube transverses thorax.. IMPRESSION: 1. Stable appearance of lines and catheters. 2. Stable Bibasilar infiltrates and/or effusions.
[2023-01-21 07:52] LABS: Glucose,Whole Blood 117 mg/dL (70-110)
[2023-01-21] MEDS: NOREPINEPHRINE 8 MG in SODIUM CHLORIDE 0.9% 250 ML IV SCH (08:00)
[2023-01-21] MEDS: PANTOPRAZOLE 40 MG/10 ML VIAL IVP SCH (08:43)
[2023-01-21] MEDS: CHLORHEXIDINE GLUCONATE 15 ML CUP MUCOUS MEM SCH ×2 (08:44→22:45)
[2023-01-21 08:59] LABS: Glucose,Whole Blood 129 mg/dL (70-110)
[2023-01-21] MEDS ORDERED: POTASSIUM BICARBONATE/CIT AC 20 MEQ TABLET.EFF PO ONE (09:00)
[2023-01-21 09:30] LABS: Partial Thromboplastin Time 58.4 sec (22.0-30.0)
--- NOTE | 2023-01-21 09:42 | P.NPCON ---
History of Present Illness - Reason for Consult acute renal failure - History of Present Illness Patient is a 68-year-old male with history of coronary artery disease, ischemic cardiomyopathy, A. fib, CVA TIA and type 2 diabetes. Patient was admitted to the hospital with a near syncopal event. He was found to be in A. fib with RVR and subsequently had a cardiac arrest. Patient has been on the ventilator. Patient is noted to have non-ST elevation [place] and is currently being taken to cardiac laundry laborer. His blood pressure has been significantly low requiring large doses of pressors in the form of levo fed and vasopressin. Patient has not had any significant urine output. EF is at 20-25%. FiO2 is at 50%. Serum creatinine was 1.0 on initial admission and increased to 3.1 today. Potassium is not elevated. Patient is being taken to cardiac laundry laborer. Review of Systems Unable to obtain. No fever or bleeding noted. Past Medical History Past Medical History: Atrial Fibrillation, COPD, CVA/TIA, Diabetes Mellitus, Eye Disorder, GERD/Reflux, Hyperlipidemia, Musculoskeletal Disorder, Osteoarthritis (OA) Additional Past Medical History / Comment(s): CVA X2, last in 2019, with left arm weakness. 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 Osteoporosis. History of Any Multi-Drug Resistant Organisms: None Reported Past Surgical History: Orthopedic Surgery Additional Past Surgical History / Comment(s): Right foot surgery, bilateral laser eye surgery for detached retina, bilateral catarcat surgery with lens implants, cervical fusion, left knee surgery, bilateral shoulder surgery, penile implant. Past Anesthesia/Blood Transfusion Reactions: Postoperative Nausea & Vomiting (PONV) Additional Past Anesthesia/Blood Transfusion Reaction / Comment(s): PONV with one surgery. Past Psychological History: Depression Smoking Status: Never smoker Past Alcohol Use History: Rare Past Drug Use History: None Reported - Past Family History Sister(s) Family Medical History: Pulmonary Embolus Father Family Medical History: Coronary Artery Disease (CAD), Deep Vein Thrombosis (DVT) Mother Family Medical History: Cancer, Hyperlipidemia Brother(s) Family Medical History: Cancer Medications and Allergies Home Medications Medication Instructions Recorded Confirmed Type Insulin Aspart (For Pump) [NovoLOG 0.01 unit SQ-PUMP CONTINUOUS 12/28/20 01/18/23 History (For Pump)] Latanoprost [Xalatan 0.005%] 1 drop BOTH EYES HS 12/28/20 01/18/23 History Aspirin [Adult Low Dose Aspirin EC] 81 mg PO DAILY 08/18/22 01/18/23 History Clopidogrel [Plavix] 75 mg PO DAILY #90 tab 11/20/22 01/18/23 Rx Omeprazole 40 mg PO DAILY 12/27/22 01/18/23 History Vitamin D3/Vitamin K2 (Mk4) 1 tab PO DAILY 12/27/22 01/18/23 History [Vitamin K2 Plus D3 Tablet] Fludrocortisone [Florinef] 0.1 mg PO DAILY #30 tab 01/05/23 01/18/23 Rx Rivaroxaban [Xarelto] 2.5 mg PO BID tab 01/05/23 01/18/23 Rx Cephalexin [Keflex] 500 mg PO Q12H 01/18/23 01/18/23 History Midodrine HCl [ProAmatine] 10 mg PO AC-TID PRN 01/18/23 01/18/23 History Rosuvastatin [Crestor] 20 mg PO HS 01/18/23 01/18/23 History Allergies Allergy/AdvReac Type Severity Reaction Status Date / Time No Known Allergies Allergy Verified 01/18/23 15:39 Physical Exam Vitals: Vital Signs Temp Pulse Resp BP Pulse Ox FiO2 01/21/23 09:15 74 28 H 93 L 01/21/23 09:00 74 28 H 96/70 92 L 01/21/23 08:45 74 27 H 88 L 01/21/23 08:37 72 01/21/23 08:30 71 15 89 L 01/21/23 08:27 71 01/21/23 08:23 60 01/21/23 08:15 70 28 H 110/63 93 L 01/21/23 08:00 99.1 F 71 28 H 110/63 92 L 60 01/21/23 07:45 71 28 H 94 L 01/21/23 07:30 88 28 H 100 01/21/23 07:15 71 28 H 92 L 01/21/23 07:00 72 28 H 95 60 01/21/23 06:45 72 28 H 96 01/21/23 06:30 73 28 H 96 01/21/23 06:15 73 28 H 96 01/21/23 06:00 73 28 H 96 01/21/23 05:45 73 28 H 97 10/25/23 05:30 75 28 H 95 01/21/23 05:15 75 28 H 95 01/21/23 05:00 75 28 H 95 60 01/21/23 04:45 75 28 H 95 01/21/23 04:30 76 28 H 95 01/21/23 04:15 78 28 H 95 01/21/23 04:00 98.5 F 78 28 H 94 L 60 01/21/23 03:49 76 01/21/23 03:45 80 28 H 93 L 01/21/23 03:42 60 01/21/23 03:38 78 01/21/23 03:30 78 28 H 94 L 01/21/23 03:15 78 28 H 94 L 01/21/23 03:00 79 28 H 93 L 60 01/21/23 02:45 79 28 H 94 L 01/21/23 02:30 79 28 H 94 L 01/21/23 02:15 79 28 H 94 L 01/21/23 02:00 80 28 H 94 L 60 01/21/23 01:45 79 28 H 94 L 01/21/23 01:30 80 28 H 94 L 01/21/23 01:15 80 28 H 94 L 01/21/23 01:00 79 28 H 94 L 60 01/21/23 00:45 80 28 H 94 L 01/21/23 00:30 79 28 H 93 L 01/21/23 00:16 79 28 H 93 L 01/21/23 00:15 79 28 H 93 L 01/21/23 00:00 98.7 F 79 28 H 93 L 60 01/20/23 23:45 75 28 H 93 L 01/20/23 23:39 60 01/20/23 23:35 76 01/20/23 23:30 76 28 H 93 L 01/20/23 23:15 76 28 H 93 L 01/20/23 23:00 77 28 H 93 L 60 01/20/23 22:45 77 28 H 93 L 01/20/23 22:30 76 28 H 92 L 01/20/23 22:15 77 28 H 93 L 01/20/23 22:00 77 28 H 93 L 60 01/20/23 21:45 77 28 H 93 L 01/20/23 21:30 77 28 H 93 L 01/20/23 21:15 83 28 H 93 L 01/20/23 21:00 76 28 H 93 L 60 01/20/23 20:45 77 28 H 93 L 01/20/23 20:30 75 28 H 94 L 01/20/23 20:29 76 01/20/23 20:19 75 60 01/20/23 20:15 74 28 H 94 L 01/20/23 20:00 98.7 F 74 28 H 95 60 01/20/23 19:45 73 28 H 94 L 01/20/23 19:30 73 28 H 93 L 01/20/23 19:15 73 28 H 94 L 01/20/23 19:00 97.5 F L 73 27 H 110/63 92 L 01/20/23 18:45 72 28 H 93 L 01/20/23 18:30 72 23 93 L 01/20/23 18:15 72 22 110/63 93 L 01/20/23 18:00 71 28 H 111/79 93 L 01/20/23 17:45 71 28 H 92 L 01/20/23 17:30 72 28 H 93 L 01/20/23 17:15 70 28 H 93 L 01/20/23 17:00 69 28 H 114/77 92 L 01/20/23 16:45 70 28 H 92 L 01/20/23 16:30 69 28 H 91 L 01/20/23 16:15 70 28 H 114/77 91 L 01/20/23 16:00 96.3 F L 70 28 H 91 L 01/20/23 15:45 70 28 H 92 L 01/20/23 15:43 70 01/20/23 15:35 68 01/20/23 15:30 69 24 122/86 93 L 01/20/23 15:28 50 01/20/23 15:15 94.0 F L 70 28 H 122/86 93 L 50 01/20/23 15:00 70 8 L 140/102 100 01/20/23 14:45 70 20 140/102 99 01/20/23 14:30 71 30 H 140/102 100 01/20/23 14:15 20 100 01/20/23 14:00 110/70 01/20/23 13:00 110/70 01/20/23 12:00 97.5 F L 73 28 H 116/74 99 50 01/20/23 11:45 72 28 H 98 01/20/23 11:30 72 28 H 120/74 98 01/20/23 11:15 73 28 H 97 01/20/23 11:00 73 28 H 102/64 95 01/20/23 10:45 74 28 H 96 01/20/23 10:30 73 28 H 96/66 95 01/20/23 10:15 75 28 H 96/66 95 01/20/23 10:00 75 28 H 89/61 95 01/20/23 09:45 75 28 H 95 Intake and Output 01/20/23 01/21/23 01/21/23 22:59 06:59 14:59 Intake Total 1852.563 660.041 142.477 Output Total 50 318 0 Balance 1802.563 342.041 142.477 Intake: IV 1040 332 137 .9 KVO 180 160 60 Calcium Gluconate in NaCl 100 2 gm In Saline 1 100ml. bag @ 100 mls/hr IVPB ONCE ONE Rx#:[id number] Dextrose 5% in Water 1, 700 000 ml @ 100 mls/hr IV . [id number] [facility] with Sodium Bicarb (1 Meq/ml) 150 ml Rx#:[id number] Piperacillin-Tazobactam 3 100 50 .375 gm In Sodium Chloride 0.9% 100 ml @ 25 mls/hr IVPB Q8H [facility] Rx#: [id number] a line 60 72 27 Intake, IV Titration 692.563 328.041 5.477 Amount Heparin Sod,Pork in 0.45% 93.942 NaCl 25,000 unit In 0.45 % NaCl 1 250ml.bag @ 12 UNITS/KG/HR 8.491 mls/hr IV .Q24H [facility] Rx#: [id number] Insulin Regular 100 unit 277.050 103.750 In Sodium Chloride 0.9% 100 ml @ Titrate IV .Q0M [facility] Rx#:[id number] Norepinephrine 8 mg In 128.588 5.477 Sodium Chloride 0.9% 250 ml @ 0.03 MCG/KG/MIN 4. 108 mls/hr IV .Q24H [facility] Rx#:[id number] Vasopressin 60 unit In 132.498 Sodium Chloride 0.9% 150 ml @ 0.03 UNITS/MIN 4.59 mls/hr IV .Q24H [facility] Rx#: [id number] fentaNYL (PF). 1,000 mcg 96.941 95.703 In Sodium Chloride 0.9% 80 ml @ 0.5 MCG/KG/HR 3. 538 mls/hr IV .Q24H [facility] Rx#:[id number] propofoL 1,000 mg In 92.132 Empty Bag 1 bag @ 15 MCG/ KG/MIN 6.368 mls/hr IV . [id number] [facility] Rx#:[id number] Other 120 Output: Gastric Drainage 300 Urine 50 18 0 Other: Voiding Method Indwelling Catheter Indwelling Catheter Indwelling Catheter Weight 86.8 kg ABP, PAP, CO, CI - Last 8 Hours Arterial Blood Pressure 94/64 Arterial Blood Pressure 96/65 Arterial Blood Pressure 99/69 Arterial Blood Pressure 102/71 Arterial Blood Pressure 92/66 Arterial Blood Pressure 98/69 Arterial Blood Pressure 100/71 Arterial Blood Pressure 103/73 Arterial Blood Pressure 106/71 Arterial Blood Pressure 104/71 Arterial Blood Pressure 107/73 Arterial Blood Pressure 105/71 Arterial Blood Pressure 101/69 Arterial Blood Pressure 102/69 Arterial Blood Pressure 105/70 Arterial Blood Pressure 111/72 Arterial Blood Pressure 109/71 Arterial Blood Pressure 104/69 Arterial Blood Pressure 108/70 Arterial Blood Pressure 109/69 Arterial Blood Pressure 102/65 Arterial Blood Pressure 108/70 Arterial Blood Pressure 105/69 Arterial Blood Pressure 105/67 Arterial Blood Pressure 106/67 Arterial Blood Pressure 107/66 Arterial Blood Pressure 73/73 Arterial Blood Pressure 100/61 Arterial Blood Pressure 104/61 Arterial Blood Pressure 104/60 Arterial Blood Pressure 103/59 Patient is sedated and on the vent Abdomen is nontender Edema noted bilaterally 2+ HEENT atraumatic normocephalic SUPPLIES PACKER exam cannot be performed Results - Lab Results Most recent lab results ABG pH 7.45 (7.35-7.45) 01/21/23 05:49 ABG pCO2 37 mmHg (35-45) 01/21/23 05:49 ABG pO2 127 mmHg (83-108) H 01/21/23 05:49 ABG HCO3 26 mmol/L (21-25) H 01/21/23 05:49 ABG O2 Saturation 98.7 % (94-97) H 01/21/23 05:49 Calcium 6.6 mg/dL (8.4-10.2) L 01/21/23 04:45 Magnesium 2.0 mg/dL (1.6-2.3) 01/21/23 04:45 01/21/23 04:45 01/21/23 04:45 Assessment and Plan Assessment: 1. Acute kidney injury, ATN currently oliguric secondary to severe hypotension and cardiogenic shock. Patient is being taken to cardiac laundry laborer. He continues to anuric with 0 mL of urine. Maintained on high-dose pressors. 2. Non-ST elevation NE being taken to cardiac laundry laborer 3. Cardiogenic shock 4. Cardiomyopathy with EF of 20-25% 5. Status post cardiac arrest, PEA Plan: Continue bicarb drip Continue pressors Replace potassium Discussed with family that patient will likely need hemodialysis in the next 24- 48 hours. Overall prognosis is guarded. Thank you for the consultation. We will continue to follow the patient with you during his hospitalization.
--- NOTE | 2023-01-21 10:07 | P.PN ---
Subjective Progress Note Date: 01/21/23 I am seeing this patient in consultation today 01/19/2023 in the intensive care unit after he had a cardiac arrest in the emergency room. Patient is a 67-year-old white male with past medical history significant for coronary artery disease, ischemic cardiomyopathy, atrial fibrillation, CVA/TIA, hyperlipidemia, diabetes mellitus, COPD. Patient is currently intubated on the mechanical ventilator, and unable to provide information for HPI. Most of this information is taken from chart review. Patient presented to the emergency room yesterday morning after having a near syncopal event. While in the emergency room, the patient was found to be in atrial fibrillation with rapid ventricular rate. Patient was trialed on a Cardizem infusion, but became hypotensive. Amiodarone infusion was started instead. Apparently, the patient had an episode of nausea and vomiting and became unresponsive while in the emergency room. One round of CPR was performed, and the patient received 1 amp of epinephrine. The patient was admitted to the intensive care unit. While in the intensive care unit, the patient had a subsequent PEA cardiac arrest with a limited downtime approximately 2 minutes. The patient was then intubated for airway protection. Currently, the patient is intubated on mechanical ventilator with settings of assist control, respiratory rate 20, tidal volume 400, FiO2 70%, PEEP of 8. AB Gs done on these settings with an FiO2 of 100% show a pO2 of 176, pCO2 49, pH of 7.22. He is sedated on propofol which is currently infusing at 40 mcg/kg/m and fentanyl which is infusing at 1 mcg/kg per hour. He is synchronous with mechanical ventilator. Peak pressures are 20. Postintubation chest x-ray shows endotracheal tube approximately 5 cm from the sasha. This could be advanced 1- 2 cm. There is central venous congestion and evidence of heart failure. There was a left subclavian catheter traversing superiorly, this has since been removed. The patient has a right femoral triple-lumen central line catheter. Patient also has a right wrist radial arterial line. Blood pressure is p rofoundly hypotensive. Currently requiring vasopressors in the form of norepinephrine at 0.4 mcg/kg/m, vasopressin at 0.03 units per minutes. Also, on amiodarone infusion currently at 0.5 mg/m and IV heparin per protocol. Current rhythm is normal sinus around 84 bpm. CBC from yesterday afternoon shows a WBC count of 6.5, hemoglobin 9.9, hematocrit 31.2, platelets 276. Most recent APTT is supratherapeutic at 70. BMP from yesterday afternoon shows a sodium 138, potassium 5, chloride 105, serum bicarb 23, BUN 22, creatinine 1.16, glucose 205. Lactic acid level was 2.5. Magnesium 2. LFTs are mildly elevated. Most recent EKG shows normal sinus rhythm with ST abnormalities/depressions in leads 1, aVL, V5, and V6. Troponins are trending up and currently at 13.4. NT proBNP elevated at 19,800. Patient was empirically placed on Zosyn for suspicion of aspiration. Currently afebrile. Patient's condition is critical, prognosis guarded. He is being monitored in the intensive care unit. Today's evaluation of 01/20/2023, the patient is being seen for a follow-up. The patient remains sedated on propofol at 35 microvascular kilogram per minute. The patient remains in cardiogenic shock. The patient continues to require pressors. The pressor requirements have improved since yesterday. The norepinephrine is running at 0.14 mcg/kg/m and the vasopressin is running at 0.04 units per minutes. Nevertheless, the patient remains acidotic and unstable hemodynamically. Lactic acid level is up to 11. The patient remains intubated on a mechanical ventilator. This morning, he is still sedated on propofol at 35 microvascular kilogram per minute. Is on a mechanical ventilator assist control mode at the rate of 20, tidal volume of 400 and FiO2 of 50% with a PEEP of 8. Blood gas shows a pH of 7.19 with a pCO2 of 40 and pO2 114. The patient has developed a shock liver and acute kidney injury. The patient had a chest x-ray this morning that showed pulmonary edema with development of bilateral pleural effusions. LFTs are abnormal with an AST of 8935, ALT of 4845, alkaline phosphatase 155. This is consistent with shock liver. Ultrasound the gallbladder was done and found some pericholecystic fluid. Acute cholecystitis was suspected. Surgical consultation was obtained. Obviously, the patient will be covered with antibiotics and there is no role for surgical intervention at this point especially with his underlying hemodynamic instability and shock state. The current cardiac rhythm is sinus. Pulse ox 97% on room air. Kidney failure is noted and the patient suffered an acute kidney injury with a BUN of 46 and a creatinine of 3.1. Potassium levels at 5.4. Blood sugars at 596 and the patient is going to be started on a insulin drip. He is also running e nteral feeding with vital high-protein. On 01/21/2023, seeing the patient for a follow-up. The patient remains intubated on a mechanical ventilator. Yesterday, the patient had Impela insertion which is currently augmenting at a P9, and we have noticed some improvement in his hemodynamics. His pressor requirements are currently slightly better compared to yesterday. Norepinephrine is running at 0.03 mcg/kg/m and he is also on vasopressin at 0.04 units an hour. He remains on a mechanical ventilator. He is sedated with propofol which is running at 35 mcg/kg/m. He remains on assist-control mode at the rate of 28, tidal volume of 400, FiO2 of 60% with a PEEP of 8. His chest x-ray showing bilateral pleural effusion and pulmonary edema. Orotracheal tube is in a good location. PH is at 7.45 with a pCO2 of 37 and pO2 of 127 and this was done and FiO2 of 60%. No significant orotracheal secretions. He has of the acute kidney injury. Function continues to be impaired and the patient is not producing any urine output. Potassium levels at 3.8. BUN is at 70 with a creatinine of 3.8 and a sodium level is at 134. The patient's was on a bicarb infusion and this was discontinued. Serum bicarb is currently at 22. Lactic acid level has dropped from being as high as 11 and is currently down to 2.3. The findings on the case. Diabetes is being contemplated at this point. At the same time, the patient developed a shock liver. LFTs were quite elevated and the liver function tests are being monitored for now. He is afebrile. He remains on empiric antibiotic coverage with IV Zosyn. He has not responded to diuretics. He is currently off diuretics. He was on an insulin drip for blood sugar control and currently is only on a sliding scale coverage. His Fluid balance over the past 24 hours has been in the order of +6.9 L and he had another 5.8 L positive fluid balance for today prior. Objective - Vital Signs Vital signs: Vital Signs Temp 99.1 F 01/21/23 08:00 Pulse 74 01/21/23 09:15 Resp 28 H 01/21/23 09:15 BP 96/70 01/21/23 09:00 Pulse Ox 93 L 01/21/23 09:15 FiO2 60 01/21/23 08:23 Intake & Output 01/20/23 01/21/23 01/21/23 18:59 06:59 18:59 Intake Total 2870.225 1462.223 142.477 Output Total 20 348 0 Balance 2850.225 1114.223 142.477 Weight 86.8 kg Intake: IV 1718 745 137 .9 KVO 220 240 60 Azithromycin 500 mg In 250 Sodium Chloride 0.9% 250 ml @ 250 mls/hr IVPB DAILY [facility] Rx#:[id number] Calcium Gluconate in NaCl 100 2 gm In Saline 1 100ml. bag @ 100 mls/hr IVPB ONCE ONE Rx#:[id number] Dextrose 5% in Water 1, 1100 200 000 ml @ 100 mls/hr IV . [id number] ARIADNE with Sodium Bicarb (1 Meq/ml) 150 ml Rx#:[id number] Piperacillin-Tazobactam 3 100 100 50 .375 gm In Sodium Chloride 0.9% 100 ml @ 25 mls/hr IVPB Q8H [facility] Rx#: [id number] a line 48 105 27 Intake, IV Titration 1152.225 597.223 5.477 Amount Amiodarone 450 mg In 152.225 Dextrose 5% in Water 250 ml @ 0.5 MG/MIN 16.667 mls/hr IV .Q15H [facility] Rx#: [id number] Heparin Sod,Pork in 0.45% 197.108 NaCl 25,000 unit In 0.45 % NaCl 1 250ml.bag @ 12 UNITS/KG/HR 8.491 mls/hr IV .Q24H [facility] Rx#: [id number] Insulin Regular 100 unit 178.100 280.800 In Sodium Chloride 0.9% 100 ml @ Titrate IV .Q0M [facility] Rx#:[id number] Norepinephrine 8 mg In 154.079 128.588 5.477 Sodium Chloride 0.9% 250 ml @ 0.03 MCG/KG/MIN 4. 108 mls/hr IV .Q24H [facility] Rx#:[id number] Vasopressin 60 unit In 132.498 Sodium Chloride 0.9% 150 ml @ 0.03 UNITS/MIN 4.59 mls/hr IV .Q24H [facility]ADNE Rx#: [id number] fentaNYL (PF). 1,000 mcg 187.691 95.703 In Sodium Chloride 0.9% 80 ml @ 0.5 MCG/KG/HR 3. 538 mls/hr IV .Q24H ARIADNE Rx#:[id number] propofoL 1,000 mg In 150.524 92.132 Empty Bag 1 bag @ 15 MCG/ KG/MIN 6.368 mls/hr IV . [id number] ARIADNE Rx#:[id number] Other 120 Output: Gastric Drainage 300 Urine 20 48 0 Other: Voiding Method Indwelling Catheter Indwelling Catheter Indwelling Catheter ABP, PAP, CO, CI - Last Documented Arterial Blood Pressure 94/64 - Exam GENERAL EXAM: Sedated and synchronous with the mechanical ventilator, in no apparent distress. HEAD: Normocephalic and atraumatic EYES: Normal reaction of pupils, equal size. NOSE: Clear with pink turbinates. THROAT: No erythema or exudates. NECK: No masses, no JVD. CHEST: No chest wall deformity. LUNGS: Equal air entry with no crackles, wheeze, rhonchi or dullness. Intubated to the mechanical ventilator. CVS: S1 and S2 normal with no audible murmur, regular rhythm. No extra heart so unds ABDOMEN: No hepatosplenomegaly, active bowel sounds, no guarding or rigidity. SPINE: No scoliosis or deformity SKIN: No rashes CENTRAL NERVOUS SYSTEM: No focal deficits, tone is normal in all 4 extremities. EXTREMITIES: There is no peripheral edema, clubbing, or cyanosis. Peripheral pulses are intact. There is a right femoral triple-lumen central line and right wrist radial arterial line, Markedly diminished pulses in lower extremities bilaterally and they're obtainable by Doppler of the feet. Extremities are warm. - Labs CBC & Chem 7: 01/21/23 04:45 01/21/23 04:45 Labs: Abnormal Lab Results - Last 24 Hours (Table) 01/20/23 01/20/23 01/20/23 Range/Units 10:21 10:56 10:59 RBC (4.30-5.90) m/uL Hgb (13.0-17.5) gm/dL Hct (39.0-53.0) % RDW (11.5-15.5) % Neutrophils # (1.3-7.7) k/uL Lymphocytes # (1.0-4.8) k/uL PT (10.0-12.5) sec INR (<1.2) APTT (22.0-30.0) sec ABG pH (7.35-7.45) ABG pCO2 (35-45) mmHg ABG pO2 (83-108) mmHg ABG HCO3 (21-25) mmol/L ABG Total CO2 (19-24) mmol/L ABG O2 Saturation (94-97) % ABG Lactic Acid (0.5-1.6) mmol/L Sodium (137-145) mmol/L Chloride (98-107) mmol/L Carbon Dioxide (22-30) mmol/L BUN (9-20) mg/dL Creatinine (0.66-1.25) mg/dL Glucose (74-99) mg/dL POC Glucose (mg/dL) >600 H >600 H (70-110) mg/dL Plasma Lactic Acid Yadiel 8.9 H* (0.7-2.0) mmol/L Calcium (8.4-10.2) mg/dL Ionized Calcium Anthony (4.5-5.3) mg/dL Lactate Dehydrogenase (120-246) U/L 01/20/23 01/20/23 01/20/23 Range/Units 11:05 11:30 11:50 RBC (4.30-5.90) m/uL Hgb (13.0-17.5) gm/dL Hct (39.0-53.0) % RDW (11.5-15.5) % Neutrophils # (1.3-7.7) k/uL Lymphocytes # (1.0-4.8) k/uL PT (10.0-12.5) sec INR (<1.2) APTT 43.6 H (22.0-30.0) sec ABG pH (7.35-7.45) ABG pCO2 (35-45) mmHg ABG pO2 (83-108) mmHg ABG HCO3 (21-25) mmol/L ABG Total CO2 (19-24) mmol/L ABG O2 Saturation (94-97) % ABG Lactic Acid (0.5-1.6) mmol/L Sodium (137-145) mmol/L Chloride (98-107) mmol/L Carbon Dioxide (22-30) mmol/L BUN (9-20) mg/dL Creatinine (0.66-1.25) mg/dL Glucose 656 H* 621 H* (74-99) mg/dL POC Glucose (mg/dL) (70-110) mg/dL Plasma Lactic Acid Yadiel (0.7-2.0) mmol/L Calcium (8.4-10.2) mg/dL Ionized Calcium Anthony (4.5-5.3) mg/dL Lactate Dehydrogenase (120-246) U/L 01/20/23 01/20/23 01/20/23 Range/Units 11:57 14:18 15:05 RBC (4.30-5.90) m/uL Hgb (13.0-17.5) gm/dL Hct (39.0-53.0) % RDW (11.5-15.5) % Neutrophils # (1.3-7.7) k/uL Lymphocytes # (1.0-4.8) k/uL PT (10.0-12.5) sec INR (<1.2) APTT (22.0-30.0) sec ABG pH (7.35-7.45) ABG pCO2 (35-45) mmHg ABG pO2 (83-108) mmHg ABG HCO3 (21-25) mmol/L ABG Total CO2 (19-24) mmol/L ABG O2 Saturation (94-97) % ABG Lactic Acid (0.5-1.6) mmol/L Sodium (137-145) mmol/L Chloride (98-107) mmol/L Carbon Dioxide (22-30) mmol/L BUN (9-20) mg/dL Creatinine (0.66-1.25) mg/dL Glucose (74-99) mg/dL POC Glucose (mg/dL) >600 H 593 H (70-110) mg/dL Plasma Lactic Acid Yadiel 7.7 H* (0.7-2.0) mmol/L Calcium (8.4-10.2) mg/dL Ionized Calcium Anthony (4.5-5.3) mg/dL Lactate Dehydrogenase (120-246) U/L 01/20/23 01/20/23 01/20/23 Range/Units 15:05 15:05 15:05 RBC 2.85 L (4.30-5.90) m/uL Hgb 8.3 L (13.0-17.5) gm/dL Hct 25.6 L (39.0-53.0) % RDW 18.1 H (11.5-15.5) % Neutrophils # (1.3-7.7) k/uL Lymphocytes # 0.3 L (1.0-4.8) k/uL PT 25.8 H (10.0-12.5) sec INR 2.6 H (<1.2) APTT 50.6 H (22.0-30.0) sec ABG pH (7.35-7.45) ABG pCO2 (35-45) mmHg ABG pO2 (83-108) mmHg ABG HCO3 (21-25) mmol/L ABG Total CO2 (19-24) mmol/L ABG O2 Saturation (94-97) % ABG Lactic Acid (0.5-1.6) mmol/L Sodium 133 L (137-145) mmol/L Chloride 97 L (98-107) mmol/L Carbon Dioxide 19 L (22-30) mmol/L BUN 56 H (9-20) mg/dL Creatinine 3.31 H (0.66-1.25) mg/dL Glucose 545 H* (74-99) mg/dL POC Glucose (mg/dL) (70-110) mg/dL Plasma Lactic Acid Yadiel (0.7-2.0) mmol/L Calcium 6.6 L (8.4-10.2) mg/dL Ionized Calcium Anthony (4.5-5.3) mg/dL Lactate Dehydrogenase (120-246) U/L 01/20/23 01/20/23 01/20/23 Range/Units 15:05 16:15 16:55 RBC (4.30-5.90) m/uL Hgb (13.0-17.5) gm/dL Hct (39.0-53.0) % RDW (11.5-15.5) % Neutrophils # (1.3-7.7) k/uL Lymphocytes # (1.0-4.8) k/uL PT (10.0-12.5) sec INR (<1.2) APTT (22.0-30.0) sec ABG pH (7.35-7.45) ABG pCO2 (35-45) mmHg ABG pO2 (83-108) mmHg ABG HCO3 (21-25) mmol/L ABG Total CO2 (19-24) mmol/L ABG O2 Saturation (94-97) % ABG Lactic Acid (0.5-1.6) mmol/L Sodium (137-145) mmol/L Chloride (98-107) mmol/L Carbon Dioxide (22-30) mmol/L BUN (9-20) mg/dL Creatinine (0.66-1.25) mg/dL Glucose (74-99) mg/dL POC Glucose (mg/dL) 581 H 555 H 531 H (70-110) mg/dL Plasma Lactic Acid Yadiel (0.7-2.0) mmol/L Calcium (8.4-10.2) mg/dL Ionized Calcium Anthony (4.5-5.3) mg/dL Lactate Dehydrogenase (120-246) U/L 01/20/23 01/20/23 01/20/23 Range/Units 17:48 18:01 18:54 RBC (4.30-5.90) m/uL Hgb (13.0-17.5) gm/dL Hct (39.0-53.0) % RDW (11.5-15.5) % Neutrophils # (1.3-7.7) k/uL Lymphocytes # (1.0-4.8) k/uL PT (10.0-12.5) sec INR (<1.2) APTT (22.0-30.0) sec ABG pH (7.35-7.45) ABG pCO2 (35-45) mmHg ABG pO2 (83-108) mmHg ABG HCO3 (21-25) mmol/L ABG Total CO2 (19-24) mmol/L ABG O2 Saturation (94-97) % ABG Lactic Acid (0.5-1.6) mmol/L Sodium (137-145) mmol/L Chloride (98-107) mmol/L Carbon Dioxide (22-30) mmol/L BUN (9-20) mg/dL Creatinine (0.66-1.25) mg/dL Glucose (74-99) mg/dL POC Glucose (mg/dL) 483 H 466 H (70-110) mg/dL Plasma Lactic Acid Yadiel 5.7 H* (0.7-2.0) mmol/L Calcium (8.4-10.2) mg/dL Ionized Calcium Anthony (4.5-5.3) mg/dL Lactate Dehydrogenase (120-246) U/L 01/20/23 01/20/23 01/20/23 Range/Units 19:00 19:38 20:14 RBC (4.30-5.90) m/uL Hgb (13.0-17.5) gm/dL Hct (39.0-53.0) % RDW (11.5-15.5) % Neutrophils # (1.3-7.7) k/uL Lymphocytes # (1.0-4.8) k/uL PT (10.0-12.5) sec INR (<1.2) APTT 47.9 H (22.0-30.0) sec ABG pH 7.46 H (7.35-7.45) ABG pCO2 34 L (35-45) mmHg ABG pO2 129 H (83-108) mmHg ABG HCO3 (21-25) mmol/L ABG Total CO2 25 H (19-24) mmol/L ABG O2 Saturation 98.9 H (94-97) % ABG Lactic Acid (0.5-1.6) mmol/L Sodium (137-145) mmol/L Chloride (98-107) mmol/L Carbon Dioxide (22-30) mmol/L BUN (9-20) mg/dL Creatinine (0.66-1.25) mg/dL Glucose (74-99) mg/dL POC Glucose (mg/dL) 420 H (70-110) mg/dL Plasma Lactic Acid Yadiel (0.7-2.0) mmol/L Calcium (8.4-10.2) mg/dL Ionized Calcium Anthony (4.5-5.3) mg/dL Lactate Dehydrogenase (120-246) U/L 01/20/23 01/20/23 01/20/23 Range/Units 21:08 21:14 21:14 RBC 2.70 L (4.30-5.90) m/uL Hgb 7.9 L (13.0-17.5) gm/dL Hct 23.6 L (39.0-53.0) % RDW 18.1 H (11.5-15.5) % Neutrophils # (1.3-7.7) k/uL Lymphocytes # 0.3 L (1.0-4.8) k/uL PT (10.0-12.5) sec INR (<1.2) APTT (22.0-30.0) sec ABG pH (7.35-7.45) ABG pCO2 (35-45) mmHg ABG pO2 (83-108) mmHg ABG HCO3 (21-25) mmol/L ABG Total CO2 (19-24) mmol/L ABG O2 Saturation (94-97) % ABG Lactic Acid (0.5-1.6) mmol/L Sodium 134 L (137-145) mmol/L Chloride (98-107) mmol/L Carbon Dioxide (22-30) mmol/L BUN 63 H (9-20) mg/dL Creatinine 3.51 H (0.66-1.25) mg/dL Glucose 315 H (74-99) mg/dL POC Glucose (mg/dL) 360 H (70-110) mg/dL Plasma Lactic Acid Yadiel (0.7-2.0) mmol/L Calcium 6.3 L* (8.4-10.2) mg/dL Ionized Calcium Anthony (4.5-5.3) mg/dL Lactate Dehydrogenase >49870 H (120-246) U/L 01/20/23 01/20/23 01/20/23 Range/Units 21:36 22:26 23:11 RBC (4.30-5.90) m/uL Hgb (13.0-17.5) gm/dL Hct (39.0-53.0) % RDW (11.5-15.5) % Neutrophils # (1.3-7.7) k/uL Lymphocytes # (1.0-4.8) k/uL PT (10.0-12.5) sec INR (<1.2) APTT (22.0-30.0) sec ABG pH (7.35-7.45) ABG pCO2 (35-45) mmHg ABG pO2 (83-108) mmHg ABG HCO3 (21-25) mmol/L ABG Total CO2 (19-24) mmol/L ABG O2 Saturation (94-97) % ABG Lactic Acid 4.8 H* (0.5-1.6) mmol/L Sodium (137-145) mmol/L Chloride (98-107) mmol/L Carbon Dioxide (22-30) mmol/L BUN (9-20) mg/dL Creatinine (0.66-1.25) mg/dL Glucose (74-99) mg/dL POC Glucose (mg/dL) 300 H 245 H (70-110) mg/dL Plasma Lactic Acid Yadiel (0.7-2.0) mmol/L Calcium (8.4-10.2) mg/dL Ionized Calcium Anthony (4.5-5.3) mg/dL Lactate Dehydrogenase (120-246) U/L 01/21/23 01/21/23 01/21/23 Range/Units 00:12 01:07 01:15 RBC (4.30-5.90) m/uL Hgb (13.0-17.5) gm/dL Hct (39.0-53.0) % RDW (11.5-15.5) % Neutrophils # (1.3-7.7) k/uL Lymphocytes # (1.0-4.8) k/uL PT (10.0-12.5) sec INR (<1.2) APTT 51.2 H (22.0-30.0) sec ABG pH (7.35-7.45) ABG pCO2 (35-45) mmHg ABG pO2 (83-108) mmHg ABG HCO3 (21-25) mmol/L ABG Total CO2 (19-24) mmol/L ABG O2 Saturation (94-97) % ABG Lactic Acid (0.5-1.6) mmol/L Sodium (137-145) mmol/L Chloride (98-107) mmol/L Carbon Dioxide (22-30) mmol/L BUN (9-20) mg/dL Creatinine (0.66-1.25) mg/dL Glucose (74-99) mg/dL POC Glucose (mg/dL) 177 H 137 H (70-110) mg/dL Plasma Lactic Acid Yadiel (0.7-2.0) mmol/L Calcium (8.4-10.2) mg/dL Ionized Calcium Anthony (4.5-5.3) mg/dL Lactate Dehydrogenase (120-246) U/L 01/21/23 01/21/23 01/21/23 Range/Units 01:15 04:00 04:14 RBC (4.30-5.90) m/uL Hgb (13.0-17.5) gm/dL Hct (39.0-53.0) % RDW (11.5-15.5) % Neutrophils # (1.3-7.7) k/uL Lymphocytes # (1.0-4.8) k/uL PT (10.0-12.5) sec INR (<1.2) APTT (22.0-30.0) sec ABG pH (7.35-7.45) ABG pCO2 (35-45) mmHg ABG pO2 (83-108) mmHg ABG HCO3 (21-25) mmol/L ABG Total CO2 (19-24) mmol/L ABG O2 Saturation (94-97) % ABG Lactic Acid 3.3 H* (0.5-1.6) mmol/L Sodium (137-145) mmol/L Chloride (98-107) mmol/L Carbon Dioxide (22-30) mmol/L BUN (9-20) mg/dL Creatinine (0.66-1.25) mg/dL Glucose (74-99) mg/dL POC Glucose (mg/dL) 65 L (70-110) mg/dL Plasma Lactic Acid Yadiel (0.7-2.0) mmol/L Calcium (8.4-10.2) mg/dL Ionized Calcium Anthony (4.5-5.3) mg/dL Lactate Dehydrogenase >29229 H (120-246) U/L 01/21/23 01/21/23 01/21/23 Range/Units 04:44 04:45 04:45 RBC 2.71 L (4.30-5.90) m/uL Hgb 7.9 L (13.0-17.5) gm/dL Hct 23.4 L (39.0-53.0) % RDW 18.0 H (11.5-15.5) % Neutrophils # 9.7 H (1.3-7.7) k/uL Lymphocytes # 0.4 L (1.0-4.8) k/uL PT 20.3 H (10.0-12.5) sec INR 2.0 H (<1.2) APTT (22.0-30.0) sec ABG pH (7.35-7.45) ABG pCO2 (35-45) mmHg ABG pO2 (83-108) mmHg ABG HCO3 (21-25) mmol/L ABG Total CO2 (19-24) mmol/L ABG O2 Saturation (94-97) % ABG Lactic Acid (0.5-1.6) mmol/L Sodium (137-145) mmol/L Chloride (98-107) mmol/L Carbon Dioxide (22-30) mmol/L BUN (9-20) mg/dL Creatinine (0.66-1.25) mg/dL Glucose (74-99) mg/dL POC Glucose (mg/dL) 120 H (70-110) mg/dL Plasma Lactic Acid Yadiel (0.7-2.0) mmol/L Calcium (8.4-10.2) mg/dL Ionized Calcium Anthony (4.5-5.3) mg/dL Lactate Dehydrogenase (120-246) U/L 01/21/23 01/21/23 01/21/23 Range/Units 04:45 04:45 05:15 RBC (4.30-5.90) m/uL Hgb (13.0-17.5) gm/dL Hct (39.0-53.0) % RDW (11.5-15.5) % Neutrophils # (1.3-7.7) k/uL Lymphocytes # (1.0-4.8) k/uL PT (10.0-12.5) sec INR (<1.2) APTT 47.1 H (22.0-30.0) sec ABG pH (7.35-7.45) ABG pCO2 (35-45) mmHg ABG pO2 (83-108) mmHg ABG HCO3 (21-25) mmol/L ABG Total CO2 (19-24) mmol/L ABG O2 Saturation (94-97) % ABG Lactic Acid (0.5-1.6) mmol/L Sodium 134 L (137-145) mmol/L Chloride (98-107) mmol/L Carbon Dioxide (22-30) mmol/L BUN 70 H (9-20) mg/dL Creatinine 3.80 H (0.66-1.25) mg/dL Glucose 102 H (74-99) mg/dL POC Glucose (mg/dL) (70-110) mg/dL Plasma Lactic Acid Yadiel (0.7-2.0) mmol/L Calcium 6.6 L (8.4-10.2) mg/dL Ionized Calcium Anthony 3.7 L (4.5-5.3) mg/dL Lactate Dehydrogenase >76758 H (120-246) U/L 01/21/23 01/21/23 01/21/23 Range/Units 05:49 07:51 08:58 RBC (4.30-5.90) m/uL Hgb (13.0-17.5) gm/dL Hct (39.0-53.0) % RDW (11.5-15.5) % Neutrophils # (1.3-7.7) k/uL Lymphocytes # (1.0-4.8) k/uL PT (10.0-12.5) sec INR (<1.2) APTT (22.0-30.0) sec ABG pH (7.35-7.45) ABG pCO2 (35-45) mmHg ABG pO2 127 H (83-108) mmHg ABG HCO3 26 H (21-25) mmol/L ABG Total CO2 27 H (19-24) mmol/L ABG O2 Saturation 98.7 H (94-97) % ABG Lactic Acid (0.5-1.6) mmol/L Sodium (137-145) mmol/L Chloride (98-107) mmol/L Carbon Dioxide (22-30) mmol/L BUN (9-20) mg/dL Creatinine (0.66-1.25) mg/dL Glucose (74-99) mg/dL POC Glucose (mg/dL) 117 H 129 H (70-110) mg/dL Plasma Lactic Acid Yadiel (0.7-2.0) mmol/L Calcium (8.4-10.2) mg/dL Ionized Calcium Anthony (4.5-5.3) mg/dL Lactate Dehydrogenase (120-246) U/L 01/21/23 01/21/23 Range/Units 09:00 09:28 RBC (4.30-5.90) m/uL Hgb (13.0-17.5) gm/dL Hct (39.0-53.0) % RDW (11.5-15.5) % Neutrophils # (1.3-7.7) k/uL Lymphocytes # (1.0-4.8) k/uL PT (10.0-12.5) sec INR (<1.2) APTT 58.4 H (22.0-30.0) sec ABG pH (7.35-7.45) ABG pCO2 (35-45) mmHg ABG pO2 (83-108) mmHg ABG HCO3 (21-25) mmol/L ABG Total CO2 (19-24) mmol/L ABG O2 Saturation (94-97) % ABG Lactic Acid (0.5-1.6) mmol/L Sodium (137-145) mmol/L Chloride (98-107) mmol/L Carbon Dioxide (22-30) mmol/L BUN (9-20) mg/dL Creatinine (0.66-1.25) mg/dL Glucose (74-99) mg/dL POC Glucose (mg/dL) (70-110) mg/dL Plasma Lactic Acid Yadiel 2.3 H* (0.7-2.0) mmol/L Calcium (8.4-10.2) mg/dL Ionized Calcium Anthony (4.5-5.3) mg/dL Lactate Dehydrogenase (120-246) U/L Microbiology - Last 24 Hours (Table) 01/19/23 12:14 Gram Stain - Final Sputum Sputum Culture - Final 01/18/23 15:00 Blood Culture - Preliminary Blood 01/19/23 12:00 Urine Culture - Final Urine,Catheterized Assessment and Plan Assessment: PEA cardiac arrest 2, estimated combined total downtime less than 5 minutes. Patient received one round of CPR and 1 amp of epinephrine each time, ROSC was achieved. Currently, in the intensive care unit in critical condition, int ubated on the mechanical ventilator. Non-ST elevation myocardial infarction, currently on heparin infusion per protocol, troponins peaked at 13.4 and the patient currently is on IV heparin. Cardiogenic shock, currently requiring high-dose vasopressors in the form of norepinephrine and vasopressin, repeat echocardiogram that was at the bedside showed an ejection fraction of 20-25%, the patient currently has a Impela with a P9 mentation. Remains off pressors and norepinephrine is running at 0.04 mcg/kg/m. Acute kidney injury, the patient is interacting is not producing any urine output. He has some signs of fluid overload. Awaiting the bilateral pleural effusion. This has not impaired his oxygenation. No hyperkalemia. No metabolic acidosis. Acute shock liver with elevated LFTs, needs to be monitored Acute hypoxemic and hypercapnic respiratory failure, secondary to above, intuba edward on mechanical ventilator. Recent chest x-ray shows pulmonary vascular congestion versus airspace disease/pulmonary edema History of ischemic cardiomyopathy, most recent echocardiogram from November 2022 shows a mildly reduced LV function with an estimated ejection fraction of 45-50% with mild hypokinesis of the lateral wall. Coronary artery disease, patient had recent PCI/stent to the RCA back in October,. Patient has known severe disease of the LAD and LCx. Atrial fibrillation with rapid ventricular rate, currently in normal sinus rhythm, anticoagulated on IV heparin per protocol and receiving IV amiodarone Chronic anemia, normocytic normochromic Acute kidney injury, cardiorenal, creatinine is up to 3.15, not producing urine output of this point in time. Acute hyperkalemia, improved Acute lactic acidosis, lactic acid level is elevated at 11, improved History CVA/TIA Hyperlipidemia Diabetes mellitus type 2, currently on a slight scale insulin coverage Chronic obstructive pulmonary disease, stable Questionable cholecystitis, currently on IV Zosyn. No role for surgical intervention at this point in time. Plan: Continue ventilator support, no changes for today. We may be able to dropped FiO2 slightly down to 50% as oxygenation is adequate for now. Keep the patient sedated on propofol Condition remains critical Continue IV heparin, still running Patient is currently off amiodarone Hold enteral feeding for nutritional support at this point in time Monitor potassium level Patientremains anuric. There is being contemplated. The family decided to continue the supportive care. Keep Impela at p9 augmentation Continue IV Zosyn Sliding-scale insulin coverage Monitor LFTs monitor renal function The echocardiogram repeated and the patient has further impaired LV function with an EF of around 25-30%. Prognosis is extremely poor based above-mentioned comorbidities. We'll continue to follow. His evaluation was on a more than 30 minutes. We'll continue following up this patient along with the rest of the consultants. Unfortunately his prognosis remains very poor. I had a lengthy discussion with the and the stepdaughter is at the bedside. Explained to them the current situation and the poor outcome. Time with Patient: Greater than 30
[2023-01-21 10:09] LABS: Glucose,Whole Blood 134 mg/dL (70-110)
[2023-01-21] MEDS: AZITHROMYCIN 500 MG in SODIUM CHLORIDE 0.9% 250 ML IVPB SCH (10:38)
--- NOTE | 2023-01-21 10:55 | P.PN ---
Subjective Patient is seen for follow-up for acute kidney injury. Patient remains on the vent Status post cardiac catheterization 01/20/2023 with temp bilateral insertion. Levo fed is slightly lower today. Urine output remains 0 FiO2 is at 60%. Chest x-ray shows pleural effusions bilaterally with pulmonary edema. Patient is in significant positive balance with volume overload. Discussed renal replacement therapy with patient's family. At this time they're not sure if they have one to proceed with aggressive measures versus holding off. Objective - Vital Signs Vital signs: Vital Signs Temp 95.9 F L 01/21/23 10:30 Pulse 72 01/21/23 10:30 Resp 28 H 01/21/23 10:30 BP 97/71 01/21/23 10:30 Pulse Ox 89 L 01/21/23 10:30 FiO2 60 01/21/23 08:23 Intake & Output 01/20/23 01/21/23 01/21/23 18:59 06:59 18:59 Intake Total 2870.225 1562.223 171.477 Output Total 20 348 0 Balance 2850.225 1214.223 171.477 Weight 86.8 kg Intake: IV 1718 745 166 .9 KVO 220 240 80 Azithromycin 500 mg In 250 Sodium Chloride 0.9% 250 ml @ 250 mls/hr IVPB DAILY [facility] Rx#:[id number] Calcium Gluconate in NaCl 100 2 gm In Saline 1 100ml. bag @ 100 mls/hr IVPB ONCE ONE Rx#:[id number] Dextrose 5% in Water 1, 1100 200 000 ml @ 100 mls/hr IV . [id number] ARIADNE with Sodium Bicarb (1 Meq/ml) 150 ml Rx#:[id number] Piperacillin-Tazobactam 3 100 100 50 .375 gm In Sodium Chloride 0.9% 100 ml @ 25 mls/hr IVPB Q8H [facility] Rx#: [id number] a line 48 105 36 Intake, IV Titration 1152.225 697.223 5.477 Amount Amiodarone 450 mg In 152.225 Dextrose 5% in Water 250 ml @ 0.5 MG/MIN 16.667 mls/hr IV .Q15H [facility] Rx#: [id number] Heparin Sod,Pork in 0.45% 197.108 NaCl 25,000 unit In 0.45 % NaCl 1 250ml.bag @ 12 UNITS/KG/HR 8.491 mls/hr IV .Q24H [facility] Rx#: [id number] Insulin Regular 100 unit 178.100 280.800 In Sodium Chloride 0.9% 100 ml @ Titrate IV .Q0M [facility] Rx#:[id number] Norepinephrine 8 mg In 154.079 128.588 5.477 Sodium Chloride 0.9% 250 ml @ 0.03 MCG/KG/MIN 4. 108 mls/hr IV .Q24H [facility] Rx#:[id number] Vasopressin 60 unit In 132.498 Sodium Chloride 0.9% 150 ml @ 0.03 UNITS/MIN 4.59 mls/hr IV .Q24H [facility] Rx#: [id number] fentaNYL (PF). 1,000 mcg 187.691 95.703 In Sodium Chloride 0.9% 80 ml @ 0.5 MCG/KG/HR 3. 538 mls/hr IV .Q24H [facility] Rx#:[id number] propofoL 1,000 mg In 150.524 192.132 Empty Bag 1 bag @ 15 MCG/ KG/MIN 6.368 mls/hr IV . [id number] [facility] Rx#:[id number] Other 120 Output: Gastric Drainage 300 Urine 20 48 0 Other: Voiding Method Indwelling Catheter Indwelling Catheter Indwelling Catheter ABP, PAP, CO, CI - Last Documented Arterial Blood Pressure 87/61 - Exam Patient is sedated and on the vent Examination of the heart S1 and S2 Examination of the lungs bilateral breath sounds Examination of lower extremities shows 2-3+ edema bilaterally with scrotal edema. - Labs CBC & Chem 7: 01/21/23 04:45 01/21/23 04:45 Labs: Abnormal Lab Results - Last 24 Hours (Table) 01/20/23 01/20/23 01/20/23 Range/Units 10:56 10:59 11:05 RBC (4.30-5.90) m/uL Hgb (13.0-17.5) gm/dL Hct (39.0-53.0) % RDW (11.5-15.5) % Neutrophils # (1.3-7.7) k/uL Lymphocytes # (1.0-4.8) k/uL PT (10.0-12.5) sec INR (<1.2) APTT 43.6 H (22.0-30.0) sec ABG pH (7.35-7.45) ABG pCO2 (35-45) mmHg ABG pO2 (83-108) mmHg ABG HCO3 (21-25) mmol/L ABG Total CO2 (19-24) mmol/L ABG O2 Saturation (94-97) % ABG Lactic Acid (0.5-1.6) mmol/L Sodium (137-145) mmol/L Chloride (98-107) mmol/L Carbon Dioxide (22-30) mmol/L BUN (9-20) mg/dL Creatinine (0.66-1.25) mg/dL Glucose (74-99) mg/dL POC Glucose (mg/dL) >600 H (70-110) mg/dL Plasma Lactic Acid Yadiel 8.9 H* (0.7-2.0) mmol/L Calcium (8.4-10.2) mg/dL Ionized Calcium Anthony (4.5-5.3) mg/dL Lactate Dehydrogenase (120-246) U/L 01/20/23 01/20/23 01/20/23 Range/Units 11:30 11:50 11:57 RBC (4.30-5.90) m/uL Hgb (13.0-17.5) gm/dL Hct (39.0-53.0) % RDW (11.5-15.5) % Neutrophils # (1.3-7.7) k/uL Lymphocytes # (1.0-4.8) k/uL PT (10.0-12.5) sec INR (<1.2) APTT (22.0-30.0) sec ABG pH (7.35-7.45) ABG pCO2 (35-45) mmHg ABG pO2 (83-108) mmHg ABG HCO3 (21-25) mmol/L ABG Total CO2 (19-24) mmol/L ABG O2 Saturation (94-97) % ABG Lactic Acid (0.5-1.6) mmol/L Sodium (137-145) mmol/L Chloride (98-107) mmol/L Carbon Dioxide (22-30) mmol/L BUN (9-20) mg/dL Creatinine (0.66-1.25) mg/dL Glucose 656 H* 621 H* (74-99) mg/dL POC Glucose (mg/dL) >600 H (70-110) mg/dL Plasma Lactic Acid Yadiel (0.7-2.0) mmol/L Calcium (8.4-10.2) mg/dL Ionized Calcium Anthony (4.5-5.3) mg/dL Lactate Dehydrogenase (120-246) U/L 01/20/23 01/20/23 01/20/23 Range/Units 14:18 15:05 15:05 RBC 2.85 L (4.30-5.90) m/uL Hgb 8.3 L (13.0-17.5) gm/dL Hct 25.6 L (39.0-53.0) % RDW 18.1 H (11.5-15.5) % Neutrophils # (1.3-7.7) k/uL Lymphocytes # 0.3 L (1.0-4.8) k/uL PT (10.0-12.5) sec INR (<1.2) APTT (22.0-30.0) sec ABG pH (7.35-7.45) ABG pCO2 (35-45) mmHg ABG pO2 (83-108) mmHg ABG HCO3 (21-25) mmol/L ABG Total CO2 (19-24) mmol/L ABG O2 Saturation (94-97) % ABG Lactic Acid (0.5-1.6) mmol/L Sodium (137-145) mmol/L Chloride (98-107) mmol/L Carbon Dioxide (22-30) mmol/L BUN (9-20) mg/dL Creatinine (0.66-1.25) mg/dL Glucose (74-99) mg/dL POC Glucose (mg/dL) 593 H (70-110) mg/dL Plasma Lactic Acid Yadiel 7.7 H* (0.7-2.0) mmol/L Calcium (8.4-10.2) mg/dL Ionized Calcium Anthony (4.5-5.3) mg/dL Lactate Dehydrogenase (120-246) U/L 01/20/23 01/20/23 01/20/23 Range/Units 15:05 15:05 15:05 RBC (4.30-5.90) m/uL Hgb (13.0-17.5) gm/dL Hct (39.0-53.0) % RDW (11.5-15.5) % Neutrophils # (1.3-7.7) k/uL Lymphocytes # (1.0-4.8) k/uL PT 25.8 H (10.0-12.5) sec INR 2.6 H (<1.2) APTT 50.6 H (22.0-30.0) sec ABG pH (7.35-7.45) ABG pCO2 (35-45) mmHg ABG pO2 (83-108) mmHg ABG HCO3 (21-25) mmol/L ABG Total CO2 (19-24) mmol/L ABG O2 Saturation (94-97) % ABG Lactic Acid (0.5-1.6) mmol/L Sodium 133 L (137-145) mmol/L Chloride 97 L (98-107) mmol/L Carbon Dioxide 19 L (22-30) mmol/L BUN 56 H (9-20) mg/dL Creatinine 3.31 H (0.66-1.25) mg/dL Glucose 545 H* (74-99) mg/dL POC Glucose (mg/dL) 581 H (70-110) mg/dL Plasma Lactic Acid Yadiel (0.7-2.0) mmol/L Calcium 6.6 L (8.4-10.2) mg/dL Ionized Calcium Anthony (4.5-5.3) mg/dL Lactate Dehydrogenase (120-246) U/L 01/20/23 01/20/23 01/20/23 Range/Units 16:15 16:55 17:48 RBC (4.30-5.90) m/uL Hgb (13.0-17.5) gm/dL Hct (39.0-53.0) % RDW (11.5-15.5) % Neutrophils # (1.3-7.7) k/uL Lymphocytes # (1.0-4.8) k/uL PT (10.0-12.5) sec INR (<1.2) APTT (22.0-30.0) sec ABG pH (7.35-7.45) ABG pCO2 (35-45) mmHg ABG pO2 (83-108) mmHg ABG HCO3 (21-25) mmol/L ABG Total CO2 (19-24) mmol/L ABG O2 Saturation (94-97) % ABG Lactic Acid (0.5-1.6) mmol/L Sodium (137-145) mmol/L Chloride (98-107) mmol/L Carbon Dioxide (22-30) mmol/L BUN (9-20) mg/dL Creatinine (0.66-1.25) mg/dL Glucose (74-99) mg/dL POC Glucose (mg/dL) 555 H 531 H (70-110) mg/dL Plasma Lactic Acid Yadiel 5.7 H* (0.7-2.0) mmol/L Calcium (8.4-10.2) mg/dL Ionized Calcium Anthony (4.5-5.3) mg/dL Lactate Dehydrogenase (120-246) U/L 01/20/23 01/20/23 01/20/23 Range/Units 18:01 18:54 19:00 RBC (4.30-5.90) m/uL Hgb (13.0-17.5) gm/dL Hct (39.0-53.0) % RDW (11.5-15.5) % Neutrophils # (1.3-7.7) k/uL Lymphocytes # (1.0-4.8) k/uL PT (10.0-12.5) sec INR (<1.2) APTT 47.9 H (22.0-30.0) sec ABG pH (7.35-7.45) ABG pCO2 (35-45) mmHg ABG pO2 (83-108) mmHg ABG HCO3 (21-25) mmol/L ABG Total CO2 (19-24) mmol/L ABG O2 Saturation (94-97) % ABG Lactic Acid (0.5-1.6) mmol/L Sodium (137-145) mmol/L Chloride (98-107) mmol/L Carbon Dioxide (22-30) mmol/L BUN (9-20) mg/dL Creatinine (0.66-1.25) mg/dL Glucose (74-99) mg/dL POC Glucose (mg/dL) 483 H 466 H (70-110) mg/dL Plasma Lactic Acid Yadiel (0.7-2.0) mmol/L Calcium (8.4-10.2) mg/dL Ionized Calcium Anthony (4.5-5.3) mg/dL Lactate Dehydrogenase (120-246) U/L 01/20/23 01/20/23 01/20/23 Range/Units 19:38 20:14 21:08 RBC (4.30-5.90) m/uL Hgb (13.0-17.5) gm/dL Hct (39.0-53.0) % RDW (11.5-15.5) % Neutrophils # (1.3-7.7) k/uL Lymphocytes # (1.0-4.8) k/uL PT (10.0-12.5) sec INR (<1.2) APTT (22.0-30.0) sec ABG pH 7.46 H (7.35-7.45) ABG pCO2 34 L (35-45) mmHg ABG pO2 129 H (83-108) mmHg ABG HCO3 (21-25) mmol/L ABG Total CO2 25 H (19-24) mmol/L ABG O2 Saturation 98.9 H (94-97) % ABG Lactic Acid (0.5-1.6) mmol/L Sodium (137-145) mmol/L Chloride (98-107) mmol/L Carbon Dioxide (22-30) mmol/L BUN (9-20) mg/dL Creatinine (0.66-1.25) mg/dL Glucose (74-99) mg/dL POC Glucose (mg/dL) 420 H 360 H (70-110) mg/dL Plasma Lactic Acid Yadiel (0.7-2.0) mmol/L Calcium (8.4-10.2) mg/dL Ionized Calcium Anthony (4.5-5.3) mg/dL Lactate Dehydrogenase (120-246) U/L 01/20/23 01/20/23 01/20/23 Range/Units 21:14 21:14 21:36 RBC 2.70 L (4.30-5.90) m/uL Hgb 7.9 L (13.0-17.5) gm/dL Hct 23.6 L (39.0-53.0) % RDW 18.1 H (11.5-15.5) % Neutrophils # (1.3-7.7) k/uL Lymphocytes # 0.3 L (1.0-4.8) k/uL PT (10.0-12.5) sec INR (<1.2) APTT (22.0-30.0) sec ABG pH (7.35-7.45) ABG pCO2 (35-45) mmHg ABG pO2 (83-108) mmHg ABG HCO3 (21-25) mmol/L ABG Total CO2 (19-24) mmol/L ABG O2 Saturation (94-97) % ABG Lactic Acid 4.8 H* (0.5-1.6) mmol/L Sodium 134 L (137-145) mmol/L Chloride (98-107) mmol/L Carbon Dioxide (22-30) mmol/L BUN 63 H (9-20) mg/dL Creatinine 3.51 H (0.66-1.25) mg/dL Glucose 315 H (74-99) mg/dL POC Glucose (mg/dL) (70-110) mg/dL Plasma Lactic Acid Yadiel (0.7-2.0) mmol/L Calcium 6.3 L* (8.4-10.2) mg/dL Ionized Calcium Anthony (4.5-5.3) mg/dL Lactate Dehydrogenase >94257 H (120-246) U/L 01/20/23 01/20/23 01/21/23 Range/Units 22:26 23:11 00:12 RBC (4.30-5.90) m/uL Hgb (13.0-17.5) gm/dL Hct (39.0-53.0) % RDW (11.5-15.5) % Neutrophils # (1.3-7.7) k/uL Lymphocytes # (1.0-4.8) k/uL PT (10.0-12.5) sec INR (<1.2) APTT (22.0-30.0) sec ABG pH (7.35-7.45) ABG pCO2 (35-45) mmHg ABG pO2 (83-108) mmHg ABG HCO3 (21-25) mmol/L ABG Total CO2 (19-24) mmol/L ABG O2 Saturation (94-97) % ABG Lactic Acid (0.5-1.6) mmol/L Sodium (137-145) mmol/L Chloride (98-107) mmol/L Carbon Dioxide (22-30) mmol/L BUN (9-20) mg/dL Creatinine (0.66-1.25) mg/dL Glucose (74-99) mg/dL POC Glucose (mg/dL) 300 H 245 H 177 H (70-110) mg/dL Plasma Lactic Acid Yadiel (0.7-2.0) mmol/L Calcium (8.4-10.2) mg/dL Ionized Calcium Anthony (4.5-5.3) mg/dL Lactate Dehydrogenase (120-246) U/L 01/21/23 01/21/23 01/21/23 Range/Units 01:07 01:15 01:15 RBC (4.30-5.90) m/uL Hgb (13.0-17.5) gm/dL Hct (39.0-53.0) % RDW (11.5-15.5) % Neutrophils # (1.3-7.7) k/uL Lymphocytes # (1.0-4.8) k/uL PT (10.0-12.5) sec INR (<1.2) APTT 51.2 H (22.0-30.0) sec ABG pH (7.35-7.45) ABG pCO2 (35-45) mmHg ABG pO2 (83-108) mmHg ABG HCO3 (21-25) mmol/L ABG Total CO2 (19-24) mmol/L ABG O2 Saturation (94-97) % ABG Lactic Acid (0.5-1.6) mmol/L Sodium (137-145) mmol/L Chloride (98-107) mmol/L Carbon Dioxide (22-30) mmol/L BUN (9-20) mg/dL Creatinine (0.66-1.25) mg/dL Glucose (74-99) mg/dL POC Glucose (mg/dL) 137 H (70-110) mg/dL Plasma Lactic Acid Yadiel (0.7-2.0) mmol/L Calcium (8.4-10.2) mg/dL Ionized Calcium Anthony (4.5-5.3) mg/dL Lactate Dehydrogenase >30212 H (120-246) U/L 01/21/23 01/21/23 01/21/23 Range/Units 04:00 04:14 04:44 RBC (4.30-5.90) m/uL Hgb (13.0-17.5) gm/dL Hct (39.0-53.0) % RDW (11.5-15.5) % Neutrophils # (1.3-7.7) k/uL Lymphocytes # (1.0-4.8) k/uL PT (10.0-12.5) sec INR (<1.2) APTT (22.0-30.0) sec ABG pH (7.35-7.45) ABG pCO2 (35-45) mmHg ABG pO2 (83-108) mmHg ABG HCO3 (21-25) mmol/L ABG Total CO2 (19-24) mmol/L ABG O2 Saturation (94-97) % ABG Lactic Acid 3.3 H* (0.5-1.6) mmol/L Sodium (137-145) mmol/L Chloride (98-107) mmol/L Carbon Dioxide (22-30) mmol/L BUN (9-20) mg/dL Creatinine (0.66-1.25) mg/dL Glucose (74-99) mg/dL POC Glucose (mg/dL) 65 L 120 H (70-110) mg/dL Plasma Lactic Acid Yadiel (0.7-2.0) mmol/L Calcium (8.4-10.2) mg/dL Ionized Calcium Anthony (4.5-5.3) mg/dL Lactate Dehydrogenase (120-246) U/L 01/21/23 01/21/23 01/21/23 Range/Units 04:45 04:45 04:45 RBC 2.71 L (4.30-5.90) m/uL Hgb 7.9 L (13.0-17.5) gm/dL Hct 23.4 L (39.0-53.0) % RDW 18.0 H (11.5-15.5) % Neutrophils # 9.7 H (1.3-7.7) k/uL Lymphocytes # 0.4 L (1.0-4.8) k/uL PT 20.3 H (10.0-12.5) sec INR 2.0 H (<1.2) APTT 47.1 H (22.0-30.0) sec ABG pH (7.35-7.45) ABG pCO2 (35-45) mmHg ABG pO2 (83-108) mmHg ABG HCO3 (21-25) mmol/L ABG Total CO2 (19-24) mmol/L ABG O2 Saturation (94-97) % ABG Lactic Acid (0.5-1.6) mmol/L Sodium (137-145) mmol/L Chloride (98-107) mmol/L Carbon Dioxide (22-30) mmol/L BUN (9-20) mg/dL Creatinine (0.66-1.25) mg/dL Glucose (74-99) mg/dL POC Glucose (mg/dL) (70-110) mg/dL Plasma Lactic Acid Yadiel (0.7-2.0) mmol/L Calcium (8.4-10.2) mg/dL Ionized Calcium Anthony (4.5-5.3) mg/dL Lactate Dehydrogenase (120-246) U/L 01/21/23 01/21/23 01/21/23 Range/Units 04:45 05:15 05:49 RBC (4.30-5.90) m/uL Hgb (13.0-17.5) gm/dL Hct (39.0-53.0) % RDW (11.5-15.5) % Neutrophils # (1.3-7.7) k/uL Lymphocytes # (1.0-4.8) k/uL PT (10.0-12.5) sec INR (<1.2) APTT (22.0-30.0) sec ABG pH (7.35-7.45) ABG pCO2 (35-45) mmHg ABG pO2 127 H (83-108) mmHg ABG HCO3 26 H (21-25) mmol/L ABG Total CO2 27 H (19-24) mmol/L ABG O2 Saturation 98.7 H (94-97) % ABG Lactic Acid (0.5-1.6) mmol/L Sodium 134 L (137-145) mmol/L Chloride (98-107) mmol/L Carbon Dioxide (22-30) mmol/L BUN 70 H (9-20) mg/dL Creatinine 3.80 H (0.66-1.25) mg/dL Glucose 102 H (74-99) mg/dL POC Glucose (mg/dL) (70-110) mg/dL Plasma Lactic Acid Yadiel (0.7-2.0) mmol/L Calcium 6.6 L (8.4-10.2) mg/dL Ionized Calcium Anthony 3.7 L (4.5-5.3) mg/dL Lactate Dehydrogenase >84399 H (120-246) U/L 01/21/23 01/21/23 01/21/23 Range/Units 07:51 08:58 09:00 RBC (4.30-5.90) m/uL Hgb (13.0-17.5) gm/dL Hct (39.0-53.0) % RDW (11.5-15.5) % Neutrophils # (1.3-7.7) k/uL Lymphocytes # (1.0-4.8) k/uL PT (10.0-12.5) sec INR (<1.2) APTT 58.4 H (22.0-30.0) sec ABG pH (7.35-7.45) ABG pCO2 (35-45) mmHg ABG pO2 (83-108) mmHg ABG HCO3 (21-25) mmol/L ABG Total CO2 (19-24) mmol/L ABG O2 Saturation (94-97) % ABG Lactic Acid (0.5-1.6) mmol/L Sodium (137-145) mmol/L Chloride (98-107) mmol/L Carbon Dioxide (22-30) mmol/L BUN (9-20) mg/dL Creatinine (0.66-1.25) mg/dL Glucose (74-99) mg/dL POC Glucose (mg/dL) 117 H 129 H (70-110) mg/dL Plasma Lactic Acid Yadiel (0.7-2.0) mmol/L Calcium (8.4-10.2) mg/dL Ionized Calcium Antohny (4.5-5.3) mg/dL Lactate Dehydrogenase (120-246) U/L 01/21/23 01/21/23 Range/Units 09:28 10:08 RBC (4.30-5.90) m/uL Hgb (13.0-17.5) gm/dL Hct (39.0-53.0) % RDW (11.5-15.5) % Neutrophils # (1.3-7.7) k/uL Lymphocytes # (1.0-4.8) k/uL PT (10.0-12.5) sec INR (<1.2) APTT (22.0-30.0) sec ABG pH (7.35-7.45) ABG pCO2 (35-45) mmHg ABG pO2 (83-108) mmHg ABG HCO3 (21-25) mmol/L ABG Total CO2 (19-24) mmol/L ABG O2 Saturation (94-97) % ABG Lactic Acid (0.5-1.6) mmol/L Sodium (137-145) mmol/L Chloride (98-107) mmol/L Carbon Dioxide (22-30) mmol/L BUN (9-20) mg/dL Creatinine (0.66-1.25) mg/dL Glucose (74-99) mg/dL POC Glucose (mg/dL) 134 H (70-110) mg/dL Plasma Lactic Acid Yadiel 2.3 H* (0.7-2.0) mmol/L Calcium (8.4-10.2) mg/dL Ionized Calcium Anthony (4.5-5.3) mg/dL Lactate Dehydrogenase (120-246) U/L Microbiology - Last 24 Hours (Table) 01/19/23 12:14 Gram Stain - Final Sputum Sputum Culture - Final 01/18/23 15:00 Blood Culture - Preliminary Blood 01/19/23 12:00 Urine Culture - Final Urine,Catheterized Assessment and Plan Assessment: 1. Acute kidney injury, ATN currently oliguric secondary to severe hypotension and cardiogenic shock. Status post impella insertion. He continues to anuric with 0 mL of urine. Maintained on levo fed and vasopressin. Levo fed toes is slightly lower. Discussed renal replacement therapy with patient's family given the significant volume overload and severe ATN with an urea. 2. Non-ST elevation [place] being taken to cardiac label operator 3. Cardiogenic shock 4. Cardiomyopathy with EF of 20-25% 5. Status post cardiac arrest, PEA 6. Severe metabolic acidosis secondary to shock and acute kidney injury guillermo ntained on bicarb drip Plan: Continue bicarb drip Continue pressors Replace potassium Discussed with family that patient will need renal replacement therapy given the severe anuric ATN and volume overload. Family has not made the final decision yet. We will plan for first treatment of hemodialysis tomorrow if there are plans to proceed with aggressive care. Overall prognosis is guarded.
[2023-01-21 11:01] LABS: Glucose,Whole Blood 149 mg/dL (70-110)
--- NOTE | 2023-01-21 11:10 | P.PN ---
Subjective Progress Note Date: 01/21/23 68-year-old male with a history of CAD status post recent RCA stent, diffuse LAD and circumflex disease, systolic heart failure with EF 35%, type 2 diabetes on insulin pump, atrial fibrillation, dyslipidemia, severe orthostatic hypotension, recent multiple falls presenting with another syncopal episode. In the ED, initial temperature was 97.8, pulse 156, respiratory rate 20, blood pressure 98/68, saturating at 99% on room air. Hemoglobin at 8.2, was previously at 10.7, INR 1.2, creatinine 1.03, glucose 111, troponin 3.28, proBNP 19,000. Initial EKG independently interpreted shows atrial fibrillation with RVR and diffuse ST depressions. Chest x-ray showed interstitial opacities. Patient was started on Cardizem, which dropped his blood pressure. He was then started on amiodarone which further dropped his pressures, he received 1 dose of epinephrine, did have an episode of emesis, ultimately placed on amiodarone drip as well as levofloxacin with cardiology at bedside. Bedside echo did show reduced EF. He also had urinary retention, Angela catheter placed. Upon arrival to medical ICU, patient had another few bouts of emesis and subsequently PA arrest. He required CPR and epinephrine. Was also intubated. Currently he has circulatory shock, on vasopressors, remains intubated. Prognosis is poor. Ultrasound did show findings concerning for acute cholecystitis. Shock either secondary to sepsis versus cardiogenic. Right heart cath was done which showed 70-80% LAD with patent RCA stent, PCWP 27, Impella was placed on 01/20. 01/21 Patient was seen and examined. Intubated. RASS -3. FiO2 60%. BP 104/71, P 72, RR 28. Pressors include Levophed at 0.03 mcg/kg/min and Vasopressin 0.04 units/min. Also on SoluMedrol 60 mg IV Q6H. Antibiotics include Azithromycin and Zosyn. On propofol at 35 mcg/kg/min and Fentanyl at 1.5 mcg/kg/hr. Heparin drip running at 14 units/kg/hr. CBC shows Hg 7.9. INR 2. ABG shows pH 7.45, pCO2 37. BMP shows Na 134, BUN 70, Cr 3.8, glucose 1.2, Ca 6.6. Ionized Ca 3.7. LDH > 10,000. CXR done today reviewed by me shows pulmonary vascular congestion which is stable along with Impella device. General: Intubated and sedated Derm: warm, dry Head: atraumatic, normocephalic, symmetric Eyes: Pupils equal and minimally reactive Mouth: no lip lesion, mucus membranes moist Cardiovascular: S1S2 reg, tachycardic, no murmur Lungs: Bilateral rhonchi, mechanically ventilated Abdominal: soft, nondistended, no BS noted Ext: no gross muscle atrophy, 3+ edema, no contractures Neuro: Sedated Psych: Unable to assess Shock, septic versus cardiogenic Status post cardiac arrest Paroxysmal Atrial fibrillation with RVR NSTEMI CAD status post recent stent, with residual diffuse left coronary disease not amenable to intervention Suspected acute cholecystitis Anuric Acute kidney injury, likely ATN in the setting of shock Mild to moderate right hydronephrosis Acute urinary retention status post Angela Acute on chronic normocytic anemia Acute hypoxic respiratory failure, requiring intubation and mechanical ventilation Acute on chronic systolic CHF exacerbation Suspected aspiration pneumonitis History of severe orthostatic hypotension Recurrent Syncope Acute hepatitis, likely ischemic versus hepatic congestion secondary to cardiogenic Based on my assessment of this patient, this patient meets a high complexity level of care. Patient has an acute diagnosis of cardiac arrest likely due to vasovagal episode that poses a threat to life or bodily function. Found to be in septic vs cardiogenic shock. Currently intubated on multiple pressors. On antibiotics for possible cholecystitis. Renal function worsening. Shock, septic versus cardiogenic: Continue Leveophed and Vasopressin to maintain MAP > 65. Imeplla placed 01/20. Procalcitonin 4.42 so on Azithromycin. Continued on Zosyn for cholecystitis. Check COVID, Flu, RSV. Status post cardiac arrest Paroxysmal Atrial fibrillation with RVR: Heparin drip for anticoagulation. Currently rate controlled. Type 2 NSTEMI: Heparin drip as above. Avoiding beta blockers due to shock. ASA, Lipitor and Plavix once stablized. Cardiology on board. CAD status post recent stent, with residual diffuse left coronary disease not amenable to intervention Suspected acute cholecystitis: Continue Zosyn. Surgery continues to follow, poor surgical candidate. Anuric Acute kidney injury: Multifactorial. Likely ATN in the setting of shock. Also with urinary retention status post Angela. R hydronephrosis on renal US. Nephrology consulted. Mild to moderate right hydronephrosis Acute urinary retention status post Angela Acute on chronic normocytic anemia: Transfuse if Hg < 7. Acute hypoxic respiratory failure, requiring intubation and mechanical ventilation Acute on chronic systolic and diastolic CHF exacerbation: EF 20-25% G3DD on Echo. Suspected aspiration pneumonitis History of severe orthostatic hypotension Recurrent Syncope Acute hepatitis: Ischemic versus hepatic congestion secondary to cardiogenic. Hep panel negative. CT AP when stable. Trend. I have reviewed the following documentation consultant notes: I have reviewed the results of the following tests: CBC, BMP, Ionized Ca, LDH I have ordered the following tests: I have discussed the care of this patient with the following independent historian: Discussed with and daughters. I have independently interpreted the following test below: CXR I have discussed the management of this patient with the following physician: Discussed with Dr. May. This patient has a high risk of morbidity. His prognosis is poor. Objective - Vital Signs Vital signs: Vital Signs Temp 99.1 F 01/21/23 08:00 Pulse 71 01/21/23 08:00 Resp 28 H 01/21/23 08:00 BP 110/63 01/21/23 08:00 Pulse Ox 92 L 01/21/23 08:00 FiO2 60 01/21/23 08:00 Intake & Output 01/20/23 01/21/23 01/21/23 18:59 06:59 18:59 Intake Total 2870.225 1462.223 88.477 Output Total 20 348 0 Balance 2850.225 1114.223 88.477 Weight 86.8 kg Intake: IV 1718 745 83 .9 KVO 220 240 40 Azithromycin 500 mg In 250 Sodium Chloride 0.9% 250 ml @ 250 mls/hr IVPB DAILY ARIADNE Rx#:[id number] Calcium Gluconate in NaCl 100 2 gm In Saline 1 100ml. bag @ 100 mls/hr IVPB ONCE ONE Rx#:[id number] Dextrose 5% in Water 1, 1100 200 000 ml @ 100 mls/hr IV . [id number] ARIADNE with Sodium Bicarb (1 Meq/ml) 150 ml Rx#:[id number] Piperacillin-Tazobactam 3 100 100 25 .375 gm In Sodium Chloride 0.9% 100 ml @ 25 mls/hr IVPB Q8H ARIADNE Rx#: [id number] a line 48 105 18 Intake, IV Titration 1152.225 597.223 5.477 Amount Amiodarone 450 mg In 152.225 Dextrose 5% in Water 250 ml @ 0.5 MG/MIN 16.667 mls/hr IV .Q15H ARIADNE Rx#: [id number] Heparin Sod,Pork in 0.45% 197.108 NaCl 25,000 unit In 0.45 % NaCl 1 250ml.bag @ 12 UNITS/KG/HR 8.491 mls/hr IV .Q24H [facility]NE Rx#: [id number] Insulin Regular 100 unit 178.100 280.800 In Sodium Chloride 0.9% 100 ml @ Titrate IV .Q0M ARIADNE Rx#:[id number] Norepinephrine 8 mg In 154.079 128.588 5.477 Sodium Chloride 0.9% 250 ml @ 0.03 MCG/KG/MIN 4. 108 mls/hr IV .Q24H ARIADNE Rx#:[id number] Vasopressin 60 unit In 132.498 Sodium Chloride 0.9% 150 ml @ 0.03 UNITS/MIN 4.59 mls/hr IV .Q24H [facility] Rx#: [id number] fentaNYL (PF). 1,000 mcg 187.691 95.703 In Sodium Chloride 0.9% 80 ml @ 0.5 MCG/KG/HR 3. 538 mls/hr IV .Q24H [facility]ADNE Rx#:[id number] propofoL 1,000 mg In 150.524 92.132 Empty Bag 1 bag @ 15 MCG/ KG/MIN 6.368 mls/hr IV . [id number] ARIADNE Rx#:[id number] Other 120 Output: Gastric Drainage 300 Urine 20 48 0 Other: Voiding Method Indwelling Catheter Indwelling Catheter ABP, PAP, CO, CI - Last Documented Arterial Blood Pressure 98/69 - Labs CBC & Chem 7: 01/21/23 04:45 01/21/23 04:45 Labs: Abnormal Lab Results - Last 24 Hours (Table) 01/20/23 01/20/23 01/20/23 Range/Units 09:02 10:21 10:56 RBC (4.30-5.90) m/uL Hgb (13.0-17.5) gm/dL Hct (39.0-53.0) % RDW (11.5-15.5) % Neutrophils # (1.3-7.7) k/uL Lymphocytes # (1.0-4.8) k/uL PT (10.0-12.5) sec INR (<1.2) APTT (22.0-30.0) sec ABG pH (7.35-7.45) ABG pCO2 (35-45) mmHg ABG pO2 (83-108) mmHg ABG HCO3 (21-25) mmol/L ABG Total CO2 (19-24) mmol/L ABG O2 Saturation (94-97) % ABG Lactic Acid (0.5-1.6) mmol/L Sodium (137-145) mmol/L Chloride (98-107) mmol/L Carbon Dioxide (22-30) mmol/L BUN (9-20) mg/dL Creatinine (0.66-1.25) mg/dL Glucose (74-99) mg/dL POC Glucose (mg/dL) 596 H >600 H >600 H (70-110) mg/dL Plasma Lactic Acid Yadiel (0.7-2.0) mmol/L Calcium (8.4-10.2) mg/dL Ionized Calcium Anthony (4.5-5.3) mg/dL Lactate Dehydrogenase (120-246) U/L 01/20/23 01/20/23 01/20/23 Range/Units 10:59 11:05 11:30 RBC (4.30-5.90) m/uL Hgb (13.0-17.5) gm/dL Hct (39.0-53.0) % RDW (11.5-15.5) % Neutrophils # (1.3-7.7) k/uL Lymphocytes # (1.0-4.8) k/uL PT (10.0-12.5) sec INR (<1.2) APTT 43.6 H (22.0-30.0) sec ABG pH (7.35-7.45) ABG pCO2 (35-45) mmHg ABG pO2 (83-108) mmHg ABG HCO3 (21-25) mmol/L ABG Total CO2 (19-24) mmol/L ABG O2 Saturation (94-97) % ABG Lactic Acid (0.5-1.6) mmol/L Sodium (137-145) mmol/L Chloride (98-107) mmol/L Carbon Dioxide (22-30) mmol/L BUN (9-20) mg/dL Creatinine (0.66-1.25) mg/dL Glucose 656 H* (74-99) mg/dL POC Glucose (mg/dL) (70-110) mg/dL Plasma Lactic Acid Yadiel 8.9 H* (0.7-2.0) mmol/L Calcium (8.4-10.2) mg/dL Ionized Calcium Anthony (4.5-5.3) mg/dL Lactate Dehydrogenase (120-246) U/L 01/20/23 01/20/23 01/20/23 Range/Units 11:50 11:57 14:18 RBC (4.30-5.90) m/uL Hgb (13.0-17.5) gm/dL Hct (39.0-53.0) % RDW (11.5-15.5) % Neutrophils # (1.3-7.7) k/uL Lymphocytes # (1.0-4.8) k/uL PT (10.0-12.5) sec INR (<1.2) APTT (22.0-30.0) sec ABG pH (7.35-7.45) ABG pCO2 (35-45) mmHg ABG pO2 (83-108) mmHg ABG HCO3 (21-25) mmol/L ABG Total CO2 (19-24) mmol/L ABG O2 Saturation (94-97) % ABG Lactic Acid (0.5-1.6) mmol/L Sodium (137-145) mmol/L Chloride (98-107) mmol/L Carbon Dioxide (22-30) mmol/L BUN (9-20) mg/dL Creatinine (0.66-1.25) mg/dL Glucose 621 H* (74-99) mg/dL POC Glucose (mg/dL) >600 H 593 H (70-110) mg/dL Plasma Lactic Acid Yadiel (0.7-2.0) mmol/L Calcium (8.4-10.2) mg/dL Ionized Calcium Anthony (4.5-5.3) mg/dL Lactate Dehydrogenase (120-246) U/L 01/20/23 01/20/23 01/20/23 Range/Units 15:05 15:05 15:05 RBC 2.85 L (4.30-5.90) m/uL Hgb 8.3 L (13.0-17.5) gm/dL Hct 25.6 L (39.0-53.0) % RDW 18.1 H (11.5-15.5) % Neutrophils # (1.3-7.7) k/uL Lymphocytes # 0.3 L (1.0-4.8) k/uL PT 25.8 H (10.0-12.5) sec INR 2.6 H (<1.2) APTT 50.6 H (22.0-30.0) sec ABG pH (7.35-7.45) ABG pCO2 (35-45) mmHg ABG pO2 (83-108) mmHg ABG HCO3 (21-25) mmol/L ABG Total CO2 (19-24) mmol/L ABG O2 Saturation (94-97) % ABG Lactic Acid (0.5-1.6) mmol/L Sodium (137-145) mmol/L Chloride (98-107) mmol/L Carbon Dioxide (22-30) mmol/L BUN (9-20) mg/dL Creatinine (0.66-1.25) mg/dL Glucose (74-99) mg/dL POC Glucose (mg/dL) (70-110) mg/dL Plasma Lactic Acid Yadiel 7.7 H* (0.7-2.0) mmol/L Calcium (8.4-10.2) mg/dL Ionized Calcium Anthony (4.5-5.3) mg/dL Lactate Dehydrogenase (120-246) U/L 01/20/23 01/20/23 01/20/23 Range/Units 15:05 15:05 16:15 RBC (4.30-5.90) m/uL Hgb (13.0-17.5) gm/dL Hct (39.0-53.0) % RDW (11.5-15.5) % Neutrophils # (1.3-7.7) k/uL Lymphocytes # (1.0-4.8) k/uL PT (10.0-12.5) sec INR (<1.2) APTT (22.0-30.0) sec ABG pH (7.35-7.45) ABG pCO2 (35-45) mmHg ABG pO2 (83-108) mmHg ABG HCO3 (21-25) mmol/L ABG Total CO2 (19-24) mmol/L ABG O2 Saturation (94-97) % ABG Lactic Acid (0.5-1.6) mmol/L Sodium 133 L (137-145) mmol/L Chloride 97 L (98-107) mmol/L Carbon Dioxide 19 L (22-30) mmol/L BUN 56 H (9-20) mg/dL Creatinine 3.31 H (0.66-1.25) mg/dL Glucose 545 H* (74-99) mg/dL POC Glucose (mg/dL) 581 H 555 H (70-110) mg/dL Plasma Lactic Acid Yadiel (0.7-2.0) mmol/L Calcium 6.6 L (8.4-10.2) mg/dL Ionized Calcium Anthony (4.5-5.3) mg/dL Lactate Dehydrogenase (120-246) U/L 01/20/23 01/20/23 01/20/23 Range/Units 16:55 17:48 18:01 RBC (4.30-5.90) m/uL Hgb (13.0-17.5) gm/dL Hct (39.0-53.0) % RDW (11.5-15.5) % Neutrophils # (1.3-7.7) k/uL Lymphocytes # (1.0-4.8) k/uL PT (10.0-12.5) sec INR (<1.2) APTT (22.0-30.0) sec ABG pH (7.35-7.45) ABG pCO2 (35-45) mmHg ABG pO2 (83-108) mmHg ABG HCO3 (21-25) mmol/L ABG Total CO2 (19-24) mmol/L ABG O2 Saturation (94-97) % ABG Lactic Acid (0.5-1.6) mmol/L Sodium (137-145) mmol/L Chloride (98-107) mmol/L Carbon Dioxide (22-30) mmol/L BUN (9-20) mg/dL Creatinine (0.66-1.25) mg/dL Glucose (74-99) mg/dL POC Glucose (mg/dL) 531 H 483 H (70-110) mg/dL Plasma Lactic Acid Yadiel 5.7 H* (0.7-2.0) mmol/L Calcium (8.4-10.2) mg/dL Ionized Calcium Anthony (4.5-5.3) mg/dL Lactate Dehydrogenase (120-246) U/L 01/20/23 01/20/23 01/20/23 Range/Units 18:54 19:00 19:38 RBC (4.30-5.90) m/uL Hgb (13.0-17.5) gm/dL Hct (39.0-53.0) % RDW (11.5-15.5) % Neutrophils # (1.3-7.7) k/uL Lymphocytes # (1.0-4.8) k/uL PT (10.0-12.5) sec INR (<1.2) APTT 47.9 H (22.0-30.0) sec ABG pH 7.46 H (7.35-7.45) ABG pCO2 34 L (35-45) mmHg ABG pO2 129 H (83-108) mmHg ABG HCO3 (21-25) mmol/L ABG Total CO2 25 H (19-24) mmol/L ABG O2 Saturation 98.9 H (94-97) % ABG Lactic Acid (0.5-1.6) mmol/L Sodium (137-145) mmol/L Chloride (98-107) mmol/L Carbon Dioxide (22-30) mmol/L BUN (9-20) mg/dL Creatinine (0.66-1.25) mg/dL Glucose (74-99) mg/dL POC Glucose (mg/dL) 466 H (70-110) mg/dL Plasma Lactic Acid Yadiel (0.7-2.0) mmol/L Calcium (8.4-10.2) mg/dL Ionized Calcium Anthony (4.5-5.3) mg/dL Lactate Dehydrogenase (120-246) U/L 01/20/23 01/20/23 01/20/23 Range/Units 20:14 21:08 21:14 RBC 2.70 L (4.30-5.90) m/uL Hgb 7.9 L (13.0-17.5) gm/dL Hct 23.6 L (39.0-53.0) % RDW 18.1 H (11.5-15.5) % Neutrophils # (1.3-7.7) k/uL Lymphocytes # 0.3 L (1.0-4.8) k/uL PT (10.0-12.5) sec INR (<1.2) APTT (22.0-30.0) sec ABG pH (7.35-7.45) ABG pCO2 (35-45) mmHg ABG pO2 (83-108) mmHg ABG HCO3 (21-25) mmol/L ABG Total CO2 (19-24) mmol/L ABG O2 Saturation (94-97) % ABG Lactic Acid (0.5-1.6) mmol/L Sodium (137-145) mmol/L Chloride (98-107) mmol/L Carbon Dioxide (22-30) mmol/L BUN (9-20) mg/dL Creatinine (0.66-1.25) mg/dL Glucose (74-99) mg/dL POC Glucose (mg/dL) 420 H 360 H (70-110) mg/dL Plasma Lactic Acid Yadiel (0.7-2.0) mmol/L Calcium (8.4-10.2) mg/dL Ionized Calcium Anthony (4.5-5.3) mg/dL Lactate Dehydrogenase (120-246) U/L 01/20/23 01/20/23 01/20/23 Range/Units 21:14 21:36 22:26 RBC (4.30-5.90) m/uL Hgb (13.0-17.5) gm/dL Hct (39.0-53.0) % RDW (11.5-15.5) % Neutrophils # (1.3-7.7) k/uL Lymphocytes # (1.0-4.8) k/uL PT (10.0-12.5) sec INR (<1.2) APTT (22.0-30.0) sec ABG pH (7.35-7.45) ABG pCO2 (35-45) mmHg ABG pO2 (83-108) mmHg ABG HCO3 (21-25) mmol/L ABG Total CO2 (19-24) mmol/L ABG O2 Saturation (94-97) % ABG Lactic Acid 4.8 H* (0.5-1.6) mmol/L Sodium 134 L (137-145) mmol/L Chloride (98-107) mmol/L Carbon Dioxide (22-30) mmol/L BUN 63 H (9-20) mg/dL Creatinine 3.51 H (0.66-1.25) mg/dL Glucose 315 H (74-99) mg/dL POC Glucose (mg/dL) 300 H (70-110) mg/dL Plasma Lactic Acid Yadiel (0.7-2.0) mmol/L Calcium 6.3 L* (8.4-10.2) mg/dL Ionized Calcium Anthony (4.5-5.3) mg/dL Lactate Dehydrogenase >53303 H (120-246) U/L 01/20/23 01/21/23 01/21/23 Range/Units 23:11 00:12 01:07 RBC (4.30-5.90) m/uL Hgb (13.0-17.5) gm/dL Hct (39.0-53.0) % RDW (11.5-15.5) % Neutrophils # (1.3-7.7) k/uL Lymphocytes # (1.0-4.8) k/uL PT (10.0-12.5) sec INR (<1.2) APTT (22.0-30.0) sec ABG pH (7.35-7.45) ABG pCO2 (35-45) mmHg ABG pO2 (83-108) mmHg ABG HCO3 (21-25) mmol/L ABG Total CO2 (19-24) mmol/L ABG O2 Saturation (94-97) % ABG Lactic Acid (0.5-1.6) mmol/L Sodium (137-145) mmol/L Chloride (98-107) mmol/L Carbon Dioxide (22-30) mmol/L BUN (9-20) mg/dL Creatinine (0.66-1.25) mg/dL Glucose (74-99) mg/dL POC Glucose (mg/dL) 245 H 177 H 137 H (70-110) mg/dL Plasma Lactic Acid Yadiel (0.7-2.0) mmol/L Calcium (8.4-10.2) mg/dL Ionized Calcium Anthony (4.5-5.3) mg/dL Lactate Dehydrogenase (120-246) U/L 01/21/23 01/21/23 01/21/23 Range/Units 01:15 01:15 04:00 RBC (4.30-5.90) m/uL Hgb (13.0-17.5) gm/dL Hct (39.0-53.0) % RDW (11.5-15.5) % Neutrophils # (1.3-7.7) k/uL Lymphocytes # (1.0-4.8) k/uL PT (10.0-12.5) sec INR (<1.2) APTT 51.2 H (22.0-30.0) sec ABG pH (7.35-7.45) ABG pCO2 (35-45) mmHg ABG pO2 (83-108) mmHg ABG HCO3 (21-25) mmol/L ABG Total CO2 (19-24) mmol/L ABG O2 Saturation (94-97) % ABG Lactic Acid 3.3 H* (0.5-1.6) mmol/L Sodium (137-145) mmol/L Chloride (98-107) mmol/L Carbon Dioxide (22-30) mmol/L BUN (9-20) mg/dL Creatinine (0.66-1.25) mg/dL Glucose (74-99) mg/dL POC Glucose (mg/dL) (70-110) mg/dL Plasma Lactic Acid Yadiel (0.7-2.0) mmol/L Calcium (8.4-10.2) mg/dL Ionized Calcium Anthony (4.5-5.3) mg/dL Lactate Dehydrogenase >51850 H (120-246) U/L 01/21/23 01/21/23 01/21/23 Range/Units 04:14 04:44 04:45 RBC 2.71 L (4.30-5.90) m/uL Hgb 7.9 L (13.0-17.5) gm/dL Hct 23.4 L (39.0-53.0) % RDW 18.0 H (11.5-15.5) % Neutrophils # 9.7 H (1.3-7.7) k/uL Lymphocytes # 0.4 L (1.0-4.8) k/uL PT (10.0-12.5) sec INR (<1.2) APTT (22.0-30.0) sec ABG pH (7.35-7.45) ABG pCO2 (35-45) mmHg ABG pO2 (83-108) mmHg ABG HCO3 (21-25) mmol/L ABG Total CO2 (19-24) mmol/L ABG O2 Saturation (94-97) % ABG Lactic Acid (0.5-1.6) mmol/L Sodium (137-145) mmol/L Chloride (98-107) mmol/L Carbon Dioxide (22-30) mmol/L BUN (9-20) mg/dL Creatinine (0.66-1.25) mg/dL Glucose (74-99) mg/dL POC Glucose (mg/dL) 65 L 120 H (70-110) mg/dL Plasma Lactic Acid Yadiel (0.7-2.0) mmol/L Calcium (8.4-10.2) mg/dL Ionized Calcium Anthony (4.5-5.3) mg/dL Lactate Dehydrogenase (120-246) U/L 01/21/23 01/21/23 01/21/23 Range/Units 04:45 04:45 04:45 RBC (4.30-5.90) m/uL Hgb (13.0-17.5) gm/dL Hct (39.0-53.0) % RDW (11.5-15.5) % Neutrophils # (1.3-7.7) k/uL Lymphocytes # (1.0-4.8) k/uL PT 20.3 H (10.0-12.5) sec INR 2.0 H (<1.2) APTT 47.1 H (22.0-30.0) sec ABG pH (7.35-7.45) ABG pCO2 (35-45) mmHg ABG pO2 (83-108) mmHg ABG HCO3 (21-25) mmol/L ABG Total CO2 (19-24) mmol/L ABG O2 Saturation (94-97) % ABG Lactic Acid (0.5-1.6) mmol/L Sodium 134 L (137-145) mmol/L Chloride (98-107) mmol/L Carbon Dioxide (22-30) mmol/L BUN 70 H (9-20) mg/dL Creatinine 3.80 H (0.66-1.25) mg/dL Glucose 102 H (74-99) mg/dL POC Glucose (mg/dL) (70-110) mg/dL Plasma Lactic Acid Yadiel (0.7-2.0) mmol/L Calcium 6.6 L (8.4-10.2) mg/dL Ionized Calcium Anthony (4.5-5.3) mg/dL Lactate Dehydrogenase >93715 H (120-246) U/L 01/21/23 01/21/23 01/21/23 Range/Units 05:15 05:49 07:51 RBC (4.30-5.90) m/uL Hgb (13.0-17.5) gm/dL Hct (39.0-53.0) % RDW (11.5-15.5) % Neutrophils # (1.3-7.7) k/uL Lymphocytes # (1.0-4.8) k/uL PT (10.0-12.5) sec INR (<1.2) APTT (22.0-30.0) sec ABG pH (7.35-7.45) ABG pCO2 (35-45) mmHg ABG pO2 127 H (83-108) mmHg ABG HCO3 26 H (21-25) mmol/L ABG Total CO2 27 H (19-24) mmol/L ABG O2 Saturation 98.7 H (94-97) % ABG Lactic Acid (0.5-1.6) mmol/L Sodium (137-145) mmol/L Chloride (98-107) mmol/L Carbon Dioxide (22-30) mmol/L BUN (9-20) mg/dL Creatinine (0.66-1.25) mg/dL Glucose (74-99) mg/dL POC Glucose (mg/dL) 117 H (70-110) mg/dL Plasma Lactic Acid Yadiel (0.7-2.0) mmol/L Calcium (8.4-10.2) mg/dL Ionized Calcium Anthony 3.7 L (4.5-5.3) mg/dL Lactate Dehydrogenase (120-246) U/L Microbiology - Last 24 Hours (Table) 01/18/23 15:00 Blood Culture - Preliminary Blood 01/19/23 12:00 Urine Culture - Final Urine,Catheterized 01/19/23 12:14 Gram Stain - Preliminary Sputum
[2023-01-21 11:26] LABS: African American GFR (CKD) 17 (>60 ml/min/1.73 sqM); Albumin 2.2 g/dL (3.5-5.0); Alkaline Phosphatase 108 U/L (38-126); Anion Gap 12 mmol/L; Blood Urea Nitrogen 70 mg/dL (9-20); Calcium 7.3 mg/dL (8.4-10.2); Carbon Dioxide 21 mmol/L (22-30); Chloride 102 mmol/L (98-107); Glucose 116 mg/dL (74-99); Non-African American GFR(CKD) 15 (>60 ml/min/1.73 sqM); Sodium 135 mmol/L (137-145); Total Bilirubin 2.8 mg/dL (0.2-1.3); Total Protein 4.9 g/dL (6.3-8.2)
--- NOTE | 2023-01-21 11:55 | P.PN ---
Subjective Progress Note Date: 01/21/23 CHIEF COMPLAINT: Syncope HISTORY OF PRESENT ILLNESS: Patient admitted to the hospital with a near syncopa l episode and cardiac arrest in the ER. He is currently in the ICU. He remains intubated and on mechanical ventilation. He had Impella insertion yesterday with cardiology service. Patient remains on Levophed and vasopressin. He is needing less levo today. Afebrile. WBC 10.5 Hgb 7.9 creatinine up at 3.80 PHYSICAL EXAM: VITAL SIGNS: Reviewed GENERAL: Intubated and sedated HEENT: No sclera icterus. Extraocular movements grossly intact. Moist buccal mucosa. Head is atraumatic, normocephalic. Hears conversational speech. No nasal drainage. NECK: Supple without lymphadenopathy. CHEST: Non-labored respirations and equal bilateral excursions. CARDIOVASCULAR: Palpable 2+ radial pulses. ABDOMEN: Soft. Nondistended. MUSCULOSKELETAL: No clubbing or cyanosis. SKIN: Well perfused. Good skin turgor. ASSESSMENT: 1. Possible acute cholecystitis. Renal ultrasound and noted gallbladder wall thickening and adjacent pericholecystic free fluid 2. Cardiogenic shock 3. Non-ST elevated MT 4. Cardiac arrest 5. Ischemic cardiomyopathy 6. History of coronary artery disease with recent cardiac stents in October 2022 7. Atrial fibrillation with rapid ventricular response 8. Acute kidney injury 9. Elevated LFTs 10. Acute CHF exacerbation 11. Diabetes mellitus PLAN: -Patient is a poor surgical candidate. Continue IV antibiotics. Recommend HIDA scan when medically stable. Recommend possible cholecystostomy tube when medically stable -Continue ICU management -Continue supportive care Physician Exercise Instruct note has been reviewed by physician. Signing provider agrees with the documented findings, assessment, and plan of care. Objective - Vital Signs Vital signs: Vital Signs Temp 99.1 F 01/21/23 08:00 Pulse 74 01/21/23 09:15 Resp 28 H 01/21/23 09:15 BP 96/70 01/21/23 09:00 Pulse Ox 93 L 01/21/23 09:15 FiO2 60 01/21/23 08:23 Intake & Output 01/20/23 01/21/23 01/21/23 18:59 06:59 18:59 Intake Total 2870.225 1562.223 142.477 Output Total 20 348 0 Balance 2850.225 1214.223 142.477 Weight 86.8 kg Intake: IV 1718 745 137 .9 KVO 220 240 60 Azithromycin 500 mg In 250 Sodium Chloride 0.9% 250 ml @ 250 mls/hr IVPB DAILY [facility] Rx#:[id number] Calcium Gluconate in NaCl 100 2 gm In Saline 1 100ml. bag @ 100 mls/hr IVPB ONCE ONE Rx#:[id number] Dextrose 5% in Water 1, 1100 200 000 ml @ 100 mls/hr IV . [id number] ARIADNE with Sodium Bicarb (1 Meq/ml) 150 ml Rx#:[id number] Piperacillin-Tazobactam 3 100 100 50 .375 gm In Sodium Chloride 0.9% 100 ml @ 25 mls/hr IVPB Q8H [facility] Rx#: [id number] a line 48 105 27 Intake, IV Titration 1152.225 697.223 5.477 Amount Amiodarone 450 mg In 152.225 Dextrose 5% in Water 250 ml @ 0.5 MG/MIN 16.667 mls/hr IV .Q15H [facility] Rx#: [id number] Heparin Sod,Pork in 0.45% 197.108 NaCl 25,000 unit In 0.45 % NaCl 1 250ml.bag @ 12 UNITS/KG/HR 8.491 mls/hr IV .Q24H [facility] Rx#: [id number] Insulin Regular 100 unit 178.100 280.800 In Sodium Chloride 0.9% 100 ml @ Titrate IV .Q0M [facility] Rx#:[id number] Norepinephrine 8 mg In 154.079 128.588 5.477 Sodium Chloride 0.9% 250 ml @ 0.03 MCG/KG/MIN 4. 108 mls/hr IV .Q24H [facility] Rx#:[id number] Vasopressin 60 unit In 132.498 Sodium Chloride 0.9% 150 ml @ 0.03 UNITS/MIN 4.59 mls/hr IV .Q24H [facility] Rx#: [id number] fentaNYL (PF). 1,000 mcg 187.691 95.703 In Sodium Chloride 0.9% 80 ml @ 0.5 MCG/KG/HR 3. 538 mls/hr IV .Q24H [facility] Rx#:[id number] propofoL 1,000 mg In 150.524 192.132 Empty Bag 1 bag @ 15 MCG/ KG/MIN 6.368 mls/hr IV . [id number] [facility] Rx#:[id number] Other 120 Output: Gastric Drainage 300 Urine 20 48 0 Other: Voiding Method Indwelling Catheter Indwelling Catheter Indwelling Catheter ABP, PAP, CO, CI - Last Documented Arterial Blood Pressure 94/64 - Labs CBC & Chem 7: 01/21/23 04:45 01/21/23 04:45 Labs: Abnormal Lab Results - Last 24 Hours (Table) 01/20/23 01/20/23 01/20/23 Range/Units 10:21 10:56 10:59 RBC (4.30-5.90) m/uL Hgb (13.0-17.5) gm/dL Hct (39.0-53.0) % RDW (11.5-15.5) % Neutrophils # (1.3-7.7) k/uL Lymphocytes # (1.0-4.8) k/uL PT (10.0-12.5) sec INR (<1.2) APTT (22.0-30.0) sec ABG pH (7.35-7.45) ABG pCO2 (35-45) mmHg ABG pO2 (83-108) mmHg ABG HCO3 (21-25) mmol/L ABG Total CO2 (19-24) mmol/L ABG O2 Saturation (94-97) % ABG Lactic Acid (0.5-1.6) mmol/L Sodium (137-145) mmol/L Chloride (98-107) mmol/L Carbon Dioxide (22-30) mmol/L BUN (9-20) mg/dL Creatinine (0.66-1.25) mg/dL Glucose (74-99) mg/dL POC Glucose (mg/dL) >600 H >600 H (70-110) mg/dL Plasma Lactic Acid Yadiel 8.9 H* (0.7-2.0) mmol/L Calcium (8.4-10.2) mg/dL Ionized Calcium Anthony (4.5-5.3) mg/dL Lactate Dehydrogenase (120-246) U/L 01/20/23 01/20/23 01/20/23 Range/Units 11:05 11:30 11:50 RBC (4.30-5.90) m/uL Hgb (13.0-17.5) gm/dL Hct (39.0-53.0) % RDW (11.5-15.5) % Neutrophils # (1.3-7.7) k/uL Lymphocytes # (1.0-4.8) k/uL PT (10.0-12.5) sec INR (<1.2) APTT 43.6 H (22.0-30.0) sec ABG pH (7.35-7.45) ABG pCO2 (35-45) mmHg ABG pO2 (83-108) mmHg ABG HCO3 (21-25) mmol/L ABG Total CO2 (19-24) mmol/L ABG O2 Saturation (94-97) % ABG Lactic Acid (0.5-1.6) mmol/L Sodium (137-145) mmol/L Chloride (98-107) mmol/L Carbon Dioxide (22-30) mmol/L BUN (9-20) mg/dL Creatinine (0.66-1.25) mg/dL Glucose 656 H* 621 H* (74-99) mg/dL POC Glucose (mg/dL) (70-110) mg/dL Plasma Lactic Acid Yadiel (0.7-2.0) mmol/L Calcium (8.4-10.2) mg/dL Ionized Calcium Anthony (4.5-5.3) mg/dL Lactate Dehydrogenase (120-246) U/L 01/20/23 01/20/23 01/20/23 Range/Units 11:57 14:18 15:05 RBC (4.30-5.90) m/uL Hgb (13.0-17.5) gm/dL Hct (39.0-53.0) % RDW (11.5-15.5) % Neutrophils # (1.3-7.7) k/uL Lymphocytes # (1.0-4.8) k/uL PT (10.0-12.5) sec INR (<1.2) APTT (22.0-30.0) sec ABG pH (7.35-7.45) ABG pCO2 (35-45) mmHg ABG pO2 (83-108) mmHg ABG HCO3 (21-25) mmol/L ABG Total CO2 (19-24) mmol/L ABG O2 Saturation (94-97) % ABG Lactic Acid (0.5-1.6) mmol/L Sodium (137-145) mmol/L Chloride (98-107) mmol/L Carbon Dioxide (22-30) mmol/L BUN (9-20) mg/dL Creatinine (0.66-1.25) mg/dL Glucose (74-99) mg/dL POC Glucose (mg/dL) >600 H 593 H (70-110) mg/dL Plasma Lactic Acid Yadiel 7.7 H* (0.7-2.0) mmol/L Calcium (8.4-10.2) mg/dL Ionized Calcium Anthony (4.5-5.3) mg/dL Lactate Dehydrogenase (120-246) U/L 01/20/23 01/20/23 01/20/23 Range/Units 15:05 15:05 15:05 RBC 2.85 L (4.30-5.90) m/uL Hgb 8.3 L (13.0-17.5) gm/dL Hct 25.6 L (39.0-53.0) % RDW 18.1 H (11.5-15.5) % Neutrophils # (1.3-7.7) k/uL Lymphocytes # 0.3 L (1.0-4.8) k/uL PT 25.8 H (10.0-12.5) sec INR 2.6 H (<1.2) APTT 50.6 H (22.0-30.0) sec ABG pH (7.35-7.45) ABG pCO2 (35-45) mmHg ABG pO2 (83-108) mmHg ABG HCO3 (21-25) mmol/L ABG Total CO2 (19-24) mmol/L ABG O2 Saturation (94-97) % ABG Lactic Acid (0.5-1.6) mmol/L Sodium 133 L (137-145) mmol/L Chloride 97 L (98-107) mmol/L Carbon Dioxide 19 L (22-30) mmol/L BUN 56 H (9-20) mg/dL Creatinine 3.31 H (0.66-1.25) mg/dL Glucose 545 H* (74-99) mg/dL POC Glucose (mg/dL) (70-110) mg/dL Plasma Lactic Acid Yadiel (0.7-2.0) mmol/L Calcium 6.6 L (8.4-10.2) mg/dL Ionized Calcium Anthony (4.5-5.3) mg/dL Lactate Dehydrogenase (120-246) U/L 01/20/23 01/20/23 01/20/23 Range/Units 15:05 16:15 16:55 RBC (4.30-5.90) m/uL Hgb (13.0-17.5) gm/dL Hct (39.0-53.0) % RDW (11.5-15.5) % Neutrophils # (1.3-7.7) k/uL Lymphocytes # (1.0-4.8) k/uL PT (10.0-12.5) sec INR (<1.2) APTT (22.0-30.0) sec ABG pH (7.35-7.45) ABG pCO2 (35-45) mmHg ABG pO2 (83-108) mmHg ABG HCO3 (21-25) mmol/L ABG Total CO2 (19-24) mmol/L ABG O2 Saturation (94-97) % ABG Lactic Acid (0.5-1.6) mmol/L Sodium (137-145) mmol/L Chloride (98-107) mmol/L Carbon Dioxide (22-30) mmol/L BUN (9-20) mg/dL Creatinine (0.66-1.25) mg/dL Glucose (74-99) mg/dL POC Glucose (mg/dL) 581 H 555 H 531 H (70-110) mg/dL Plasma Lactic Acid Yadiel (0.7-2.0) mmol/L Calcium (8.4-10.2) mg/dL Ionized Calcium Anthony (4.5-5.3) mg/dL Lactate Dehydrogenase (120-246) U/L 01/20/23 01/20/23 01/20/23 Range/Units 17:48 18:01 18:54 RBC (4.30-5.90) m/uL Hgb (13.0-17.5) gm/dL Hct (39.0-53.0) % RDW (11.5-15.5) % Neutrophils # (1.3-7.7) k/uL Lymphocytes # (1.0-4.8) k/uL PT (10.0-12.5) sec INR (<1.2) APTT (22.0-30.0) sec ABG pH (7.35-7.45) ABG pCO2 (35-45) mmHg ABG pO2 (83-108) mmHg ABG HCO3 (21-25) mmol/L ABG Total CO2 (19-24) mmol/L ABG O2 Saturation (94-97) % ABG Lactic Acid (0.5-1.6) mmol/L Sodium (137-145) mmol/L Chloride (98-107) mmol/L Carbon Dioxide (22-30) mmol/L BUN (9-20) mg/dL Creatinine (0.66-1.25) mg/dL Glucose (74-99) mg/dL POC Glucose (mg/dL) 483 H 466 H (70-110) mg/dL Plasma Lactic Acid Yadiel 5.7 H* (0.7-2.0) mmol/L Calcium (8.4-10.2) mg/dL Ionized Calcium Anthony (4.5-5.3) mg/dL Lactate Dehydrogenase (120-246) U/L 01/20/23 01/20/23 01/20/23 Range/Units 19:00 19:38 20:14 RBC (4.30-5.90) m/uL Hgb (13.0-17.5) gm/dL Hct (39.0-53.0) % RDW (11.5-15.5) % Neutrophils # (1.3-7.7) k/uL Lymphocytes # (1.0-4.8) k/uL PT (10.0-12.5) sec INR (<1.2) APTT 47.9 H (22.0-30.0) sec ABG pH 7.46 H (7.35-7.45) ABG pCO2 34 L (35-45) mmHg ABG pO2 129 H (83-108) mmHg ABG HCO3 (21-25) mmol/L ABG Total CO2 25 H (19-24) mmol/L ABG O2 Saturation 98.9 H (94-97) % ABG Lactic Acid (0.5-1.6) mmol/L Sodium (137-145) mmol/L Chloride (98-107) mmol/L Carbon Dioxide (22-30) mmol/L BUN (9-20) mg/dL Creatinine (0.66-1.25) mg/dL Glucose (74-99) mg/dL POC Glucose (mg/dL) 420 H (70-110) mg/dL Plasma Lactic Acid Yadiel (0.7-2.0) mmol/L Calcium (8.4-10.2) mg/dL Ionized Calcium Anthony (4.5-5.3) mg/dL Lactate Dehydrogenase (120-246) U/L 01/20/23 01/20/23 01/20/23 Range/Units 21:08 21:14 21:14 RBC 2.70 L (4.30-5.90) m/uL Hgb 7.9 L (13.0-17.5) gm/dL Hct 23.6 L (39.0-53.0) % RDW 18.1 H (11.5-15.5) % Neutrophils # (1.3-7.7) k/uL Lymphocytes # 0.3 L (1.0-4.8) k/uL PT (10.0-12.5) sec INR (<1.2) APTT (22.0-30.0) sec ABG pH (7.35-7.45) ABG pCO2 (35-45) mmHg ABG pO2 (83-108) mmHg ABG HCO3 (21-25) mmol/L ABG Total CO2 (19-24) mmol/L ABG O2 Saturation (94-97) % ABG Lactic Acid (0.5-1.6) mmol/L Sodium 134 L (137-145) mmol/L Chloride (98-107) mmol/L Carbon Dioxide (22-30) mmol/L BUN 63 H (9-20) mg/dL Creatinine 3.51 H (0.66-1.25) mg/dL Glucose 315 H (74-99) mg/dL POC Glucose (mg/dL) 360 H (70-110) mg/dL Plasma Lactic Acid Yadiel (0.7-2.0) mmol/L Calcium 6.3 L* (8.4-10.2) mg/dL Ionized Calcium Anthony (4.5-5.3) mg/dL Lactate Dehydrogenase >24056 H (120-246) U/L 01/20/23 01/20/23 01/20/23 Range/Units 21:36 22:26 23:11 RBC (4.30-5.90) m/uL Hgb (13.0-17.5) gm/dL Hct (39.0-53.0) % RDW (11.5-15.5) % Neutrophils # (1.3-7.7) k/uL Lymphocytes # (1.0-4.8) k/uL PT (10.0-12.5) sec INR (<1.2) APTT (22.0-30.0) sec ABG pH (7.35-7.45) ABG pCO2 (35-45) mmHg ABG pO2 (83-108) mmHg ABG HCO3 (21-25) mmol/L ABG Total CO2 (19-24) mmol/L ABG O2 Saturation (94-97) % ABG Lactic Acid 4.8 H* (0.5-1.6) mmol/L Sodium (137-145) mmol/L Chloride (98-107) mmol/L Carbon Dioxide (22-30) mmol/L BUN (9-20) mg/dL Creatinine (0.66-1.25) mg/dL Glucose (74-99) mg/dL POC Glucose (mg/dL) 300 H 245 H (70-110) mg/dL Plasma Lactic Acid Yadiel (0.7-2.0) mmol/L Calcium (8.4-10.2) mg/dL Ionized Calcium Anthony (4.5-5.3) mg/dL Lactate Dehydrogenase (120-246) U/L 01/21/23 01/21/23 01/21/23 Range/Units 00:12 01:07 01:15 RBC (4.30-5.90) m/uL Hgb (13.0-17.5) gm/dL Hct (39.0-53.0) % RDW (11.5-15.5) % Neutrophils # (1.3-7.7) k/uL Lymphocytes # (1.0-4.8) k/uL PT (10.0-12.5) sec INR (<1.2) APTT 51.2 H (22.0-30.0) sec ABG pH (7.35-7.45) ABG pCO2 (35-45) mmHg ABG pO2 (83-108) mmHg ABG HCO3 (21-25) mmol/L ABG Total CO2 (19-24) mmol/L ABG O2 Saturation (94-97) % ABG Lactic Acid (0.5-1.6) mmol/L Sodium (137-145) mmol/L Chloride (98-107) mmol/L Carbon Dioxide (22-30) mmol/L BUN (9-20) mg/dL Creatinine (0.66-1.25) mg/dL Glucose (74-99) mg/dL POC Glucose (mg/dL) 177 H 137 H (70-110) mg/dL Plasma Lactic Acid Yadiel (0.7-2.0) mmol/L Calcium (8.4-10.2) mg/dL Ionized Calcium Anthony (4.5-5.3) mg/dL Lactate Dehydrogenase (120-246) U/L 01/21/23 01/21/23 01/21/23 Range/Units 01:15 04:00 04:14 RBC (4.30-5.90) m/uL Hgb (13.0-17.5) gm/dL Hct (39.0-53.0) % RDW (11.5-15.5) % Neutrophils # (1.3-7.7) k/uL Lymphocytes # (1.0-4.8) k/uL PT (10.0-12.5) sec INR (<1.2) APTT (22.0-30.0) sec ABG pH (7.35-7.45) ABG pCO2 (35-45) mmHg ABG pO2 (83-108) mmHg ABG HCO3 (21-25) mmol/L ABG Total CO2 (19-24) mmol/L ABG O2 Saturation (94-97) % ABG Lactic Acid 3.3 H* (0.5-1.6) mmol/L Sodium (137-145) mmol/L Chloride (98-107) mmol/L Carbon Dioxide (22-30) mmol/L BUN (9-20) mg/dL Creatinine (0.66-1.25) mg/dL Glucose (74-99) mg/dL POC Glucose (mg/dL) 65 L (70-110) mg/dL Plasma Lactic Acid Yadiel (0.7-2.0) mmol/L Calcium (8.4-10.2) mg/dL Ionized Calcium Anthony (4.5-5.3) mg/dL Lactate Dehydrogenase >48980 H (120-246) U/L 01/21/23 01/21/23 01/21/23 Range/Units 04:44 04:45 04:45 RBC 2.71 L (4.30-5.90) m/uL Hgb 7.9 L (13.0-17.5) gm/dL Hct 23.4 L (39.0-53.0) % RDW 18.0 H (11.5-15.5) % Neutrophils # 9.7 H (1.3-7.7) k/uL Lymphocytes # 0.4 L (1.0-4.8) k/uL PT 20.3 H (10.0-12.5) sec INR 2.0 H (<1.2) APTT (22.0-30.0) sec ABG pH (7.35-7.45) ABG pCO2 (35-45) mmHg ABG pO2 (83-108) mmHg ABG HCO3 (21-25) mmol/L ABG Total CO2 (19-24) mmol/L ABG O2 Saturation (94-97) % ABG Lactic Acid (0.5-1.6) mmol/L Sodium (137-145) mmol/L Chloride (98-107) mmol/L Carbon Dioxide (22-30) mmol/L BUN (9-20) mg/dL Creatinine (0.66-1.25) mg/dL Glucose (74-99) mg/dL POC Glucose (mg/dL) 120 H (70-110) mg/dL Plasma Lactic Acid Yadiel (0.7-2.0) mmol/L Calcium (8.4-10.2) mg/dL Ionized Calcium Anthony (4.5-5.3) mg/dL Lactate Dehydrogenase (120-246) U/L 01/21/23 01/21/23 01/21/23 Range/Units 04:45 04:45 05:15 RBC (4.30-5.90) m/uL Hgb (13.0-17.5) gm/dL Hct (39.0-53.0) % RDW (11.5-15.5) % Neutrophils # (1.3-7.7) k/uL Lymphocytes # (1.0-4.8) k/uL PT (10.0-12.5) sec INR (<1.2) APTT 47.1 H (22.0-30.0) sec ABG pH (7.35-7.45) ABG pCO2 (35-45) mmHg ABG pO2 (83-108) mmHg ABG HCO3 (21-25) mmol/L ABG Total CO2 (19-24) mmol/L ABG O2 Saturation (94-97) % ABG Lactic Acid (0.5-1.6) mmol/L Sodium 134 L (137-145) mmol/L Chloride (98-107) mmol/L Carbon Dioxide (22-30) mmol/L BUN 70 H (9-20) mg/dL Creatinine 3.80 H (0.66-1.25) mg/dL Glucose 102 H (74-99) mg/dL POC Glucose (mg/dL) (70-110) mg/dL Plasma Lactic Acid Yadiel (0.7-2.0) mmol/L Calcium 6.6 L (8.4-10.2) mg/dL Ionized Calcium Anthony 3.7 L (4.5-5.3) mg/dL Lactate Dehydrogenase >79661 H (120-246) U/L 01/21/23 01/21/23 01/21/23 Range/Units 05:49 07:51 08:58 RBC (4.30-5.90) m/uL Hgb (13.0-17.5) gm/dL Hct (39.0-53.0) % RDW (11.5-15.5) % Neutrophils # (1.3-7.7) k/uL Lymphocytes # (1.0-4.8) k/uL PT (10.0-12.5) sec INR (<1.2) APTT (22.0-30.0) sec ABG pH (7.35-7.45) ABG pCO2 (35-45) mmHg ABG pO2 127 H (83-108) mmHg ABG HCO3 26 H (21-25) mmol/L ABG Total CO2 27 H (19-24) mmol/L ABG O2 Saturation 98.7 H (94-97) % ABG Lactic Acid (0.5-1.6) mmol/L Sodium (137-145) mmol/L Chloride (98-107) mmol/L Carbon Dioxide (22-30) mmol/L BUN (9-20) mg/dL Creatinine (0.66-1.25) mg/dL Glucose (74-99) mg/dL POC Glucose (mg/dL) 117 H 129 H (70-110) mg/dL Plasma Lactic Acid Yadiel (0.7-2.0) mmol/L Calcium (8.4-10.2) mg/dL Ionized Calcium Anthony (4.5-5.3) mg/dL Lactate Dehydrogenase (120-246) U/L 01/21/23 01/21/23 01/21/23 Range/Units 09:00 09:28 10:08 RBC (4.30-5.90) m/uL Hgb (13.0-17.5) gm/dL Hct (39.0-53.0) % RDW (11.5-15.5) % Neutrophils # (1.3-7.7) k/uL Lymphocytes # (1.0-4.8) k/uL PT (10.0-12.5) sec INR (<1.2) APTT 58.4 H (22.0-30.0) sec ABG pH (7.35-7.45) ABG pCO2 (35-45) mmHg ABG pO2 (83-108) mmHg ABG HCO3 (21-25) mmol/L ABG Total CO2 (19-24) mmol/L ABG O2 Saturation (94-97) % ABG Lactic Acid (0.5-1.6) mmol/L Sodium (137-145) mmol/L Chloride (98-107) mmol/L Carbon Dioxide (22-30) mmol/L BUN (9-20) mg/dL Creatinine (0.66-1.25) mg/dL Glucose (74-99) mg/dL POC Glucose (mg/dL) 134 H (70-110) mg/dL Plasma Lactic Acid Yadiel 2.3 H* (0.7-2.0) mmol/L Calcium (8.4-10.2) mg/dL Ionized Calcium Anthony (4.5-5.3) mg/dL Lactate Dehydrogenase (120-246) U/L Microbiology - Last 24 Hours (Table) 01/19/23 12:14 Gram Stain - Final Sputum Sputum Culture - Final 01/18/23 15:00 Blood Culture - Preliminary Blood 01/19/23 12:00 Urine Culture - Final Urine,Catheterized
--- NOTE | 2023-01-21 11:58 | P.PN ---
Subjective 67-year-old male who is known to Dr. Lazcano. Patient had a recent PCI to RCA October 2022 with diffuse disease to LAD and LCx with ischemic cardiomyopathy. His EF was around 40-45% with lateral wall hypokinesia. He also has history of hypertension, dyslipidemia, mitral regurgitation and prior CVA. Patient has been dealing with orthostatic hypotension lately and was in the hospital last time because of this. On last admission his beta willa and lisinopril was reduced and he was started on midodrine 10 mg 3 times a day This time patient doesn't the hospital because of concerns of low blood pressure, palpitations, feeling weak at home. Patient's reported that he's been coughing more than usual for last 2 days. She checked his blood pressure and requiring low and his heart rate was very high. There is no prior documentation if patient has atrial fibrillation. Patient has been on Xarelto for prior history of CVA. This time on admission to the ER he was noticed to be in atrial fibrillation with rapid ventricular response. There was also diffuse ST depressions. Lab shows hemoglobin 8.2 today. Last hemoglobin was 10. Creatinine 1.0 to admission, sodium 138, potassium 3.5, initial troponin was 3.2, BNP [id number] Bedside echocardiogram performed showed EF in range of 25-30%. Anterolateral hypokinesia, moderate MR, mild AI. No concerns of pericardial effusion or LVOT obstruction. When compared to prior echo from November his EF appeared to be have dropped. In ER because of low blood pressure and high heart rate he got amiodarone bolus 150mg. during that IV bolus patient became hypotensive and vomited and trans iently lost his pulse. He gave him 1 dose of epi 0.1 mg, and he had a return of spontaneous circulation with a downtime of less than 2 seconds. He was in sinus rhythm thereafter 01/19 Patient with recent admission and had Angela catheter discontinued one week ago. Apparently per he had significant urinary retention on presentation. Additionally he had been complaining of right-sided flank pain as well as nausea and vomiting. Renal ultrasound showing right hydronephrosis and possible cholecystitis. Patient with cardiac arrest mainly appears exacerbated by hyp otension. Remains on vasopressors on norepinephrine as well as vasopressin. 50% FiO2 with a PEEP of 8. 01/20 Patient seen and examined. Patient has had worsened lactic acidosis, shock liver. Surgery evaluated patient with recommendations for medical therapy for possible cholecystitis. He remains on vasopressin at 0.04 and norepinephrine at 0.14. Amiodarone drip at 0.5. Currently on a bicarb drip. Not making any urine. Creatinine up to 3.4. Echocardiogram shows EF 25% with elevated RVSP 60s and grade 3 diastolic dysfunction. 01/21 Patient seen and examined. Patient underwent heart catheterization yesterday showing patent RCA stent and similar severe diffuse heavily calcified left coronary system appeared relatively similar to before. Right heart catheterization showed cardiogenic shock and therefore Impella CP was placed. Creatinine still elevated at 3.8, liver enzymes were not repeated. Family questioning regarding long-term prognosis and discussed with patient not a good candidate for any intervention and all parameters point into cardiogenic shock, patient has very low likelihood of coming off the Impella and improving end organ failure. REVIEW OF SYSTEMS 14 point review of system is negative except what is mentioned above in HPI. PHYSICAL EXAMINATION Vital signs reviewed. Head: Normocephalic. Eyes: Sclerae nonicteric. Neck: Brisk carotid upstroke, +jugular venous distention. Lungs: Clear to auscultation. Heart: Regular rate and rhythm, S1-S2, no S3, no murmur or rub. Abdomen: Soft nontender, positive bowel sounds no organomegaly. Extremities: No edema, intact distal pulses. Neuro: Intuabted and sedated ASSESSMENT Shock, possible cardiogenic however also may be septic A. fib RVR, currently is NSR NSTEMI possible type 1 vs type 2 Acute systolic congestive heart failure Ischemic cardiomyopathy with EF 25-30% CAD status post recent PCI to RCA 11/19 Residual diffuse disease in LAD and LCx Recently dealing with not tolerating cardiac medications Previous CVA on Xarelto Bedside echo showed an EF of 25-30% anterolateral hypokinesia, moderate MR. Last echo from November 2022 showed EF 40% Right sided flank pain, nausea, rule out sepsis Possible choleycystitis on ultrasound Right hydronephrosis GIL Shock liver PLAN Patient with multi organ failure and all presentation appearing more related to cardiogenic shock. Coronary anatomy not amenable to any revascularization. Discussed possible options of transfer to tertiary center however will not be a candidate for heart transplant or likely LVAD and long-term meaningful recovery very unlikely. Patient's and family considering comfort measures which would be appropriate. Continue current supportive care. Prognosis grave. Objective - Vital Signs Vital signs: Vital Signs Temp 95.9 F L 01/21/23 10:30 Pulse 75 01/21/23 11:27 Resp 27 H 01/21/23 11:00 BP 97/71 01/21/23 11:00 Pulse Ox 88 L 01/21/23 11:00 FiO2 60 01/21/23 11:14 Intake & Output 01/20/23 01/21/23 01/21/23 18:59 06:59 18:59 Intake Total 2870.225 1562.223 200.477 Output Total 20 348 0 Balance 2850.225 1214.223 200.477 Weight 86.8 kg Intake: IV 1718 745 195 .9 KVO 220 240 100 Azithromycin 500 mg In 250 Sodium Chloride 0.9% 250 ml @ 250 mls/hr IVPB DAILY [facility] Rx#:[id number] Calcium Gluconate in NaCl 100 2 gm In Saline 1 100ml. bag @ 100 mls/hr IVPB ONCE ONE Rx#:[id number] Dextrose 5% in Water 1, 1100 200 000 ml @ 100 mls/hr IV . [id number] ARIADNE with Sodium Bicarb (1 Meq/ml) 150 ml Rx#:[id number] Piperacillin-Tazobactam 3 100 100 50 .375 gm In Sodium Chloride 0.9% 100 ml @ 25 mls/hr IVPB Q8H [facility] Rx#: [id number] a line 48 105 45 Intake, IV Titration 1152.225 697.223 5.477 Amount Amiodarone 450 mg In 152.225 Dextrose 5% in Water 250 ml @ 0.5 MG/MIN 16.667 mls/hr IV .Q15H [facility] Rx#: [id number] Heparin Sod,Pork in 0.45% 197.108 NaCl 25,000 unit In 0.45 % NaCl 1 250ml.bag @ 12 UNITS/KG/HR 8.491 mls/hr IV .Q24H [facility] Rx#: [id number] Insulin Regular 100 unit 178.100 280.800 In Sodium Chloride 0.9% 100 ml @ Titrate IV .Q0M [facility] Rx#:[id number] Norepinephrine 8 mg In 154.079 128.588 5.477 Sodium Chloride 0.9% 250 ml @ 0.03 MCG/KG/MIN 4. 108 mls/hr IV .Q24H [facility] Rx#:[id number] Vasopressin 60 unit In 132.498 Sodium Chloride 0.9% 150 ml @ 0.03 UNITS/MIN 4.59 mls/hr IV .Q24H [facility] Rx#: [id number] fentaNYL (PF). 1,000 mcg 187.691 95.703 In Sodium Chloride 0.9% 80 ml @ 0.5 MCG/KG/HR 3. 538 mls/hr IV .Q24H [facility] Rx#:[id number] propofoL 1,000 mg In 150.524 192.132 Empty Bag 1 bag @ 15 MCG/ KG/MIN 6.368 mls/hr IV . [id number] [facility] Rx#:[id number] Other 120 Output: Gastric Drainage 300 Urine 20 48 0 Other: Voiding Method Indwelling Catheter Indwelling Catheter Indwelling Catheter ABP, PAP, CO, CI - Last Documented Arterial Blood Pressure 88/61 - Labs CBC & Chem 7: 01/21/23 04:45 01/21/23 04:45 Labs: Abnormal Lab Results - Last 24 Hours (Table) 01/20/23 01/20/23 01/20/23 Range/Units 11:30 11:50 11:57 RBC (4.30-5.90) m/uL Hgb (13.0-17.5) gm/dL Hct (39.0-53.0) % RDW (11.5-15.5) % Neutrophils # (1.3-7.7) k/uL Lymphocytes # (1.0-4.8) k/uL PT (10.0-12.5) sec INR (<1.2) APTT (22.0-30.0) sec ABG pH (7.35-7.45) ABG pCO2 (35-45) mmHg ABG pO2 (83-108) mmHg ABG HCO3 (21-25) mmol/L ABG Total CO2 (19-24) mmol/L ABG O2 Saturation (94-97) % ABG Lactic Acid (0.5-1.6) mmol/L Sodium (137-145) mmol/L Chloride (98-107) mmol/L Carbon Dioxide (22-30) mmol/L BUN (9-20) mg/dL Creatinine (0.66-1.25) mg/dL Glucose 656 H* 621 H* (74-99) mg/dL POC Glucose (mg/dL) >600 H (70-110) mg/dL Plasma Lactic Acid Yadiel (0.7-2.0) mmol/L Calcium (8.4-10.2) mg/dL Ionized Calcium Anthony (4.5-5.3) mg/dL Lactate Dehydrogenase (120-246) U/L 01/20/23 01/20/23 01/20/23 Range/Units 14:18 15:05 15:05 RBC 2.85 L (4.30-5.90) m/uL Hgb 8.3 L (13.0-17.5) gm/dL Hct 25.6 L (39.0-53.0) % RDW 18.1 H (11.5-15.5) % Neutrophils # (1.3-7.7) k/uL Lymphocytes # 0.3 L (1.0-4.8) k/uL PT (10.0-12.5) sec INR (<1.2) APTT (22.0-30.0) sec ABG pH (7.35-7.45) ABG pCO2 (35-45) mmHg ABG pO2 (83-108) mmHg ABG HCO3 (21-25) mmol/L ABG Total CO2 (19-24) mmol/L ABG O2 Saturation (94-97) % ABG Lactic Acid (0.5-1.6) mmol/L Sodium (137-145) mmol/L Chloride (98-107) mmol/L Carbon Dioxide (22-30) mmol/L BUN (9-20) mg/dL Creatinine (0.66-1.25) mg/dL Glucose (74-99) mg/dL POC Glucose (mg/dL) 593 H (70-110) mg/dL Plasma Lactic Acid Yadiel 7.7 H* (0.7-2.0) mmol/L Calcium (8.4-10.2) mg/dL Ionized Calcium Anthony (4.5-5.3) mg/dL Lactate Dehydrogenase (120-246) U/L 01/20/23 01/20/23 01/20/23 Range/Units 15: 15:05 15:05 RBC (4.30-5.90) m/uL Hgb (13.0-17.5) gm/dL Hct (39.0-53.0) % RDW (11.5-15.5) % Neutrophils # (1.3-7.7) k/uL Lymphocytes # (1.0-4.8) k/uL PT 25.8 H (10.0-12.5) sec INR 2.6 H (<1.2) APTT 50.6 H (22.0-30.0) sec ABG pH (7.35-7.45) ABG pCO2 (35-45) mmHg ABG pO2 (83-108) mmHg ABG HCO3 (21-25) mmol/L ABG Total CO2 (19-24) mmol/L ABG O2 Saturation (94-97) % ABG Lactic Acid (0.5-1.6) mmol/L Sodium 133 L (137-145) mmol/L Chloride 97 L (98-107) mmol/L Carbon Dioxide 19 L (22-30) mmol/L BUN 56 H (9-20) mg/dL Creatinine 3.31 H (0.66-1.25) mg/dL Glucose 545 H* (74-99) mg/dL POC Glucose (mg/dL) 581 H (70-110) mg/dL Plasma Lactic Acid Yadiel (0.7-2.0) mmol/L Calcium 6.6 L (8.4-10.2) mg/dL Ionized Calcium Anthony (4.5-5.3) mg/dL Lactate Dehydrogenase (120-246) U/L 01/20/23 01/20/23 01/20/23 Range/Units 16:15 16:55 17:48 RBC (4.30-5.90) m/uL Hgb (13.0-17.5) gm/dL Hct (39.0-53.0) % RDW (11.5-15.5) % Neutrophils # (1.3-7.7) k/uL Lymphocytes # (1.0-4.8) k/uL PT (10.0-12.5) sec INR (<1.2) APTT (22.0-30.0) sec ABG pH (7.35-7.45) ABG pCO2 (35-45) mmHg ABG pO2 (83-108) mmHg ABG HCO3 (21-25) mmol/L ABG Total CO2 (19-24) mmol/L ABG O2 Saturation (94-97) % ABG Lactic Acid (0.5-1.6) mmol/L Sodium (137-145) mmol/L Chloride (98-107) mmol/L Carbon Dioxide (22-30) mmol/L BUN (9-20) mg/dL Creatinine (0.66-1.25) mg/dL Glucose (74-99) mg/dL POC Glucose (mg/dL) 555 H 531 H (70-110) mg/dL Plasma Lactic Acid Yadiel 5.7 H* (0.7-2.0) mmol/L Calcium (8.4-10.2) mg/dL Ionized Calcium Anthony (4.5-5.3) mg/dL Lactate Dehydrogenase (120-246) U/L 01/20/23 01/20/23 01/20/23 Range/Units 18:01 18:54 19:00 RBC (4.30-5.90) m/uL Hgb (13.0-17.5) gm/dL Hct (39.0-53.0) % RDW (11.5-15.5) % Neutrophils # (1.3-7.7) k/uL Lymphocytes # (1.0-4.8) k/uL PT (10.0-12.5) sec INR (<1.2) APTT 47.9 H (22.0-30.0) sec ABG pH (7.35-7.45) ABG pCO2 (35-45) mmHg ABG pO2 (83-108) mmHg ABG HCO3 (21-25) mmol/L ABG Total CO2 (19-24) mmol/L ABG O2 Saturation (94-97) % ABG Lactic Acid (0.5-1.6) mmol/L Sodium (137-145) mmol/L Chloride (98-107) mmol/L Carbon Dioxide (22-30) mmol/L BUN (9-20) mg/dL Creatinine (0.66-1.25) mg/dL Glucose (74-99) mg/dL POC Glucose (mg/dL) 483 H 466 H (70-110) mg/dL Plasma Lactic Acid Yadiel (0.7-2.0) mmol/L Calcium (8.4-10.2) mg/dL Ionized Calcium Anthony (4.5-5.3) mg/dL Lactate Dehydrogenase (120-246) U/L 01/20/23 01/20/23 01/20/23 Range/Units 19:38 20:14 21:08 RBC (4.30-5.90) m/uL Hgb (13.0-17.5) gm/dL Hct (39.0-53.0) % RDW (11.5-15.5) % Neutrophils # (1.3-7.7) k/uL Lymphocytes # (1.0-4.8) k/uL PT (10.0-12.5) sec INR (<1.2) APTT (22.0-30.0) sec ABG pH 7.46 H (7.35-7.45) ABG pCO2 34 L (35-45) mmHg ABG pO2 129 H (83-108) mmHg ABG HCO3 (21-25) mmol/L ABG Total CO2 25 H (19-24) mmol/L ABG O2 Saturation 98.9 H (94-97) % ABG Lactic Acid (0.5-1.6) mmol/L Sodium (137-145) mmol/L Chloride (98-107) mmol/L Carbon Dioxide (22-30) mmol/L BUN (9-20) mg/dL Creatinine (0.66-1.25) mg/dL Glucose (74-99) mg/dL POC Glucose (mg/dL) 420 H 360 H (70-110) mg/dL Plasma Lactic Acid Yadiel (0.7-2.0) mmol/L Calcium (8.4-10.2) mg/dL Ionized Calcium Anthony (4.5-5.3) mg/dL Lactate Dehydrogenase (120-246) U/L 01/20/23 01/20/23 01/20/23 Range/Units 21:14 21:14 21:36 RBC 2.70 L (4.30-5.90) m/uL Hgb 7.9 L (13.0-17.5) gm/dL Hct 23.6 L (39.0-53.0) % RDW 18.1 H (11.5-15.5) % Neutrophils # (1.3-7.7) k/uL Lymphocytes # 0.3 L (1.0-4.8) k/uL PT (10.0-12.5) sec INR (<1.2) APTT (22.0-30.0) sec ABG pH (7.35-7.45) ABG pCO2 (35-45) mmHg ABG pO2 (83-108) mmHg ABG HCO3 (21-25) mmol/L ABG Total CO2 (19-24) mmol/L ABG O2 Saturation (94-97) % ABG Lactic Acid 4.8 H* (0.5-1.6) mmol/L Sodium 134 L (137-145) mmol/L Chloride (98-107) mmol/L Carbon Dioxide (22-30) mmol/L BUN 63 H (9-20) mg/dL Creatinine 3.51 H (0.66-1.25) mg/dL Glucose 315 H (74-99) mg/dL POC Glucose (mg/dL) (70-110) mg/dL Plasma Lactic Acid Yadiel (0.7-2.0) mmol/L Calcium 6.3 L* (8.4-10.2) mg/dL Ionized Calcium Anthony (4.5-5.3) mg/dL Lactate Dehydrogenase >70190 H (120-246) U/L 01/20/23 01/20/23 01/21/23 Range/Units 22:26 23:11 00:12 RBC (4.30-5.90) m/uL Hgb (13.0-17.5) gm/dL Hct (39.0-53.0) % RDW (11.5-15.5) % Neutrophils # (1.3-7.7) k/uL Lymphocytes # (1.0-4.8) k/uL PT (10.0-12.5) sec INR (<1.2) APTT (22.0-30.0) sec ABG pH (7.35-7.45) ABG pCO2 (35-45) mmHg ABG pO2 (83-108) mmHg ABG HCO3 (21-25) mmol/L ABG Total CO2 (19-24) mmol/L ABG O2 Saturation (94-97) % ABG Lactic Acid (0.5-1.6) mmol/L Sodium (137-145) mmol/L Chloride (98-107) mmol/L Carbon Dioxide (22-30) mmol/L BUN (9-20) mg/dL Creatinine (0.66-1.25) mg/dL Glucose (74-99) mg/dL POC Glucose (mg/dL) 300 H 245 H 177 H (70-110) mg/dL Plasma Lactic Acid Yadiel (0.7-2.0) mmol/L Calcium (8.4-10.2) mg/dL Ionized Calcium Anthony (4.5-5.3) mg/dL Lactate Dehydrogenase (120-246) U/L 01/21/23 01/21/23 01/21/23 Range/Units 01:07 01:15 01:15 RBC (4.30-5.90) m/uL Hgb (13.0-17.5) gm/dL Hct (39.0-53.0) % RDW (11.5-15.5) % Neutrophils # (1.3-7.7) k/uL Lymphocytes # (1.0-4.8) k/uL PT (10.0-12.5) sec INR (<1.2) APTT 51.2 H (22.0-30.0) sec ABG pH (7.35-7.45) ABG pCO2 (35-45) mmHg ABG pO2 (83-108) mmHg ABG HCO3 (21-25) mmol/L ABG Total CO2 (19-24) mmol/L ABG O2 Saturation (94-97) % ABG Lactic Acid (0.5-1.6) mmol/L Sodium (137-145) mmol/L Chloride (98-107) mmol/L Carbon Dioxide (22-30) mmol/L BUN (9-20) mg/dL Creatinine (0.66-1.25) mg/dL Glucose (74-99) mg/dL POC Glucose (mg/dL) 137 H (70-110) mg/dL Plasma Lactic Acid Yadiel (0.7-2.0) mmol/L Calcium (8.4-10.2) mg/dL Ionized Calcium Anthony (4.5-5.3) mg/dL Lactate Dehydrogenase >27991 H (120-246) U/L 01/21/23 01/21/23 01/21/23 Range/Units 04:00 04:14 04:44 RBC (4.30-5.90) m/uL Hgb (13.0-17.5) gm/dL Hct (39.0-53.0) % RDW (11.5-15.5) % Neutrophils # (1.3-7.7) k/uL Lymphocytes # (1.0-4.8) k/uL PT (10.0-12.5) sec INR (<1.2) APTT (22.0-30.0) sec ABG pH (7.35-7.45) ABG pCO2 (35-45) mmHg ABG pO2 (83-108) mmHg ABG HCO3 (21-25) mmol/L ABG Total CO2 (19-24) mmol/L ABG O2 Saturation (94-97) % ABG Lactic Acid 3.3 H* (0.5-1.6) mmol/L Sodium (137-145) mmol/L Chloride (98-107) mmol/L Carbon Dioxide (22-30) mmol/L BUN (9-20) mg/dL Creatinine (0.66-1.25) mg/dL Glucose (74-99) mg/dL POC Glucose (mg/dL) 65 L 120 H (70-110) mg/dL Plasma Lactic Acid Yadiel (0.7-2.0) mmol/L Calcium (8.4-10.2) mg/dL Ionized Calcium Anthony (4.5-5.3) mg/dL Lactate Dehydrogenase (120-246) U/L 01/21/23 01/21/23 01/21/23 Range/Units 04:45 04:45 04:45 RBC 2.71 L (4.30-5.90) m/uL Hgb 7.9 L (13.0-17.5) gm/dL Hct 23.4 L (39.0-53.0) % RDW 18.0 H (11.5-15.5) % Neutrophils # 9.7 H (1.3-7.7) k/uL Lymphocytes # 0.4 L (1.0-4.8) k/uL PT 20.3 H (10.0-12.5) sec INR 2.0 H (<1.2) APTT 47.1 H (22.0-30.0) sec ABG pH (7.35-7.45) ABG pCO2 (35-45) mmHg ABG pO2 (83-108) mmHg ABG HCO3 (21-25) mmol/L ABG Total CO2 (19-24) mmol/L ABG O2 Saturation (94-97) % ABG Lactic Acid (0.5-1.6) mmol/L Sodium (137-145) mmol/L Chloride (98-107) mmol/L Carbon Dioxide (22-30) mmol/L BUN (9-20) mg/dL Creatinine (0.66-1.25) mg/dL Glucose (74-99) mg/dL POC Glucose (mg/dL) (70-110) mg/dL Plasma Lactic Acid Yadiel (0.7-2.0) mmol/L Calcium (8.4-10.2) mg/dL Ionized Calcium Anthony (4.5-5.3) mg/dL Lactate Dehydrogenase (120-246) U/L 01/21/23 01/21/23 01/21/23 Range/Units 04:45 05:15 05:49 RBC (4.30-5.90) m/uL Hgb (13.0-17.5) gm/dL Hct (39.0-53.0) % RDW (11.5-15.5) % Neutrophils # (1.3-7.7) k/uL Lymphocytes # (1.0-4.8) k/uL PT (10.0-12.5) sec INR (<1.2) APTT (22.0-30.0) sec ABG pH (7.35-7.45) ABG pCO2 (35-45) mmHg ABG pO2 127 H (83-108) mmHg ABG HCO3 26 H (21-25) mmol/L ABG Total CO2 27 H (19-24) mmol/L ABG O2 Saturation 98.7 H (94-97) % ABG Lactic Acid (0.5-1.6) mmol/L Sodium 134 L (137-145) mmol/L Chloride (98-107) mmol/L Carbon Dioxide (22-30) mmol/L BUN 70 H (9-20) mg/dL Creatinine 3.80 H (0.66-1.25) mg/dL Glucose 102 H (74-99) mg/dL POC Glucose (mg/dL) (70-110) mg/dL Plasma Lactic Acid Yadiel (0.7-2.0) mmol/L Calcium 6.6 L (8.4-10.2) mg/dL Ionized Calcium Anthony 3.7 L (4.5-5.3) mg/dL Lactate Dehydrogenase >87516 H (120-246) U/L 01/21/23 01/21/23 01/21/23 Range/Units 07:51 08:58 09:00 RBC (4.30-5.90) m/uL Hgb (13.0-17.5) gm/dL Hct (39.0-53.0) % RDW (11.5-15.5) % Neutrophils # (1.3-7.7) k/uL Lymphocytes # (1.0-4.8) k/uL PT (10.0-12.5) sec INR (<1.2) APTT 58.4 H (22.0-30.0) sec ABG pH (7.35-7.45) ABG pCO2 (35-45) mmHg ABG pO2 (83-108) mmHg ABG HCO3 (21-25) mmol/L ABG Total CO2 (19-24) mmol/L ABG O2 Saturation (94-97) % ABG Lactic Acid (0.5-1.6) mmol/L Sodium (137-145) mmol/L Chloride (98-107) mmol/L Carbon Dioxide (22-30) mmol/L BUN (9-20) mg/dL Creatinine (0.66-1.25) mg/dL Glucose (74-99) mg/dL POC Glucose (mg/dL) 117 H 129 H (70-110) mg/dL Plasma Lactic Acid Yadiel (0.7-2.0) mmol/L Calcium (8.4-10.2) mg/dL Ionized Calcium Anthony (4.5-5.3) mg/dL Lactate Dehydrogenase (120-246) U/L 01/21/23 01/21/23 01/21/23 Range/Units 09:28 10:08 10:59 RBC (4.30-5.90) m/uL Hgb (13.0-17.5) gm/dL Hct (39.0-53.0) % RDW (11.5-15.5) % Neutrophils # (1.3-7.7) k/uL Lymphocytes # (1.0-4.8) k/uL PT (10.0-12.5) sec INR (<1.2) APTT (22.0-30.0) sec ABG pH (7.35-7.45) ABG pCO2 (35-45) mmHg ABG pO2 (83-108) mmHg ABG HCO3 (21-25) mmol/L ABG Total CO2 (19-24) mmol/L ABG O2 Saturation (94-97) % ABG Lactic Acid (0.5-1.6) mmol/L Sodium (137-145) mmol/L Chloride (98-107) mmol/L Carbon Dioxide (22-30) mmol/L BUN (9-20) mg/dL Creatinine (0.66-1.25) mg/dL Glucose (74-99) mg/dL POC Glucose (mg/dL) 134 H 149 H (70-110) mg/dL Plasma Lactic Acid Yadiel 2.3 H* (0.7-2.0) mmol/L Calcium (8.4-10.2) mg/dL Ionized Calcium Anthony (4.5-5.3) mg/dL Lactate Dehydrogenase (120-246) U/L Microbiology - Last 24 Hours (Table) 01/19/23 12:14 Gram Stain - Final Sputum Sputum Culture - Final 01/18/23 15:00 Blood Culture - Preliminary Blood 01/19/23 12:00 Urine Culture - Final Urine,Catheterized
[2023-01-21 12:00] LABS: Potassium 4.6 mmol/L (3.5-5.1)
[2023-01-21 12:01] LABS: ALT 4458 U/L (4-49); AST 8580 U/L (17-59)
[2023-01-21 12:10] LABS: Glucose,Whole Blood 167 mg/dL (70-110)
[2023-01-21] MEDS: VASOPRESSIN 60 UNIT in SODIUM CHLORIDE 0.9% 150 ML IV SCH (12:21)
[2023-01-21 13:19] LABS: Glucose,Whole Blood 193 mg/dL (70-110)
[2023-01-21] MEDS: INSULIN ASPART (NovoLOG) 100 UNIT/ML VIAL SQ SCH ×3 (13:20→22:45)
[2023-01-21 14:02] LABS: Glucose,Whole Blood 202 mg/dL (70-110)
[2023-01-21] MEDS: HEPARIN SOD,PORK IN 0.45% NACL 25,000 UNIT in 0.45% NACL 1 250ML.BAG IV SCH (16:05)
[2023-01-21 16:18] LABS: Glucose,Whole Blood 215 mg/dL (70-110)
[2023-01-21 16:32] VITALS: TEMP 99.3
[2023-01-21] MEDS ORDERED: PIPERACILLIN-TAZOBACTAM 3.375 GM in SODIUM CHLORIDE 0.9% 100 ML IVPB SCH (17:00)
[2023-01-21] MEDS ORDERED: ATROPINE OPHTH SOLN 1% 5ML BTL SUBLINGUAL PRN (19:18)
[2023-01-21] MEDS ORDERED: MORPHINE SULFATE 4 MG/ML SYRINGE IV PRN (19:18)
[2023-01-21] MEDS ORDERED: HALOPERIDOL LACTATE 5 MG/ML 1 ML VIAL IM PRN (19:18)
[2023-01-21] MEDS ORDERED: MORPHINE SULFATE (100 MG/2 ML) 100 MG in SODIUM CHLORIDE 0.9% 100 ML IV SCH (19:30)
[2023-01-21] MEDS ORDERED: SCOPOLAMINE 1 MG/72 HR PATCH TRANSDERM SCH (19:30)
[2023-01-21 22:13] VITALS: BP 104/84; PULSE 90; RESP 22
[2023-01-22] MEDS: IPRATROPIUM-ALBUTEROL 3 ML NEB INHALATION SCH (00:09)
--- NOTE | 2023-01-22 07:51 | P.DS ---
Providers Date of admission: 01/18/23 15:05 Expected date of discharge: 01/22/23 Attending physician: Ricky Brunson MD Consults: 01/18/23 15:05 Consult Physician Stat Consulting Provider: Parag Vargas Consult Reason/Comments: Critical care management Do you want consulting provider notified?: Yes Consult Physician Urgent Consulting Provider: Reza Zambrano Consult Reason/Comments: Non-STEMI, A. fib with rapid ventricular response Do you want consulting provider notified?: Yes 01/19/23 12:15 Consult Physician Routine Consulting Provider: Tonja Spencer Consult Reason/Comments: possible acute cholecystitis Do you want consulting provider notified?: Already Contacted 01/20/23 09:26 Consult Physician Urgent Consulting Provider: Shasta May Consult Reason/Comments: GIL Do you want consulting provider notified?: Yes Primary care physician: [facility] Course: 68-year-old male with a history of CAD status post recent RCA stent, diffuse LAD and circumflex disease, systolic heart failure with EF 35%, type 2 diabetes on insulin pump, atrial fibrillation, dyslipidemia, severe orthostatic hypotension, recent multiple falls presenting with another syncopal episode. In the ED, initial temperature was 97.8, pulse 156, respiratory rate 20, blood pressure 98/68, saturating at 99% on room air. Hemoglobin at 8.2, was previously at 10.7, INR 1.2, creatinine 1.03, glucose 111, troponin 3.28, proBNP 19,000. Initial EKG independently interpreted shows atrial fibrillation with RVR and diffuse ST depressions. Chest x-ray showed interstitial opacities. Patient was started on Cardizem, which dropped his blood pressure. He was then started on amiodarone which further dropped his pressures, he received 1 dose of epinephrine, did have an episode of emesis, ultimately placed on amiodarone drip as well as levofloxacin with cardiology at bedside. Bedside echo did show reduced EF. He also had urinary retention, Angela catheter placed. Upon arrival to medical ICU, patient had another few bouts of emesis and subsequently PA arrest. He required CPR and epinephrine. Was also intubated. Currently he has circulatory shock, on vasopressors, remains intubated. Prognosis is poor. Ultrasound did show findings concerning for acute cholecystitis. Shock either secondary to sepsis versus cardiogenic. Right heart cath was done which showed 70-80% LAD with patent RCA stent, PCWP 27, Impella was placed on 01/20. 01/21 Patient was seen and examined. Intubated. RASS -3. FiO2 60%. BP 104/71, P 72, RR 28. Pressors include Levophed at 0.03 mcg/kg/min and Vasopressin 0.04 units/min. Also on SoluMedrol 60 mg IV Q6H. Antibiotics include Azithromycin and Zosyn. On propofol at 35 mcg/kg/min and Fentanyl at 1.5 mcg/kg/hr. Heparin drip running at 14 units/kg/hr. CBC shows Hg 7.9. INR 2. ABG shows pH 7.45, pCO2 37. BMP shows Na 134, BUN 70, Cr 3.8, glucose 1.2, Ca 6.6. Ionized Ca 3.7. LDH > 10,000. CXR done today reviewed by me shows pulmonary vascular congestion which is stable along with Impella device. Patient's family decided on comfort care. He was pronounced on 01/21/23 at 20:15. Pertient procedures include cardiac angiogram and placement of Impella Pertient studies include CXR, EKG, Echo, Renal US See progress note for physical exam. Discharge Diagnosis: Shock, septic versus cardiogenic Status post cardiac arrest Paroxysmal Atrial fibrillation with RVR NSTEMI CAD status post recent stent, with residual diffuse left coronary disease not amenable to intervention Suspected acute cholecystitis Anuric Acute kidney injury, likely ATN in the setting of shock Mild to moderate right hydronephrosis Acute urinary retention status post Angela Acute on chronic normocytic anemia Acute hypoxic respiratory failure, requiring intubation and mechanical ventilation Acute on chronic systolic CHF exacerbation Suspected aspiration pneumonitis History of severe orthostatic hypotension Recurrent Syncope Acute hepatitis, likely ischemic versus hepatic congestion secondary to cardiogenic Plan - Discharge Summary Discharge Rx Participant: No New Discharge Prescriptions: No Action RX: Aspirin [Adult Low Dose Aspirin EC] 81 mg PO DAILY RX: Clopidogrel [Plavix] 75 mg PO DAILY #90 tab RX: Vitamin D3/Vitamin K2 (Mk4) [Vitamin K2 Plus D3 Tablet] 1 tab PO DAILY RX: Fludrocortisone [Florinef] 0.1 mg PO DAILY #30 tab Rosuvastatin [Crestor] 20 mg PO HS RX: Latanoprost [Xalatan 0.005%] 1 drop BOTH EYES HS RX: Insulin Aspart (For Pump) [NovoLOG (For Pump)] 0.01 unit SQ-PUMP CONTINUOUS RX: Omeprazole 40 mg PO DAILY RX: Rivaroxaban [Xarelto] 2.5 mg PO BID tab Cephalexin [Keflex] 500 mg PO Q12H RX: Midodrine HCl [ProAmatine] 10 mg PO AC-TID PRN PRN Reason: low bp Discharge Medication List RX: Insulin Aspart (For Pump) [NovoLOG (For Pump)] 0.01 unit SQ-PUMP CONTINUOUS 12/28/20 [History] RX: Latanoprost [Xalatan 0.005%] 1 drop BOTH EYES HS 12/28/20 [History] RX: Aspirin [Adult Low Dose Aspirin EC] 81 mg PO DAILY 08/18/22 [History] RX: Clopidogrel [Plavix] 75 mg PO DAILY #90 tab 11/20/22 [Rx] RX: Omeprazole 40 mg PO DAILY 12/27/22 [History] RX: Vitamin D3/Vitamin K2 (Mk4) [Vitamin K2 Plus D3 Tablet] 1 tab PO DAILY 12/27/22 [History] RX: Fludrocortisone [Florinef] 0.1 mg PO DAILY #30 tab 01/05/23 [Rx] RX: Rivaroxaban [Xarelto] 2.5 mg PO BID tab 01/05/23 [Rx] Cephalexin [Keflex] 500 mg PO Q12H 01/18/23 [History] RX: Midodrine HCl [ProAmatine] 10 mg PO AC-TID PRN 01/18/23 [History] Rosuvastatin [Crestor] 20 mg PO HS 01/18/23 [History] Follow up Appointment(s)/Referral(s): Ludwin Denton MD [Primary Care Provider] - 1-2 days Discharge Disposition: - Preliminary Cause of Preliminary Cause of : Cardiogenic shock
--- NOTE | 2023-01-23 07:07 | CDI ---
Documentation Clarification Form Date: 01/23/2023 06:34:32 AM From: Nena Oconnor Admit Date: 01/18/2023 03:05:00 PM Patient Name: Onofre Stokes Visit Number: [id number] Discharge Date: 01/21/2023 08:15:00 PM ATTENTION: The Clinical Documentation Specialists (CDI) and [facility] Coding Staff appreciate your assistance in clarifying documentation. Please respond to the clarification below the line at the bottom and electronically sign. The CDI & [facility] Coding staff will review the response and follow-up if needed. Please note: Queries are made part of the Legal Health Record. If you have any questions, please contact the author of this message via ITS. Dr. Ricky Brunson Conflicting documentation has been found in the medical record. As attending physician, please provide clarification. Type 2 NSTEMI Per cardiac consult and PN 01/21 NSTEMI Per discharge summary History/Risk Factors: cardiac arrest, CAD, shock, ATN, Acute respiratory failure on a vent. Clinical Indicators: Elevated troponins Treatment: heparin drip, vasopressors Please clarify which diagnosis is most appropriate: [ ] Type II NSTEMI [ x ] NSTEMI [ ] Other (please specify) [ ] Unable to determine MTDD
== END 2023-01-21 20:15 | disposition expired | DRG 215 ==
LOC: EC 10:46 → 2SICU 15:05
PROVIDERS: ADMIT Student in an Organized Health Care Education/Training Program; ATTEND Student in an Organized Health Care Education/Training Program
PROC: 06HY33Z Insertion of Infusion Device into Lower Vein, Percutaneous Approach (ICD-10-PCS; 2023-01-18)
PROC: 4A133J1 Monitoring of Arterial Pulse, Peripheral, Percutaneous Approach (ICD-10-PCS; 2023-01-18)
PROC: 03HY32Z Insertion of Monitoring Device into Upper Artery, Percutaneous Approach (ICD-10-PCS; 2023-01-18)
PROC: 4A133B1 Monitoring of Arterial Pressure, Peripheral, Percutaneous Approach (ICD-10-PCS; 2023-01-18)
PROC: 5A1945Z Respiratory Ventilation, 24-96 Consecutive Hours (ICD-10-PCS; 2023-01-18)
PROC: 0BH17EZ Insertion of Endotracheal Airway into Trachea, Via Natural or Artificial Opening (ICD-10-PCS; 2023-01-18)
PROC: 5A12012 Performance of Cardiac Output, Single, Manual (ICD-10-PCS; 2023-01-18)
PROC: 3E043XZ Introduction of Vasopressor into Central Vein, Percutaneous Approach (ICD-10-PCS; 2023-01-18)
PROC: B2111ZZ Fluoroscopy of Multiple Coronary Arteries using Low Osmolar Contrast (ICD-10-PCS; principal; 2023-01-20 11:00)
PROC: 4A023N6 Measurement of Cardiac Sampling and Pressure, Right Heart, Percutaneous Approach (ICD-10-PCS; principal; 2023-01-20 11:00)
PROC: 5A0221D Assistance with Cardiac Output using Impeller Pump, Continuous (ICD-10-PCS; principal; 2023-01-20 11:00)
PROC: 02HA3RZ Insertion of Short-term External Heart Assist System into Heart, Percutaneous Approach (ICD-10-PCS; principal; 2023-01-20 11:00)
PROC: 4A023N7 Measurement of Cardiac Sampling and Pressure, Left Heart, Percutaneous Approach (ICD-10-PCS; principal; 2023-01-20 11:00)
DX: I21.4 Non-ST elevation (NSTEMI) myocardial infarction (principal); I50.43 Acute on chronic combined systolic (congestive) and diastolic (congestive) heart failure; J96.01 Acute respiratory failure with hypoxia; J96.02 Acute respiratory failure with hypercapnia; K72.00 Acute and subacute hepatic failure without coma; N17.0 Acute kidney failure with tubular necrosis; A41.9 Sepsis, unspecified organism; R65.21 Severe sepsis with septic shock; J69.0 Pneumonitis due to inhalation of food and vomit; B17.9 Acute viral hepatitis, unspecified; K81.0 Acute cholecystitis; N13.30 Unspecified hydronephrosis; I48.0 Paroxysmal atrial fibrillation; I25.10 Atherosclerotic heart disease of native coronary artery without angina pectoris; R57.0 Cardiogenic shock; D64.9 Anemia, unspecified; E78.5 Hyperlipidemia, unspecified; Z20.822 Contact with and (suspected) exposure to COVID-19; E87.5 Hyperkalemia; H40.9 Unspecified glaucoma; Z51.5 Encounter for palliative care; Z66 Do not resuscitate; I46.9 Cardiac arrest, cause unspecified; I34.0 Nonrheumatic mitral (valve) insufficiency; F32.A Depression, unspecified; I25.5 Ischemic cardiomyopathy; R33.9 Retention of urine, unspecified; R29.6 Repeated falls; K21.9 Gastro-esophageal reflux disease without esophagitis; I95.1 Orthostatic hypotension; M81.0 Age-related osteoporosis without current pathological fracture; Z79.01 Long term (current) use of anticoagulants; Z79.02 Long term (current) use of antithrombotics/antiplatelets; Z79.4 Long term (current) use of insulin; Z79.52 Long term (current) use of systemic steroids; Z79.82 Long term (current) use of aspirin; Z79.899 Other long term (current) drug therapy; Z82.49 Family history of ischemic heart disease and other diseases of the circulatory system; Z86.73 Personal history of transient ischemic attack (TIA), and cerebral infarction without residual deficits; Z96.41 Presence of insulin pump (external) (internal); M19.90 Unspecified osteoarthritis, unspecified site; Z86.79 Personal history of other diseases of the circulatory system; Z98.1 Arthrodesis status; Z71.3 Dietary counseling and surveillance; Z91.81 History of falling; Z96.89 Presence of other specified functional implants
CPT/HCPCS: 33990; 36415; 71045; 71046; 76770; 76937; 80048; 80053; 81001; 82247; 82330; 82805; 82947; 82977; 83605; 83615; 83735; 83880; 84075; 84132; 84145; 84484; 85025; 85384; 85610; 85730; 86701; 86803; 86850; 86900; 86901; 87040; 87070; 87086; 87205; 87340; 87636; 93005; 93306; 93308; 93460; 94002; 94003; 94640; 96365; 96366; 96367; 96368; 96375; 99291